=== PATIENT | male | born 1945 | race Caucasian/White ===

== ENCOUNTER 2016-03-19 09:24 | Outpatient (CLI) ==
[2016-03-19 09:41] LABS: BASOPHILS # (AUTO) 0.1 K/uL (0-0.2); BASOPHILS % (AUTO) 0.7 % (0.0-3.0); EOSINOPHILS # (AUTO) 0.3 K/ul (0.0-0.7); HEMATOCRIT 47.7 % (42.0-52.0); HEMOGLOBIN 16.4 g/dl (14.0-18.0); IMMATURE GRANULOCYTE % (AUTO) 0.9 % (0.0-5.0); LYMPHOCYTES # (AUTO) 3.4 K/uL (0.60-3.4); LYMPHOCYTES % (AUTO) 34.3 (10.0-50.0); MEAN CORPUSCULAR HGB CONC 34.4 (31.8-35.4); MEAN CORPUSCULAR VOLUME 84.3 fl (80.0-94.0); MONOCYTES # (AUTO) 0.8 K/uL (0.4-2.0); MONOCYTES % (AUTO) 8.4 (0-10); NEUTROPHILS # (AUTO) 5.2 K/ul (2.0-6.9); NEUTROPHILS % (AUTO) 52.7; PLATELET COUNT 335 10^3/uL (140-440); RED BLOOD COUNT 5.66 10^6/ul (4.70-6.10); WHITE BLOOD COUNT 9.78 K/ul (4.2-10.2)
[2016-03-19 10:26] LABS: ALBUMIN 3.1 g/dL (3.4-5.0); ALBUMIN/GLOBULIN RATIO 0.74; ANION GAP 16.3; BILIRUBIN,TOTAL 0.63 mg/dL (0.00-1.20); BUN/CREATININE RATIO 8.65; CALCIUM 9.5 mg/dL (8.2-10.2); CHOL/HDL RATIO 7.8 (4.5-6.4); CREATININE 1.04 mg/dL (0.60-1.10); POTASSIUM 4.3 mmol/L (3.5-5.1); TOTAL PROTEIN 7.3 g/dL (5.8-8.1)
== END 2016-03-19 09:25 | disposition home or self-care (01) ==
LOC: LAB 09:24
PROVIDERS: ATTEND Emergency Medicine
DX: E11.9 Type 2 diabetes mellitus without complications (principal); I10 Essential (primary) hypertension; E78.5 Hyperlipidemia, unspecified
CPT/HCPCS: 36415; 80053; 80061; 83036; 84443; 85025

== ENCOUNTER 2016-05-25 16:58 | Outpatient (CLI) | END 2016-05-25 16:59 | disposition home or self-care (01) | LOC: AMBL 16:58 | PROVIDERS: ATTEND Emergency Medicine | DX: R53.1 Weakness (principal); E11.9 Type 2 diabetes mellitus without complications; I10 Essential (primary) hypertension; Z91.14 Patient's other noncompliance with medication regimen ==

== ENCOUNTER 2016-07-17 08:15 | Outpatient (RCR) ==
--- NOTE | 2016-07-17 10:24 | RS.BEDDYS ---
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 Pt was independent with grooming, dressing, walking, eating, and swallowing.) Current Level of Function: This 71 year old male was referred for skilled speech therapy services due to chronic ischemic left ICA stroke and unspecified dysphagia. Symptoms began in the home environment and resulted in a two week hospital stay. Pt was discharged from the hospital and has reported choking and regurgitation episodes since return home. Pt's reports significant weight loss over eight months. Pt is at risk for aspiration and/or penetration. Current Diet: Regular diet texture with thin liquids. Current Subjective/complaints:: Pt reported no concerns with speech or cognitive -communication skills. Pt reported episodes of regurgitation, specifically with liquids. Concerns with certain food textures have also been reported and pt has stopped eating these textures. Pt stated medications are difficult to swallow and he has regurgitated medications in the past as well. He has verbalized a change with ability to taste flavors or enjoy taste of flavors, which has resulted in decreased appetite and decreased PO intake, as well as significant weight loss. is concerned with safe swallowing. Medical History Comments:: DM, CVA, Dyslipidemia, arthritis. Hx Home Medications: RESIDENTIAL PROGRAM WORKER reviewed current list of medications. Pt currently takes Protonix 1x in the a.m. for reflux. Patient's Goals: Pt wants to reduce regurgitation and increase PO intake. RESIDENTIAL PROGRAM WORKER to determine safest and least restrictive diet texture. General Information - General Patient Orientation: Person, Place, Time, Situation Ability to Follow Directions: Good Oral Expression Ability: No Impairment - Voice Voice Loudness: Mildly Soft/Quiet Oral-Facial Assessment - Face Facial Symmetry: Right Droop (Slight, but noticeable with oral mechanism examination.) Facial Movement: Controlled - Dental/Labial Teeth Characteristics: Missing Teeth Comment: Pt edentulous for seven years. Never wears dentures. Lip Protrusion: Weak Puff Cheeks: Reduced Strength - Lingual Protrusion: Weak (Deviation to left side) Tip Lateralization: Discoordination Repeated Tip Lateralization: Discoordination Tip Elevation: Normal Repeated Tip Elevation: Normal Food Presentation - Solids Food Presented: Mechanical Soft (Moderate lingual residue. Poor oral sensory awareness) - Liquids Liquid Presented: Thin (Via cup, no overt s/s of aspiration. Audible swallow, mild delay.) - Recommendations: Dysphagia Evaluation Dietary Recommendations: Dysphagia Mechanical Soft Comments:: RESIDENTIAL PROGRAM WORKER recommends mechanical-soft due to oral weakness and decreased lingual/oral sensation. Dysphagia Swallow Precautions/Strategies: Sitting Upright (90 deg), Alternate Liquids/Solids - Summary Dysphagia Evaluation Summary: Pt with oropharyngeal dysphagia, as characterized by lingual weakness, discoordination with lateral lingual movement, moderate lingual residue with limited sensory awareness, mild swallow delay, audible swallow, and decreased laryngeal elevation. RESIDENTIAL PROGRAM WORKER recommends soft diet and alternating liquids and solids to clear residue. Further evaluation with modified barium swallow study to be completed. No overt s/s of aspiration at the bedside, however pt reports mutliple occasions of choking and regurgitation with liquids and some food textures. Further Therapy Indicated?: Yes Comments: Determine frequency and duration and goals of therapy post modified bariums swallow study. Rehab Potential: Good Functional Reporting G Codes: Current CJ Goal CI Severity Impairment Rationale: Pt edentulous and RESIDENTIAL PROGRAM WORKER recommends mechanical soft diet texture with thin liquids. Short Term Goals Problem: Regurgitation with thin liquids Goal #1: Pt to utilize strategies without overt s/s of aspiraiton. Goal to be met by: 08/01/16 Problem: Lingual residue Goal #2: Pt to complete lingual exercises with 80% accuracy. Goal to be met by: 08/01/16 Wash Driller Helper Goals Problem: Swallowing Goal #1: Pt to consume PO intake without overt s/s of aspiration Goal to be met by: 08/01/16 Plan Duration of Treatment: 2 Weeks Frequency of Treatment: 1-2 X day, as tolerated Anticipated Discharge Destination: Home Comments: Pt to have modified barium swallow study at next visit.
== END 2016-07-23 ==
PROVIDERS: ATTEND Clinical Nurse Specialist Adult Health
DX: I69.30 Unspecified sequelae of cerebral infarction (principal); E13.9 Other specified diabetes mellitus without complications; E78.5 Hyperlipidemia, unspecified; R13.10 Dysphagia, unspecified

== ENCOUNTER 2016-07-31 14:14 | Outpatient (CLI) | payer OTHER ==
--- NOTE | 2016-07-31 15:05 | DI ---
EXAM: Right knee four views HISTORY: Pain COMPARISON: None FINDINGS: No fracture or dislocation. Mild narrowing medial compartment. Joint effusion. Quadric eps tendon enthesopathy. Atherosclerotic vascular calcification IMPERSSION: 1. No fracture or dislocation. 2. Mild osteoarthritis medial compartment
== END 2016-07-31 14:15 | disposition home or self-care (01) ==
LOC: RAD 14:14
PROVIDERS: ATTEND Internal Medicine
DX: M25.561 Pain in right knee (principal); M25.461 Effusion, right knee; I69.30 Unspecified sequelae of cerebral infarction; R13.10 Dysphagia, unspecified; E13.9 Other specified diabetes mellitus without complications; E78.5 Hyperlipidemia, unspecified; M25.551 Pain in right hip

== ENCOUNTER 2016-08-01 09:24 | Outpatient (CLI) | payer OTHER ==
--- NOTE | 2016-08-01 11:14 | DI ---
EXAM: Modified barium swallow HISTORY: Dysphagia. Technique: Lateral video fluoroscopy was performed in conjunction with speech therapy using multipl e consistencies to evaluate swallowing function. Findings / impression: No aspiration or penetration was observed. Patient had difficulty swallowin g a pill with thin liquids. Mild to moderate degenerative disc disease of the cervical spine. Plea se see dedicated speech pathology report for additional details.
--- NOTE | 2016-08-01 11:36 | RS.MODBRM ---
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 Pt was indepednet with grooming, dressing, walking, eating, and swallowing.) Current Level of Function: This 71 year old male was referred for a modified barium swallow study due to reports and cocerns noted at the outpatient bedside swallow evaluation. RESEARCH AND DEVELOPMENT SPECIALIST assessed pt with mechanical soft and thin liquids. Swallow function observed with left side weakness, lingual discoordination, and moderate oral residue, as well as delay in swallow initiation. No overt s/s of aspiration at the bedside. Pt reported concerns with weight loss, loss of appetite, reguritation with thin liquids and medications, and was concerned with safe swallowing. Current Diet: Mechanical soft diet texture with thin liquids. Current Subjective/complaints:: At time of evaluation, pt reported no changes with swallow function since BSE completed on 07/17/16 (review BSE for complete details). Pt stated he had maintained weight and had no episodes of choking or reguritation with medications or food texture. Appetite was unchanged as well, and he reported no change with interest to increase PO intake. reported no new concerns and had followed RESEARCH AND DEVELOPMENT SPECIALIST recommendations with mechanical soft diet texture. Pt continues to consume PO intake edentulous. Medical History Comments:: DM, CVA, Dyslipidemia, arthritis. Hx Home Medications: RESEARCH AND DEVELOPMENT SPECIALIST reviewed current list of medications. Patient's Goals: To maintain weight and consume safest and least restrictive diet texture without s/s of aspiration. Food Presented Thin Liquid: cup (open cup 3 trials) Vanilla Wafer: 1/4 cookie (1/2 hanh cracker cookie) Barium Tablet: Tablet (thin liquids and teaspoon of applesauce.) Other:: Regular sausage jamshid 1/2 teaspoon bite. Oral Phase - Oral Phase Labial Closure: WFL Bolus Formation: Mild Impairment (With regular texture and mechanical soft texture.) Mastication: Mild Impairment (decreased rotary chew.) Lingual Movement: Moderate Impairment (Lingual base retraction with regular texture and premature spillage. Piece meal deglution) A/P Propulsion: Mild Impairment Premature Vallecular Pooling: Coating (With thin liquids) Oral Residue: Coating (regular and mechanical soft diet textures.) Pharyngeal Phase Pharyngeal Response: Mild Impairment (Decreased swallow response) Base of Tongue: Moderate Impairment (Decreased strength and coordination; mild- moderate spillage) Epiglottic Movement: Mild Impairment (Inversion) Laryngeal Excursion: Mild Impairment Vallecular Residue: Scant Pyriform Residue: Coating (premature spillage to pyriform sinues prior to initiation of swallow response.) Summary and Recommendations - Recommendations PO Diet: Mechanical Soft, Chopped Meats, Moist, Thin Liquids Comments:: Pt characterized with mild orophayngeal dysphagia due to lingual weakness and swallow delay. Pt has mild risk for aspiraiton/penetration due to premature spillage to pyriform sinuses with thin liquids. No aspiration/ penetration observed on MBSS over 2 consecutive thin liquid drinks via open cup or thin liquids with pills and liquid wash. Decreased base of tongue strength and lingual coordination, however functional to consume mechanical soft diet texture, with mild risk for valleculae residue during full meal. RESEARCH AND DEVELOPMENT SPECIALIST recommends pt to follow safe swallow strategies and increase PO intake to 6-8 small meals to maintain weight. All medications to be administered whole in teaspoon of applesauce, pudding, or yogurt. Further Therapy Indicated?: No Functional Reporting G Codes: Current CJ , Goal CJ, Discharge CJ Severity Impairment Rationale: Pt consumes mechanical soft diet texture with thin liquids. Pt is at risk for aspriation/penetration due to decreased base of tongue strength and mild swallow delay. Short Term Goals Problem: Regurgitation with thin liquids Goal #1: Pt to utilize strategies without overt s/s of aspiraiton. Goal to be met by: 08/01/16 Problem: Lingual residue Goal #2: Pt to complete lingual exercises with 80% accuracy. Goal to be met by: 08/01/16 Brush Or Broom Cutter Goals Problem: Swallowing Goal #1: Pt to consume PO intake without overt s/s of aspiration Goal to be met by: 08/01/16 Plan Duration of Treatment: One Time Treatment Frequency of Treatment: One time treatment Anticipated Discharge Destination: Home Comments: Pt is observed with non-compliant behaviors as evidenced by impulsivity and refusal of tasks. RESEARCH AND DEVELOPMENT SPECIALIST provided verbal instructions to for program to be completed at home to decrease risk for aspiraiton/penetration. If pt was cooperative for skilled services, RESEARCH AND DEVELOPMENT SPECIALIST would complete base of tongue exercises and sensory awareness tasks with swallow response to decrease risk of aspriation/penetration and increase efficiency of swallow function. Pt swallow function at this time is functional to meet daily needs, however may need follow -up in 12 months is health status declines.
== END 2016-08-01 09:25 | disposition home or self-care (01) ==
LOC: RAD 09:24
PROVIDERS: ATTEND Clinical Nurse Specialist Adult Health
DX: R13.10 Dysphagia, unspecified (principal); I63.9 Cerebral infarction, unspecified

== ENCOUNTER 2016-08-21 08:00 | Outpatient (RCR) ==
--- NOTE | 2016-07-28 15:03 | RS.OPPTEV2 ---
Date of Note: 07/24/16 Visit #: 1 Date of Evaluation: 07/24/16 Payer Source: MEDICARE Date of Onset/Injury/Change in Status: 05/25/16 Treatment Diagnosis: Right LE weakness, right hip and knee pain, gait abnormality History of Condition/Mechanism of Injury:: Patient reports having a CVA on . His states he apparently had it while driving home from [place], [place]. When they arrived home, he could not get out of the car or walk. He was taken to the hospital and ended up being there two weeks. 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 Pt was independent with grooming, dressing, walking, eating.), Ambulation/Mobility, Community Integration/Access (Driving, would go to [employer] every morning per ) Functional Limitations: ADL's, Reaching, Pushing, Pulling, Lifting, Carrying, Standing, Bending, Squatting, Ambulation, Community Access/Integration Current Subjective/complaints:: Patient reports right hip and knee pain. Also reports weakness of the right LE. States he has fallen several times since being home from the hospital. He reports two falls in the last two days. States the right knee hurts with every step and will just buckle and cause him to fall. Both he and his report frustration that the right knee has not been addressed. Reports knee pain with all movement and weight bearing. States he is using a rolling walker. States "I can't hold my balance without it ". He denies dizziness. Stats he has constant tingling in the right LE. His reports he always looks down while walking. Treatment Side (optional): Right Medical History Medical History: CVA/TIA, Diabetes, Arthritis Medical History Comments:: Dyslipidemia , History of Polio as a child Surgical History: Cholecystectomy Surgical History Comments:: Appendectomy, hernia repair Hx Home Medications: Lipitor, invokana, gabapentin, Luther, tradjenta, metformin , protonix, spiriva Patient's Goals: His goal is to gain strength in the right knee. Pain Assessment - Pain Description Pain Location: right knee Pain Description: Sharp, Aching, Acute Current Pain Intensity: 5/10 Worst Pain Intensity: 10/10 Functional Outcome Measure LE Functional Scale: 20 (20/80=75% impairment) - G Codes & Severity Modifier G Codes & Modifier: Mob current CL. Mob goal CJ Source of G Code score: LE functional scale Observation - Observation Posture: Forward Head, Rounded Shoulders, Decreased Lumbar Lordosis Gait - Gait Pattern Gait Comments: Patient ambulates with a rolling walker independently. He demonstrates decreased right knee and hip flexion during swing phase and maintains slight knee bend at foot flat stance. Exhibits decreased heel strike on the right LE. Stance on the right LE is decreased compared to left stance phase. He does not demonstrate foot drop on the right LE, but active DF on the right is less than what he demonstrates on the left LE during ambulation. Patient keeps his head down, looking at the floor while ambulating. General Range of Motion: AROM is WFL's throughout bilateral LE's and UE's. He reports severe right knee pain with active and passive right knee ROM. Muscle Strength: Left LE strength is generally 4+/5 throughout. Right hip 4/5 throughout, knee 4-/5, ankle 4/5. Trunk strength is Good. Animal Sitter strength: right 49 lbs, left 58 lbs. Right UE strength generally 4 to 4+/5. Left UE 4+ to 5/5. Sensation - Sensation Comments: Reports constant tingling and numbness throughout the right LE. Balance - Sitting Balance Static Sitting Balance: Good Dynamic Sitting Balance: Good - Standing Balance Static Standing Balance: Fair (+) Dynamic Standing Balance: Fair - Comments Balance Assessment Comments: Static balance with eyes closed, patient demonstrates anterior/posterior sway. Coordination - Tests Bilateral Toe Tapping: Normal/Intact Interventions - Exercise/Activities/Manual Therapy Exercises/Activities: NA Manual Therapy: NA - Charges Total Direct Minutes: 50 mins Total Treatment Time: 50 mins Procedures billed for this date of service:: EVAL Medium Assessment Assessment: Patient presents to therapy with a diagnosis of ischemic left ICA stroke. He presents with weakness of the right LE throughout. He reports right hip and knee pain. Knee pain is reported with all movement of the right and during MMT. He and his reports two falls in the last two days. He demonstrates to be at a high risk for falls due to right LE weakness, knee pain , and impaired sensation in the right LE. He will benefit from strengthening and balance activities to improve right LE joint stability and decrease his risk for falls. Patient Education: Education of diagnosis, Body/Joint mechanics, Home Exercise Program, Home Safety, Activity Modification, Education of Plan of Care Rehab Potential: Good Short Term Goals Goal #1: Patient independent in basic HEP. Goal to be met by: 08/11/16 Goal #2: Right quad strength 4+/5. Goal to be met by: 08/11/16 Goal #3: Right ankle strength 4+/5. Goal to be met by: 08/11/16 Goal #4: Patient to report minimal right knee pain with activity/exercises. Goal to be met by: 08/11/16 Senior Care Goals Goal #1: Pt knows HEP and to continue ex's to maintain functional level at D/C. Goal to be met by: 09/06/16 Goal #2: Score on LE functional scale improved to 60/80. Goal to be met by: 09/06/16 Goal #3: Pt to amb. community distances with AAD, good safety, and min. gt deviation Goal to be met by: 09/06/16 Goal #4: Patient to reports no falls. Goal to be met by: 09/06/16 Plan - Treatment to be Provided Procedures: Therapeutic Exercises, Therapeutic Activity, Gait Training, Neuromuscular Rehab, Patient Education Modalities: Electrical Stimulation, Ultrasound/Phonophoresis, Cryotherapy, Hot Packs Other:: Modalities to right knee for pain control. - Treatment Plan Frequency: 2-3 X week Duration: 4 weeks ORDER # VISITS AND/OR THROUGH DATE: 09/06/16 - Treatment Code (1) Leg weakness Qualifiers: Laterality: right Qualified Description: Weakness of right lower extremity Qualifier Code(s): (R29.898) Other symptoms and signs involving the musculoskeletal system (2) Gait abnormality Comments: R26.9 (3) Chronic ischemic left ICA stroke Comments: I69.30
--- NOTE | 2016-07-29 09:20 | RS.OPPTDN ---
Subjective Date of Note: 07/29/16 Visit #: 2 Date of Evaluation: 07/24/16 Payer Source: MEDICARE Treatment Diagnosis: Right LE weakness, right hip and knee pain, gait abnormality Current Subjective/complaints:: Reports the R knee feels painful and numb. Pain Assessment - Pain Description Pain Location: right knee Pain Description: Sharp, Aching, Acute Current Pain Intensity: 8/10 Other Comments regarding Pain:: "feels numb" - Treatment Modality: Electrical Stim Unattended Parameters/Method Applied: 20 mins. high volt to R knee,channel 1 @ 190-205 pv, channel 2 @ 290 -300 pv. Patient Position: Supine - Heat/Cryotherapy Treatment: Cryotherapy (concurrent with e-stim) Interventions - Exercise/Activities/Manual Therapy Exercises/Activities: Attempted exercises ,but unable to tolerate passive or active motion due to pain and hypersensitive to touch. Total minutes of Exercise: 0 Manual Therapy: NA - Charges Total Direct Minutes: 0 Total Treatment Time: 20 Procedures billed for this date of service:: cp,e-stim Assessment: Patient reports no relief today,restless while in supine and during the modalities.He could not tolerate the passive or active motion on the R knee.He and his plan to follow-up with the regarding the continued knee pain. Patient Education: Education of diagnosis, Home Safety Short Term Goals Goal #1: Patient independent in basic HEP. Goal to be met by: 08/11/16 Goal #2: Right quad strength 4+/5. Goal to be met by: 08/11/16 Goal #3: Right ankle strength 4+/5. Goal to be met by: 08/11/16 Goal #4: Patient to report minimal right knee pain with activity/exercises. Goal to be met by: 08/11/16 Biology Specimen Technician Goals Goal #1: Pt knows HEP and to continue ex's to maintain functional level at D/C. Goal to be met by: 09/06/16 Goal #2: Score on LE functional scale improved to 60/80. Goal to be met by: 09/06/16 Goal #3: Pt to amb. community distances with AAD, good safety, and min. gt deviation Goal to be met by: 09/06/16 Goal #4: Patient to reports no falls. Goal to be met by: 09/06/16 Plan PLAN OF CARE EXPIRES ON:: 09/06/16 ORDER # VISITS AND/OR THROUGH DATE: 09/06/16 PLAN: Continue Plan of Care
--- NOTE | 2016-07-31 09:04 | RS.OPPTDN ---
Subjective Date of Note: 07/31/16 Visit #: 3 Date of Evaluation: 07/24/16 Payer Source: MEDICARE Treatment Diagnosis: Right LE weakness, right hip and knee pain, gait abnormality Current Subjective/complaints:: Reports no relief after last treatment,R leg is hurting more today.He has appt. today with Dr. Glenn Crain regarding his knee pain. Pain Assessment - Pain Description Pain Location: right knee Pain Description: Sharp, Aching, Acute Current Pain Intensity: 10/10 - Treatment Modality: Ultrasound Parameters/Method Applied: 20 mins. high volt to R knee,channel 1 @ 300 pv, channel 2 @ 475 pv. Patient Position: Supine - Heat/Cryotherapy Treatment: Cryotherapy (concurrent with e-stim) Interventions - Exercise/Activities/Manual Therapy Exercises/Activities: Attempted exercises ,but unable to tolerate passive or active motion due to pain and hypersensitive to touch. Total minutes of Exercise: 0 Manual Therapy: NA Total minutes of Manual Therapy: 0 - Charges Total Direct Minutes: 0 Total Treatment Time: 20 Procedures billed for this date of service:: cp,e-stim Assessment: Patient reports elevated pain again today ,unable to tolerate exercises.Dr.Bharet Crain's office contacted to give report of patient status as he has appt. this afternoon regarding the R knee pain. Patient Education: Education of Plan of Care Short Term Goals Goal #1: Patient independent in basic HEP. Goal to be met by: 08/11/16 Progress towards Goal:: No Change Goal #2: Right quad strength 4+/5. Goal to be met by: 08/11/16 Progress towards Goal:: No Change Goal #3: Right ankle strength 4+/5. Goal to be met by: 08/11/16 Progress towards Goal:: No Change Goal #4: Patient to report minimal right knee pain with activity/exercises. Goal to be met by: 08/11/16 Longterm Goals Goal #1: Pt knows HEP and to continue ex's to maintain functional level at D/C. Goal to be met by: 09/06/16 Goal #2: Score on LE functional scale improved to 60/80. Goal to be met by: 09/06/16 Goal #3: Pt to amb. community distances with AAD, good safety, and min. gt deviation Goal to be met by: 07/15/17 Goal #4: Patient to reports no falls. Goal to be met by: 09/06/16 Plan PLAN OF CARE EXPIRES ON:: 09/06/16 ORDER # VISITS AND/OR THROUGH DATE: 09/06/16 PLAN: Continue Plan of Care
--- NOTE | 2016-08-05 09:00 | RS.OPPTDN ---
Subjective Date of Note: 08/05/16 Visit #: 4 Date of Evaluation: 07/24/16 Payer Source: MEDICARE Treatment Diagnosis: Right LE weakness, right hip and knee pain, gait abnormality Current Subjective/complaints:: Patient reports the R knee pain is about the same,but he appears to be walking better as he enters the clinic.He had R knee X -ray last week,no indication of fracture or dislocation,has arthritis and joint effusion. Pain Assessment - Pain Description Pain Location: right knee Pain Description: Tightness, Aching, Acute Current Pain Intensity: 8/10 - Heat/Cryotherapy Treatment: Hot Pack (20 mins. prior to exercises) Interventions - Exercise/Activities/Manual Therapy Exercises/Activities: 20 mins.total, 3/15 reps. of heelslides with assist,hip abd/add,patient education for inhibition of muscle tone. Total minutes of Exercise: 20 Manual Therapy: NA Total minutes of Manual Therapy: 0 HOME EXERCISE PROGRAM: Gentle stretching as tolerated to R LE.(Dependent upon tone in the LE from recent CVA). - Charges Total Direct Minutes: 20 Total Treatment Time: 40 Procedures billed for this date of service:: hp,ex Assessment: Patient has difficulty understanding the difference between actual joint pain and the hypertonus pain in the R LE.He does actually have improved knee motion when at rest,but the tone increases as the active motion exercises progress. Patient Education: Education of diagnosis, Body/Joint mechanics, Home Exercise Program, Home Safety, Activity Modification, Education of Plan of Care Short Term Goals Goal #1: Patient independent in basic HEP. Goal to be met by: 08/11/16 Progress towards Goal:: Progressing Goal #2: Right quad strength 4+/5. Goal to be met by: 08/11/16 Goal #3: Right ankle strength 4+/5. Goal to be met by: 08/11/16 Goal #4: Patient to report minimal right knee pain with activity/exercises. Goal to be met by: 08/11/16 Halfway Goals Goal #1: Pt knows HEP and to continue ex's to maintain functional level at D/C. Goal to be met by: 09/06/16 Progress towards goal: Progressing Goal #2: Score on LE functional scale improved to 60/80. Goal to be met by: 09/06/16 Goal #3: Pt to amb. community distances with AAD, good safety, and min. gt deviation Goal to be met by: 09/06/16 Goal #4: Patient to reports no falls. Goal to be met by: 09/06/16 Plan PLAN OF CARE EXPIRES ON:: 09/06/16 ORDER # VISITS AND/OR THROUGH DATE: 09/06/16 PLAN: Continue Plan of Care
--- NOTE | 2016-08-07 09:52 | RS.OPPTDN ---
Subjective Date of Note: 08/07/16 Visit #: 5 Date of Evaluation: 07/24/16 Payer Source: MEDICARE Treatment Diagnosis: Right LE weakness, right hip and knee pain, gait abnormality Current Subjective/complaints:: Reports he is trying to do exercises at home holding to the kitchen sink area,as instructed by home health.He requests no ice or heat to the R LE today,but agrees to e-stim. Pain Assessment - Pain Description Pain Location: right knee Pain Description: Tightness, Aching, Acute Current Pain Intensity: not rated today - Treatment Modality: Electrical Stim Unattended Parameters/Method Applied: 20 mins. IFC to the R LE,@ 20 pv,4 large electrodes, 2 above ,2 below the knee. Patient Position: Supine Interventions - Exercise/Activities/Manual Therapy Exercises/Activities: 25 mins.total, 3/15 reps. AROM of heelslides,then LAQ's, 10 reps. gentle stretches to R hamstrings.Gait training in gym for ~ 50 with SC in L hand ,then R with min assist,then hand-hold assist with min/mod assist.Ended session with using R/w and sup/CGA of 1. Total minutes of Exercise: 25 Manual Therapy: NA HOME EXERCISE PROGRAM: Gentle stretching as tolerated to R LE.(Dependent upon tone in the LE from recent CVA). - Charges Total Direct Minutes: 25 Total Treatment Time: 45 Procedures billed for this date of service:: e-stim,gt.,NMR Assessment: Patienthas less tone in the R LE today with exercises,has steadier gait with R/W.He uses proper step sequence with cane ,but is sligtly unsteady and the R LE tone increase as the gait progresses.He agrees that the R/W is the appropriate device for walking at this time. Patient Education: Education of diagnosis, Body/Joint mechanics, Home Exercise Program, Home Safety, Activity Modification, Education of Plan of Care Patient demonstrates compliance with HEP?: Yes Short Term Goals Goal #1: Patient independent in basic HEP. Goal to be met by: 08/11/16 Progress towards Goal:: Progressing Goal #2: Right quad strength 4+/5. Goal to be met by: 08/11/16 Progress towards Goal:: Progressing Goal #3: Right ankle strength 4+/5. Goal to be met by: 08/11/16 Goal #4: Patient to report minimal right knee pain with activity/exercises. 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 Goal to be met by: 09/06/16 Progress towards goal: Progressing Goal #2: Score on LE functional scale improved to 60/80. Goal to be met by: 09/06/16 Goal #3: Pt to amb. community distances with AAD, good safety, and min. gt deviation Goal to be met by: 09/06/16 Goal #4: Patient to reports no falls. Goal to be met by: 09/06/16 Plan PLAN OF CARE EXPIRES ON:: 09/06/16 ORDER # VISITS AND/OR THROUGH DATE: 09/06/16 PLAN: Continue Plan of Care
--- NOTE | 2016-08-12 09:28 | RS.OPPTDN ---
Subjective Date of Note: 08/12/16 Visit #: 6 Date of Evaluation: 07/24/16 Payer Source: MEDICARE Treatment Diagnosis: Right LE weakness, right hip and knee pain, gait abnormality Current Subjective/complaints:: Patient reports yesterday the R leg felt better, but it is hurting more today.He does enter clinic wih antalgic gait today,delicia nues to use rolling walker for safety,does not feel safe with cane at this time. Pain Assessment - Pain Description Pain Location: right knee Pain Description: Tightness, Aching Current Pain Intensity: "02/01" - Heat/Cryotherapy Treatment: Hot Pack (20 mins.to R quads after balance training ) Interventions - Exercise/Activities/Manual Therapy Exercises/Activities: 30 mins.total, on BIODEX BALANCE SYSTEM for postural stability,limits of stability,weight shifting,percentage weight bearing with the base on static setting. Total minutes of Exercise: 30 Manual Therapy: NA Total minutes of Manual Therapy: 0 HOME EXERCISE PROGRAM: Gentle stretching as tolerated to R LE.(Dependent upon tone in the LE from recent CVA). - Charges Total Direct Minutes: 30 Total Treatment Time: 50 Procedures billed for this date of service:: NMR 2,hp Assessment: Patient tolerates BIODEX BALANCE SYSTEM fairly well today,with frequent rest periods due to increased tone the longer he stands.We discussed inhibition techniques for the R LE tone ,but he and his need further education in regards to this.They have difficulty differentiating between arthritic pain vs. neuralgia and hypertonus. Patient Education: Education of diagnosis, Body/Joint mechanics, Home Exercise Program, Home Safety, Activity Modification, Education of Plan of Care Short Term Goals Goal #1: Patient independent in basic HEP. Goal to be met by: 08/11/16 Progress towards Goal:: Progressing Goal #2: Right quad strength 4+/5. Goal to be met by: 08/11/16 Progress towards Goal:: Progressing Goal #3: Right ankle strength 4+/5. Goal to be met by: 08/11/16 Goal #4: Patient to report minimal right knee pain with activity/exercises. 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 Goal to be met by: 09/06/16 Progress towards goal: Progressing Goal #2: Score on LE functional scale improved to 60/80. Goal to be met by: 09/06/16 Goal #3: Pt to amb. community distances with AAD, good safety, and min. gt deviation Goal to be met by: 09/06/16 Progress towards goal: Progressing Goal #4: Patient to reports no falls. Goal to be met by: 09/06/16 Plan PLAN OF CARE EXPIRES ON:: 09/06/16 ORDER # VISITS AND/OR THROUGH DATE: 09/06/16 PLAN: Continue Plan of Care
--- NOTE | 2016-08-14 09:10 | RS.OPPTDN ---
Subjective Date of Note: 08/14/16 Visit #: 7 Date of Evaluation: 07/24/16 Payer Source: MEDICARE Treatment Diagnosis: Right LE weakness, right hip and knee pain, gait abnormality Current Subjective/complaints:: Patient reports the R leg hurts continuously, and yesterday was a terrible day. Pain Assessment - Pain Description Pain Location: right knee Pain Description: Tightness, Aching Current Pain Intensity: 10/10 Interventions - Exercise/Activities/Manual Therapy Exercises/Activities: 40 mins.total, begining on leg press.3/15 reps. @ 45,60, 75 # with both LE's,then 3/15 reps with R LE only @ 30#.15 # resistance for 20 reps. of knee flexion between 20 degrees flexed and terminal extension.Supine SLR's for 3/10 with 2#,SAQ's with 4#,also 3/10.Yellow theraband resistance for hamstring curls with leg on bolster. Total minutes of Exercise: 40 Manual Therapy: NA Total minutes of Manual Therapy: 0 HOME EXERCISE PROGRAM: Gentle stretching as tolerated to R LE.(Dependent upon tone in the LE from recent CVA). - Charges Total Direct Minutes: 40 Total Treatment Time: 40 Procedures billed for this date of service:: ex 3 Assessment: Patient tolerates resistive exercises fairly well,has difficulty with eccentric control due to muscle weakness.He reports the exercises on leg press do not elevate the residual pain from the recent CVA,but has fatigue present.He continues to be safer with rolling walker,due to the R knee occasionally "simon" ,but he is able to self-correct his balance.It is questionable regarding compliance to HEP when asked.He states he walks frequently,but his reports differently. Patient Education: Education of diagnosis, Body/Joint mechanics, Home Exercise Program, Home Safety, Activity Modification, Education of Plan of Care Short Term Goals Goal #1: Patient independent in basic HEP. Goal to be met by: 08/11/16 Progress towards Goal:: Progressing Goal #2: Right quad strength 4+/5. Goal to be met by: 08/11/16 Progress towards Goal:: Progressing Goal #3: Right ankle strength 4+/5. Goal to be met by: 08/11/16 Progress towards Goal:: Progressing Goal #4: Patient to report minimal right knee pain with activity/exercises. 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 Goal to be met by: 09/06/16 Progress towards goal: No Change Comments: Compliance is questionable. Goal #2: Score on LE functional scale improved to 60/80. Goal to be met by: 09/06/16 Goal #3: Pt to amb. community distances with AAD, good safety, and min. gt deviation Goal to be met by: 09/06/16 Progress towards goal: Progressing Goal #4: Patient to reports no falls. Goal to be met by: 09/06/16 Plan PLAN OF CARE EXPIRES ON:: 09/06/16 ORDER # VISITS AND/OR THROUGH DATE: 09/06/16 PLAN: Continue Plan of Care
--- NOTE | 2016-08-18 09:30 | RS.OPPTDN ---
Subjective Date of Note: 08/18/16 Visit #: 8 Date of Evaluation: 07/24/16 Payer Source: MEDICARE Treatment Diagnosis: Right LE weakness, right hip and knee pain, gait abnormality Current Subjective/complaints:: Reports increased soreness and increased swelling in the R knee yesterday.He ambulates with minimal trunk /pelvic rotation in the R. Pain Assessment - Pain Description Pain Location: right knee Pain Description: Tightness, Throbbing, Aching Current Pain Intensity: 8/10 - Heat/Cryotherapy Treatment: Hot Pack (20 mins. to R knee prior to exercises) Interventions - Exercise/Activities/Manual Therapy Exercises/Activities: 30 mins.total, for inhibition ,stretching to R LE in all directions,lower trunk rotation in hooklying,sitting and standing weight -shift. Total minutes of Exercise: 30 Manual Therapy: NA Total minutes of Manual Therapy: 0 HOME EXERCISE PROGRAM: Gentle stretching as tolerated to R LE.(Dependent upon tone in the LE from recent CVA). - Charges Total Direct Minutes: 30 Total Treatment Time: 50 Procedures billed for this date of service:: hp,ex 2 Assessment: Patient has increased hypertonus in the R LE today,very restless, and reports the " locking up" sensation frequently.The tone does not decrease with increased weight shift,and eventually decreases with deep pressure to the muscles or static prolonged stretching. Patient Education: Education of diagnosis, Body/Joint mechanics, Home Exercise Program, Home Safety, Activity Modification, Education of Plan of Care Patient demonstrates compliance with HEP?: Yes Short Term Goals Goal #1: Patient independent in basic HEP. Goal to be met by: 08/11/16 Progress towards Goal:: Progressing Goal #2: Right quad strength 4+/5. Goal to be met by: 08/11/16 Progress towards Goal:: No Change Goal #3: Right ankle strength 4+/5. Goal to be met by: 08/11/16 Progress towards Goal:: No Change Goal #4: Patient to report minimal right knee pain with activity/exercises. 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 Goal to be met by: 09/06/16 Progress towards goal: Progressing Goal #2: Score on LE functional scale improved to 60/80. Goal to be met by: 09/06/16 Goal #3: Pt to amb. community distances with AAD, good safety, and min. gt deviation Goal to be met by: 09/06/16 Progress towards goal: No Change Goal #4: Patient to reports no falls. Goal to be met by: 09/06/16 Progress towards goal: Progressing Plan PLAN OF CARE EXPIRES ON:: 09/06/16 ORDER # VISITS AND/OR THROUGH DATE: 09/06/16 PLAN: Continue Plan of Care
--- NOTE | 2016-08-21 09:30 | RS.OPPTDN ---
Subjective Date of Note: 08/21/16 Visit #: 9 Date of Evaluation: 07/24/16 Payer Source: MEDICARE Treatment Diagnosis: Right LE weakness, right hip and knee pain, gait abnormality Current Subjective/complaints:: Patient reports the R leg feels , "locked up " most of the time , referring to the tone.He feels the therapy is only minimal relief. Pain Assessment - Pain Description Pain Location: right knee Pain Description: Tightness, Throbbing, Aching Current Pain Intensity: 8/10 - Heat/Cryotherapy Treatment: Hot Pack (20 mins. prior to exercises) Interventions - Exercise/Activities/Manual Therapy Exercises/Activities: 30 mins.total, for inhibition ,stretching to R LE in all directions,lower trunk rotation in hooklying,sitting and standing weight - shift.HEP review with present ,education for inhibition techniques due to the frequent hypertonus in the R LE. Total minutes of Exercise: 30 Manual Therapy: NA Total minutes of Manual Therapy: 0 HOME EXERCISE PROGRAM: Gentle stretching as tolerated to R LE.(Dependent upon tone in the LE from recent CVA). - Charges Total Direct Minutes: 30 Total Treatment Time: 50 Procedures billed for this date of service:: hp,ex 2 Assessment: No significant change or progress toward rehab goals.He continues to have hypertonus in the R LE.He does appear to have increased awareness of how to inhbit the tone with weight-shift or aplication of pressure to the muscles.He is aware of D/C plan today. Patient Education: Education of diagnosis, Body/Joint mechanics, Home Exercise Program, Home Safety, Activity Modification, Education of Plan of Care Short Term Goals Goal #1: Patient independent in basic HEP. Goal to be met by: 08/11/16 Progress towards Goal:: Progressing Goal #2: Right quad strength 4+/5. Goal to be met by: 08/11/16 Progress towards Goal:: No Change Goal #3: Right ankle strength 4+/5. Goal to be met by: 08/11/16 Progress towards Goal:: No Change Goal #4: Patient to report minimal right knee pain with activity/exercises. Goal to be met by: 08/11/16 Progress towards Goal:: No Change [facility] Goals Goal #1: Pt knows HEP and to continue ex's to maintain functional level at D/C. Goal to be met by: 09/06/16 Progress towards goal: Progressing Goal #2: Score on LE functional scale improved to 60/80. Goal to be met by: 09/06/16 (3 point improvement) Progress towards goal: No Change Goal #3: Pt to amb. community distances with AAD, good safety, and min. gt deviation Goal to be met by: 09/06/16 Progress towards goal: No Change Goal #4: Patient to reports no falls. Goal to be met by: 09/06/16 Progress towards goal: Progressing Plan PLAN OF CARE EXPIRES ON:: 08/07/16 ORDER # VISITS AND/OR THROUGH DATE: 09/06/16 PLAN: Plan for Discharge Comments:: No significant progress at this time.
== END 2016-08-22 ==
PROVIDERS: ATTEND Clinical Nurse Specialist Adult Health
DX: I69.30 Unspecified sequelae of cerebral infarction (principal); R13.10 Dysphagia, unspecified; E13.9 Other specified diabetes mellitus without complications; E78.5 Hyperlipidemia, unspecified; M25.551 Pain in right hip

== ENCOUNTER 2017-09-07 10:43 | Outpatient (CLI) ==
--- NOTE | 2017-09-07 12:46 | CT ---
EXAM: CT abdomen pelvis without contrast HISTORY: Abdominal protrusion and abdominal pain COMPARISON: Abdominal ultrasound 06/12/[address] abdomen pelvis 05/18/2012 TECHNIQUE: Serial axial images of the abdomen pelvis were performed from the lung bases through the inferior pelvis without contrast. These were viewed in multiple planes. FINDINGS: There is a 0.2 cm ground-glass perifissural nodule right lower lobe on image 1. Lungs are otherwise clear. Evaluation is limited due to lack of contrast. The liver is unremarkable. The adrenal glands are un remarkable. The kidneys are normal. There is a nonobstructing 0.4 cm left renal stone. The spleen is normal. The pancreas is unremarkable. The stomach is distended. Small bowel in the abdomen pelvis is unremarkable. The colon is unremarkable. Urinary bladder is di stended. The prostate is prominent. There is no free air, free fluid or pathologically enlarged lym ph nodes. There is moderate atherosclerotic disease. There are surgical changes in the anterior abd ominal wall consistent with prior surgery. There are few scattered granulomas at the site of surgery in the subcutaneous fat with minimal ground-glass. The osseous structures demonstrate mild scattere d degenerative disease. IMPRESSION: 1. No acute intra-abdominal or inflammatory process. 2. Subcutaneous ground-glass and thickening with a calcified granulomas noted in the subcutaneous fa t adjacent to the surgical changes in the midline abdomen. This has been stable since 2038 considere d benign. 3. Ground-glass nodule in the right lower lobe is likely postinflammatory. 4. Nonobstructing left renal stone, stable since 2012.
== END 2017-09-07 10:44 | disposition home or self-care (01) ==
LOC: RAD 10:43
PROVIDERS: ATTEND Internal Medicine
DX: R10.9 Unspecified abdominal pain (principal); R19.00 Intra-abdominal and pelvic swelling, mass and lump, unspecified site

== ENCOUNTER 2017-11-20 12:04 | Emergency (ER) ==
[2017-11-20 12:15] VITALS: BP 146/85; TEMP 97.2; BMI 32.5
--- NOTE | 2017-11-20 14:04 | CT ---
EXAM: CT abdomen pelvis without contrast HISTORY: Abdominal pain with history of cholecystectomy and prior appendectomy COMPARISON: CT abdomen pelvis 09/07/2017 TECHNIQUE: Serial axial images of the abdomen pelvis were performed from the lung bases through the inferior pelvis without contrast. These were viewed in multiple planes. FINDINGS: There is mild dependent atelectasis. Evaluation is limited due to lack of contrast. The liver is unremarkable. There has been a prior ch olecystectomy. Adrenal glands are unremarkable. The kidneys demonstrate a nonobstructing 0.4 cm sto ne. The urinary bladder is mildly distended. Spleen is unremarkable. The pancreas is unremarkable. There is a mild hiatal hernia. The small bowel in the abdomen pelvis is unremarkable. The colon is unremarkable. There is no appen dectomy. Urinary bladder is distended. The prostate is unremarkable. There is no free air, free fl uid or lymphadenopathy. There is mild atherosclerotic disease. There is surgical change in the ante rior abdominal wall with mesh noted. The osseous structures demonstrate multilevel degenerative dise ase with new compression fracture at L2. There is stable compression fracture of the superior endpla te of L3. IMPRESSION: 1. No acute intra-abdominal abnormality or infection. 2. Interval development of compression fracture at L2 compared to 09/07/2017.
--- NOTE | 2017-11-20 15:18 | ED.PDOC ---
General ED Provider: Dr. CARIDAD LIANG Chief Complaint: Abdominal Pain Stated Complaint: ABDOMINAL PAIN / BACK PAIN LUMBAR Time Seen by Physician: 12:12 (SEEN WITH PT'S NURSE AT ALL TIMES NO N/V/D/) Mode of Arrival: Walk-In Information Source: Patient Exam Limitations: No limitations Primary Care Provider: JOVANNI LESTER Nursing and Triage Documentation Reviewed and Agree: Yes Does patient meet sepsis criteria?: Yes If yes, has appropriate treatment been initiated?: No System Inflammatory Response Syndrome: Not Applicable Sepsis Protocol: For patient's 13 years and over: Temp is 96.8 and below OR 101 and greater Pulse >90 BPM Resp >20/minute Acutely Altered Mental Status Are patient's symptoms suggestive of a new infection, such as: -Pneumonia -Skin, Soft Tissue -Endocarditis -UTI -Bone, Joint Infection -Implantable Device -Acute Abdominal Infection -Wound Infection -Meningitis -Blood Stream Catheter Infection -Unknown GI Complaint Exam - Abdominal Pain Complaint/Exam Onset: Gradual Duration: DAYS Symptoms Are: Still present Timing: Constant Initial Severity: Moderate Current Severity: Moderate Location of Pain: Diffuse Radiates To: Reports: Back, Flank Character: Reports: Aching Aggravating: Reports: None Alleviating: Reports: None Associated Signs and Symptoms: Denies: Diaphoresis, Fever, Cough, Chest pain, Dizziness, Back pain, Constipation, Blood in stool, Dysuria, Urinary frequency, Decreased urine output, Decreased appetite, Discharge, Nausea, Vomiting, Diarrhea, Decreased activity Related History: Reports: Similar episode AAA Risk Factors: Reports: None Review of Systems - Review Of Systems Constitutional: Reports: No symptoms Eyes: Reports: No symptoms Ears, Nose, Mouth, Throat: Reports: No symptoms Respiratory: Reports: No symptoms Cardiac: Reports: No symptoms GI: Reports: Abdominal pain : Reports: No symptoms Musculoskeletal: Reports: Back pain Skin: Reports: No symptoms Neurological: Reports: No symptoms Endocrine: Reports: No symptoms Hematologic/Lymphatic: Reports: No symptoms All Other Systems: Reviewed and Negative Past Medical History - Past Medical History Previously Healthy: Yes Endocrine: Reports: DM 2, Dyslipidemia Cardiovascular: Reports: None Respiratory: Reports: COPD Hematological: Reports: None Gastrointestinal: Reports: GERD Genitourinary: Reports: None Neuro/Psych: Reports: None Musculoskeletal: Reports: Back Pain (CHRONIC), Other (COMPRESSION FX AT L3 ) Cancer: Reports: None - Surgical History General Surgical History: Reports: Appendectomy, Cholecystectomy (HERNIA REPAIR ) - Family History Family History: Reports: None - Social History Smoking Status: Former smoker Hx Substance Use: No Alcohol Screening: None Physical Exam - Physical Exam Appearance: Well-appearing, No pain distress, Well-nourished Eyes: YUMIKO, EOMI, Conjunctiva clear ENT: Ears normal, Nose normal, Oropharynx normal Respiratory: Airway patent, Breath sounds clear, Breath sounds equal, Respirations nonlabored Cardiovascular: RRR, Pulses normal, No rub, No murmur GI/: Soft, Nontender, No masses, Bowel sounds normal, No Organomegaly Musculoskeletal: Normal strength, ROM intact, No edema, No calf tenderness Skin: Warm, Dry, Normal color Neurological: Sensation intact, Motor intact, Reflexes intact, Cranial nerves intact, Alert, Oriented Psychiatric: Affect appropriate, Mood appropriate Interpretation - Radiology Interpretation Radiology Interpretation By: Radiologist (NEW COMPRESSION FX AT L2) Radiology Results: Positive - Manager Massage Department Rate: Normal Rhythm: Sinus Ectopy: None - EKG Interpretation Time of EKG #1: 12:53 Rate: Normal Rhythm: Sinus Ectopy: None [place]: NL ST Segment: Normal Re-Evaluation - Re-Evaluation Time of Re-Evaluation: 15:30 Status: Unchanged, Improved Vital Signs Stable: Yes Pain Level: 3/10 Appearance: NAD Lungs: Clear Skin: Warm and Dry Neuro: Alert and Oriented X3 CV: RRR Additional Comments: DISCUSSED TRANSFER TO NEUROSURGERY (HOSPITAL OF HIS CHOICE ) PT DECLINED Critical Care Note - Critical Care Note Total Time (mins): 0 Course - Course Hematology/Chemistry: 11/20/17 13:00 11/20/17 13:00 Orders, Labs, Meds: Lab Review 11/20/17 11/20/17 13:00 13:00 WBC 16.90 H RBC 5.26 Hgb 15.6 Hct 45.4 MCV 86.3 MCH 29.7 MCHC 34.4 RDW Coeff of Leanna 12.9 Plt Count 311 Immature Gran % (Auto) 1.2 Neut % (Auto) 75.0 Lymph % (Auto) 14.0 [place] % (Auto) 9.0 Eos % (Auto) 0.4 Baso % (Auto) 0.4 Immature Gran # (Auto) 0.2 Neut # (Auto) 12.7 H Lymph # (Auto) 2.4 [place] # (Auto) 1.5 Eos # (Auto) 0.1 Baso # (Auto) 0.1 Sodium 134.3 L Potassium 4.11 Chloride 100.1 Carbon Dioxide 27.4 Anion Gap 10.91 BUN 9.3 Creatinine 0.92 Estimated GFR (MDRD) 80.00 BUN/Creatinine Ratio 10.10 Glucose 234.9 H Calcium 8.88 Total Bilirubin 0.52 AST 13.9 L ALT 14.6 Alkaline Phosphatase 135.7 H Total Creatine Kinase 67.6 Troponin I < 0.012 Total Protein 6.99 Albumin 3.81 Globulin 3.18 Albumin/Globulin Ratio 1.19 Amylase 43.9 Lipase 46.6 Orders Category Date Time Status EKG-(ED ONLY) Stat CARDIO 11/20/17 12:46 Completed AMYLASE Stat LAB 11/20/17 13:00 Completed CBC W/ AUTO DIFF Stat LAB 11/20/17 13:00 Completed COMPREHENSIVE METABOLIC PANEL Stat LAB 11/20/17 13:00 Completed CREATINE KINASE Stat LAB 11/20/17 13:00 Completed LIPASE Stat LAB 11/20/17 13:00 Completed TROPONIN I Stat LAB 11/20/17 13:00 Completed URINALYSIS C & S IF INDICATED Stat LAB 11/20/17 12:[address] ABDOMEN/PELVIS WO CONTRAST Stat RADS 11/20/17 12:46 Completed Vital Signs: Temp Pulse Resp BP Pulse Ox 11/20/17 12:05 97.2 F L 87 20 146/85 H 96 Departure - Departure Time of Disposition: 15:29 (RISKS OF LEAVING AMA DISCUSSED SAIMA IN THE ROOM ) Disposition: AMA Discharge Problem: Abdominal pain Compression fracture of L2 Qualifiers: Encounter type: initial encounter Fracture type: closed Qualified Code(s): S32.020A - Wedge compression fracture of second lumbar vertebra, initial encounter for closed fracture Instructions: Vertebral Compression Fracture (ED), Type 2 Diabetes Management for Adolescents (ED) Condition: Good Pt referred to PMD for follow-up: Yes IPMP verified?: No Additional Instructions: Please call your Family Physician as soon as possible to schedule a follow-up appointment. I DISCUSSED WITH YOU WITH SAIMA PRESENT YOU HAVE BREAK IN YOUR SPINE. BY LEAVING AGAINST MY ADVISE YOU RUN THE RISL OF PARALYSIS AND OTHER COMPLICATIONS. PLEASE SEE YOUR MD LOU Allergies/Adverse Reactions: Allergies No Known Allergies Allergy (Unverified 11/20/17 12:15) Transfer Form Completed: Yes Disposition Discussed With: Patient, Family
== END 2017-11-20 15:35 | disposition left against medical advice (07) ==
LOC: ED 12:04
DX: R10.9 Unspecified abdominal pain (principal); M54.5 Low back pain; S32.020A Wedge compression fracture of second lumbar vertebra, initial encounter for closed fracture
CPT/HCPCS: 36415; 80053; 82150; 82550; 83690; 84484; 85025; 93005; 93010; 99284

== ENCOUNTER 2017-11-23 10:50 | Outpatient (CLI) | END 2017-11-23 11:12 | disposition short-term general hospital (02) | LOC: AMBL 10:50 | PROVIDERS: ATTEND Internal Medicine | DX: R53.1 Weakness (principal); M54.5 Low back pain; W19.XXXA Unspecified fall, initial encounter ==

== ENCOUNTER 2017-11-30 07:34 | Emergency (ER) | payer OTHER ==
[2017-11-30 07:42] VITALS: BP 151/93; TEMP 97.8; BMI 32.1
--- NOTE | 2017-11-30 07:55 | ED.PDOC ---
General ED Provider: Dr. QUINN GIFFORD Chief Complaint: Urinary Problem Stated Complaint: Difficulty voiding; also bowel not moving well Time Seen by Physician: 07:48 Mode of Arrival: Wheelchair Information Source: Patient Exam Limitations: No limitations (Slight difficulty communicating with pt; explains for him or explains to him what I am asking.) Primary Care Provider: JOVANNI CRAIN Nursing and Triage Documentation Reviewed and Agree: Yes Does patient meet sepsis criteria?: No System Inflammatory Response Syndrome: Not Applicable Sepsis Protocol: For patient's 13 years and over: Temp is 96.8 and below OR 101 and greater Pulse >90 BPM Resp >20/minute Acutely Altered Mental Status Are patient's symptoms suggestive of a new infection, such as: -Pneumonia -Skin, Soft Tissue -Endocarditis -UTI -Bone, Joint Infection -Implantable Device -Acute Abdominal Infection -Wound Infection -Meningitis -Blood Stream Catheter Infection -Unknown Complaint Exam - Complaint/Exam Patient Complains of: Reports: Dysuria Onset/Duration: Over the weekend; had back surgery last week at [facility] Symptoms Are: Still present (Dribbling; feels cant void completely) Initial Severity: Moderate Current Severity: Moderate Location of Pain: Reports: Diffuse (Abdominal; also difficulty moving bowels) Aggravating: Reports: Straining Alleviating: Reports: None Associated Signs and Symptoms: Reports: Decreased urine output Related History: Reports: Similar episode ( says urinary difficulty - dribbling and frequency past 2 to 3 months.) Last Voided: This Testicular Torsion Risk Factors: Reports: None (and again in ED) Surgical Obstruction Risk Factors: Reports: None Related Surgical History: Reports: None (Lumbar back surgery last week; [facility]) Differential Diagnoses: Prostatitis, UTI, Other (Post anesthesia; pain medications ([place])) Review of Systems - Review Of Systems Constitutional: Reports: Malaise, Weakness, Loss of appetite Eyes: Reports: No symptoms Ears, Nose, Mouth, Throat: Reports: No symptoms Respiratory: Reports: No symptoms. Denies: Cough, Orthopnea, Short of air Cardiac: Reports: No symptoms. Denies: Chest pain, Edema GI: Reports: Abdomen distended, Abdominal pain (mild), Constipated, Poor appetite, Poor fluid intake. Denies: Nausea, Rectal bleeding, Vomiting Musculoskeletal: Reports: Back pain (Longstanding; also LB surgery last week) All Other Systems: Reviewed and Negative Past Medical History - Past Medical History Previously Healthy: Yes Endocrine: Reports: DM 2, Dyslipidemia Cardiovascular: Reports: None Respiratory: Reports: COPD Hematological: Reports: None Gastrointestinal: Reports: GERD Genitourinary: Reports: None Neuro/Psych: Reports: None Musculoskeletal: Reports: Back Pain (CHRONIC), Other (COMPRESSION FX AT L3 ) Cancer: Reports: None - Surgical History General Surgical History: Reports: Appendectomy, Cholecystectomy (HERNIA REPAIR ) - Family History Family History: Reports: None - Social History Smoking Status: Former smoker Hx Substance Use: No Alcohol Screening: None Physical Exam - Physical Exam Appearance: Well-appearing Pain Distress: Mild Eyes: YUMIKO, EOMI ENT: Nose normal, Oropharynx normal Neck: Supple (No bruits) Respiratory: Airway patent, Breath sounds clear, Breath sounds equal Cardiovascular: RRR, Pulses normal GI/: Bowel sounds hypoactive Musculoskeletal: Normal strength Skin: Warm, Dry, Pale Neurological: Sensation intact, Motor intact Interpretation - Radiology Interpretation Radiology Interpretation By: Radiologist Exam Interpreted: CT Scan (Abdomen/Pelvis) Xray Comments: Bladder distention, bilat hydronephrosis, L nephrolithiasis. No bowel obst Re-Evaluation - Re-Evaluation Time of Re-Evaluation: 09:35 Status: Improved (Has folley) Vital Signs Stable: Yes Pain Level: Resolved Appearance: NAD Physician Notification - Case Discussed Physician Notified: Dr. Crain; discussed clinical picture and plan for Urology F /Up Time of Notification: 09:45 Critical Care Note - Critical Care Note Total Time (mins): 20 Course - Course Hematology/Chemistry: 11/30/17 08:05 11/30/17 08:05 Orders, Labs, Meds: Lab Review 11/30/17 11/30/17 11/30/17 08:05 08:05 08:15 WBC 8.18 RBC 4.42 L Hgb 13.1 L Hct 38.1 L MCV 86.2 MCH 29.6 MCHC 34.4 RDW Coeff of Leanna 13.1 Plt Count 258 Immature Gran % (Auto) 0.6 Neut % (Auto) 62.3 Lymph % (Auto) 20.2 [place] % (Auto) 13.3 H Eos % (Auto) 3.1 Baso % (Auto) 0.5 Immature Gran # (Auto) 0.1 Neut # (Auto) 5.1 Lymph # (Auto) 1.7 [place] # (Auto) 1.1 Eos # (Auto) 0.3 Baso # (Auto) 0.0 Sodium 135.4 L Potassium 3.51 Chloride 99.7 Carbon Dioxide 29.9 Anion Gap 9.31 BUN 3.9 L Creatinine 0.79 Estimated GFR (MDRD) 96.00 BUN/Creatinine Ratio 4.93 Glucose 161.8 H Calcium 8.42 Total Bilirubin 0.83 AST 30.7 ALT 19.1 Alkaline Phosphatase 208.3 H Total Protein 6.57 Albumin 3.30 L Globulin 3.27 Albumin/Globulin Ratio 1.00 Urine Color Yellow Urine Clarity Clear Urine pH 6.0 Ur Specific [place] 1.010 Urine Protein Negative Urine Glucose (UA) Negative Urine Ketones Trace Urine Blood 2+ Urine Nitrite Negative Urine Bilirubin Negative Urine Urobilinogen 0.2 Ur Leukocyte Esterase Negative Urine Microscopic RBC 10-20 Urine Microscopic WBC 0-2 Ur Squamous Epith Cells Not present Orders Category Date Time Status Velazquez [ED CATHETER INSERTION AND CARE] .ONCE EMERGENCY 11/30/17 09:09 Active CBC W/ AUTO DIFF Stat LAB 11/30/17 08:05 Completed COMPREHENSIVE METABOLIC PANEL Stat LAB 11/30/17 08:05 Completed URINALYSIS C & S IF INDICATED Stat LAB 11/30/17 08:15 Completed Lidocaine HCl [Uro-Jet] MEDS 11/30/17 09:07 Discontinued 10 ml MUCOUSMEMB .STK-MED ONE Lidocaine HCl [Uro-Jet] MEDS 11/30/17 09:09 Discontinued 10 ml MUCOUSMEMB ONCE STA CT ABDOMEN/PELVIS WO CONTRAST Stat RADS 11/30/17 08:38 Completed Medications Discontinued Medications Generic Name Dose Route Start Last Admin Trade Name Kanchan PRN Reason Stop Dose Admin Lidocaine HCl 10 ml 11/30/17 09:09 11/30/17 09:27 Uro-Jet MUCOUSMEMB 11/30/17 09:10 10 ml ONCE STA Administration Vital Signs: Temp Pulse Resp BP Pulse Ox 11/30/17 07:34 97.8 F 80 16 151/93 H 97 Departure - Departure Time of Disposition: 10:13 Disposition: HOME SELF-CARE Discharge Problem: Urinary retention Instructions: Urinary Retention in Men (ED) Condition: Stable Pt referred to PMD for follow-up: Yes (Follow up; make appointment) IPMP verified?: No (No CS prescribed in ED) Additional Instructions: Keep urology appointment with Dr. Perales; expect urinary catheter removal by them. Allergies/Adverse Reactions: Allergies No Known Allergies Allergy (Verified 11/30/17 07:43) Home Medications: Ambulatory Orders Albuterol Sulfate [Proair Respiclick] 2 puff IH Q6HR PRN 11/30/17 Amitriptyline HCl 25 mg PO BEDTIME 11/30/17 Aspirin/Dipyridamole [Aggrenox Capsule SA] 1 each PO BID 11/30/17 Atorvastatin Calcium 80 mg PO BEDTIME 11/30/17 Canagliflozin [Invokana] 300 mg PO DAILY 11/30/17 Gabapentin [Neurontin] 100 mg PO TID 11/30/17 Hydrocodone/Acetaminophen [Hydrocodon-Acetaminoph 7.5-325] 1 each PO Q8HR Insulin Glargine,Hum.rec.anlog [Lantus] 10 unit SUBCUT BEDTIME 11/30/17 Linagliptin [Tradjenta] 5 mg PO DAILY 11/30/17 Metformin HCl 1,000 mg PO BID 11/30/17 Pantoprazole Sodium 40 mg PO DAILY 11/30/17 Tiotropium [place] [Spiriva] 1 cap IH DAILY 11/30/17 Disposition Discussed With: Patient (and spouse and daughter; educated that this was discussed with Dr. Crain)
[2017-11-30] MEDS: URO-JET MUCOUSMEMB STA (09:27)
[2017-11-30] MEDS: URO-JET MUCOUSMEMB ONE (09:27)
--- NOTE | 2017-11-30 09:28 | CT ---
EXAM: CT Abdomen without contrast. CT Pelvis without contrast. HISTORY: Abdominal pain. Urinary retention. Recent kyphoplasty. COMPARISON: 11/20/2017. TECHNIQUE: Multiple axial images of the abdomen and pelvis were obtained without intravenous contras t. Images were reformatted in the sagittal and coronal plane. FINDINGS: Please note that evaluation of the abdominal and pelvic structures is limited due to lack of intravenous contrast. No acute abnormalities seen in the lung bases. Left lower lobe micronodule on axial image 3 is stabl e. There is six non-rib bearing lumbar-type vertebral bodies noted. For the purposes of this examin ation, the last disc space will be considered L6-S1. Kyphoplasty changes seen at L2 for moderate com pression deformity. Mild superior endplate compression deformity of L3 noted. There is no evidence for acute spinal stenosis. There is mild spinal stenosis at the L2 level due to retropulsion of the posterior-superior endplate and at L3-4 through L5-6 due to disc osteophyte formation and facet arthr opathy. Gallbladder is absent. The liver, pancreas, spleen, and adrenal glands demonstrate normal contour. Left nephrolithiasis noted measuring up to 0.5 cm. There is mild bilateral hydronephrosis/hydrourete r. Urinary bladder is significantly distended but without localized abnormality. Prostate gland is normal in size. There is no evidence for bowel obstruction. Sutures present along the ventral abdominal wall with me sh present along the ventral abdominal wall. Atherosclerotic calcifications noted. Phleboliths pres ent in the pelvis. No free fluid or free air identified. Nonenlarged mesenteric and retroperitoneal lymph nodes present which are stable. IMPRESSION: 1. Findings suggest urinary retention with mild bilateral hydronephrosis. Velazquez catheter placement should be considered. 2. Left nephrolithiasis. 3. Interval L2 kyphoplasty. No acute severe spinal stenosis identified. Follow-up lumbar spine MRI as warranted.
== END 2017-11-30 10:20 | disposition home or self-care (01) ==
LOC: ED 07:34
DX: R39.11 Hesitancy of micturition (principal); R30.0 Dysuria; R35.0 Frequency of micturition; R53.1 Weakness; R63.0 Anorexia; R53.81 Other malaise; R33.9 Retention of urine, unspecified
CPT/HCPCS: 36415; 80053; 81001; 85025; 99283

== ENCOUNTER 2017-12-29 12:21 | Inpatient (IN) | payer OTHER ==
[2017-12-29 13:52] VITALS: BMI 28.8
[2017-12-29] MEDS ORDERED: NON-FORMULARY MEDICATION (Albuterol Sulfate [Proair Respiclick] 2 PUFF) IH PRN (15:15)
[2017-12-29] MEDS ORDERED: NORCO 7.5-325 PO PRN (15:15)
--- NOTE | 2017-12-29 15:36 | DI ---
EXAM: Two views of the chest. History: Short of breath Comparison: Chest radiograph 07/15/2013 Findings: Heart size is within normal limits. Coronary calcifications. No focal consolidation. No appreciable pleural fluid and no pneumothorax. Kyphoplasty and compression fracture at L1. Impression: No acute cardiopulmonary process. Coronary artery disease
[2017-12-29] MEDS ORDERED: PROAIR HFA IH PRN (15:41)
--- NOTE | 2017-12-29 15:56 | CT ---
EXAM: CT of the abdomen and pelvis with contrast History: Abdominal pain, decreased appetite Comparison: CT abdomen pelvis 11/30/2017 Technique: Multiplanar CT images through the abdomen pelvis were obtained following administration o f IV contrast Findings: Lung bases are clear. Osteopenia. L1 kyphoplasty with progressive compression deformity. Coronary calcifications. Gallbladder is not visualized and likely has been surgically removed. Atherosclerotic vascular calci fications. No focal liver or splenic lesions. Pancreas is unremarkable. Adrenal glands are within normal limits. No renal masses. 3 mm calculus within the left kidney. Bladder wall is diffusely th ickened and there is air seen within the bladder lumen. There probably is any recent prostate surger y. No perirectal inflammation. No bowel obstruction. No free air and no ascites. Impression: 1. Cystitis. 2. Recent prostate surgery. 3. L1 kyphoplasty with progressive compression deformity at L1. 4. Coronary artery disease. 5. Nonobstructive left nephrolithiasis
[2017-12-29] MEDS ORDERED: NEURONTIN ONE (19:50)
[2017-12-29] MEDS ORDERED: LIPITOR ONE (19:50)
[2017-12-29] MEDS ORDERED: LANTUS SUBCUT ONE (19:51)
[2017-12-29] MEDS: AGGRENOX CAPSULE PO SCH (20:48)
[2017-12-29] MEDS: LIPITOR PO SCH (20:49)
[2017-12-29] MEDS: LANTUS SUBCUT SCH (20:50)
[2017-12-29] MEDS: NEURONTIN PO SCH (20:50)
[2017-12-29] MEDS: HUMULIN R SUBCUT PRN (20:54)
[2017-12-29] MEDS ORDERED: NON-FORMULARY MEDICATION (Atorvastatin Calcium [Atorvastatin Calcium] 80 MG) PO SCH (21:00)
[2017-12-30] MEDS: PROTONIX PO SCH (05:40)
[2017-12-30] MEDS ORDERED: SODIUM CHLORIDE 1,000 ML IV SCH (08:30)
[2017-12-30] MEDS: SPIRIVA IH SCH (09:26)
[2017-12-30] MEDS: AGGRENOX CAPSULE PO SCH ×2 (09:38→22:58)
[2017-12-30] MEDS: TRADJENTA PO SCH (09:38)
[2017-12-30] MEDS: NORCO 7.5-325 PO SCH ×3 (09:39→20:39)
[2017-12-30] MEDS: NEURONTIN PO SCH ×3 (09:39→20:38)
[2017-12-30] MEDS: AZACTAM 1 GM in SODIUM CHLORIDE 50 ML IV SCH ×2 (09:40→20:38)
[2017-12-30] MEDS: ROCEPHIN 1 GM in SODIUM CHLORIDE 50 ML IV SCH (10:23)
--- NOTE | 2017-12-30 10:38 | PCM.PROG ---
Attending Provider: ATTENDING PROVIDER: Dr. JOVANNI LESTER This patient is seen with Ananya Santiago, Nurse Practitioner. DATE OF SERVICE: 12/30/17 SUBJECTIVE: This 72 year old WHITE/ M was hospitalized 12/29/17. The patient is lying in bed resting comfortably. He had a low fever this a.m. He is not as alert as usual. The patient does state that he would not like any resuscitative measures, no CPR/no intubation. He is eating a small amount. UA was abnormal. REVIEW OF SYSTEMS: CONSTITUTIONAL: Weakness. No night sweats. No malaise, lethargy. No fever or chills. HEENT: Eyes: No visual changes. No eye pain. No eye discharge. ENT: No runny nose. No epistaxis. No sinus pain. No odynophagia. No congestion. RESPIRATORY: No cough, no congestion. No hemoptysis. No shortness of breath. CARDIOVASCULAR: No angina symptoms. No CHF symptoms. No atypical chest pain for CAD. No palpitations. No orthopnea.. GASTROINTESTINAL: Decreased appetite. No abdominal pain. No nausea or vomiting. No diarrhea or constipation. No hematemesis. No hematochezia. GENITOURINARY: No urgency. No frequency. No dysuria. No hematuria. No obstructive symptoms. No discharge. No pain. No significant abnormal bleeding. MUSCULOSKELETAL: Back pain. NEUROLOGICAL: Awake, alert, oriented to person and place with bouts of confusion. No headache. No neck pain. No syncope. No seizures. No dizziness. PSYCHIATRIC: Not anxious. No depression. No suicidal thoughts. No homicidal thoughts. SKIN: No rash. No lesions. No wounds. ENDOCRINE: No unexplained weight loss. No weight gain. HEMATOLOGIC/LYMPHATIC: No anemia. No purpura. No petechiae. No prolonged or excessive bleeding. No palpable lymph nodes. PHYSICAL EXAMINATION: GENERAL: The patient is awake, alert and oriented, lying in bed in no distress. VITAL SIGNS: Temperature 99.3 F, Pulse 82, Respiratory Rate 18, BP 135/75, Pulse Ox 95% HEENT: Head normocephalic, atraumatic. Eyes: Extraocular muscles are intact. Pupils are equal, round and reactive to light and accommodation. Ears: No lesions. Nose appeared normal. Throat: No exudate or erythema. NECK: Supple. No JVD, no carotid bruit. No lymphadenopathy or thyromegaly. LUNGS: Diminished breath sounds bilaterally. Clear to auscultation. Percussion note normal. Chest symmetrical. HEART: S1, S2, no S3. No murmurs. No cyanosis or clubbing. No ascites. Pulses: Dorsalis pedis and posterior tibial pulses +1 to +2 both sides. ABDOMEN: Soft. Non-tender. Bowel sounds active. No CVA tenderness. No mass felt. EXTREMITIES: No edema. Full range of motion of all extremities, equal. NEUROLOGIC: No focal deficit. Cranial nerves II through XII are grossly intact. No headache, no double vision or headache. SKIN: Not dry. Intact. Turgor-normal. LYMPHATIC: No palpable lymph nodes/no lymphedema. MUSCULOSKELETAL: Normal joints with no swelling. Muscle tone is normal. LAB REVIEW: 12/30/17 04:30 12/30/17 04:30 12/30/17 04:30: Sodium 128.4 L, Potassium 4.32, Chloride 94.7 L, Carbon Dioxide 29.0, Anion Gap 9.02, BUN 10.8, Creatinine 1.30 H, Estimated GFR (MDRD) 54.00, BUN/Creatinine Ratio 8.30, Glucose 174.8 H, Calcium 8.44, Total Bilirubin 0.91, AST 14.7 L, ALT 9.1, Alkaline Phosphatase 150.9 H, Total Protein 7.40, Albumin 3.53, Globulin 3.87, Albumin/Globulin Ratio 0.91 12/30/17 04:30: WBC 15.00 H, RBC 4.57 L, Hgb 13.1 L, Hct 39.1 L, MCV 85.6, MCH 28.7, MCHC 33.5, RDW Coeff of Leanna 13.0, Plt Count 372, Immature Gran % (Auto) 1.5, Neut % (Auto) 76.3, Lymph % (Auto) 11.8, [place] % (Auto) 9.5, Eos % (Auto) 0.4, Baso % (Auto) 0.5, Immature Gran # (Auto) 0.2, Neut # (Auto) 11.4 H, Lymph # (Auto) 1.8, [place] # (Auto) 1.4, Eos # (Auto) 0.1, Baso # (Auto) 0.1 12/30/17 01:07: Urine Color Yellow, Urine Clarity Turbid, Urine pH 6.0, Ur Specific [place] 1.015, Urine Protein 2+, Urine Glucose (UA) Negative, Urine Ketones Negative, Urine Blood 3+, Urine Nitrite Negative, Urine Bilirubin Negative, Urine Urobilinogen 0.2, Ur Leukocyte Esterase 2+, Urine Microscopic RBC 5-10, Urine Microscopic WBC 30-50, Ur Squamous Epith Cells Not present, Urine Bacteria 1+ 12/29/17 13:45: WBC 15.64 H, RBC 4.58 L, Hgb 13.2 L, Hct 39.1 L, MCV 85.4, MCH 28.8, MCHC 33.8, RDW Coeff of Leanna 12.8, Plt Count 403, Immature Gran % (Auto) 1.5, Neut % (Auto) 73.9, Lymph % (Auto) 13.9, [place] % (Auto) 9.1, Eos % (Auto) 1.1, Baso % (Auto) 0.5, Immature Gran # (Auto) 0.2, Neut # (Auto) 11.6 H, Lymph # (Auto) 2.2, [place] # (Auto) 1.4, Eos # (Auto) 0.2, Baso # (Auto) 0.1 12/29/17 13:45: Sodium 130.5 L, Potassium 4.45, Chloride 96.3 L, Carbon Dioxide 28.8, Anion Gap 9.85, BUN 10.4, Creatinine 1.13 H, Estimated GFR (MDRD) 63.00, BUN/Creatinine Ratio 9.20, Glucose 200.6 H, Calcium 8.85, Total Bilirubin 0.72, AST 13.1 L, ALT 9.2, Alkaline Phosphatase 153.3 H, Total Creatine Kinase 43.1 L , Total Protein 7.61, Albumin 3.74, Globulin 3.87, Albumin/Globulin Ratio 0.96, TSH 0.865 12/29/17 13:45: Hemoglobin A1c 8.24 H D ASSESSMENT: 1. ACUTE UTI. 2. WEIGHT LOSS. 3. GENERALIZED WEAKNESS. 4. MULTIPLE COMPRESSION FRACTURES IN SPINE. PLAN: 1. Zofran 4 mg IV q.6hr 2. IV NS @ 83 mL/hr. 3. Toradol 30 mg IV q.8hr p.r.n. 4. [place] EUNICE. 5. Rocephin 1 gm daily. 6. Tomorrow will request PT evaluation. 7. CT scan of head with contrast. 8. Azactam 1 gm IV q.12hr Plan and coordination of the patient's care discussed in the presence of [employer] Coordinator and nurse. CONDITION: Stable SCRIBED BY: RAMIN HIDALGO Data Management Consultant scribed while in presence of service performed by Dr. Lester/Ananya Santiago APRN on 12/30/17 ([id number])
--- NOTE | 2017-12-30 15:46 | CT ---
EXAM: CT of the head with and without contrast History: Altered mental status. Technique: Multiplanar CT images through the head were obtained with and without the administration of IV contrast Findings: Mild mucosal thickening of the left sphenoid sinus. Mastoid air cells are clear in genera l. No acute calvarial abnormalities. Intracranially the ventricular and cisternal spaces are normal in size, shape and configuration for a patient of this age. No midline shift and no hydrocephalus. No acute intracranial hemorrhage or ab normal extraaxial fluid collections. Nonspecific periventricular and subcortical white matter hypode nsities. No contrast enhancing lesions. Small old lacunar infarct within the left periventricular batres bcortical white matter. Impression: 1. No acute intracranial hemorrhage. 2. No contrast enhancing lesions. 3. Nonspecific periventricular and subcortical white matter hypodensities probably related to chroni c small vessel ischemic disease. If symptoms persist, consider further evaluation with brain MRI. 4. Small old lacunar infarction within the left periventricular subcortical white matter.
[2017-12-30] MEDS: ZOFRAN 4 MG/2 ML IVP PRN (16:09)
[2017-12-30] MEDS: HUMULIN R SUBCUT PRN ×2 (17:34→20:39)
[2017-12-30] MEDS: LIPITOR PO SCH (20:39)
[2017-12-30] MEDS: LANTUS SUBCUT SCH (20:41)
[2017-12-30] MEDS: SODIUM CHLORIDE 1,000 ML IV SCH (22:01)
[2017-12-30] MEDS: TORADOL IVP PRN (22:58)
[2017-12-31] MEDS: NORCO 7.5-325 PO SCH ×3 (05:59→20:43)
[2017-12-31] MEDS: PROTONIX PO SCH (05:59)
[2017-12-31] MEDS: HUMULIN R SUBCUT PRN ×3 (06:03→17:37)
[2017-12-31] MEDS: SODIUM CHLORIDE 1,000 ML IV SCH ×3 (06:14→22:51)
--- NOTE | 2017-12-31 08:18 | ECHO2D ---
Date of Exam: 12/31/17 Ordering Physician: DR. JOVANNI LESTER Room #: 118 Reason for Echo: WEAKNESS, DIZZINESS, HYPOTENSION M-Mode Normal Adult Results LV Dimensions Normal Adult Results AoV Opening excursions >1.6 LVEDD-base- 3.5-5.8 Ao root dimensions 2.0-3.7 LVESD-base- 3.1-4.6 L. Atrium dimensions 1.9-3.8 Post. Wall thickness 0.8-1.1 IV septum (thickness) 0.7-1.2 Post. Wall excursion 0.72-1.3 Septal motion Systolic motion R. Ventricular cavity 1.5-2.0 LVEF 60% Paradoxical septal wall motion 2-D : M-MODE: MV: AV: TV: PV: CHAMBER SIZE: WALL MOTION: PERICARDIUM: INTERPRETATION: 1. DIFFICULT STUDY--UNABLE TO DO TEST DUE TO BODY HABITUS MTDD
[2017-12-31] MEDS: AZACTAM 1 GM in SODIUM CHLORIDE 50 ML IV SCH ×2 (09:45→20:43)
[2017-12-31] MEDS: ZOFRAN 4 MG/2 ML IVP PRN (09:45)
[2017-12-31] MEDS: AGGRENOX CAPSULE PO SCH ×2 (09:45→20:46)
[2017-12-31] MEDS: NEURONTIN PO SCH ×3 (09:46→20:43)
[2017-12-31] MEDS: LEXAPRO PO SCH (09:46)
[2017-12-31] MEDS: SPIRIVA IH SCH (09:46)
[2017-12-31] MEDS: TRADJENTA PO SCH (09:46)
--- NOTE | 2017-12-31 10:04 | RS.PTINEVL ---
Subjective - Patient information Date of Evaluation: 12/31/17 Admitted From:: Direct Admit Diagnosis: weight loss, weakness, UTI Usual Living Arrangement: With Spouse Home Environment: Apartment, Stairs (few) (to get to vehicle, no steps inside apartment) Medical History: CVA/TIA (2017), Diabetes, Arthritis (knees and back) Medical History Comments:: Peripheral neuropathy, metabolic syndrome, HTN, Dyslipidemia, COPD, IDDM, GERD, OA of knees and spine Surgical History Comments:: Prostate surgery 12/13/17, L1 Kypholplasty 12/23/17 with progressive compression deformity. Subjective Information/ Patient Comments:: Mr. Sandoval states he has a walker at home, but it is messed up. His daughters states they will buy him a new one. States he just received a wheelchair in the last few years. - Level of function Abilities prior to this admission: Prior to this admission, Mr. Sandoval required help with ADL's. Ambulated independently. Current Level of Function: Partially Dependent Current Equipment Used at Home: Glucometer; Walker, W/C, Shower Chair, BSC Interventions - Objective Patient Orientation: Person, Place, Time Range of Motion - ROM Right Upper Extremity AROM: WFL's Left Upper Extremity AROM: WFL's Comments:: Both knees slightly limited due to OA pain. Muscle Strength - Muscle Strength Comments:: Left LE strength is generally 4/5 throughout. Right hip 4-/5 throughout, knee 4-/5, ankle 4/5. Trunk strength is Fair. Sensation - Sensation Comments: Reports impaired sensation througout both feet and lower legs Balance - Sitting Balance and Reactions Static Sitting Balance: Good (-) Dynamic Sitting Balance: Good (-) Sitting Equilibrium Reactions: Within Normal Limits Left, Within Normal Limit Right - Standing Balance and Reactions Static Standing Balance: Good (-) Dynamic Standing Balance: Good (-) Standing Equilibrium Reactions: Within Normal Limits Left, Within Normal Limit Right Functional Mobility - Bed Mobility Scooting: Supervision Supine to Sit: Supervision Sit to Supine: Supervision Comments:: Verbal cues given. - Transfers Sit to Stand: Supervision, 1 person assist, Verbal Cues Stand to Sit: Supervision, CGA, 1 person assist, Verbal Cues Comments:: Verbal cues to push from bed when performing sit to stand transfer. - Safety Awareness Safety Awareness: Fair RICK INDEX SCORE: NA Ambulation - Ambulation Weight Bearing Status: FWB Assistive Device Used: Rolling Walker Distance: 250 feet. Assistance needed with Ambulation: CGA, Verbal Cues, Tactile Cues Quality of Ambulation: Patient looks down constantly while walking. Verbal cues given to look up. Gait Deviations: Narrow Based gait, Forward posture, Short stride, Deviates from path Factors Affecting Ambulation: Decreased Safety, Cognitive Status, Limited Sensation Treatment time - Time with patient Length of Evaluation: 21 mins Total treatment time: 25 Patient Education - Education Patient Education: Education of diagnosis, Home Safety, Education of Plan of Care Teaching Recipient: Patient, Family (spouse and two daughters) Teaching Methods: Discussion, Demonstration Assessment - Assessment Problem List:: Decreased level of function, Requires training/education, Decreased safety/Risk of falls Rehab Potential: Good Further Therapy Indicated?: Yes Candidate for Swing Bed for Therapy Services?: Not at this time. He is high functioning and should be able to go home with Home Health. We will see him during this acute stay short term for safety with transfers and mobility. Evaluation Complexity: HISTORY: Medium (HX CVA, falls, recent Kyphoplasty, UTI) , EXAM OF BODY SYSTEMS: Medium, CLINICAL PRESENTATION: Medium, CLINICAL DECISION MAKING: Medium Short Term Goals GOAL #1: Pt will use UE's to push from bed/chair for sit to stand transfer. Goal to be met by: 01/01/18 GOAL #2: Pt to amb. with RW with good base of support with CGA of one. Goal to be met by: 01/01/18 Domestic Helper Goals GOAL #1: Sit <> stand transfers w/ good safety, SBA. Goal to be met by: 01/03/18 GOAL #2: Amb. w/ RW with good safety and SBA. Goal to be met by: 01/03/18 Plan Plan of Care: Therapeutic Activity, Self-Care/Home Management Frequency of Treatment: 1-2 X day, as tolerated Duration of Treatment: 2-3 days Anticipated Discharge Destination: Home Treatment Diagnosis (ICD 10 Codes): Z91.81 AT risk for falls Has the Physician been added for Co-signature?: Yes
[2017-12-31] MEDS: ROCEPHIN 1 GM in SODIUM CHLORIDE 50 ML IV SCH (10:40)
--- NOTE | 2017-12-31 11:57 | HP ---
DATE OF SERVICE: 12/29/17 HISTORY OF PRESENT ILLNESS: This 72-year-old White male presented with weight loss of 24 lbs in 6 weeks and appetite not good. Whatever he eats comes quickly back up. No symptoms of CHF or CAD. PAST MEDICAL HISTORY: Chronic back pain CVA 06/09 (right) Dyslipidemia Hypertension DJD spine COPD Osteoarthritis knees History of LVH Neuropathy Metabolic syndrome Decreased B12 level PAST SURGICAL HISTORY: Prostate, November of 2017 Back surgery, November 25, 2017 Hernia Appendix, age 10 REVIEW OF SYSTEMS: CONSTITUTIONAL: Fatigue. No fever. HEENT: No sinus drainage, no sore throat. RESPIRATORY: No cough, no congestion. CARDIOVASCULAR: No atypical chest pain for coronary artery disease. No angina , CHF symptoms, palpitations or shortness of breath. GASTROINTESTINAL: No melena or abdominal pain. No GERD. GENITOURINARY: No hematuria, no polyuria. PARTS INSPECTOR: No blackout, no dizziness, no headache, no double vision. MUSCULOSKELETAL: Osteoarthritis pain. ENDOCRINE: Weight loss of 24 lbs in 6 weeks. SKIN: Not dry, no rash. PSYCHIATRIC: Not anxious, no depression, no suicidal thoughts, no homicidal thoughts. SOCIAL HISTORY: Marital Status: . Lives with . Three children. Retired. Alcohol Usage: Quit. Tobacco Usage: Yes times 30 years. Quit 20 years ago. No illicit drug use. FAMILY HISTORY: Father . Mother . Five brothers. Four sisters. MEDICATIONS: (HOME) Flomax 0.4 mg p.o. daily 1/2 hour following the same meal each day h.s. Aspirin one capsule p.o. two times per day in morning and evening Tradjenta 5 mg one p.o. q. a.m. Metformin 1,000 mg p.o. two times per day with morning and evening meals Pantoprazole 40 mg one tablet p.o. once daily Duoneb 0.5 mg - 3 mg INH 4 times per day up to 6 doses per day p.r.n. Hydrocodone-Acetaminophen 7.5-325 one tablet p.o. three times per day as needed for pain p.r.n. ProAir HFA two puffs every 6 hours p.r.n. Spiriva INH once daily Atorvastatin one p.o. once daily h.s. Insulin Lantus 10 units SubQ one time per day at h.s. Gabapentin 100 mg p.o. three times per day this a.m. ALLERGIES: FISH OIL PHYSICAL EXAMINATION: V/S: Pulse 88, BP 120/60, 02 sat 96%, Weight 198.6 lbs. Height 5'9", BMI 29.3. GENERAL APPEARANCE: Oriented times three. HEENT: Normal. NECK: No JVP, no bruits. RESPIRATORY: Lungs are clear. CARDIOVASCULAR: S1, S2, no S3, no murmurs. No cyanosis, clubbing. No ascites. GI/ABDOMEN: No tenderness. Bowel sounds are active. EXTREMITIES: No edema, pulses +1, equal. PARTS INSPECTOR: Deep tendon reflexes, sensory, motor and gait all normal. RECTAL/PROSTATE: Prostate 03/12 (1.1). Colonoscopy - refused. ASSESSMENT: 1. WEIGHT LOSS/LOSS OF APPETITE/WEAKNESS 2. COMPRESSION FRACTURE L1, S/P KYPHOPLASTY 11/25/17, DR. DOUGLASS 3. URINARY RETENTION 4. CHRONIC LOW BACK PAIN 5. CVA 06/09 (RT) 6. DYSLIPIDEMIA 7. HYPERTENSION 8. OBESITY 9. DJD SPINE 10. NON-COMPLIANT 11. COPD 12. OSTEOARTHRITIS KNEES 13. HISTORY OF LVH 14. NEUROPATHY 15. METABOLIC SYNDROME 16. DECREASED B12 LEVEL 17. STATUS POST PROSTATE SURGERY 12/13/17, DR. EDWARDS PLAN: 1. Admit 2. Diet - as tolerated 3. CBC, CMP, A1C, TSH today 4. Daily CBC, CMP 5. UGI with Barium followthrough 6. CT scan of abdomen/pelvis with contrast today 7. Chest x-ray today 8. EKG today 9. Stool for occult blood times three 10. Sliding scale with coverage 11. Continue all home medications 12. CK and LDH 13. UA TIME SPENT: More than 70 minutes. MTDD
[2017-12-31] MEDS: TORADOL IVP PRN (14:53)
--- NOTE | 2017-12-31 16:05 | US ---
EXAM: Bilateral carotid artery Doppler History: Weakness and dizziness, hypotension Technique: Multiple sonographic images through the bilateral internal carotid arteries were obtained. Color duplex Doppler was used to interrogate vascular flow. Findings: The right ICA peak systolic velocity is within normal limits measuring 70 cm/sec. The right ICA/cca PSV ratio is normal at 1.3. The right vertebral artery is patent and demonstrates antegrade flow. G ray scale images demonstrate mild to moderate plaque buildup within the right carotid bulb and proxim al right internal carotid artery. The left ICA peak systolic velocity is within normal limits measuring 110 cm/sec. The left ICA/cca PS V ratio is normal at 1.4. The left vertebral artery is patent and demonstrates antegrade flow. Harper scale images demonstrate mild to moderate plaque buildup within the left carotid bulb and proximal l eft internal carotid artery Impression: No significant hemodynamic stenosis of the bilateral internal carotid arteries
[2017-12-31] MEDS: LIPITOR PO SCH (20:43)
[2017-12-31] MEDS: LANTUS SUBCUT SCH (20:59)
[2018-01-01] MEDS: NORCO 7.5-325 PO SCH ×3 (05:38→20:17)
[2018-01-01] MEDS ORDERED: CITRATE OF MAGNESIA PO STA (08:04)
--- NOTE | 2018-01-01 09:35 | PCM.PROG ---
Attending Provider: ATTENDING PROVIDER: Dr. JOVANNI LESTER DATE OF SERVICE: 12/31/17 SUBJECTIVE: This 72 year old WHITE/ M was hospitalized 12/29/17 with weight loss, loss of appetite and weakness. The patient has cystitis, possibility of UTI treated with Rocephin and Azactam. Condition has improved remarkably. Hydration status improved. The is happy with progress. The problem is we want to do an upper GI with barium follow-through for GI problems; however, the patient is unable to stand up. We will talk with Radiology if it is possible to do. REVIEW OF SYSTEMS: CONSTITUTIONAL: No night sweats. No fatigue, malaise, lethargy. No fever or chills. HEENT: Eyes: No visual changes. No eye pain. No eye discharge. ENT: No runny nose. No epistaxis. No sinus pain. No odynophagia. No congestion. RESPIRATORY: No cough, no congestion. No hemoptysis. No shortness of breath. CARDIOVASCULAR: No angina symptoms. No CHF symptoms. No atypical chest pain for CAD. No palpitations. No orthopnea.. GASTROINTESTINAL: Loss of appetite persists. The patient has a problem eating. No abdominal pain. No nausea or vomiting. No diarrhea or constipation. No hematemesis. No hematochezia. GENITOURINARY: No urgency. No frequency. No dysuria. No hematuria. No obstructive symptoms. No discharge. No pain. No significant abnormal bleeding. MUSCULOSKELETAL: No musculoskeletal pain; no joint swelling. NEUROLOGICAL: Awake, alert, oriented to time, place and person. No headache. No neck pain. No syncope. No seizures. No dizziness. PSYCHIATRIC: Not anxious. No depression. No suicidal thoughts. No homicidal thoughts. SKIN: No rash. No lesions. No wounds. ENDOCRINE: No unexplained weight loss. No weight gain. HEMATOLOGIC/LYMPHATIC: No anemia. No purpura. No petechiae. No prolonged or excessive bleeding. No palpable lymph nodes. PHYSICAL EXAMINATION: GENERAL: The patient is awake, alert and oriented, lying in bed in no distress. VITAL SIGNS: Temperature 97.6 F, Pulse 70, Respiratory Rate 16, BP 90/66, Pulse Ox 97% HEENT: Head normocephalic, atraumatic. Eyes: Extraocular muscles are intact. Pupils are equal, round and reactive to light and accommodation. Ears: No lesions. Nose appeared normal. Throat: No exudate or erythema. NECK: Supple. No JVD, no carotid bruit. No lymphadenopathy or thyromegaly. LUNGS: Clear to auscultation. Percussion note normal. Chest symmetrical. HEART: S1, S2, no S3. No murmurs. No cyanosis or clubbing. No ascites. Pulses: Dorsalis pedis and posterior tibial pulses +1 to +2 both sides. ABDOMEN: Soft. Non-tender. Bowel sounds active. No CVA tenderness. No mass felt. EXTREMITIES: No edema. Full range of motion of all extremities, equal. NEUROLOGIC: No focal deficit. Cranial nerves II through XII are grossly intact. No headache, no double vision or headache. SKIN: Warm and dry. Intact. Turgor-normal. LYMPHATIC: No palpable lymph nodes/no lymphedema. MUSCULOSKELETAL: Normal joints with no swelling. Muscle tone is normal. LAB REVIEW: 12/31/17 04:50 12/31/17 04:50 12/31/17 04:50: Sodium 127.5 L, Potassium 4.06, Chloride 95.6 L, Carbon Dioxide 26.1, Anion Gap 9.86, BUN 19.7, Creatinine 1.78 H, Estimated GFR (MDRD) 38.00, BUN/Creatinine Ratio 11.06, Glucose 167.4 H, Calcium 8.04 L, Total Bilirubin 0.77, AST 29.6, ALT 12.4, Alkaline Phosphatase 150.6 H, Total Protein 6.43, Albumin 2.99 L, Globulin 3.44, Albumin/Globulin Ratio 0.86 12/31/17 04:50: WBC 23.82 H D, RBC 3.87 L, Hgb 11.1 L, Hct 32.9 L D, MCV 85.0, MCH 28.7, MCHC 33.7, RDW Coeff of Leanna 13.2, Plt Count 314, Immature Gran % (Auto ) 1.3, Neut % (Auto) 78.3, Lymph % (Auto) 10.1, [place] % (Auto) 9.4, Eos % (Auto) 0.6, Baso % (Auto) 0.3, Immature Gran # (Auto) 0.3, Neut # (Auto) 18.7 H, Lymph # (Auto) 2.4, [place] # (Auto) 2.2 H, Eos # (Auto) 0.2, Baso # (Auto) 0.1 12/29/17 13:45: Lactate Dehydrogenase 163 ASSESSMENT: 1. UTI could be combination of cystitis with pyelonephritis being treated with Rocephin and Azactam. 2. Hydration status improved. 3. The patient has leukocytosis persisting but clinically, the patient is a lot better. 4. The patient has multiple medical problems. 5. The other issue is CVA with right hemiparesis which happened one year ago and has been unable to walk since then. 6. The patient also seems to have depression. PLAN: 1. Will start the patient on Lexapro 10 mg p.o. daily. 2. Will do an echocardiogram. 3. CT scan of the abdomen was practicaly unremarkable except for cystitis type problem. 4. CT scan of the brain was negative for any acute findings, will do carotid scan. 5. Carotid scan. 6. Upper GI/Barium Swallow if able. Plan and coordination of the patient's care discussed in the presence of Professional Nursing Tutor and nurse. CONDITION: Stable SCRIBED BY: RAMIN HIDALGO Security Guard Dispatcher scribed while in presence of service performed by Dr. JOVANNI LESTER on 12/31/17 ([id number])
[2018-01-01] MEDS: PROTONIX PO SCH ×3 (09:36→16:53)
[2018-01-01] MEDS: SODIUM CHLORIDE 1,000 ML IV SCH ×2 (09:37→12:02)
--- NOTE | 2018-01-01 09:40 | PCM.PROG ---
Attending Provider: ATTENDING PROVIDER: Dr. JOVANNI LESTER This patient is seen with Ananya Santiago, Nurse Practitioner. DATE OF SERVICE: 01/01/18 SUBJECTIVE: This 72 year old WHITE/ M was hospitalized 12/29/17. The patient is resting comfortably. He is nauseated and vomited times one. He is scheduled for an upper GI today. He has no fever. Poor appetite. REVIEW OF SYSTEMS: CONSTITUTIONAL: Weakness. No night sweats. No malaise, lethargy. No fever or chills. HEENT: Eyes: No visual changes. No eye pain. No eye discharge. ENT: No runny nose. No epistaxis. No sinus pain. No odynophagia. No congestion. RESPIRATORY: No cough, no congestion. No hemoptysis. No shortness of breath. CARDIOVASCULAR: No angina symptoms. No CHF symptoms. No atypical chest pain for CAD. No palpitations. No orthopnea.. GASTROINTESTINAL: Nausea, vomited once. Decreased appetite. No abdominal pain. No diarrhea or constipation. No hematemesis. No hematochezia. GENITOURINARY: No urgency. No frequency. No dysuria. No hematuria. No obstructive symptoms. No discharge. No pain. No significant abnormal bleeding. MUSCULOSKELETAL: No musculoskeletal pain; no joint swelling. NEUROLOGICAL: Awake, alert, oriented to time, place and person. No headache. No neck pain. No syncope. No seizures. No dizziness. PSYCHIATRIC: Not anxious. No depression. No suicidal thoughts. No homicidal thoughts. SKIN: No rash. No lesions. No wounds. ENDOCRINE: No unexplained weight loss. No weight gain. HEMATOLOGIC/LYMPHATIC: No anemia. No purpura. No petechiae. No prolonged or excessive bleeding. No palpable lymph nodes. PHYSICAL EXAMINATION: GENERAL: The patient is awake, alert and oriented, lying in bed in no distress. VITAL SIGNS: Temperature 98.6 F, Pulse 78, Respiratory Rate 16, BP 94/55, Pulse Ox 96% HEENT: Head normocephalic, atraumatic. Eyes: Extraocular muscles are intact. Pupils are equal, round and reactive to light and accommodation. Ears: No lesions. Nose appeared normal. Throat: No exudate or erythema. NECK: Supple. No JVD, no carotid bruit. No lymphadenopathy or thyromegaly. LUNGS: Diminished breath sounds. Clear to auscultation. Percussion note normal. Chest symmetrical. HEART: S1, S2, no S3. No murmurs. No cyanosis or clubbing. No ascites. Pulses: Dorsalis pedis and posterior tibial pulses +1 to +2 both sides. ABDOMEN: Soft. Diffuse abdominal tenderness worse in the epigastric region. Bowel sounds active. No CVA tenderness. No mass felt. EXTREMITIES: No edema. Full range of motion of all extremities, equal. NEUROLOGIC: No focal deficit. Cranial nerves II through XII are grossly intact. No headache, no double vision or headache. SKIN: Not dry. Intact. Turgor-normal. LYMPHATIC: No palpable lymph nodes/no lymphedema. MUSCULOSKELETAL: Normal joints with no swelling. Muscle tone is normal. LAB REVIEW: 01/01/18 04:30 01/01/18 04:30 01/01/18 04:30: Sodium 131.8 L, Potassium 4.33, Chloride 101.1, Carbon Dioxide 28.8, Anion Gap 6.23, BUN 13.2, Creatinine 1.08 D, Estimated GFR (MDRD) 67.00, BUN/Creatinine Ratio 12.22, Glucose 139.3 H, Calcium 8.20 L, Total Bilirubin 0.41, AST 19.1, ALT 12.2, Alkaline Phosphatase 161.8 H, Total Protein 6.52, Albumin 2.98 L, Globulin 3.54, Albumin/Globulin Ratio 0.84 01/01/18 04:30: WBC 17.80 H D, RBC 4.03 L, Hgb 11.5 L, Hct 34.3 L, MCV 85.1, MCH 28.5, MCHC 33.5, RDW Coeff of Leanna 12.9, Plt Count 362, Immature Gran % (Auto ) 1.3, Neut % (Auto) 79.9, Lymph % (Auto) 10.5, Vill[place]ba % (Auto) 6.9, Eos % (Auto) 1.1, Baso % (Auto) 0.3, Immature Gran # (Auto) 0.2, Neut # (Auto) 14.2 H, Lymph # (Auto) 1.9, [place]ba # (Auto) 1.2, Eos # (Auto) 0.2, Baso # (Auto) 0.1 12/31/17 13:15: Stl Occult Blood (IFOB) Positive, Stool Occult Blood #2 No specimen received, Stool Occult Blood #3 No specimen received ASSESSMENT: 1. DIMINISHED APPETITE. 2. NAUSEA. 3. ACUTE UTI. 4. WEIGHT LOSS. 5. GENERALIZED WEAKNESS. 6. MULTIPLE COMPRESSION FRACTURES IN SPINE. PLAN: 1. Upper GI today. 2. 1/2 bottle Mag Citrate. 3. Colace twice a day 4. Make Protonix twice a day. 5. Decrease IV fluids to 75 ml/hr. Plan and coordination of the patient's care discussed in the presence of Home Worker and nurse. CONDITION: Stable SCRIBED BY: RAMIN HIDALGO Rivet Sorter scribed while in presence of service performed by Dr. Lester/Ananya Santiago APRN on 01/01/18 ([id number])
[2018-01-01] MEDS: ROCEPHIN 1 GM in SODIUM CHLORIDE 50 ML IV SCH (10:24)
[2018-01-01] MEDS ORDERED: CITRATE OF MAGNESIA ONE (11:58)
[2018-01-01] MEDS: SPIRIVA IH SCH (12:02)
[2018-01-01] MEDS: AGGRENOX CAPSULE PO SCH ×2 (12:03→20:19)
[2018-01-01] MEDS: TRADJENTA PO SCH (12:03)
[2018-01-01] MEDS: AZACTAM 1 GM in SODIUM CHLORIDE 50 ML IV SCH ×2 (12:03→20:16)
[2018-01-01] MEDS: LEXAPRO PO SCH (12:04)
[2018-01-01] MEDS: COLACE PO SCH ×2 (12:04→20:17)
[2018-01-01] MEDS: NEURONTIN PO SCH ×3 (12:04→20:17)
--- NOTE | 2018-01-01 13:47 | DI ---
EXAM: Single contrast upper GI and small bowel follow-through. History: Weight loss, decreased appetite Comparison: CT abdomen pelvis 12/29/2017 Technique: Manager Spanish film was obtained. Patient was then given oral barium and multiple spot films of th e esophagus, stomach and duodenum were obtained in various projections. Small bowel follow-through wa s then performed and a contrast reached the colon at about an hour and a half. Findings: Normal course of the esophagus. Mucosal lesions or filling defects identified. Gastroeso phageal junction is patent. No hiatal hernia identified. The stomach demonstrates normal caliber wi th no obvious ulceration or polyp. The duodenum is normal in appearance without ulceration. No defin ite gastroesophageal reflux was observed. The course and caliber of the small bowel is within normal limits without mucosal lesion. No filling defect. No small bowel obstruction. No extravasation of the contrast material. Kyphoplasty within the lumbar spine at L2. Impression: No acute or significant findings.
[2018-01-01] MEDS: ZOFRAN 4 MG/2 ML IVP PRN (14:48)
--- NOTE | 2018-01-01 14:49 | RS.OTINEVL ---
Subjective - Patient information Date of Evaluation: 01/01/18 Date of Arrival on Unit: 12/31/17 Admitted From:: Direct Admit Usual Living Arrangement: With Spouse Living Arrangement Comments: [facility] Pt lives with his and uses a RW. Home Environment: Apartment, Stairs (few) (to get to vehicle, no steps inside apartment) Medical History: CVA/TIA (2017), Diabetes, Arthritis (knees and back) Medical History Comments:: Peripheral neuropathy, metabolic syndrome, HTN, Dyslipidemia, COPD, IDDM, GERD, OA of knees and spine Surgical History Comments:: Prostate surgery 12/13/17, L1 Kypholplasty 12/23/17 with progressive compression deformity. Subjective Information/ Patient Comments:: "I really don't want to." "You are a pain in my butt!" "You just wanted me to get out of my covers." - Level of function Prior to this admission, the patient could do the following:: Independent Selfcare Abilities prior to this admission: Pt walked with a RW prior to this illness. Current Level of Function: Partially Dependent Current Equipment Used at Home: Glucometer; Walker, W/C, Shower Chair, BSC Pain Assessment - Pain Pain Score: 9 Side: bilateral Pain Location Body Site: Back Pain Alleviating Factors: Medication Interventions - Objective Patient Orientation: Person, Place, Situation Current Interventions: IV's Observation: Pt is very weak and falls backwards. Interventions - ROM Right Upper Extremity AROM: WFL's Left Upper Extremity AROM: WFL's - Strength Right Upper Extremity Strength: Normal Left Upper Extremity Strength: Normal - Sensation Right Upper Extremity Sensation: Intact/Normal Left Upper Extremity Sensation: Intact/Normal Balance - Sitting Balance Static Sitting Balance: Good Dynamic Sitting Balance: Good - Standing Balance Static Standing Balance: Poor Dynamic Standing Balance: Poor ADL Skills - Grooming Grooming: CGA - Bathing Bathing UE: Min Assist Bathing LE: Min Assist - Dressing Dressing UE: CGA Dressing LE: CGA - Toilet Management Toileting Management: CGA Functional Mobility - Bed Mobility Rolling R/L: Independent Scooting: Independent Supine to Sit: CGA Sit to Supine: CGA - Transfers Sit to Stand: Min Assist Stand to Sit: CGA Stand Pivot Transfers: Min Assist RICK INDEX SCORE: . Additional Treatment Performed - Additional units charged ADL: 15 - Time with patient Length of Evaluation: 23 Total treatment time: 38 Activities Do you enjoy playing games?: No Would you be interested in leaving your room for activities?: No Would you enjoy group activities?: No Do you have difficulty with your vision?: No Patient Interests:: Watching Television Patient Education Patient Education: Education of diagnosis, Home Exercise Program, Home Safety, Education of Plan of Care Teaching Recipient: Patient, Family Teaching Methods: Teach Back Method Used, Discussion Assessment Problem List:: Decreased level of function, Requires training/education, Decreased safety/Risk of falls, Weakness Rehab Potential: Good Further Therapy Indicated?: Yes Evaluation Complexity: HISTORY: Medium, EXAM OF BODY SYSTEMS: Medium, CLINICAL DECISION MAKING: Medium Short Term Goals - Goals GOAL 1: Pt to complete toilet training CGA without LOB with RW. Goal to be met by: 01/05/18 GOAL 2: Pt to complete sink level ADLS MOD-I without LOB with RW. Goal to be met by: 01/05/18 GOAL 3: Pt to increase standing activity tolerance to 10 minutes. Goal to be met by: 01/05/18 GOAL 4: Pt to increase strength of BUE to 4+/5. Goal to be met by: 01/06/18 Telegraphic Typewriter Mechanic Goals GOAL 1: Pt to complete toilet training Mod-I without LOB with RW. Goal to be met by: 01/08/18 GOAL 2: Pt to increase (I) of ADLS with RW to Mod-I. Goal to be met by: 01/08/18 GOAL 3: Pt to increase act. citlaly. to 15 minutes in std. and BUE strength to 5/5. Goal to be met by: 01/08/18 Plan Treatment Diagnosis (ICD 10 Codes): M62.81 Muscle weakness, R 27.8 Lack of coordination. Has the Physician been added for Co-signature?: Yes
[2018-01-01] MEDS: CARAFATE PO SCH ×2 (16:53→20:17)
[2018-01-01] MEDS: LIPITOR PO SCH (20:17)
[2018-01-01] MEDS: LANTUS SUBCUT SCH (20:18)
[2018-01-02] MEDS: SODIUM CHLORIDE 1,000 ML IV SCH (03:35)
[2018-01-02] MEDS: PROTONIX PO SCH ×2 (05:43→16:42)
[2018-01-02] MEDS: CARAFATE PO SCH ×4 (05:44→20:54)
[2018-01-02] MEDS: NORCO 7.5-325 PO SCH ×3 (05:44→20:54)
[2018-01-02] MEDS: SPIRIVA IH SCH (08:51)
[2018-01-02] MEDS: TRADJENTA PO SCH (08:52)
[2018-01-02] MEDS: NEURONTIN PO SCH ×3 (08:52→20:53)
[2018-01-02] MEDS: LEXAPRO PO SCH (08:52)
[2018-01-02] MEDS: COLACE PO SCH (08:52)
[2018-01-02] MEDS: ROCEPHIN 1 GM in SODIUM CHLORIDE 50 ML IV SCH (08:53)
[2018-01-02] MEDS: AGGRENOX CAPSULE PO SCH ×2 (09:00→20:54)
[2018-01-02] MEDS: AZACTAM 1 GM in SODIUM CHLORIDE 50 ML IV SCH (10:03)
[2018-01-02] MEDS: HUMULIN R SUBCUT PRN (11:10)
[2018-01-02] MEDS: LIPITOR PO SCH (20:53)
[2018-01-02] MEDS: ZOFRAN 4 MG/2 ML IVP PRN (21:07)
[2018-01-02] MEDS: LANTUS SUBCUT SCH (21:09)
[2018-01-03] MEDS: PROTONIX PO SCH ×2 (05:42→16:08)
[2018-01-03] MEDS: NORCO 7.5-325 PO SCH ×3 (05:43→20:38)
[2018-01-03] MEDS: CARAFATE PO SCH ×4 (05:43→20:39)
[2018-01-03] MEDS: ROCEPHIN 1 GM in SODIUM CHLORIDE 50 ML IV SCH (09:14)
[2018-01-03] MEDS: SPIRIVA IH SCH (09:15)
[2018-01-03] MEDS: AGGRENOX CAPSULE PO SCH ×2 (09:15→20:36)
[2018-01-03] MEDS: LEXAPRO PO SCH (09:15)
[2018-01-03] MEDS: TRADJENTA PO SCH (09:15)
[2018-01-03] MEDS: NEURONTIN PO SCH ×3 (09:15→20:39)
[2018-01-03] MEDS: HUMULIN R SUBCUT PRN ×2 (11:30→20:39)
[2018-01-03] MEDS: LIPITOR PO SCH (20:36)
[2018-01-03] MEDS: LANTUS SUBCUT SCH (20:39)
[2018-01-04] MEDS: PROTONIX PO SCH (05:34)
[2018-01-04] MEDS: NORCO 7.5-325 PO SCH ×2 (05:34→12:30)
[2018-01-04] MEDS: CARAFATE PO SCH ×2 (05:34→11:41)
[2018-01-04 05:48] VITALS: TEMP 97.5
[2018-01-04 09:52] VITALS: BP 101/66
--- NOTE | 2018-01-04 10:01 | PCM.PROG ---
Attending Provider: ATTENDING PROVIDER: Dr. JOVANNI CRAIN This patient is seen with Ananya Santiago, Nurse Practitioner. DATE OF SERVICE: 01/04/18 SUBJECTIVE: This 72 year old WHITE/ M was hospitalized 12/29/17. The patient is lying in bed. He has been up walking over the weekend, eating 50% of his meals. He is more alert and seems to be more upbeat. Upper GI and CT of the abdomen both normal. The still thinks he is having difficulty eating. REVIEW OF SYSTEMS: CONSTITUTIONAL: Weakness. No night sweats. No malaise, lethargy. No fever or chills. HEENT: Eyes: No visual changes. No eye pain. No eye discharge. ENT: No runny nose. No epistaxis. No sinus pain. No odynophagia. No congestion. RESPIRATORY: No cough, no congestion. No hemoptysis. No shortness of breath. CARDIOVASCULAR: No angina symptoms. No CHF symptoms. No atypical chest pain for CAD. No palpitations. No orthopnea.. GASTROINTESTINAL: Diminished appetite improving. No abdominal pain. No nausea or vomiting. No diarrhea or constipation. No hematemesis. No hematochezia. GENITOURINARY: No urgency. No frequency. No dysuria. No hematuria. No obstructive symptoms. No discharge. No pain. No significant abnormal bleeding. MUSCULOSKELETAL: No musculoskeletal pain; no joint swelling. NEUROLOGICAL: Awake, alert, oriented to time, place and person. No headache. No neck pain. No syncope. No seizures. No dizziness. PSYCHIATRIC: Not anxious. No depression. No suicidal thoughts. No homicidal thoughts. SKIN: No rash. No lesions. No wounds. ENDOCRINE: No unexplained weight loss. No weight gain. HEMATOLOGIC/LYMPHATIC: No anemia. No purpura. No petechiae. No prolonged or excessive bleeding. No palpable lymph nodes. PHYSICAL EXAMINATION: GENERAL: The patient is awake, alert and oriented, lying in bed in no distress. VITAL SIGNS: Temperature 97.5 F, Pulse 74, Respiratory Rate 18, BP 115/68, Pulse Ox 96% HEENT: Head normocephalic, atraumatic. Eyes: Extraocular muscles are intact. Pupils are equal, round and reactive to light and accommodation. Ears: No lesions. Nose appeared normal. Throat: No exudate or erythema. NECK: Supple. No JVD, no carotid bruit. No lymphadenopathy or thyromegaly. LUNGS: Diminished breath sounds. Clear to auscultation. Percussion note normal. Chest symmetrical. HEART: S1, S2, no S3. No murmurs. No cyanosis or clubbing. No ascites. Pulses: Dorsalis pedis and posterior tibial pulses +1 to +2 both sides. ABDOMEN: Soft. Non-tender. Bowel sounds active. No CVA tenderness. No mass felt. EXTREMITIES: No edema. Full range of motion of all extremities, equal. NEUROLOGIC: No focal deficit. Cranial nerves II through XII are grossly intact. No headache, no double vision or headache. SKIN: Not dry. Intact. Turgor-normal. LYMPHATIC: No palpable lymph nodes/no lymphedema. MUSCULOSKELETAL: Normal joints with no swelling. Muscle tone is normal. LAB REVIEW: 01/04/18 04:22 01/04/18 04:22 01/04/18 04:22: Sodium 134.3 L, Potassium 3.67, Chloride 102.7, Carbon Dioxide 29.0, Anion Gap 6.27, BUN 3.6 L, Creatinine 0.83, Estimated GFR (MDRD) 91.00, BUN/Creatinine Ratio 4.33, Glucose 119.1 H, Calcium 8.01 L, Total Bilirubin 0.32 , AST 37.0, ALT 17.6, Alkaline Phosphatase 138.4 H, Total Protein 6.55, Albumin 2.95 L, Globulin 3.60, Albumin/Globulin Ratio 0.81 01/04/18 04:22: WBC 10.02, RBC 4.18 L, Hgb 11.7 L, Hct 35.2 L, MCV 84.2, MCH 28.0, MCHC 33.2, RDW Coeff of Leanna 13.0, Plt Count 415, Immature Gran % (Auto) 4.3, Neut % (Auto) 57.5, Lymph % (Auto) 24.7, Clay % (Auto) 9.9, Eos % (Auto) 2.6, Baso % (Auto) 1.0, Immature Gran # (Auto) 0.4, Neut # (Auto) 5.8, Lymph # ( Auto) 2.5, Clay # (Auto) 1.0, Eos # (Auto) 0.3, Baso # (Auto) 0.1 ASSESSMENT: 1. DIMINISHED APPETITE. 2. NAUSEA. 3. ACUTE UTI. 4. WEIGHT LOSS. 5. GENERALIZED WEAKNESS. 6. MULTIPLE COMPRESSION FRACTURES IN SPINE. PLAN: 1. Referral to Dr. Roberts [facility], for possible need for EGD. 2. Referral to [facility]. 3. Possible D/C today. Plan and coordination of the patient's care discussed in the presence of Materials Scheduler and nurse. CONDITION: Stable SCRIBED BY: RAMIN HIDALGO Manager Administrative scribed while in presence of service performed by Dr. Crain/Ananya Santiago APRN on 01/04/18 ([id number])
[2018-01-04] MEDS: ROCEPHIN 1 GM in SODIUM CHLORIDE 50 ML IV SCH (10:05)
[2018-01-04] MEDS: SPIRIVA IH SCH (10:05)
[2018-01-04] MEDS: NEURONTIN PO SCH (10:06)
[2018-01-04] MEDS: LEXAPRO PO SCH (10:06)
[2018-01-04] MEDS: TRADJENTA PO SCH (10:07)
[2018-01-04] MEDS: AGGRENOX CAPSULE PO SCH (10:10)
--- NOTE | 2018-01-04 10:36 | PN ---
DATE OF SERVICE: 12/30/17 SUBJECTIVE: The patient was seen and examined today with the nurse practitioner. The patient was hospitalized with weight loss, weakness and shortness of breath. The patient has evidence of UTI likely cystitis. Will start him on Rocephin, Azactam. The blood pressure is on the lower side likely from dehydration, weight loss and sedentary life with inability to move. The patient will be started on IV fluids. Legs will be elevated. There is no evidence of septicemia. He is afebrile. He is alert, oriented to time, place and person. PHYSICAL EXAMINATION: GENERAL: The patient awake, alert and oriented in no distress. HEENT: Head normocephalic, atraumatic. Eyes: Extraocular muscles are intact. Pupils are equal, round and reactive to light and accommodation. Ears: No lesions. Nose appeared normal. Throat: No exudate or erythema. NECK: Supple. No JVD, no carotid bruit. No lymphadenopathy or thyromegaly. LUNGS: Decreased breath sounds but clear to auscultation. Percussion note normal. Chest symmetrical. HEART: S1, S2, no S3. No murmurs. No cyanosis or clubbing. No ascites. Pulses: Dorsalis pedis and posterior tibial pulses +1 to +2 both sides. ABDOMEN: Soft. Nontender. Bowel sounds active. No CVA tenderness. No mass felt. EXTREMITIES: No edema. Full range of motion of all extremities, equal. NEUROLOGIC: No focal deficit. Cranial nerves II through XII are grossly intact. No headache, no double vision or headache. SKIN: Not dry. Intact. Turgor - normal. LYMPHATIC: No palpable lymph nodes/no lymphedema. MUSCULOSKELETAL: Normal joints with no swelling. Muscle tone is normal. Condition is stable. TIME SPENT: More than 30 minutes. Plan and coordination of the patient's care discussed in the presence of nurse. SAHIL
--- NOTE | 2018-01-04 12:08 | CM.DICTOOL ---
ADMISSION: 12/29/17 12:21 DISCHARGE: JANUARY 04, 2018 DATE OF SERVICE: 01/04/18 FINAL DIAGNOSIS UTI, E-COLI AND SERRATIA ODORIFERA ORGANISM WEIGHT LOSS POOR APPETITE WEAKNESS CVA, 06/09 PERIPHERAL NEUROPATHY METABOLIC SYNDROME LVH HYPERTENSION DYSLIPIDEMIA COPD IDDM GERD OA, KNEES, SPINE PROSTATE SURGERY, DR. EDWARDS, 12/13/17 L1 KYPHOPLASTY, DR. DOUGLASS, 12/23/17 FORMER SMOKER NONE FOR 25 YEARS FORMER ALCOHOL NONE FOR 25 YEARS LAST VITALS Temp Pulse Resp BP Pulse Ox 97.5 F L 84 16 101/66 95 01/04/18 09:51 01/04/18 09:51 01/04/18 09:51 01/04/18 09:51 01/04/18 09:51 TAKE THESE MEDICATIONS AT HOME Hydrocodone Bitart/Acetaminophen ([place] 7.5-325) 1 tab PO Q8HR [facility] Last Admin: 01/04/18 05:34 Dose: 1 tab Albuterol Sulfate (Proair Hfa) 2 puff IH Q6H PRN PRN Reason: Wheezing Atorvastatin Calcium (Lipitor) 80 mg PO BEDTIME [facility] Last Admin: 01/03/18 20:36 Dose: 80 mg Dipyridamole/Aspirin (Aggrenox Capsule) 1 cap PO BID [facility] Last Admin: 01/04/18 10:10 Dose: 1 cap Escitalopram Oxalate (Lexapro) 10 mg PO DAILY [facility] Last Admin: 01/04/18 10:06 Dose: 10 mg Gabapentin (Neurontin) 100 mg PO TID [facility] Last Admin: 01/04/18 10:06 Dose: 100 mg Insulin Glargine (Lantus) 10 unit SUBCUT BEDTIME [facility] Last Admin: 01/03/18 20:39 Dose: 10 unit Linagliptin (Tradjenta) 5 mg PO DAILY [facility] Last Admin: 01/04/18 10:07 Dose: 5 mg Pantoprazole Sodium (Protonix) 40 mg PO BIDAC [facility] Last Admin: 01/04/18 05:34 Dose: 40 mg Sucralfate (Carafate) 1 gm PO ACHS [facility] Last Admin: 01/04/18 05:34 Dose: 1 gm Tiotropium Walker (Spiriva) 1 cap IH DAILY [facility] Last Admin: 01/04/18 10:05 Dose: 1 cap Levaquin 500 mg PO DAILY [facility] for 5 days Last Admin: Metformin 1000 mg PO BID [facility] Last Admin: ALLERGIES No Known Allergies Allergy (Verified 11/30/17 07:43) DISCONTINUED MEDICATIONS Metformin 1000 mg BID NEW PRESCRIPTIONS: Carafate 1 Gram AC and HS Protonix 40 mg BID before meals Lexapro 10 mg daily Levaquin 500 mg daily for 5 days SMOKING: Not Applicable DISEASE SPECIFIC EDUCATION: Nutrition Activity Appointments LAB REVIEW: 01/04/18 04:22 01/04/18 04:22 01/04/18 04:22: Sodium 134.3 L, Potassium 3.67, Chloride 102.7, Carbon Dioxide 29.0, Anion Gap 6.27, BUN 3.6 L, Creatinine 0.83, Estimated GFR (MDRD) 91.00, BUN/Creatinine Ratio 4.33, Glucose 119.1 H, Calcium 8.01 L, Total Bilirubin 0.32 , AST 37.0, ALT 17.6, Alkaline Phosphatase 138.4 H, Total Protein 6.55, Albumin 2.95 L, Globulin 3.60, Albumin/Globulin Ratio 0.81 01/04/18 04:22: WBC 10.02, RBC 4.18 L, Hgb 11.7 L, Hct 35.2 L, MCV 84.2, MCH 28.0, MCHC 33.2, RDW Coeff of Leanna 13.0, Plt Count 415, Immature Gran % (Auto) 4.3, Neut % (Auto) 57.5, Lymph % (Auto) 24.7, Dickinson % (Auto) 9.9, Eos % (Auto) 2.6, Baso % (Auto) 1.0, Immature Gran # (Auto) 0.4, Neut # (Auto) 5.8, Lymph # ( Auto) 2.5, Dickinson # (Auto) 1.0, Eos # (Auto) 0.3, Baso # (Auto) 0.1 PLAN: Discharge home Diet: as tolerated; soft and easy to chew foods. Consistent Carbohydrates Liquids as tolerated Activity: Gradually resume as tolerated. Use walker for added stability (has) Continue medications as listed on nursing discharge information sheet Appointments: January 11 at 8:15 am with Ananya Santiago APRN/Dr. Crain January 28 at 1:30 pm with Armida Truong APRN for Dr. Roberts Code Status: DNR per patient request Mr. Sandoval is alert and oriented x 3. He is independent with Activities of Daily Living. He is feeding self at meal time with intakes of 15-50%. Liquid intake is good. He reports he ate without difficulty this morning. He is independent with bed mobility and transfers from the bed to the chair or standing position. He is ambulatory with use of the rolling walker and stand by assistance in the hallway. He reports he has a walker, wheelchair, bedside commode and shower chair at home. He is continent of bladder and bowel. No pain or burning with urination, but dribbling is reported at times. Skin is intact and free of decubitus ulcers. He has 2 healing scabbed incisions to the back from lumbar surgery. Cecilio Crain MD Ananya Santiago APRN
--- NOTE | 2018-01-06 10:15 | DS ---
DATE OF SERVICE: 01/04/18 FINAL DIAGNOSIS: 1. UTI, E-COLI AND SERRATIA ODORIFERAE ORGANISM 2. WEIGHT LOSS 3. POOR APPETITE 4. WEAKNESS 5. CVA, 06/09 6. PERIPHERAL NEUROPATHY 7. METABOLIC SYNDROME 8. LVH 9. HYPERTENSION 10. DYSLIPIDEMIA 11. COPD 12. IDDM 13. GERD 14. OSTEOARTHRITIS, KNEES, SPINE 15. PROSTATE SURGERY, DR. EDWARDS, 12/13/17 16. L1 KYPHOPLASTY, DR. DOUGLASS, 12/23/17 17. FORMER SMOKER - NONE FOR 25 YEARS 18. FORMER ALCOHOL - NONE FOR 25 YEARS LAST V/S Temperature 97.5, pulse 84, Respiratory rate 16, BP 101/66, Pulse ox 95. DISCHARGE INSTRUCTIONS: 1. Followup appointment 01/11/18 at 8:15 a.m. with Ananya Santiago APRN/Dr. Crain 2. Appointment 01/28/18 at 1:30 p.m. with Armida Truong APRN for Dr. Roberts MEDICATIONS AT DISCHARGE: Hydrocodone bitart/acetaminophen ([place] 7.5-325) one tab p.o. q.8hr [facility] Albuterol two puff IH q.6h p.r.n. Atorvastatin Calcium (Lipitor) 80 mg p.o. bedtime [facility] Dipyridamole/Aspirin one cap p.o. b.i.d. [facility] Escitalopram Oxalate (Lexapro) 10 mg p.o. daily [facility] Gabapentin 100 mg p.o. t.i.d. [facility] Insulin (Lantus) 10 unit subcut bedtime [facility] Linagliptin (Tradjenta) 5 mg p.o. daily [facility] Pantoprazole 40 mg p.o. b.i.d. a.c. [facility] Sucralfate 1 gm p.o. a.c. h.s. [facility] Tiotropium [place] (Spiriva) one cap IH daily [facility] Levaquin 500 mg p.o. daily [facility] for 5 days Metformin 1000 mg p.o. b.i.d. [facility] DISCONTINUED MEDICATIONS: Metformin 1000 mg b.i.d. NEW PRESCRIPTIONS: Carafate 1 gm a.c. and h.s. Protonix 40 mg b.i.d. before meals Lexapro 10 mg daily Levaquin 500 mg daily for 5 days DIET INSTRUCTIONS: As tolerated; soft and easy to chew foods. Consistent Carbohydrates. Liquids as tolerated. ACTIVITY: Gradually resume as tolerated. Use walker for added stability (has) SMOKING: N/A DISEASE SPECIFIC EDUCATION: Nutrition Activity Appointments HOSPITAL COURSE: This is a 72-year-old white male who was a direct admit from our office. He presented to the office showing weight loss, loss of appetite, chronic nausea. He has had multiple surgeries within the past month and one-half including back surgery for compression fracture as well as prostate surgery by Dr. Edwards within about 10 days of each other. Prostate surgery 12/13, kyphoplasty on 12/23. Since then he has steadily declined. The stated he had not been eating at home. He was having trouble getting up by himself. He was admitted and initially we started a workup for dysphagia and ordered an upper GI; however, he started running a temperature within 24 hours of being admitted up to 99.5. UA was significantly abnormal so I went ahead and started him on Rocephin and Azactam. Cultures soon showed that it was positive for E. coli and Serratia. Within 24 hours of being on antibiotics, he significantly improved as far as mental status. He was more alert, not as lethargic. His fever resolved. We did a PT/OT consultation. At first he did show some deficits however within about two days he has been up and about walking on his own. He states he is feeling much stronger. He has been able to eat. Yesterday and today he has been eating 50 to 75% of each meal. We did do an upper GI last week with small bowel followthrough which was completely normal. He had seen a speech therapist last year and everything was normal. He has not had an EGD so we have set him up with an appointment for Dr. Roberts for further evaluation there but he showed no signs of dysphagia here in the hospital. Again, likely his signs and symptoms were result of several weeks of urinary tract infection following his prostate surgery. Initially when he was first admitted, CT of the abdomen was done due to his weight loss, trouble eating, nausea and it showed significant cystitis which led us to do a UA which was then significantly abnormal. There were no other abnormalities. He has been doing remarkably well. Today is day 6 of antibiotics. I will send him home with Levaquin 500 mg p.o. daily for the next five days to complete a 10 day course. We did hold his Metformin while he was in the hospital due to IV contrast. Will continue to hold as his blood sugar has been controlled and this may also contribute to some stomach upset. We also started him on Protonix 40 mg b.i.d. He had been on Protonix 40 once a day. We increased this to twice a day and added Carafate twice a day as well. I do believe that there has been some component of depression as he has had these two surgeries back to back. Due to his age, he has not recovered as quickly as he would like. He has been sitting around at home. He was started on Lexapro over the weekend and again seems to show some improvement. We did make a referral for [facility]. He spoke with Ani Russell today and he stated that he was not depressed as well as his stated she did not think he was depressed but she will followup with him next week and we are going to continue him on the Lexapro as he does seem to be tolerating it well. We will send him home in stable condition today and we will followup with him next week in the office. TIME SPENT: More than 60 minutes. SAHIL
--- NOTE | 2018-01-06 14:00 | PN ---
DATE OF SERVICE: 01/03/18 SUBJECTIVE: 72-year-old white male hospitalized with multiple problems like weight loss, loss of appetite, weakness, inability to walk. Now the patient is able to walk with the walker on his own more than 100 feet. The is very happy. His appetite seems to be improved. REVIEW OF SYSTEMS: CONSTITUTIONAL: No night sweats. No fatigue, malaise, lethargy. No fever or chills. HEENT: Eyes: No visual changes. No eye pain. No eye discharge. ENT: No runny nose. No epistaxis. No sinus pain. No sore throat. No odynophagia. No congestion. RESPIRATORY: No cough, no congestion. No hemoptysis. No shortness of breath. CARDIOVASCULAR: No angina symptoms. No CHF symptoms. No atypical chest pain for CAD. No palpitations. No orthopnea. GASTROINTESTINAL: No abdominal pain. No nausea or vomiting. No diarrhea or constipation. No hematemesis. No hematochezia. GENITOURINARY: No urgency. No frequency. No dysuria. No hematuria. No obstructive symptoms. No discharge. No pain. No significant abnormal bleeding. MUSCULOSKELETAL: No musculoskeletal pain; no joint swelling. NEUROLOGICAL: No headache. No neck pain. No syncope. No seizures. No dizziness. PSYCHIATRIC: Not anxious. No depression. No suicidal thoughts. No homicidal thoughts. SKIN: No rash. No lesions. No wounds. ENDOCRINE: No unexplained weight loss. No weight gain. HEMATOLOGIC/LYMPHATIC: No anemia. No purpura. No petechiae. No prolonged or excessive bleeding. No palpable lymph nodes. PHYSICAL EXAMINATION: VITAL SIGNS: Temperature 96.3, pulse 83, respiratory rate 18, BP 150/84, pulse ox 95%. HEENT: Head normocephalic, atraumatic. Eyes: Extraocular muscles are intact. Pupils are equal, round and reactive to light and accommodation. Ears: No lesions. Nose appeared normal. Throat: No exudate or erythema. NECK: Supple. No JVD, no carotid bruit. No lymphadenopathy or thyromegaly. LUNGS: Clear to auscultation. Percussion note normal. Chest symmetrical. HEART: S1, S2, no S3. No murmurs. No cyanosis or clubbing. No ascites. Pulses: Dorsalis pedis and posterior tibial pulses +1 to +2 both sides. ABDOMEN: Soft. Nontender. Bowel sounds active. No CVA tenderness. No mass felt. EXTREMITIES: No edema. Full range of motion of all extremities, equal. NEUROLOGIC: No focal deficit. Cranial nerves II through XII are grossly intact. No headache, no double vision or headache. SKIN: Not dry. Intact. Turgor - normal. LYMPHATIC: No palpable lymph nodes/no lymphedema. MUSCULOSKELETAL: Normal joints with no swelling. Muscle tone is normal. ASSESSMENT: The patient's depression seems to have improved with Lexapro. Hydration status has improved. Appetite has improved. Workup so far negative. PLAN: 1. The patient will be seen by [facility] on Thursday, that is tomorrow. TIME SPENT: More than 30 minutes. Plan and coordination of the patient's care discussed in the presence of nurse. SAHIL
--- NOTE | 2018-01-06 14:04 | PN ---
DATE OF SERVICE: 01/02/18 SUBJECTIVE: According to the , he is a lot better. He is feeling better. He is acting better. In fact, he ate some this morning, according to the as far as breakfast is concerned. REVIEW OF SYSTEMS: CONSTITUTIONAL: No night sweats. No fatigue, malaise, lethargy. No fever or chills. HEENT: Eyes: No visual changes. No eye pain. No eye discharge. ENT: No runny nose. No epistaxis. No sinus pain. No sore throat. No odynophagia. No congestion. RESPIRATORY: No cough, no congestion. No hemoptysis. No shortness of breath. CARDIOVASCULAR: No angina symptoms. No CHF symptoms. No atypical chest pain for CAD. No palpitations. No orthopnea. GASTROINTESTINAL: No abdominal pain. No nausea or vomiting. No diarrhea or constipation. No hematemesis. No hematochezia. GENITOURINARY: No urgency. No frequency. No dysuria. No hematuria. No obstructive symptoms. No discharge. No pain. No significant abnormal bleeding. MUSCULOSKELETAL: No musculoskeletal pain; no joint swelling. NEUROLOGICAL: No headache. No neck pain. No syncope. No seizures. No dizziness. PSYCHIATRIC: Not anxious. No depression. No suicidal thoughts. No homicidal thoughts. SKIN: No rash. No lesions. No wounds. ENDOCRINE: No unexplained weight loss. No weight gain. HEMATOLOGIC/LYMPHATIC: No anemia. No purpura. No petechiae. No prolonged or excessive bleeding. No palpable lymph nodes. PHYSICAL EXAMINATION: GENERAL: The patient is oriented to time, place and person. VITAL SIGNS: Temperature 97.2, pulse 74, respiratory rate 18, BP 115/63, pulse ox 95%. HEENT: Head normocephalic, atraumatic. Eyes: Extraocular muscles are intact. Pupils are equal, round and reactive to light and accommodation. Ears: No lesions. Nose appeared normal. Throat: No exudate or erythema. NECK: Supple. No JVD, no carotid bruit. No lymphadenopathy or thyromegaly. LUNGS: Clear to auscultation. Percussion note normal. Chest symmetrical. HEART: S1, S2, no S3. No murmurs. No cyanosis or clubbing. No ascites. Pulses: Dorsalis pedis and posterior tibial pulses +1 to +2 both sides. ABDOMEN: Soft. Nontender. Bowel sounds active. No CVA tenderness. No mass felt. EXTREMITIES: No edema. Full range of motion of all extremities, equal. NEUROLOGIC: No focal deficit. Cranial nerves II through XII are grossly intact. No headache, no double vision or headache. SKIN: Not dry. Intact. Turgor - normal. LYMPHATIC: No palpable lymph nodes/no lymphedema. MUSCULOSKELETAL: Normal joints with no swelling. Muscle tone is normal. LABS: Hemoglobin 11.4, hematocrit 33, WBC 10,000, normal differential. PLAN: 1. The patient had Serratia in the urine so the patient will be on Rocephin. 2. Continue Azactam. 3. Continue Carafate. 4. Continue to encourage the patient's oral intake. 5. Also, on antidepressant and seems to be working well. 6. Will be referred to [facility] on Thursday, that is day after tomorrow. CONDITION: Stable, improving. TIME SPENT: More than 30 minutes. Plan and coordination of the patient's care discussed in the presence of nurse. SAHIL
--- NOTE | 2018-01-06 14:06 | PN ---
DATE OF SERVICE: 01/01/18 SUBJECTIVE: The patient was seen and examined on 01/01/18 with nurse practitioner. The patient's condition is stable. He will be referred to [facility]. TIME SPENT: More than 30 minutes. Plan and coordination of the patient's care discussed in the presence of nurse. SAHIL
== END 2018-01-04 13:00 | disposition home or self-care (01) | DRG 641 ==
LOC: MEDSURG B 12:21
PROVIDERS: ADMIT Internal Medicine; ATTEND Internal Medicine
DX: R63.4 Abnormal weight loss (principal); I50.1 Left ventricular failure, unspecified; I10 Essential (primary) hypertension; G62.9 Polyneuropathy, unspecified; J44.9 Chronic obstructive pulmonary disease, unspecified; K21.9 Gastro-esophageal reflux disease without esophagitis; M47.9 Spondylosis, unspecified; M17.0 Bilateral primary osteoarthritis of knee; E66.9 Obesity, unspecified; E88.81 Metabolic syndrome and other insulin resistance; E78.5 Hyperlipidemia, unspecified; E11.9 Type 2 diabetes mellitus without complications; R11.0 Nausea; R53.1 Weakness; Z79.4 Long term (current) use of insulin
CPT/HCPCS: 36415; 80053; 81001; 82272; 82550; 82962; 83036; 83615; 84443; 85025; 87086; 87186; 93005; 93010; 97802

== ENCOUNTER 2019-07-14 09:29 | Inpatient (IN) ==
[2019-07-14 10:08] VITALS: BMI 38.3
[2019-07-14] MEDS ORDERED: VISTARIL INJ IM PRN (10:23)
[2019-07-14] MEDS ORDERED: NITROSTAT SL PRN (10:23)
[2019-07-14] MEDS ORDERED: ATROPINE SULFATE PFS IVP PRN (10:23)
[2019-07-14] MEDS ORDERED: TYLENOL PO PRN (10:23)
[2019-07-14] MEDS ORDERED: LEVAQUIN 500 MG/100 ML D5W 500 MG/100 ML BAG IV SCH (10:30)
--- NOTE | 2019-07-14 10:34 | HP ---
DATE OF SERVICE: 07/14/2019 REASON FOR HOSPITALIZATION/HISTORY OF PRESENT ILLNESS: 86 year old white male walked into the office with having ulcer no the left heel. It did not say anything about it but the mentioned it. The patient has left heel ulcer for more than 6-7 weeks but 4 weeks ago he went to Dr. Jackson who is a Document Analyst and he is taking care of the ulcer. The patient has been on Keflex initially after the culture reports came back Dr. Jackson switched him to Levaquin. The patient has been on Levaquin for a while. The patient already had vascular study done at [facility]. The report is pending. Dr. Jackson didn't have the report either. Nurse had talked to Manuel and got off these details. The patient practically has no complaints. 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 Gar follows cataract right eye. Chronic bronchitis Dyslipidemia Obesity Osteoarthritis knee History of LVH Status post Prostate surgery 12/10, Dr. Perales Carotid scan less 50% 11/11 REVIEW OF SYSTEMS: CONSTITUTIONAL: No night sweats. Fatigue. No fever or chills. HEENT: Eyes: No visual changes. No eye pain. No eye discharge. ENT: No runny nose. No epistaxis. No sinus pain. No sore throat. No odynophagia. No ear pain. No congestion. RESPIRATORY: No cough, no congestion. No hemoptysis. No shortness of breath. CARDIOVASCULAR: No angina symptoms. No CHF symptoms. No atypical chest pain for CAD. No palpitations. No PND. No orthopnea. GASTROINTESTINAL: No abdominal pain. No nausea or vomiting. No diarrhea or constipation. No hematemesis. No hematochezia. GENITOURINARY: No urgency. No frequency. No dysuria. No hematuria. No obstructive symptoms. No discharge. No pain. No significant abnormal bleeding. MUSCULOSKELETAL: No musculoskeletal pain. No joint swelling. No arthritis. Osteoarthritis. NEUROLOGICAL: No headache. No neck pain. No syncope. No seizures. No dizziness. PSYCHIATRIC: Anxious. No depression. No suicidal thoughts. No homicidal thoughts. SKIN: No rash. No lesions. No wounds. ENDOCRINE: No unexplained weight loss. No weight gain. HEMATOLOGIC/LYMPHATIC: No anemia. No purpura. No petechiae. No prolonged or excessive bleeding. No palpable lymph nodes. PERSONAL/FAMILY/SOCIAL HISTORY: The patient is . Nonsmoker and no alcohol use. MEDICATIONS: Spiriva 18mcg one inhalation daily Lantus 30 units SUBCUT Bedtime Hydrocodone-Acetaminophen 7.5-325mg PO TID PRN Aggrenox 25-200mg PO BID Tradjenta 5mg PO daily Proair Respiclick 2 puff inhalation Q 6 hours PRN Escitalopram 10mg PO daily Carafate 1 gram PO ACHS Ipratropium 3ml inhalation QID PRN Flomax 0.4mg PO daily Promethazine 12.5mg PO Q 6 hours PRN Gabapentin 100g PO TID Atorvastatin 80mg PO daily Pantoprazole 40mg PO daily ALLERGIES: No known allergies PHYSICAL EXAMINATION: VITAL SIGNS: Pulse 88, blood pressure 118/68, Temperature 98.2, Oxygen saturation 95%. HEENT: Head normocephalic, atraumatic. Eyes: Extraocular muscles are intact. Pupils are equal, round and reactive to light and accommodation. Ears: No lesions. Nose appeared normal. Throat: No exudate or erythema. NECK: Supple. No JVD, no carotid bruit. No lymphadenopathy or thyromegaly. LUNGS: Clear to auscultation. Percussion note normal. Chest symmetrical. HEART: S1, S2, no S3. No murmur. No cyanosis or clubbing. No ascites. Pulses: Dorsalis pedis and posterior tibial pulses +1 to +2 bilaterally. ABDOMEN: Soft. Nontender. Bowel sounds active. No CVA tenderness. No mass felt. EXTREMITIES: No edema. Full range of motion of all extremities, equal. Left heel has necrotic base with approximately 3in diameter ulcer with some redness surrounding part. The has known case of diabetes mellitus with average A1c more than 10. Last A1c 10.9 on 01/14/19. The patient is on Lantus insulin, He is noncompliant of lifestyle and medications and recommendations. He is morbidly with BMI of 40. Doesn't follow the diet. According to the he is a very difficult person. NEUROLOGIC: No focal deficit. Cranial nerves II through XII are grossly intact. No headache, no double vision or headache. SKIN: Not dry. Intact. Turgor - normal. LYMPHATIC: No palpable lymph nodes/no lymphedema. MUSCULOSKELETAL: Normal joints with no swelling. Muscle tone is normal. RECTAL/PROSTATE: (0.3) 03/17/2019 Dr. Perales follows. Colonoscopy: Patient refused. The patient reluctantly agree to be hospitalized because of COVID the is not supposed to be with the patient but the exception was made. The patient is going to be hospitalized, Vannesa the daughter came over and I discussed with Vannesa in the presence of both patient and his about the plan that we have. She was very thankful about it. and the patient don't mind me to discuss with Vannesa about the patient's condition and further plan. ASSESSMENT: 1. Left heel necrotic ulcer with cellulitis 2. COPD 3. Chronic bronchitis 4. Noncompliance of diet and medication 5. Diabetes Mellitus Type II, A1c (10.9) 01/14/19 6. Depression, Lexapro helps 7. Compression fracture L1 status post Kyphoplasty 12/10 8. History of urinary retention 9. 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 Gar follows cataract right eye. 15.Chronic bronchitis 16.Dyslipidemia 17.Obesity 18.Osteoarthritis knee 19.History of LVH 20.Status post Prostate surgery 12/10, Dr. Perales 21.Carotid scan less 50% 11/11 PLAN: 1. Hospitalized the patient 2. IV Levaquin 500mg IV 24 hours 3. X-ray the left heel to rule out osteomyelitis 4. Get the vascular studies 5. Refer the patient to Wound Care, [facility]. 6. May need Home Health Care to take care of the patient's ulcer. 7. Needs to have blood sugar controlled better. 8. Routine Telemetry orders 9. Culture and sensitivity with wound. 10. Get records from [facility], Vascular studies 11. Culture and sensitivity from Dr. aJckson office 12. Continue all medications. PROGNOSIS: Guarded TIME SPENT: More than 70 minutes. MTDD
[2019-07-14] MEDS ORDERED: PHENERGAN TAB PO PRN (10:51)
[2019-07-14] MEDS ORDERED: NON-FORMULARY MEDICATION (Albuterol Sulfate [Proair Respiclick] 2 PUFF) IH PRN (10:51)
[2019-07-14] MEDS: CARAFATE PO SCH ×3 (11:20→20:48)
[2019-07-14] MEDS: NORCO 7.5-325 PO PRN ×2 (11:21→16:04)
[2019-07-14] MEDS ORDERED: VENTOLIN HFA (PER PUFF-WITH SPACER) IH PRN (11:23)
[2019-07-14] MEDS: LEVAQUIN 750 MG/150 ML D5W 750 MG/150 ML BAG IV SCH (12:25)
--- NOTE | 2019-07-14 13:22 | DI ---
EXAM: Chest one view, frontal view only. HISTORY: Chronic obstructive pulmonary disease. COMPARISON: 12/29/2017. FINDINGS: The heart size is normal. There is no pulmonary vascular congestion. The lungs are clear save for calcified granulomatous changes. No pleural effusion or pneumothorax is seen. No acute os seous abnormality is identified. Since the prior study, there has been no significant interval aragon e. IMPRESSION: No acute cardiopulmonary process.
--- NOTE | 2019-07-14 14:05 | DI ---
EXAM: Three views of the right foot HISTORY: Left heel sore. COMPARISON: None FINDINGS: There is no cortical irregularity or displaced fracture of the left foot. There is bone de mineralization. There is scattered degenerative disease throughout the left foot. The arch is maint ained. Soft tissues are unremarkable with a so or seen over the calcaneus with no underlying osteoly tic changes. IMPRESSION: 1. Sore overlying the calcaneus with no underlying evidence of osteomyelitis. 2. Scattered degenerative disease and osteopenia.
[2019-07-14] MEDS: NEURONTIN PO SCH ×2 (16:04→20:48)
[2019-07-14] MEDS: AGGRENOX CAPSULE PO SCH (20:48)
[2019-07-14] MEDS: LANTUS SUBCUT SCH (20:48)
[2019-07-15] MEDS: NORCO 7.5-325 PO PRN ×2 (04:32→20:35)
[2019-07-15 05:25] LABS: HEMATOCRIT 39.8 % (42.0-52.0)
[2019-07-15] MEDS: PROTONIX PO SCH (05:40)
[2019-07-15] MEDS: CARAFATE PO SCH ×4 (05:40→20:35)
--- NOTE | 2019-07-15 09:21 | PCM.PROG ---
Attending Provider: ATTENDING PROVIDER: Dr. JOVANNI CRAIN This patient is seen with Jeanine Wheatley, Nurse Practitioner. DATE OF SERVICE: 07/15/19 SUBJECTIVE: This 74 year old /WHITE M was hospitalized 07/14/19. Resting comfortably in bed. He is eating and drinking is poor to fair. He is getting up in the room with a walker. Has been disgruntled and is hesitant of most recommendations. Dr. Rodriguez was consulted and is planning to work on his left heel ulcer today. We will continue IV Levaquin as it is susceptible to wound culture sensitivity. We will continue to follow closely. REVIEW OF SYSTEMS: CONSTITUTIONAL: No night sweats. No fatigue, malaise, lethargy. No fever or chills. HEENT: Eyes: No visual changes. No eye pain. No eye discharge. ENT: No runny nose. No epistaxis. No sinus pain. No odynophagia. No congestion. RESPIRATORY: No cough, no congestion. No hemoptysis. No shortness of breath. CARDIOVASCULAR: No angina symptoms. No CHF symptoms. No atypical chest pain for CAD. No palpitations. No orthopnea.. GASTROINTESTINAL: No abdominal pain. No nausea or vomiting. No diarrhea or constipation. No hematemesis. No hematochezia. GENITOURINARY: No urgency. No frequency. No dysuria. No hematuria. No obstructive symptoms. No discharge. No pain. No significant abnormal bleeding. MUSCULOSKELETAL: No musculoskeletal pain; no joint swelling. Left heel pain. NEUROLOGICAL: Awake, alert, oriented to time, place and person. No headache. No neck pain. No syncope. No seizures. No dizziness. PSYCHIATRIC: Not anxious. No depression. No suicidal thoughts. No homicidal thoughts. SKIN: No rash. No lesions. No wounds. ENDOCRINE: No unexplained weight loss. No weight gain. HEMATOLOGIC/LYMPHATIC: No anemia. No purpura. No petechiae. No prolonged or excessive bleeding. No palpable lymph nodes. PHYSICAL EXAMINATION: GENERAL: The patient is awake, alert and oriented, lying in bed in no distress. VITAL SIGNS: Temperature 97.6 F, Pulse 86, Respiratory Rate 20, BP 128/75, Pulse Ox 92% HEENT: Head normocephalic, atraumatic. Eyes: Extraocular muscles are intact. Pupils are equal, round and reactive to light and accommodation. Ears: No lesions. Nose appeared normal. Throat: No exudate or erythema. NECK: Supple. No JVD, no carotid bruit. No lymphadenopathy or thyromegaly. LUNGS: Diminished breath sounds. Clear to auscultation. Percussion note normal. Chest symmetrical. HEART: S1, S2, no S3. No murmurs. No cyanosis or clubbing. No ascites. Pulses: Dorsalis pedis and posterior tibial pulses +1 to +2 both sides. ABDOMEN: Soft. Non-tender. Bowel sounds active. No CVA tenderness. No mass felt. EXTREMITIES: Trace bilateral lower extremity edema. Full range of motion of all extremities, equal. Left heel ulcer. NEUROLOGIC: No focal deficit. Cranial nerves II through XII are grossly intact. No headache, no double vision or headache. SKIN: Not dry. Intact. Turgor-normal. LYMPHATIC: No palpable lymph nodes/no lymphedema. MUSCULOSKELETAL: Normal joints with no swelling. Muscle tone is normal. LAB REVIEW: 07/15/19 05:05 07/15/19 05:05 07/15/19 05:05: Sodium 132.3 L, Potassium 4.35, Chloride 96.8 L, Carbon Dioxide 30.9 H, Anion Gap 8.95, BUN 7.9 L, Creatinine 0.79, Estimated GFR (MDRD) 95.00, BUN/Creatinine Ratio 10.00, Glucose 217.6 H D, Calcium 8.70, Total Bilirubin 0.68, AST 20.6, ALT 11.4, Alkaline Phosphatase 155.3 H, Total Protein 6.85, Albumin 3.26 L, Globulin 3.59, Albumin/Globulin Ratio 0.90 07/15/19 05:05: WBC 11.91 H, RBC 4.60 L, Hgb 13.3 L, Hct 39.8 L, MCV 86.5, MCH 28.9, MCHC 33.4, RDW Coeff of Leanna 13.2, Plt Count 290, Immature Gran % (Auto) 0.7, Neut % (Auto) 63.3, Lymph % (Auto) 21.4, [place] % (Auto) 10.8 H, Eos % (Auto) 3.4, Baso % (Auto) 0.4, Neut # (Auto) 7.5 H, Lymph # (Auto) 2.6, [place] # (Auto) 1.3, Eos # (Auto) 0.4, Baso # (Auto) 0.1, Immature Gran # (Auto) 0.1 07/14/19 20:30: Total Creatine Kinase 144.1, CK-MB (CK-2) 2.270, CK-MB (CK-2) % 1.5700, Troponin I < 0.012 07/14/19 16:48: Procalcitonin < 0.05 07/14/19 16:48: TSH 2.630 07/14/19 16:48: Hemoglobin A1c 10.26 H D 07/14/19 11:51: Urine Color Yellow, Urine Clarity Clear, Urine pH 7.0, Ur Specific [place] 1.015, Urine Protein Negative, Urine Glucose (UA) Trace H, Urine Ketones Negative, Urine Blood Negative, Urine Nitrite Negative, Urine Bilirubin Negative, Urine Urobilinogen 0.2, Ur Leukocyte Esterase Negative, Ur Squamous Epith Cells Not present 07/14/19 10:40: Sodium 133.3 L, Potassium 4.64, Chloride 94.4 L, Carbon Dioxide 32.2 H, Anion Gap 11.34, BUN 9.7, Creatinine 0.87, Estimated GFR (MDRD) 85.00, BUN/Creatinine Ratio 11.14, Glucose 281.3 H, Calcium 8.83, Total Bilirubin 0.69, AST 21.6, ALT 12.0, Alkaline Phosphatase 170.6 H, Total Creatine Kinase 107.6, Troponin I < 0.012, Total Protein 7.42, Albumin 3.65, Globulin 3.77, Albumin/Globulin Ratio 0.96 07/14/19 10:40: WBC 12.78 H, RBC 4.93, Hgb 14.3, Hct 43.0, MCV 87.2, MCH 29.0, MCHC 33.3, RDW Coeff of Leanna 13.2, Plt Count 293, Immature Gran % (Auto) 0.8, Neut % (Auto) 69.0, Lymph % (Auto) 17.6, [place] % (Auto) 9.3, Eos % (Auto) 3.0, Baso % (Auto) 0.3, Neut # (Auto) 8.8 H, Lymph # (Auto) 2.3, [place] # (Auto) 1.2, Eos # (Auto) 0.4, Baso # (Auto) 0.0, Immature Gran # (Auto) 0.1 ASSESSMENT: Please see below. 1. Left heel necrotic ulcer with cellulites 2. COPD 3. Chronic bronchitis 4. Noncompliance of Diet and medications 5. Diabetes mellitus type 2 6. Depression 7. History of urinary retention 8. 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 Hypertension 10. Chronic lung disease 11. Diabetic retinopathy 12. Chronic bronchitis 13. Dyslipidemia 14. Metabolic syndrome 15. Osteoarthritis knee 16. History LVH PLAN: 1. Continue IV Levaquin 2. Encourage oral fluid intake 3. Dr. Rodriguez on consult 4. CBC and CMP in the morning We will follow closely. Plan and coordination of the patient's care discussed in the presence of [employer] and nurse. SCRIBED BY: Lore BULLARD scribed while in presence of service performed by Dr. Crain/Jeanine Wheatley APRN on 07/15/19 ([id number])
[2019-07-15] MEDS: ASPIRIN EC PO SCH (09:42)
[2019-07-15] MEDS: AGGRENOX CAPSULE PO SCH ×2 (09:42→20:35)
[2019-07-15] MEDS: TRADJENTA PO SCH (09:42)
[2019-07-15] MEDS: LIPITOR PO SCH (09:42)
[2019-07-15] MEDS: LEXAPRO PO SCH (09:42)
[2019-07-15] MEDS: LEVAQUIN 750 MG/150 ML D5W 750 MG/150 ML BAG IV SCH (09:43)
[2019-07-15] MEDS: NEURONTIN PO SCH ×3 (09:43→20:35)
[2019-07-15] MEDS: SPIRIVA IH SCH (09:43)
[2019-07-15] MEDS: FLOMAX PO SCH (09:43)
[2019-07-15] MEDS: HUMALOG SUBCUT PRN ×3 (11:48→20:36)
[2019-07-15] MEDS: LANTUS SUBCUT SCH (20:38)
[2019-07-16 04:44] LABS: HEMATOCRIT 38.3 % (42.0-52.0)
[2019-07-16] MEDS: CARAFATE PO SCH ×4 (05:37→20:42)
[2019-07-16] MEDS: PROTONIX PO SCH (05:38)
[2019-07-16] MEDS: HUMALOG SUBCUT PRN ×3 (05:38→20:43)
[2019-07-16] MEDS: AGGRENOX CAPSULE PO SCH ×2 (09:54→20:41)
[2019-07-16] MEDS: FLOMAX PO SCH (09:54)
[2019-07-16] MEDS: TRADJENTA PO SCH (09:54)
[2019-07-16] MEDS: ASPIRIN EC PO SCH (09:54)
[2019-07-16] MEDS: NEURONTIN PO SCH ×3 (09:54→20:42)
[2019-07-16] MEDS: LIPITOR PO SCH (09:54)
[2019-07-16] MEDS: LEXAPRO PO SCH (09:55)
[2019-07-16] MEDS: BACTRIM DS 800/160 MG PO SCH ×2 (09:55→20:42)
[2019-07-16] MEDS: SPIRIVA IH SCH (09:57)
--- NOTE | 2019-07-16 12:21 | CT ---
EXAM: CT left foot without contrast. HISTORY: Diabetic ulcer. Inpatient.. TECHNIQUE: Transaxial CT with respect to the distal left tibia/fibula performed through the level of the left foot 2 mm slice thickness without contrast. Orthogonal coronal and sagittal reformatted im aging.. COMPARISON: Three-view left foot 07/14/2019. FINDINGS: The alignment of the left foot shows no dislocation or joint subluxations. Ankle mortise intact. Overall the bones are osteopenic. This may be from disuse. Talar dome of normal morphology . Changes of mild osteoarthrosis. No acute fracture. There is an approximate 44 mm wide by 34 mm in length area of soft tissue ulceration/wound with disse cting gas over the posterior medial heel pad. Inflammatory stranding with reticulation throughout th e fat as well as induration. Question cellulitis/phlegmon. No discrete drainable soft tissue absces s. No definitive cortical bone destruction. Proximal plantar fascia and distal insertional Achilles tendon intact. There is circumferential soft tissue edema/swelling about the hind foot. This extends over the dorsu m of the midfoot.. Calcified atherosclerotic vascular disease.. IMPRESSION: Large area of soft tissue ulceration/wound with dissecting gas over the posterior medial heel pad. Question cellulitis/phlegmon. No discrete drainable soft tissue abscess. No definitive underlying cortical bone destruction to suggest acute osteomyelitis at this time. Circumferential soft tissue edema/swelling about the hind foot which extends over the dorsum of the m idfoot. Calcified atherosclerotic vascular disease. Osteopenia. Osteoarthrosis.
[2019-07-16] MEDS: SILVADENE CREAM TP SCH (20:41)
[2019-07-16] MEDS: LANTUS SUBCUT SCH (20:42)
[2019-07-17 04:57] LABS: HEMATOCRIT 39.1 % (42.0-52.0)
[2019-07-17] MEDS: PROTONIX PO SCH (05:38)
[2019-07-17] MEDS: CARAFATE PO SCH ×4 (05:39→20:11)
[2019-07-17] MEDS: HUMALOG SUBCUT PRN ×4 (05:39→22:01)
[2019-07-17] MEDS ORDERED: LEVAQUIN 750 MG/150 ML D5W 750 MG/150 ML BAG IV SCH (09:00)
[2019-07-17] MEDS: NEURONTIN PO SCH ×3 (09:06→20:11)
[2019-07-17] MEDS: LEXAPRO PO SCH (09:06)
[2019-07-17] MEDS: AGGRENOX CAPSULE PO SCH ×2 (09:06→20:11)
[2019-07-17] MEDS: FLOMAX PO SCH (09:06)
[2019-07-17] MEDS: TRADJENTA PO SCH (09:06)
[2019-07-17] MEDS: LIPITOR PO SCH (09:06)
[2019-07-17] MEDS: ASPIRIN EC PO SCH (09:07)
[2019-07-17] MEDS: BACTRIM DS 800/160 MG PO SCH ×2 (09:07→20:12)
[2019-07-17] MEDS: SPIRIVA IH SCH (09:08)
[2019-07-17] MEDS: SILVADENE CREAM TP SCH ×2 (09:09→20:12)
[2019-07-17] MEDS: NORCO 7.5-325 PO PRN (20:12)
[2019-07-17] MEDS: LANTUS SUBCUT SCH (20:13)
[2019-07-18] MEDS: CARAFATE PO SCH ×4 (06:21→20:41)
[2019-07-18] MEDS: PROTONIX PO SCH (06:21)
[2019-07-18] MEDS: HUMALOG SUBCUT PRN ×4 (06:21→20:41)
[2019-07-18] MEDS: LIPITOR PO SCH (08:50)
[2019-07-18] MEDS: AGGRENOX CAPSULE PO SCH ×2 (08:50→20:40)
[2019-07-18] MEDS: TRADJENTA PO SCH (08:50)
[2019-07-18] MEDS: ASPIRIN EC PO SCH (08:50)
[2019-07-18] MEDS: FLOMAX PO SCH (08:50)
[2019-07-18] MEDS: LEXAPRO PO SCH (08:51)
[2019-07-18] MEDS: BACTRIM DS 800/160 MG PO SCH ×2 (08:51→20:40)
[2019-07-18] MEDS: NEURONTIN PO SCH ×3 (08:51→20:41)
[2019-07-18] MEDS: SILVADENE CREAM TP SCH ×2 (11:27→20:42)
[2019-07-18] MEDS: SPIRIVA IH SCH (11:28)
[2019-07-18] MEDS: NORCO 7.5-325 PO PRN ×2 (15:54→20:40)
[2019-07-18] MEDS: LANTUS SUBCUT SCH (20:41)
[2019-07-19] MEDS: PROTONIX PO SCH (05:47)
[2019-07-19] MEDS: CARAFATE PO SCH ×4 (05:47→21:24)
[2019-07-19 06:01] LABS: HEMATOCRIT 40.7 % (42.0-52.0)
[2019-07-19] MEDS: HUMALOG SUBCUT PRN ×4 (06:20→21:25)
--- NOTE | 2019-07-19 07:46 | PCM.PROG ---
Attending Provider: ATTENDING PROVIDER: Dr. JOVANNI LESTER This patient is seen with Jeanine Wheatley, Nurse Practitioner. DATE OF SERVICE: 07/19/19 SUBJECTIVE: This 74 year old /WHITE M was hospitalized 07/14/19. The patient is resting comfortably in bed. The patient has been up to the bathroom, has been up to chair. He has fair appetite. He complains of intermittent pain but has not required pain medication. Left heel ulcer is still draining purulent drainage with foul smell. We are working on options for wound care. REVIEW OF SYSTEMS: CONSTITUTIONAL: No night sweats. No fatigue, malaise, lethargy. No fever or chills. HEENT: Eyes: No visual changes. No eye pain. No eye discharge. ENT: No runny nose. No epistaxis. No sinus pain. No odynophagia. No congestion. RESPIRATORY: No cough, no congestion. No hemoptysis. No shortness of breath. CARDIOVASCULAR: No angina symptoms. No CHF symptoms. No atypical chest pain for CAD. No palpitations. No orthopnea.. GASTROINTESTINAL: No abdominal pain. No nausea or vomiting. No diarrhea or constipation. No hematemesis. No hematochezia. GENITOURINARY: No urgency. No frequency. No dysuria. No hematuria. No obstructive symptoms. No discharge. No pain. No significant abnormal bleeding. MUSCULOSKELETAL: Left heel pain. NEUROLOGICAL: Awake, alert, oriented to time, place and person. No headache. No neck pain. No syncope. No seizures. No dizziness. PSYCHIATRIC: Not anxious. No depression. No suicidal thoughts. No homicidal thoughts. SKIN: Left heel ulcer draining. ENDOCRINE: No unexplained weight loss. No weight gain. HEMATOLOGIC/LYMPHATIC: No anemia. No purpura. No petechiae. No prolonged or excessive bleeding. No palpable lymph nodes. PHYSICAL EXAMINATION: GENERAL: The patient is awake, alert and oriented, lying/sitting in bed in no distress. VITAL SIGNS: Temperature 97.6 F, Pulse 88, Respiratory Rate 18, BP 126/70, Pulse Ox 94% HEENT: Head normocephalic, atraumatic. Eyes: Extraocular muscles are intact. Pupils are equal, round and reactive to light and accommodation. Ears: No lesions. Nose appeared normal. Throat: No exudate or erythema. NECK: Supple. No JVD, no carotid bruit. No lymphadenopathy or thyromegaly. LUNGS: Diminished breath sounds. Clear to auscultation. Percussion note normal. Chest symmetrical. HEART: S1, S2, no S3. No murmurs. No cyanosis or clubbing. No ascites. Pulses: Dorsalis pedis and posterior tibial pulses +1 both sides. ABDOMEN: Soft. Non-tender. Bowel sounds active. No CVA tenderness. No mass felt. EXTREMITIES: No edema. Full range of motion of all extremities, equal. NEUROLOGIC: No focal deficit. Cranial nerves II through XII are grossly intact. No headache, no double vision or headache. SKIN: Not dry. Intact. Turgor-normal. LYMPHATIC: No palpable lymph nodes/no lymphedema. MUSCULOSKELETAL: Normal joints with no swelling. Muscle tone is normal. LAB REVIEW: 07/19/19 05:56 07/19/19 05:56 07/19/19 05:56: Sodium 133.7 L, Potassium 4.45, Chloride 98.5, Carbon Dioxide 29.7, Anion Gap 9.95, BUN 9.9, Creatinine 1.03, Estimated GFR (MDRD) 70.00, BUN/Creatinine Ratio 9.61, Glucose 179.1 H, Calcium 8.83, Total Bilirubin 0.42, AST 21.3, ALT 12.8, Alkaline Phosphatase 148.7 H, Total Protein 7.36, Albumin 3.53, Globulin 3.83, Albumin/Globulin Ratio 0.92 07/19/19 05:56: WBC 12.35 H, RBC 4.65 L, Hgb 13.5 L, Hct 40.7 L, MCV 87.5, MCH 29.0, MCHC 33.2, RDW Coeff of Leanna 13.2, Plt Count 352, Immature Gran % (Auto) 1.0, Neut % (Auto) 59.3, Lymph % (Auto) 26.3, [place] % (Auto) 9.6, Eos % (Auto) 3.2, Baso % (Auto) 0.6, Neut # (Auto) 7.3 H, Lymph # (Auto) 3.3, [place] # (Auto) 1.2, Eos # (Auto) 0.4, Baso # (Auto) 0.1, Immature Gran # (Auto) 0.1 ASSESSMENT: Please see below. 1. Right heel necrotic ulcer with cellulitus 2. COPD 3. Chronic bronchitis 4. Noncompliance of Diet and medications 5. Diabetes mellitus type 2 6. Depression 7. History of urinary retention 8. 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 Hypertension 10. Chronic lung disease 11. Diabetic retinopathy 12. Chronic bronchitis 13. Dyslipidemia 14. Metabolic syndrome 15. Osteoarthritis knee 16. History LVH PLAN: 1. Continue oral Bactrim. 2. Work on wound care consultation. 3. Encourage good oral fluid and nutrition. 4. Encourage the patient to be up and about. Plan and coordination of the patient's care discussed in the presence of [employer] Customer Service Representative and nurse. CONDITION: Stable SCRIBED BY: RAMIN HIDALGO Medical Lab Scientist scribed while in presence of service performed by Dr. Lester/Jeanine Wheatley APRN on 07/19/19 ([id number])
[2019-07-19] MEDS: SPIRIVA IH SCH (08:12)
[2019-07-19] MEDS: LIPITOR PO SCH (08:13)
[2019-07-19] MEDS: SILVADENE CREAM TP SCH ×2 (08:13→21:27)
[2019-07-19] MEDS: ASPIRIN EC PO SCH (08:14)
[2019-07-19] MEDS: AGGRENOX CAPSULE PO SCH ×2 (08:14→21:24)
[2019-07-19] MEDS: NEURONTIN PO SCH ×3 (08:14→21:24)
[2019-07-19] MEDS: TRADJENTA PO SCH (08:14)
[2019-07-19] MEDS: NORCO 7.5-325 PO PRN ×2 (08:14→21:40)
[2019-07-19] MEDS: LEXAPRO PO SCH (08:14)
[2019-07-19] MEDS: FLOMAX PO SCH (08:14)
--- NOTE | 2019-07-19 10:02 | PN ---
DATE OF SERVICE: 07/15/19 SUBJECTIVE: The patient was seen and examined with the nurse practitioner. The patient's condition is stable. The patient is being seen by Dr. Rodriguez and he is going to do debridement of the left heel ulcer which has eschar. The patient is going to be sent to [facility] under Dr. Arita. She is a vascular surgeon in place of Dr. Meneses. Also, Catherine Almanza, who is a nurse practitioner and [facility] is going to take care of Wound Care and will be referred for that. The family has agreed. The patient's vascular test done at [facility] showed moderately compromised arterial blood supply. The patient is noncompliant. He is very stubborn. A1C has always run more than 10. TIME SPENT: More than 40 minutes. The patient's prognosis for healing is poor considering the extent of the patient's ulcer. Plan and coordination of the patient's care discussed in the presence of nurse. SAHIL
--- NOTE | 2019-07-19 10:41 | PN ---
DATE OF SERVICE: 07/16/19 SUBJECTIVE: 74-year-old white male hospitalized with left heel necrotic ulcer, cellulitis. The patient's cellulitis seems to have resolved. The patient is feeling better. His appetite has improved. The is in the room. She is happy with the patient's progress. The patient had CT scan of the left heel done this morning which was ordered by Dr. Rodriguez to make sure that the patient doesn't have any osteomyelitis. He is supposed to do debridement. REVIEW OF SYSTEMS: CONSTITUTIONAL: No night sweats. No fatigue, malaise, lethargy. No fever or chills. HEENT: Eyes: No visual changes. No eye pain. No eye discharge. ENT: No runny nose. No epistaxis. No sinus pain. No sore throat. No odynophagia. No congestion. RESPIRATORY: No cough, no congestion. No hemoptysis. CARDIOVASCULAR: No angina symptoms. No CHF symptoms. No atypical chest pain for CAD. No palpitations. No PND, no orthopnea but is short of breath on exertion as usual. GASTROINTESTINAL: No abdominal pain. No nausea or vomiting. No diarrhea or constipation. No hematemesis. No hematochezia. GENITOURINARY: No urgency. No frequency. No dysuria. No hematuria. No obstructive symptoms. No discharge. No pain. No significant abnormal bleeding. MUSCULOSKELETAL: Practically denies any obvious pain in the left heel probably from neuropathy. The patient does not have any pain. NEUROLOGICAL: No headache. No neck pain. No syncope. No seizures. No dizziness. PSYCHIATRIC: Not anxious. No depression. No suicidal thoughts. No homicidal thoughts. SKIN: No rash. No lesions. No wounds. ENDOCRINE: No unexplained weight loss. No weight gain. HEMATOLOGIC/LYMPHATIC: No anemia. No purpura. No petechiae. No prolonged or excessive bleeding. No palpable lymph nodes. PHYSICAL EXAMINATION: GENERAL: The patient is oriented to time, place and person. VITAL SIGNS: Temperature 97.5, pulse 80, respiratory rate 20, blood pressure 112/63, pulse ox 94%. HEENT: Head normocephalic, atraumatic. Eyes: Extraocular muscles are intact. Pupils are equal, round and reactive to light and accommodation. Ears: No lesions. Nose appeared normal. Throat: No exudate or erythema. NECK: Supple. No JVD, no carotid bruit. No lymphadenopathy or thyromegaly. LUNGS: Decreased breath sounds but clear to auscultation. Percussion note normal. Chest symmetrical. HEART: S1, S2, no S3. No murmurs. No cyanosis or clubbing. No ascites. Pulses: Dorsalis pedis and posterior tibial pulses +1 to +2 bilaterally. ABDOMEN: Soft. Nontender. Bowel sounds active. No CVA tenderness. No mass felt. EXTREMITIES: Left heel has necrotic diabetic pressure ulcer with sharply demarcated edges approximately 2.5" in diameter. No drainage. Full range of motion of all extremities, equal. NEUROLOGIC: No focal deficit. Cranial nerves II through XII are grossly intact. No headache, no double vision or headache. SKIN: Not dry. Intact. Turgor - normal. LYMPHATIC: No palpable lymph nodes/no lymphedema. MUSCULOSKELETAL: Normal joints with no swelling. Muscle tone is normal. LABS: Hemoglobin 12.9, hematocrit 38, WBC 11,000, normal differential. Creatinine 0.8, BUN 9, potassium 4.3. PLAN: 1. The patient's culture grew gram positive cocci which was resistant to Levaquin. The patient is going to be started on Sulfa which he is sensitive to Septra DS b.i.d. 2. The patient's cardiovascular status is stable. 3. The patient is already referred to vascular surgeon and wound care at [facility]. 4. I discussed the reports with in detail. Education carried out about diabetes mellitus, foot care and eye care. Also, strongly advised diet and to lose weight. The patient's BMI is 38 which has stayed up and is gaining weight. Weight reducing diet discussed with the patient. The patient is non compliant of lifestyle, medications. The patient is on Accu-Check with coverage. Considering the patient's age, peripheral arterial disease, diabetes which is more or less not well controlled from the patient's choices. The place the ulcer is, the patient's prognosis is poor for healing ulcer. The patient's shortness of breath on exertion seems to be from sedentary lifestyle but will do an echocardiogram to evaluate LV function as the patient has a lot of risk factors for heart disease like obesity, diabetes mellitus, hypertension, dyslipidemia, hypertension. TIME SPENT: 60 minutes. Plan and coordination of the patient's care discussed in the presence of nurse. SAHIL
--- NOTE | 2019-07-19 11:02 | PN ---
DATE OF SERVICE: 07/17/19 SUBJECTIVE: 74-year-old white male was seen today. The patient has left heel necrotic ulcer with cellulitis. REVIEW OF SYSTEMS: CONSTITUTIONAL: No night sweats. No fatigue, malaise, lethargy. No fever or chills. HEENT: Eyes: No visual changes. No eye pain. No eye discharge. ENT: No runny nose. No epistaxis. No sinus pain. No sore throat. No odynophagia. No congestion. RESPIRATORY: No cough, no congestion. No hemoptysis. No shortness of breath. CARDIOVASCULAR: No angina symptoms. No CHF symptoms. No atypical chest pain for CAD. No palpitations. No PND. No orthopnea. GASTROINTESTINAL: No abdominal pain. No nausea or vomiting. No diarrhea or constipation. No hematemesis. No hematochezia. GENITOURINARY: No urgency. No frequency. No dysuria. No hematuria. No obstructive symptoms. No discharge. No pain. No significant abnormal bleeding. MUSCULOSKELETAL: Mild soreness left heel. NEUROLOGICAL: No headache. No neck pain. No syncope. No seizures. No dizziness. PSYCHIATRIC: Not anxious. No depression. No suicidal thoughts. No homicidal thoughts. SKIN: No rash. No lesions. No wounds. ENDOCRINE: No unexplained weight loss. No weight gain. HEMATOLOGIC/LYMPHATIC: No anemia. No purpura. No petechiae. No prolonged or excessive bleeding. No palpable lymph nodes. PHYSICAL EXAMINATION: VITAL SIGNS: Temperature 98, pulse 80, respiratory rate 18, BP 120/70, pulse ox 93% on room air. HEENT: Head normocephalic, atraumatic. Eyes: Extraocular muscles are intact. Pupils are equal, round and reactive to light and accommodation. Ears: No lesions. Nose appeared normal. Throat: No exudate or erythema. NECK: Supple. No JVD, no carotid bruit. No lymphadenopathy or thyromegaly. LUNGS: Decreased breath sounds but clear to auscultation. Percussion note normal. Chest symmetrical. HEART: S1, S2, no S3. No murmurs. No cyanosis or clubbing. No ascites. Pulses: Dorsalis pedis and posterior tibial pulses +1 to +2 bilaterally. ABDOMEN: Soft. Nontender. Bowel sounds active. No CVA tenderness. No mass felt. EXTREMITIES: Left heel has necrotic base ulcer with mild surrounding redness which has decreased with no red streaks noted or crepitus noted. Full range of motion of all extremities, equal. NEUROLOGIC: No focal deficit. Cranial nerves II through XII are grossly intact. No headache, no double vision or headache. SKIN: Not dry. Intact. Turgor - normal. LYMPHATIC: No palpable lymph nodes/no lymphedema. MUSCULOSKELETAL: Normal joints with no swelling. Muscle tone is normal. LABS: Hemoglobin 12.9, hematocrit 39, WBC 12,000, normal differential. Creatinine 0.9, BUN 10, potassium 4. TSH normal. Estimated GFR 80 cc/min. ASSESSMENT: 1. Left heel necrotic base ulcer with surrounding cellulitis resolving. Organism grew Staph Aureus. 2. Diabetes mellitus with A1C more than 9 for the past several years. 3. Hypertension. 4. Dyslipidemia. 5. Morbid obesity. 6. Noncompliance of medications, lifestyle recommendations. As usual, the is in the room. The patient's case discussed with the and explained that he may need a vascular surgeon with wound care. They are all agreeable. The patient's consult done with Dr. Rodriguez, who discussed the case with me, that the patient may need general anesthesia for the debriedment. He may have to be transferred as we do not have operation theatre open at the present time because of Covid-19. There is no emergency at the present time. The patient's cellulitis needs to be a little bit better controlled. The patient will be continued on Sulfa. Will continue to assume care for ulcer. CONDITION: Stable TIME SPENT: More than 60 minutes. Plan and coordination of the patient's care discussed in the presence of nurse. SAHIL
--- NOTE | 2019-07-19 11:47 | PN ---
DATE OF SERVICE: 07/18/2019 SUBJECTIVE: 74 year old white male has left heel necrotic ulcer. The patient was seen and examined today. The patient's condition is stable. He is not listening to the nursing staff instruction and walking on the left heel. REVIEW OF SYSTEMS: CONSTITUTIONAL: No night sweats. No fatigue, malaise, lethargy. No fever or chills. HEENT: Eyes: No visual changes. No eye pain. No eye discharge. ENT: No runny nose. No epistaxis. No sinus pain. No sore throat. No odynophagia. No congestion. RESPIRATORY: No cough, no congestion. No hemoptysis. Shortness of breath with exertion which likely from sedentary lifestyle and may have coronary disease asymptomatic. Hyperinflated lungs with increase AP diameter of the chest. CARDIOVASCULAR: No angina symptoms. No CHF symptoms. No atypical chest pain for CAD. No palpitations. No PND. No orthopnea. GASTROINTESTINAL: No abdominal pain. No nausea or vomiting. No diarrhea or constipation. No hematemesis. No hematochezia. GENITOURINARY: No urgency. No frequency. No dysuria. No hematuria. No obstructive symptoms. No discharge. No pain. No significant abnormal bleeding. MUSCULOSKELETAL: No musculoskeletal pain; no joint swelling. NEUROLOGICAL: No headache. No neck pain. No syncope. No seizures. No dizziness. PSYCHIATRIC: Not anxious. No depression. No suicidal thoughts. No homicidal thoughts. SKIN: No rash. No lesions. No wounds. ENDOCRINE: No unexplained weight loss. No weight gain. HEMATOLOGIC/LYMPHATIC: No anemia. No purpura. No petechiae. No prolonged or excessive bleeding. No palpable lymph nodes. PHYSICAL EXAMINATION: VITAL SIGNS: Temperature 97.6, pulse 80, respiratory rate 18, blood pressure 150/60 and pulse ox 96%. HEENT: Head normocephalic, atraumatic. Eyes: Extraocular muscles are intact. Pupils are equal, round and reactive to light and accommodation. Ears: No lesions. Nose appeared normal. Throat: No exudate or erythema. NECK: Supple. No JVD, no carotid bruit. No lymphadenopathy or thyromegaly. LUNGS: Clear to auscultation. Percussion note normal. Chest symmetrical. HEART: S1, S2, no S3. No murmurs. No cyanosis or clubbing. No ascites. Pulses: Dorsalis pedis and posterior tibial pulses +1 to +2 bilaterally. ABDOMEN: Soft. Nontender. Bowel sounds active. No CVA tenderness. No mass felt. EXTREMITIES: No edema. Full range of motion of all extremities, equal. Left heel has necrotic base. No drainage of any kind noted. Mild redness. NEUROLOGIC: No focal deficit. Cranial nerves II through XII are grossly intact. No headache, no double vision or headache. SKIN: Not dry. Intact. Turgor - normal. LYMPHATIC: No palpable lymph nodes/no lymphedema. MUSCULOSKELETAL: Normal joints with no swelling. Muscle tone is normal. LABS: The patient had CT scan of the left heel done which showed large area of soft tissue ulceration and wound with questionable cellulitis but there was no drainage or abscess formation. Noted also there was no underlying cortical bone involvement indicating osteomyelitis noted. The patient has circumferential soft tissue edema. Has decreased. Calcific atherosclerotic vascular disease. The patient has moderate vascular occlusive disease. PLAN: 1. The patient will be continued on Antibiotics 2. Daily dressing will be done 3. Application of Silvadene cream will be continued 4. The patient will be referred to Wound Care vascular surgeon CONDITION: Stable. TIME SPENT: More than 30 minutes. Plan and coordination of the patient's care discussed in the presence of nurse. SAHIL
[2019-07-19] MEDS: BACTRIM DS 800/160 MG PO SCH (21:24)
[2019-07-19] MEDS: LANTUS SUBCUT SCH (21:24)
[2019-07-20 05:40] VITALS: BP 116/67; TEMP 97.4
[2019-07-20] MEDS: CARAFATE PO SCH (05:40)
[2019-07-20] MEDS: PROTONIX PO SCH (05:40)
[2019-07-20 05:44] LABS: HEMATOCRIT 39.9 % (42.0-52.0)
--- NOTE | 2019-07-20 07:53 | PCM.PROG ---
Attending Provider: ATTENDING PROVIDER: Dr. JOVANNI LESTER This patient is seen with Jeanine Wheatley, Nurse Practitioner. DATE OF SERVICE: 07/20/19 SUBJECTIVE: This 74 year old /WHITE M was hospitalized 07/14/19. The patient is resting comfortably in the chair. He is up and about in the room. His appetite has improved. Left pressure ulcer continues to have purulent foul smelling drainage. We have set him up with [facility] for an appointment tomorrow at 8am. We will work on discharge and continue PO Bactrim. We are going to set him up with [facility]. REVIEW OF SYSTEMS: CONSTITUTIONAL: No night sweats. No fatigue, malaise, lethargy. No fever or chills. HEENT: Eyes: No visual changes. No eye pain. No eye discharge. ENT: No runny nose. No epistaxis. No sinus pain. No odynophagia. No congestion. RESPIRATORY: No cough, no congestion. No hemoptysis. No shortness of breath. CARDIOVASCULAR: No angina symptoms. No CHF symptoms. No atypical chest pain for CAD. No palpitations. No orthopnea.. GASTROINTESTINAL: No abdominal pain. No nausea or vomiting. No diarrhea or constipation. No hematemesis. No hematochezia. GENITOURINARY: No urgency. No frequency. No dysuria. No hematuria. No obstructive symptoms. No discharge. No pain. No significant abnormal bleeding. MUSCULOSKELETAL: No musculoskeletal pain; no joint swelling. NEUROLOGICAL: Awake, alert, oriented to time, place and person. No headache. No neck pain. No syncope. No seizures. No dizziness. PSYCHIATRIC: Not anxious. No depression. No suicidal thoughts. No homicidal thoughts. SKIN: No rash. No lesions. No wounds. Left heel pain. ENDOCRINE: No unexplained weight loss. No weight gain. HEMATOLOGIC/LYMPHATIC: No anemia. No purpura. No petechiae. No prolonged or excessive bleeding. No palpable lymph nodes. PHYSICAL EXAMINATION: GENERAL: The patient is awake, alert and oriented, sitting in chair in no distress. VITAL SIGNS: Temperature 97.4 F, Pulse 74, Respiratory Rate 16, BP 116/67, Pulse Ox 93% HEENT: Head normocephalic, atraumatic. Eyes: Extraocular muscles are intact. Pupils are equal, round and reactive to light and accommodation. Ears: No lesions. Nose appeared normal. Throat: No exudate or erythema. NECK: Supple. No JVD, no carotid bruit. No lymphadenopathy or thyromegaly. LUNGS: Diminished clear breath sounds. Percussion note normal. Chest symmetrical. HEART: S1, S2, no S3. No murmurs. No cyanosis or clubbing. No ascites. Pulses: Dorsalis pedis and posterior tibial pulses +1. ABDOMEN: Soft. Non-tender. Bowel sounds active. No CVA tenderness. No mass felt. EXTREMITIES: No edema. Full range of motion of all extremities, equal. Left heel ulcer. NEUROLOGIC: No focal deficit. Cranial nerves II through XII are grossly intact. No headache, no double vision or headache. SKIN: Not dry. Intact. Turgor-normal. LYMPHATIC: No palpable lymph nodes/no lymphedema. MUSCULOSKELETAL: Normal joints with no swelling. Muscle tone is normal. LAB REVIEW: 07/20/19 05:22 07/20/19 05:22 07/20/19 05:22: Sodium 134.0 L, Potassium 4.57, Chloride 99.2, Carbon Dioxide 31.7 H, Anion Gap 7.67, BUN 8.4 L, Creatinine 1.02, Estimated GFR (MDRD) 71.00, BUN/Creatinine Ratio 8.23, Glucose 161.5 H, Calcium 8.68, Total Bilirubin 0.35, AST 20.4, ALT 10.9, Alkaline Phosphatase 143.1 H, Total Protein 6.95, Albumin 3.28 L, Globulin 3.67, Albumin/Globulin Ratio 0.89 07/20/19 05:22: WBC 10.57 H, RBC 4.56 L, Hgb 13.2 L, Hct 39.9 L, MCV 87.5, MCH 28.9, MCHC 33.1, RDW Coeff of Leanna 13.1, Plt Count 343, Immature Gran % (Auto) 1.0, Neut % (Auto) 63.0, Lymph % (Auto) 21.8, Clinton % (Auto) 9.9, Eos % (Auto) 3.8, Baso % (Auto) 0.5, Neut # (Auto) 6.7, Lymph # (Auto) 2.3, Clinton # (Auto) 1.1, Eos # (Auto) 0.4, Baso # (Auto) 0.1, Immature Gran # (Auto) 0.1 ASSESSMENT: Please see below. 1. Left heel necrotic ulcer with cellulitus 2. COPD 3. Chronic bronchitis 4. Noncompliance of Diet and medications 5. Diabetes mellitus type 2 6. Depression 7. History of urinary retention 8. 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 Hypertension 10. Chronic lung disease 11. Diabetic retinopathy 12. Chronic bronchitis 13. Dyslipidemia 14. Metabolic syndrome 15. Osteoarthritis knee 16. History LVH PLAN: 1. Discharge pending 2. Appoint at [facility] tomorrow at 8am 3. Home health for wound care 4. Continue oral Bactrim 5. Encourage the patient to be up and about 6. Encourage good oral and nutritional intake Plan and coordination of the patient's care discussed in the presence of Memory Care Director and nurse. SCRIBED BY: Juan BULLARDist scribed while in presence of service performed by Dr. Lester/Jeanine Wheatley APRN on 07/20/19 ([id number])
[2019-07-20] MEDS: FLOMAX PO SCH (08:21)
[2019-07-20] MEDS: NORCO 7.5-325 PO PRN (08:21)
[2019-07-20] MEDS: TRADJENTA PO SCH (08:21)
[2019-07-20] MEDS: LEXAPRO PO SCH (08:21)
[2019-07-20] MEDS: LIPITOR PO SCH (08:22)
[2019-07-20] MEDS: BACTRIM DS 800/160 MG PO SCH (08:22)
[2019-07-20] MEDS: ASPIRIN EC PO SCH (08:22)
[2019-07-20] MEDS: AGGRENOX CAPSULE PO SCH (08:23)
[2019-07-20] MEDS: HUMALOG SUBCUT PRN (08:23)
[2019-07-20] MEDS: NEURONTIN PO SCH (08:23)
[2019-07-20] MEDS: SILVADENE CREAM TP SCH (08:41)
[2019-07-20] MEDS: SPIRIVA IH SCH (08:41)
[2019-07-20] MEDS ORDERED: VENTOLIN HFA (PER PUFF-WITH SPACER) IH PRN (09:00)
--- NOTE | 2019-07-20 11:08 | CONS ---
DATE OF CONSULTATION: 07/14/2019 REASON FOR CONSULTATION/HISTORY OF PRESENT ILLNESS: 74 year old male , patient of Dr. Crain is seen today by me at his request to be consulted for eschar and maybe with abscess underneath on the left foot, calcaneus area from the midline towards the medial side. He claimed that he pulled his sock off about a month ago and the skin did come with the sock. He did go to Dr. Jackson [facility] [employer] in town for a new diabetic shoes. Dr. Jackson did tell him that he could not have the shoes as long as he has the problem in the foot. He has been treating the problem in the foot but it had not been healing well and saw Dr. Crain today and was subsequently admitted because of the problem. He had been diabetic and taking oral medication plus insulin. The patient does complain of pain in the area of the left foot. The patient's examination he is alert and oriented times four, not dyspneic or tachypneic and obese. He is able to move at home but not quite as well. Both feet are swollen slightly more on the left side. The anterior posterior tibial pulses are absent. Dark area on the calcaneus side medial as well as the plantar surface is fluctuant. There is no obvious drainage externally. The culture was done at Dr. Jackson office and the bacteria was sensitive to Levaquin and so the patient was placed on Levaquin today. Another specimen for culture was done today. We will probably aspirate the area tomorrow and if there is any fluid obtained that will send it for culture. The eschar probably needs to be removed to evaluate the extent of the tissue. The x-ray does not indicate any significant kwadwo problem at this time. An ultrasound is ordered to see if there is a significant amount of fluid underneath the skin. ASSESSMENT: 1. Abscess calcaneus area left foot more so medial than the whole calcaneus area. 2. Eschar etiology undetermined 3. Peripheral arterial disease, absent tibial pulses 4. 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 Elevate the foot more 2. Ultrasound to the area in question 3. Possible removal of the tissue but this would be explained to the patient after having a good idea of what bones are being effected. May need a CT scan of the foot tomorrow after the ultrasound. Any question to any bone involvement that this patient should probably have a three phase bone scan or an MRI. Thank you for allowing me to participate in the care with this patient. Respectively Dr. Eugene Sheppard. SAHIL
--- NOTE | 2019-07-20 11:19 | CM.DICTOOL ---
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 DOUGLASS) PROSTATE SURGERY, 12/10 (DR. EDWARDS) CATARACT EXTRACTION, LEFT 11/2018 (DR. BAKER) CHOLECYSTECTOMY LAST VITALS Temp Pulse Resp BP Pulse Ox 97.4 F L 74 16 116/67 93 L 07/20/19 05:39 07/20/19 05:39 07/20/19 05:39 07/20/19 05:39 07/20/19 05:39 TAKE THESE MEDICATIONS AT HOME Hydrocodone Bitart/Acetaminophen ([place] 7.5-325) 1 tab PO TID PRN PRN Reason: Pain Last Admin: 07/20/19 08:21 Dose: 1 tab Documented by: Albuterol Sulfate (Ventolin Hfa (Per Puff-With Spacer)) 2 puff IH Q6HR PRN PRN Reason: SOA Atorvastatin Calcium (Lipitor) 80 mg PO DAILY [facility] Last Admin: 07/20/19 08:22 Dose: 80 mg Documented by: Dipyridamole/Aspirin (Aggrenox Capsule) 1 cap PO BID [facility] Last Admin: 07/20/19 08:23 Dose: 1 cap Documented by: Escitalopram Oxalate (Lexapro) 10 mg PO DAILY [facility] Last Admin: 07/20/19 08:21 Dose: 10 mg Documented by: Gabapentin (Neurontin) 100 mg PO TID [facility] Last Admin: 07/20/19 08:23 Dose: 100 mg Documented by: Insulin Glargine (Lantus) 30 unit SUBCUT BEDTIME [facility] Last Admin: 07/19/19 21:24 Dose: 30 unit Documented by: Linagliptin (Tradjenta) 5 mg PO DAILY [facility] Last Admin: 07/20/19 08:21 Dose: 5 mg Documented by: Pantoprazole Sodium (Protonix) 40 mg PO QDAC [facility] Last Admin: 07/20/19 05:40 Dose: 40 mg Documented by: Promethazine HCl (Phenergan Tab) 12.5 mg PO Q6H PRN PRN Reason: Nausea / Vomiting Silver Sulfadiazine (Silvadene Cream) 1 apply TP TO LT HEEL WOUND BID [facility] -- ( NEW) Last Admin: 07/20/19 08:41 Dose: 1 applic Documented by: Sucralfate (Carafate) 1 gm PO ACHS [facility] Last Admin: 07/20/19 05:40 Dose: 1 gm Documented by: Tamsulosin HCl (Flomax) 0.4 mg PO DAILY [facility] Last Admin: 07/20/19 08:21 Dose: 0.4 mg Documented by: Tiotropium [place] (Spiriva) 1 cap IH DAILY [facility] Last Admin: 07/20/19 08:41 Dose: 1 cap Documented by: Trimethoprim/Sulfamethoxazole (Bactrim Ds 800/160 Mg) 1 tab PO Q12HR [place] X 10 MORE DAYS -- (NEW) Stop: 07/22/19 20:59 Last Admin: 07/20/19 08:22 Dose: 1 tab Documented by: IPRATROPIUM- ALBUTEROL 3 MLINH QID PRN -- (HOME MED) ALLERGIES No Known Allergies Allergy (Verified 12/06/18 08:03) DISCONTINUED MEDICATIONS NONE NEW PRESCRIPTIONS: BACTRIM DS 800/160 MG PO EVERY 12 HOURS X 10 DAYS SMOKING: NON-APPLICABLE DISEASE SPECIFIC EDUCATION: WOUND CARE PAIN CONTROL BLOOD SUGAR MANAGEMENT CELLULITIS WASHING HANDS COVID 19 LAB REVIEW: 07/20/19 05:22 07/20/19 05:22 07/20/19 05:22: Sodium 134.0 L, Potassium 4.57, Chloride 99.2, Carbon Dioxide 31.7 H, Anion Gap 7.67, BUN 8.4 L, Creatinine 1.02, Estimated GFR (MDRD) 71.00, BUN/Creatinine Ratio 8.23, Glucose 161.5 H, Calcium 8.68, Total Bilirubin 0.35, AST 20.4, ALT 10.9, Alkaline Phosphatase 143.1 H, Total Protein 6.95, Albumin 3.28 L, Globulin 3.67, Albumin/Globulin Ratio 0.89 07/20/19 05:22: WBC 10.57 H, RBC 4.56 L, Hgb 13.2 L, Hct 39.9 L, MCV 87.5, MCH 28.9, MCHC 33.1, RDW Coeff of Leanna 13.1, Plt Count 343, Immature Gran % (Auto) 1.0, Neut % (Auto) 63.0, Lymph % (Auto) 21.8, [place] % (Auto) 9.9, Eos % (Auto) 3.8, Baso % (Auto) 0.5, Neut # (Auto) 6.7, Lymph # (Auto) 2.3, [place] # (Auto) 1.1, Eos # (Auto) 0.4, Baso # (Auto) 0.1, Immature Gran # (Auto) 0.1 PLAN: DISCHARGE HOME TODAY , JULY 20, 2019 WITH SPOUSE, [facility] AND [facility] FOLLOW UP. ACTIVITY: UP WITH WALKER, NO WEIGHT TO PART OF LT HEEL WHERE WOUND IS ELEVATE LOWER EXTREMITIES IN THE BED AND OFF LOAD HEELS DIET: 1999 AD DIET FOLLOW UP WITH MD: SEE DR. LESTER/ELIUD PRITCHARD APRN IN THE OFFICE FRIDAY, JULY 28 @ 800 AM [facility]) WOUND CENTER SUNDAY, JULY 21, 2019 @ 0800 ( [phone] ) [facility] FOR A [facility]URSE ( THEY WILL CALL ) ( [phone] ) [facility] U/S SCHEDULED FOR MONDAY JULY 22, 2019 @ [address] LESTER'S ORDERS FOR DIZZINESS WOUND CARE TO LT HEEL: CLEANSE WITH SOAP AND WATER, PAT PERIMETER DRY, APPLY S ILVADENE CREAM TO WOUND, COVER WITH DRY GAUZE , WRAP LIGHTLY WITH GAUZE WRAP, SECURE LIGHTLY WITH TAPE. DO THIS UNTIL OR WOUND CARE CENTER TELLS YOU TO CHANGE. CODE STATUS: DO NOT RESUSCITATE MR ASCENCIO IS ALERT AND ORIENTED X 4. CONTINUES TO GET UP AND WALK ON LT HEEL ALTHOUGH HAVE INSTRUCTED TO AVOID PUTTING WEIGHT DIRECTLY ON LT HEEL WOUND AREA. IS BLUNT WITH VERBALIZATIONS AT TIMES BUT DOES NOT VOICE ANY ACUTE HOPLESSNESS OR WORSENING DEPRESSION. NUTRITIONAL INTAKE FAIR TO GOOD WITH THE 2000 ADA DIET. HAS STATED HE DOES NOT EAT BIG MEALS AT HOME, BUT DOES SNACK ALOT. INSTRUCTED ON DM DIET. HAS TAKEN IN SUFFICIENT ORAL FLUIDS. CONTINENT OF BOWEL AND BLADDER. LAST BM 07/19/2019. USES A WALKER WITH WHEELS AND HAS ONE AT HOME. DOES HAVE AN APPOINTMENT WITH [facility] [place] 07/21/2019 @ 0800 AND DAUGHTER IS TO ASSIST. [facility] TO FOLLOW UP AT HOME WITH WOUND CARE, DISEASE PROCESSES AND MEDS. LIVES WITH SPOUSE THAT IS ABLE TO ASSIST WITH ADLS AND IADLS. DR. GILELTTE REFERRAL AND TO SEE MR. ASCENCIO AT THE WOUND CENTER APPOINTMENT. MD ELIUD MATA, FAIRING MAN
--- NOTE | 2019-07-20 11:58 | CONS ---
DATE OF CONSULTATION: 07/16/2019 HISTORY OF PRESENT ILLNESS: The patient was alert and oriented. CAT scan of the foot was done since the ultrasound was not performed. There is no localized abscess that is drainable. The tissue however is massive based upon the results of the CAT scan. The area is tender to touch. The patient is diabetic. VITALS: Temperature 98.1, pulse 78, blood pressure 116/68 and respiratory rate 20 with oxygen saturation 94% at room air. His plasma C-peptid is 4.1, A1c 10.26. The area is tender to palpation and because of the large area on the medial side of plantar surface of calcaneus that doing a debridement and a local probably would not be adequate. I do think that this patient probably needs sedation to get a good debridement. Since there is no drainable abscess I did talk to Dr. Crain the patient's physician with regards to the need for the debridement and the sedation or general anesthetic. [place] that this patient probably should be referred to another facility for that procedure. The foot condition had been since more than a month ago. The generalized appearance of the foot is the same as the day I saw on 07/14/2019. ASSESSMENT: 1. Necrotic tissue left heal area mostly medial. 2. Diabetes Mellitus, uncontrolled 3. Peripheral arterial disease MTDD
--- NOTE | 2019-07-20 12:59 | PN ---
DATE OF SERVICE: 07/19/2019 SUBJECTIVE: The patient was seen and examined with the Nurse Practitioner. The patient's condition is progressing well. The cellulitis part surrounding the left heel ulcer is practically resolved. The patient has an appointment with Wound Care the day after tomorrow to see Dr. Arita. The patient is also going to have home health care. Cardiovascular status is stable. 2D echo was difficult to do because of the patient's body habitus. We will do carotid scan before discharge. CONDITION: Stable. TIME SPENT: More than 30 minutes. Plan and coordination of the patient's care discussed in the presence of nurse. SAHIL
--- NOTE | 2019-07-20 14:31 | PN ---
DATE OF SERVICE: 07/20/2019 SUBJECTIVE: The patient was seen and examined with the Nurse Practitioner. The patient's cardiovascular status is stable. We will do Carotid scan before discharge. The patient is already going to be discharged on Bactrim for 10 days. The patient is going to be seen by Dr. Samano vascular surgeon at [facility]. The patient is going to be referred vascular surgeon for peripheral arterial disease. REVIEW OF SYSTEMS: CONSTITUTIONAL: No night sweats. No fatigue, malaise, lethargy. No fever or chills. HEENT: Eyes: No visual changes. No eye pain. No eye discharge. ENT: No runny nose. No epistaxis. No sinus pain. No sore throat. No odynophagia. No congestion. RESPIRATORY: No cough, no congestion. No hemoptysis. No shortness of breath. CARDIOVASCULAR: No angina symptoms. No CHF symptoms. No atypical chest pain for CAD. No palpitations. No PND. No orthopnea. GASTROINTESTINAL: No abdominal pain. No nausea or vomiting. No diarrhea or constipation. No hematemesis. No hematochezia. GENITOURINARY: No urgency. No frequency. No dysuria. No hematuria. No obstructive symptoms. No discharge. No pain. No significant abnormal bleeding. MUSCULOSKELETAL: No musculoskeletal pain; no joint swelling. NEUROLOGICAL: No headache. No neck pain. No syncope. No seizures. No dizziness. PSYCHIATRIC: Not anxious. No depression. No suicidal thoughts. No homicidal thoughts. SKIN: No rash. No lesions. No wounds. ENDOCRINE: No unexplained weight loss. No weight gain. HEMATOLOGIC/LYMPHATIC: No anemia. No purpura. No petechiae. No prolonged or excessive bleeding. No palpable lymph nodes. PHYSICAL EXAMINATION: HEENT: Head normocephalic, atraumatic. Eyes: Extraocular muscles are intact. Pupils are equal, round and reactive to light and accommodation. Ears: No lesions. Nose appeared normal. Throat: No exudate or erythema. NECK: Supple. No JVD, no carotid bruit. No lymphadenopathy or thyromegaly. LUNGS: Clear to auscultation. Percussion note normal. Chest symmetrical. HEART: S1, S2, no S3. No murmurs. No cyanosis or clubbing. No ascites. Pulses: Dorsalis pedis and posterior tibial pulses +1 to +2 bilaterally. ABDOMEN: Soft. Nontender. Bowel sounds active. No CVA tenderness. No mass felt. EXTREMITIES: No edema. Full range of motion of all extremities, equal. ulcer has been more localized with scab eschar formation. NEUROLOGIC: No focal deficit. Cranial nerves II through XII are grossly intact. No headache, no double vision or headache. SKIN: Not dry. Intact. Turgor - normal. LYMPHATIC: No palpable lymph nodes/no lymphedema. MUSCULOSKELETAL: Normal joints with no swelling. Muscle tone is normal. Diabetes Discussed with the family especially the and the patient. The patient is noncompliant almost morbidly obese. He noncompliant for medications. His prognosis for healing this ulcer is poor considering patient's multiple comorbidities and his noncompliance. He is going to be very difficult to deal with. He may have to go back and forth to the Wound Care. We are going to have Home Health Care. CONDITION: Stable. TIME SPENT: More than 30 minutes. Plan and coordination of the patient's care discussed in the presence of nurse. SAHIL
--- NOTE | 2019-07-21 13:59 | DS ---
DATE OF SERVICE: 07/20/19 FINAL DIAGNOSIS: 1. NECROTIC ULCER, LEFT HEEL 2. CELLULITIS LEFT HEEL 3. DIABETES, TYPE 2 (A1C 10.26 ON 07/14/2019) 4. DIABETIC RETINOPATHY 5. NON-COMPLIANCE OF DIET AND MEDICATIONS 6. COPD 7. CHRONIC BRONCHITIS 8. 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 HYPERTENSION 10. DYSLIPIDEMIA 11. HISTORY OF LVH 12. DEPRESSION (LEXAPRO HELPS) 13. NEUROPATHY 14. OBESITY 15. METABOLIC SYNDROME 16. B12 DEFICIENCY 17. OSTEOARTHRITIS, KNEES 18. URINARY RETENTION 19. PROCEDURES: KYPHOPLASTY L1, 12/10 (DR. DOUGLASS) 20. PROSTATE SURGERY, 12/10 (DR. EDWARDS) 21. CATARACT EXTRACTION, LEFT 11/2018 (DR. BAKER) 22. CHOLECYSTECTOMY LAST VITALS Temp Pulse Resp BP Pulse Ox 97.4 F L 74 16 116/67 93 L 07/20/19 05:39 07/20/19 05:39 07/20/19 05:39 07/20/19 05:39 07/20/19 05:39 DISCHARGE INSTRUCTIONS: 1. DISCHARGE HOME TODAY, JULY 20, 2019 WITH SPOUSE, [facility] AND [facility] FOLLOW UP. 2. FOLLOW UP WITH MD: SEE DR. LESTER/ELIUD PRITCHARD APRN IN THE OFFICE FRIDAY, JULY 28 @ 800 AM; [facility]) WOUND CENTER SUNDAY, JULY 21, 2019 @ 0800 ([phone]); [facility] [place] [facility] [place] [facility] (THEY WILL CALL) ([phone]). 3. CAROTID U/S SCHEDULED FOR MONDAY JULY 22, 2019 @ [address] LESTER'S ORDERS FOR DIZZINESS. 4. WOUND CARE TO LT HEEL: CLEANSE WITH SOAP AND WATER, PAT PERIMETER DRY, APPLY SILVADENE CREAM TO WOUND, COVER WITH DRY GAUZE , WRAP LIGHTLY WITH GAUZE WRAP, SECURE LIGHTLY WITH TAPE. DO THIS UNTIL OR WOUND CARE CENTER TELLS YOU TO CHANGE. 5. CODE STATUS: DO NOT RESUSCITATE MEDICATIONS AT DISCHARGE: Hydrocodone Bitart/Acetaminophen ([place] 7.5-325) 1 tab PO TID PRN PRN Reason: Pain Last Admin: 07/20/19 08:21 Dose: 1 tab Documented by: Albuterol Sulfate (Ventolin Hfa (Per Puff-With Spacer)) 2 puff IH Q6HR PRN PRN Reason: SOA Atorvastatin Calcium (Lipitor) 80 mg PO DAILY [facility] Last Admin: 07/20/19 08:22 Dose: 80 mg Documented by: Dipyridamole/Aspirin (Aggrenox Capsule) 1 cap PO BID [facility] Last Admin: 07/20/19 08:23 Dose: 1 cap Documented by: Escitalopram Oxalate (Lexapro) 10 mg PO DAILY [facility] Last Admin: 07/20/19 08:21 Dose: 10 mg Documented by: Gabapentin (Neurontin) 100 mg PO TID [facility] Last Admin: 07/20/19 08:23 Dose: 100 mg Documented by: Insulin Glargine (Lantus) 30 unit SUBCUT BEDTIME [facility] Last Admin: 07/19/19 21:24 Dose: 30 unit Documented by: Linagliptin (Tradjenta) 5 mg PO DAILY [facility] Last Admin: 07/20/19 08:21 Dose: 5 mg Documented by: Pantoprazole Sodium (Protonix) 40 mg PO QDAC [facility] Last Admin: 07/20/19 05:40 Dose: 40 mg Documented by: Promethazine HCl (Phenergan Tab) 12.5 mg PO Q6H PRN PRN Reason: Nausea / Vomiting Silver Sulfadiazine (Silvadene Cream) 1 apply TP TO LT HEEL WOUND BID [facility] -- ( NEW) Last Admin: 07/20/19 08:41 Dose: 1 applic Documented by: Sucralfate (Carafate) 1 gm PO ACHS [facility] Last Admin: 07/20/19 05:40 Dose: 1 gm Documented by: Tamsulosin HCl (Flomax) 0.4 mg PO DAILY [facility] Last Admin: 07/20/19 08:21 Dose: 0.4 mg Documented by: Tiotropium [place] (Spiriva) 1 cap IH DAILY [facility] Last Admin: 07/20/19 08:41 Dose: 1 cap Documented by: Trimethoprim/Sulfamethoxazole (Bactrim Ds 800/160 Mg) 1 tab PO Q12HR [facility] X 10 MORE DAYS -- (NEW) Stop: 07/22/19 20:59 Last Admin: 07/20/19 08:22 Dose: 1 tab Documented by: IPRATROPIUM- ALBUTEROL 3 MLINH QID PRN -- (HOME MED) NEW PRESCRIPTIONS: BACTRIM DS 800/160 MG PO EVERY 12 HOURS X 10 DAYS DISCONTINUED MEDICATIONS: NONE DIET INSTRUCTIONS: 1999 DIET ACTIVITY: UP WITH WALKER, NO WEIGHT TO PART OF LT HEEL WHERE WOUND IS. ELEVATE LOWER EXTREMITIES IN THE BED AND OFF LOAD HEELS SMOKING: NON APPLICABLE DISEASE SPECIFIC EDUCATION: WOUND CARE PAIN CONTROL BLOOD SUGAR MANAGEMENT CELLULITIS WASHING HANDS COVID 19 HOSPITAL COURSE: The patient was hospitalized with necrotic ulcer involving left heel with cellulitis. the patient was treated in the hospital with IV Levaquin. Later on, the staph was found to be sensitive to Bactrim so he was switched to Bactrim. Cultures done by Dr. Jackson showed the bacteria was sensitive to Levaquin. In any case the patient has been on Bactrim. The cellulitis part has resolved. The CT scan of the left heel showed no osteomyelitis. Dr. Rodriguez thought the ulcer should be debrided under general anesthesia. In any case, the patient has been referred to Wound Care and is to be seen by Dr. Samano, who happens to be a vascular surgeon. Also will be referred to vascular clinic along with wound care clinic. The patient is going to have Home Health Care to take care of ulcer under the care of wound care clinic. The patient is noncompliant. The chances of left heel ulcer healing is poor because of his multiple comorbid conditions with poor compliance. His A1C has been more than 10 the past several years because of his own choices. LAB: 07/20/19 05:22: Sodium 134.0 L, Potassium 4.57, Chloride 99.2, Carbon Dioxide 31.7 H, Anion Gap 7.67, BUN 8.4 L, Creatinine 1.02, Estimated GFR (MDRD) 71.00, BUN/Creatinine Ratio 8.23, Glucose 161.5 H, Calcium 8.68, Total Bilirubin 0.35, AST 20.4, ALT 10.9, Alkaline Phosphatase 143.1 H, Total Protein 6.95, Albumin 3.28 L, Globulin 3.67, Albumin/Globulin Ratio 0.89 07/20/19 05:22: WBC 10.57 H, RBC 4.56 L, Hgb 13.2 L, Hct 39.9 L, MCV 87.5, MCH 28.9, MCHC 33.1, RDW Coeff of Leanna 13.1, Plt Count 343, Immature Gran % (Auto) 1.0, Neut % (Auto) 63.0, Lymph % (Auto) 21.8, [place] % (Auto) 9.9, Eos % (Auto) 3.8, Baso % (Auto) 0.5, Neut # (Auto) 6.7, Lymph # (Auto) 2.3, [place] # (Auto) 1.1, Eos # (Auto) 0.4, Baso # (Auto) 0.1, Immature Gran # (Auto) 0.1 TIME SPENT: More than 60 minutes. MTDD
--- NOTE | 2019-07-21 14:17 | PN ---
BILLING 07/14/19 ADMISSION DAY LEVEL 5 07/15/19 INTERMEDIATE 07/16/19 EXTENSIVE 07/17/19 EXTENSIVE 07/18/19 INTERMEDIATE 07/19/19 INTERMEDIATE 07/20/19 DISCHARGE MTDD
== END 2019-07-20 11:50 | disposition home or self-care (01) | DRG 603 ==
LOC: MEDSURG B 09:29
PROVIDERS: ADMIT Internal Medicine; ATTEND Internal Medicine

== ENCOUNTER 2019-09-18 08:57 | Inpatient (IN) ==
[2019-09-18] MEDS ORDERED: ZOFRAN 4 MG/2 ML IVP STA (09:00)
[2019-09-18] MEDS ORDERED: TESSALON PERLES PO STA (09:00)
[2019-09-18 09:20] LABS: HEMATOCRIT 37.2 % (42.0-52.0)
--- NOTE | 2019-09-18 09:30 | DI ---
EXAM: Chest one view, frontal view only. HISTORY: Cough. COMPARISON: 07/14/2019. FINDINGS: The heart size is normal. There is no pulmonary vascular congestion. The lungs are clear save for calcified granulomatous changes. No pleural effusion or pneumothorax is seen. No acute os seous abnormality is identified. Cement from lumbar kyphoplasty noted. Since the prior study, there has been no significant interval change. IMPRESSION: No acute cardiopulmonary process.
--- NOTE | 2019-09-18 10:36 | ED.PDOC ---
General ED Provider: Dr. NICK NOLAN MD Chief Complaint: Respiratory Complaint Stated Complaint: cough, vomiting and not feeling well Time Seen by Physician: 09:00 Mode of Arrival: Ambulance Information Source: Patient and Family Primary Care Provider: JOVANNI LESTER Nursing and Triage Documentation Reviewed and Agree: Yes Does patient meet sepsis criteria?: No System Inflammatory Response Syndrome: Not Applicable Sepsis Protocol: For patient's 13 years and over: Temp is 96.8 and below OR 101 and greater Pulse >90 BPM Resp >20/minute Acutely Altered Mental Status Are patient's symptoms suggestive of a new infection, such as: -Pneumonia -Skin, Soft Tissue -Endocarditis -UTI -Bone, Joint Infection -Implantable Device -Acute Abdominal Infection -Wound Infection -Meningitis -Blood Stream Catheter Infection -Unknown Respiratory Complaint Exam Respiratory Complaint/Exam Onset/Duration: several days Symptoms Are: Still present Timing: Constant Initial Severity: Moderate Current Severity: Moderate Character: Reports Productive cough Associated Signs and Symptoms: Reports Wheezing and Vomiting Home Oxygen Use: No Respiratory Distress: None Inadequate Respiratory Effort: No Dysphagia Present: No Stridor Present: No JVD Present: No Accessory Muscle Use: No Retractions: Not Present Diminished Breath Sounds: No Review of Systems Review Of Systems Constitutional: Reports No symptoms All Other Systems: Reviewed and Negative [facility] Medical History COPD (chronic obstructive pulmonary disease) CVA (cerebral vascular accident) Diabetes History of appendectomy History of cholecystectomy Family History FATHER Myocardial infarct Mother Myocardial infarct FATHER Diabetes Mother Diabetes Social History History of recent travel: No Physical Exam Physical Exam Appearance: Reports Ill-appearing Ill-appearing: Mild Pain Distress: None Eyes: Reports YUMIKO and EOMI ENT: Reports Ears normal, Nose normal and Oropharynx normal Neck: Supple Respiratory: Reports Airway patent and Breath sounds equal Cardiovascular: Reports RRR and Pulses normal GI/: Reports Soft and Tender (diffuse) Musculoskeletal: Reports Normal strength and ROM intact Skin: Reports Warm, Dry and Other (left heal large wound surrounding erythema) Neurological: Reports Sensation intact, Motor intact, Alert and Oriented Psychiatric: Reports Affect appropriate and Mood appropriate Interpretation Radiology Interpretation Radiology Interpretation By: Radiologist Radiology Results: Negative Exam Interpreted: CXR and CT Scan EKG Interpretation Time of EKG #1: 09:23 Rate: Normal Rhythm: Other (a-fib) Ectopy: None Banner: NL ST Segment: Normal Critical Care Note Critical Care Note Total Time (mins): 0 Course Course Hematology/Chemistry: 09/18/19 09:16 09/18/19 09:16 Orders, Labs, Meds: Lab Review 09/18/19 09/18/19 09/18/19 09:16 09:16 09:25 WBC 23.26 H RBC 4.45 L Hgb 12.5 L Hct 37.2 L MCV 83.6 MCH 28.1 MCHC 33.6 RDW Coeff of Leanna 13.3 Plt Count 369 Immature Gran % (Auto) 1.1 Neut % (Auto) 85.5 H Lymph % (Auto) 5.6 L [place] % (Auto) 7.4 Eos % (Auto) 0.1 Baso % (Auto) 0.3 Neut # (Auto) 19.9 H Lymph # (Auto) 1.3 [place] # (Auto) 1.7 Eos # (Auto) 0.0 Baso # (Auto) 0.1 Immature Gran # (Auto) 0.3 Sodium 126.5 L Potassium 4.64 Chloride 91.2 L Carbon Dioxide 25.7 Anion Gap 14.24 BUN 13.1 Creatinine 1.08 Estimated GFR (MDRD) 66.00 BUN/Creatinine Ratio 12.12 Glucose 226.3 H Lactic Acid Calcium 8.52 Total Bilirubin 0.63 AST 38.4 ALT 21.9 Alkaline Phosphatase 211.7 H Troponin I < 0.012 NT-Pro-B Natriuret Pep 3520.000 H Total Protein 7.25 Albumin 3.27 L Globulin 3.98 Albumin/Globulin Ratio 0.82 SARS-CoV-2 RNA (RT-PCR) 09/18/19 10:13 WBC RBC Hgb Hct MCV MCH MCHC RDW Coeff of Leanna Plt Count Immature Gran % (Auto) Neut % (Auto) Lymph % (Auto) [place] % (Auto) Eos % (Auto) Baso % (Auto) Neut # (Auto) Lymph # (Auto) [place] # (Auto) Eos # (Auto) Baso # (Auto) Immature Gran # (Auto) Sodium Potassium Chloride Carbon Dioxide Anion Gap BUN Creatinine Estimated GFR (MDRD) BUN/Creatinine Ratio Glucose Lactic Acid 1.07 Calcium Total Bilirubin AST ALT Alkaline Phosphatase Troponin I NT-Pro-B Natriuret Pep Total Protein Albumin Globulin Albumin/Globulin Ratio SARS-CoV-2 RNA (RT-PCR) Orders Category Date Time Status ADMIT PATIENT INPATIENT .TO [facility] (MONITORED BED) ADMISSION 09/18/19 11:15 Active EKG-(ED ONLY) Stat CARDIO 09/18/19 09:00 Completed BLOOD GLUCOSE MONITORING 0630,1100,1700,2100 CARE 09/18/19 11:18 Active GIVE HS SNACK 2100 CARE 09/18/19 11:17 Active INTAKE & OUTPUT Q8HR CARE 09/18/19 11:17 Active NPO REMINDER: IMAGING ONCE CARE 09/18/19 10:04 Completed TELEMETRY MONITORING TELE CARE 09/18/19 11:15 Active VITAL SIGNS Q8HR CARE 09/18/19 11:17 Active ADA 1800 ANGELA. DIET DIETARY 09/18/19 Lunch Ordered HS SNACK DIETARY 09/18/19 Dinner Ordered BLOOD CULTURE (ED ONLY) Stat LAB 09/18/19 10:13 Received CBC W/ AUTO DIFF DAILY@0600 LAB 09/19/19 06:00 Ordered CBC W/ AUTO DIFF DAILY@0600 LAB 09/20/19 06:00 Ordered CBC W/ AUTO DIFF Stat LAB 09/18/19 09:16 Completed COMPREHENSIVE METABOLIC PANEL DAILY@0600 LAB 09/19/19 06:00 Ordered COMPREHENSIVE METABOLIC PANEL DAILY@0600 LAB 09/20/19 06:00 Ordered COMPREHENSIVE METABOLIC PANEL Stat LAB 09/18/19 09:16 Completed COVID19, PCR IDPH Stat LAB 09/18/19 09:25 Completed LACTIC ACID Stat LAB 09/18/19 10:13 Completed NT-PROBNP Stat LAB 09/18/19 09:16 Completed TROPONIN I Stat LAB 09/18/19 09:16 Completed Benzonatate [Tessalon Perles] MEDS 09/18/19 09:00 Discontinued 200 mg PO ONCE STA Ondansetron HCl/Pf [Zofran 4 mg/2 ml] MEDS 09/18/19 09:00 Discontinued 4 mg IVP ONCE STA Piperacillin Sodium/Tazobactam [Zosyn 3.375 gm] 3.375 MEDS 09/18/19 11:14 Active gm 0.9 % Sodium Chloride [Sodium Chloride] 50 ml IV ONCE Sodium Chloride 0.9% [Sodium Chloride] 1,000 ml MEDS 09/18/19 11:30 Ordered IV 75 mls/hr Vancomycin 1 gm MEDS 09/18/19 11:14 Active 0.9 % Sodium Chloride [Sodium Chloride] 250 ml IV ONCE RESUSCITATION STATUS Routine OTHERS 09/18/19 11:16 Ordered CHEST, 1V AP ONLY Stat RADS 09/18/19 09:[address] ABDOMEN/PELVIS W CONTRAST Stat RADS 09/18/19 10:04 Completed Medications Generic Name Dose Route Start Last Admin Trade Name Freq PRN Reason Stop Dose Admin Piperacillin Sod/Tazobactam 50 mls @ 50 mls/hr 09/18/19 11:14 Sod 3.375 gm/ Sodium Chloride IV 09/18/19 12:13 ONCE STA Vancomycin HCl 1 gm/ Sodium 250 mls @ 250 mls/hr 09/18/19 11:14 Chloride IV 09/18/19 12:13 ONCE STA Sodium Chloride 1,000 mls @ 75 mls/hr 09/18/19 11:30 Sodium Chloride IV .[id number] EUNICE Discontinued Medications Generic Name Dose Route Start Last Admin Trade Name Freq PRN Reason Stop Dose Admin Benzonatate 200 mg 09/18/19 09:00 09/18/19 09:26 Tessalon Perles PO 09/18/19 09:01 200 mg ONCE STA Administration Ondansetron HCl 4 mg 09/18/19 09:00 09/18/19 09:26 Zofran 4 Mg/2 Ml IVP 09/18/19 09:01 4 mg ONCE STA Administration Vital Signs: Temp Pulse Resp BP Pulse Ox 09/18/19 08:58 97.9 F 88 20 106/60 97 Discharge Plan Discharge Patient Disposition: ADMITTED INPATIENT Discharge Problem: Bronchitis, Leukocytosis, Foot ulcer ED Provider: NICK NOLAN Condition: Stable
--- NOTE | 2019-09-18 11:00 | CT ---
EXAM: CT Abdomen with contrast. CT Pelvis with contrast. HISTORY: Abdominal pain. COMPARISON: 12/29/2017. TECHNIQUE: Multiple axial images of the abdomen and pelvis were obtained following intravenous admin istration of 75 mL of Omnipaque 350, low osmolar. Images were reformatted in the sagittal and carter l plane. FINDINGS: No acute abnormality identified in the lung bases. Degenerative changes present in the spine. Severe compression fracture of L1 has undergone kyphoplas ty. Mild superior endplate compression fracture of L2 noted. Degenerative changes seen throughout t he spine. The liver, pancreas, spleen, adrenal glands, and kidneys demonstrate no acute abnormality. There is a nonobstructing left renal calculus. Gallbladder is absent. Small hiatal hernia noted. There is no evidence for bowel obstruction or acute inflammation. The ap pendix is not seen. There is mesh present along the ventral abdominal wall. There is no free fluid or free air identifie d. Atherosclerotic calcifications are present. The bladder is normal. Probable previous transureth ral resection of the prostate. Phleboliths noted in the pelvis. IMPRESSION: No acute abnormality within the abdomen or pelvis
[2019-09-18] MEDS ORDERED: ZOSYN 3.375 GM 3.375 GM in SODIUM CHLORIDE 50 ML IV STA (11:14)
[2019-09-18] MEDS ORDERED: VANCOMYCIN 1 GM in SODIUM CHLORIDE 250 ML IV STA ×2 (11:14→14:28)
[2019-09-18] MEDS: SODIUM CHLORIDE 1,000 ML IV SCH (11:39)
[2019-09-18 13:16] VITALS: BMI 35.4
[2019-09-18] MEDS: NORCO 7.5-325 PO PRN (14:58)
[2019-09-18] MEDS: CARAFATE PO SCH ×2 (17:20→20:37)
[2019-09-18] MEDS: AGGRENOX CAPSULE PO SCH (20:38)
[2019-09-18] MEDS ORDERED: LANTUS SUBCUT SCH (21:00)
[2019-09-19] MEDS: SODIUM CHLORIDE 1,000 ML IV SCH ×2 (02:53→22:57)
[2019-09-19 04:53] LABS: HEMATOCRIT 33.9 % (42.0-52.0)
[2019-09-19] MEDS: CARAFATE PO SCH ×4 (05:53→20:40)
[2019-09-19] MEDS ORDERED: PROTONIX PO SCH (06:30)
[2019-09-19] MEDS ORDERED: DECADRON 4 MG/ML SDV IM ONE (08:54)
[2019-09-19] MEDS: AGGRENOX CAPSULE PO SCH ×2 (09:28→20:39)
[2019-09-19] MEDS: LIPITOR PO SCH (09:28)
[2019-09-19] MEDS: TRADJENTA PO SCH (09:29)
[2019-09-19] MEDS: PLAVIX PO SCH (09:29)
[2019-09-19] MEDS: SPIRIVA IH SCH (09:30)
[2019-09-19] MEDS: ROCEPHIN 1 GM/50 ML D5W 1 GM/50 ML BAG IV SCH (10:16)
[2019-09-19] MEDS: DOXY-100 100 MG in SODIUM CHLORIDE 100 ML IV SCH ×2 (11:27→20:41)
[2019-09-19] MEDS: NORCO 7.5-325 PO PRN ×2 (11:32→18:47)
--- NOTE | 2019-09-19 14:00 | PN ---
DATE OF SERVICE: 09/18/2019 SUBJECTIVE: The patient was seen and examined in [facility] bed #3. The patient was hospitalized through emergency room with having complaints of cough, congestion and worsening of his left heel with some redness and drainage. He is being followed by Wound Care. He is supposed to be seen tomorrow but the patient is going to need IV antibiotics for the cellulitis surrounding the tissue. He is going to be treated for acute bronchitis. The patient is in poor health, a lot of comorbidities. The patient is going to be checked for COVID 19. REVIEW OF SYSTEMS: CONSTITUTIONAL: No night sweats. No fatigue, malaise, lethargy. No fever or chills. HEENT: Eyes: No visual changes. No eye pain. No eye discharge. ENT: No runny nose. No epistaxis. No sinus pain. No sore throat. No odynophagia. No congestion. RESPIRATORY: No cough, no congestion. No hemoptysis. No shortness of breath. CARDIOVASCULAR: No angina symptoms. No CHF symptoms. No atypical chest pain for CAD. No palpitations. No PND. No orthopnea. GASTROINTESTINAL: No abdominal pain. No nausea or vomiting. No diarrhea or constipation. No hematemesis. No hematochezia. GENITOURINARY: No urgency. No frequency. No dysuria. No hematuria. No obstructive symptoms. No discharge. No pain. No significant abnormal bleeding. MUSCULOSKELETAL: No musculoskeletal pain; no joint swelling. NEUROLOGICAL: No headache. No neck pain. No syncope. No seizures. No dizziness. PSYCHIATRIC: Not anxious. No depression. No suicidal thoughts. No homicidal thoughts. SKIN: No rash. No lesions. No wounds. ENDOCRINE: No unexplained weight loss. No weight gain. HEMATOLOGIC/LYMPHATIC: No anemia. No purpura. No petechiae. No prolonged or excessive bleeding. No palpable lymph nodes. PHYSICAL EXAMINATION: GENERAL: The patient is oriented to time, place and person. HEENT: Head normocephalic, atraumatic. Eyes: Extraocular muscles are intact. Pupils are equal, round and reactive to light and accommodation. Ears: No lesions. Nose appeared normal. Throat: No exudate or erythema. NECK: Supple. No JVD, no carotid bruit. No lymphadenopathy or thyromegaly. LUNGS: Decreased breath sounds with mild wheeze. Clear to auscultation. Percussion note normal. Chest symmetrical. HEART: S1, S2, no S3. No murmurs. No cyanosis or clubbing. No ascites. Pulses: Dorsalis pedis and posterior tibial pulses +1 to +2 bilaterally. ABDOMEN: Soft. Nontender. Bowel sounds active. No CVA tenderness. No mass felt. EXTREMITIES: No edema. Full range of motion of all extremities, equal. Foot ulcer is covered at present time. The patient has been taken treatment for this left foot ulcer for past several months. Originally vascular surgeon wanted to have above knee amputation. This patient also has severe peripheral arterial disease but the family wants the patient to be given chance with medical management. He doesn't seem to be progressing well. NEUROLOGIC: No focal deficit. Cranial nerves II through XII are grossly intact. No headache, no double vision or headache. SKIN: Not dry. Intact. Turgor - normal. LYMPHATIC: No palpable lymph nodes/no lymphedema. MUSCULOSKELETAL: Normal joints with no swelling. Muscle tone is normal. PLAN: 1. The patient is going to be hospitalized and given IV Vancomycin and Zosyn. CONDITION: Stable. PROGNOSIS: Poor overall and poor for healing the ulcer as the patient has diabetic the patient's ulcer is very likely diabetic neuropathy ulcer. TIME SPENT: More than 30 minutes. Plan and coordination of the patient's care discussed in the presence of nurse. SAHIL
[2019-09-19] MEDS: VENTOLIN HFA (PER PUFF-WITH SPACER) IH SCH ×2 (14:10→19:54)
[2019-09-19] MEDS: PROTONIX PO SCH (16:50)
[2019-09-19] MEDS: [UNRECOGNIZED DRUG - OTHER] TP SCH (20:40)
[2019-09-19] MEDS: SANTYL TP SCH (20:40)
[2019-09-19] MEDS: LANTUS SUBCUT SCH (20:41)
[2019-09-20] MEDS: VENTOLIN HFA (PER PUFF-WITH SPACER) IH SCH ×3 (04:55→20:18)
[2019-09-20 05:33] LABS: HEMATOCRIT 34.2 % (42.0-52.0)
[2019-09-20] MEDS: PROTONIX PO SCH ×2 (05:36→16:48)
[2019-09-20] MEDS: CARAFATE PO SCH ×4 (05:36→20:15)
--- NOTE | 2019-09-20 08:03 | HP ---
DATE OF SERVICE: 09/19/19 HISTORY OF PRESENT ILLNESS: 74-year-old white male who presents to the emergency room with cough for several days not feeling well, feels that he has been getting strangled on his sputum. He has a history of COPD. He has also been seeing Wound Care at [facility], for an ulceration on his left heel. PAST MEDICAL HISTORY: Peripheral arterial disease, moderate to severe Left heel necrotic ulcer with cellulitis, this has been off and on. He is again seeing [facility] along with Dr. Arita, Vascular Surgeon. COPD Chronic bronchitis Diabetic retinopathy Diabetes mellitus Type 2 (last A1C was 10.9 on 07/12) Depression History of compression fractures L1 LVH Polyarthritis Obesity Dyslipidemia Hypertension Metabolic syndrome B12 deficiency Diabetic neuropathy History of CVA with right-sided weakness History of urinary retention History of noncompliance with diet, medications, lifestyle and followup PAST SURGICAL HISTORY: Prostate surgery 12/[address] Perales Kyphoplasty in 12/10 REVIEW OF SYSTEMS: CONSTITUTIONAL: No night sweats. No fatigue, malaise, lethargy. No fever or chills. HEENT: Eyes: No visual changes. No eye pain. No eye discharge. ENT: No runny nose. No epistaxis. No sinus pain. No sore throat. No odynophagia. No ear pain. No congestion. RESPIRATORY: Positive for cough. No congestion. No hemoptysis. No shortness of breath. CARDIOVASCULAR: No angina symptoms. No CHF symptoms. No atypical chest pain for CAD. No palpitations. No PND. No orthopnea. GASTROINTESTINAL: Left lower quadrant pain. No nausea or vomiting. No diarrhea or constipation. No hematemesis. No hematochezia. GENITOURINARY: No urgency. No frequency. No dysuria. No hematuria. No obstructive symptoms. No discharge. No pain. No significant abnormal bleeding. MUSCULOSKELETAL: Left heel pain. NEUROLOGICAL: No headache. No neck pain. No syncope. No seizures. No dizziness. PSYCHIATRIC: Not anxious. No depression. No suicidal thoughts. No homicidal thoughts. SKIN: No rash. No lesions. No wounds. ENDOCRINE: No unexplained weight loss. No weight gain. HEMATOLOGIC/LYMPHATIC: No anemia. No purpura. No petechiae. No prolonged or excessive bleeding. No palpable lymph nodes. PERSONAL/FAMILY/SOCIAL HISTORY: He lives at home with his . No longer smokes. No alcohol or ilicit drug use. MEDICATIONS: Tiotropium [place] (Spiriva) 18 mcg capsule, one cap inhalation daily Insulin Glargine (Lantus) 40 unit subcut bedtime Hydrocodone-Acetaminophen 7.5-325 mg tablet one each p.o. t.i.d. p.r.n. Aspirin-Dipyridamole one each p.o. b.i.d. Linagliptin 5 mg p.o. daily Albuterol two puff INH q.6h p.r.n. Sucralfate 1 gm p.o. a.c. h.s. Ipratropium-Albuterol 0.5 mg-3 mg 3 mL INH q.i.d p.r.n. Atorvastatin 80 mg p.o. daily Pantoprazole 40 mg p.o. daily Clopidogrel 75 mg p.o. daily ALLERGIES: NKDA PHYSICAL EXAMINATION: HEENT: Head normocephalic, atraumatic. Eyes: Extraocular muscles are intact. Pupils are equal, round and reactive to light and accommodation. Ears: No lesions. Nose appeared normal. Throat: No exudate or erythema. NECK: Supple. No JVD, no carotid bruit. No lymphadenopathy or thyromegaly. LUNGS: Diminished breath sounds bilaterally. Clear to auscultation. Percussion note normal. Chest symmetrical. HEART: S1, S2, no S3. No murmur. No cyanosis or clubbing. No ascites. Pulses: Dorsalis pedis and posterior tibial pulses +1 to +2 bilaterally. ABDOMEN: Soft. No abdominal tenderness. Bowel sounds active. No CVA tenderness. No mass felt. EXTREMITIES: He has approximately 1.5 inch ulceration to the left heel with purulent drainage with erythema from the heel to the dorsal aspect of the left foot with mild edema of the left foot. Full range of motion of all extremities, equal. NEUROLOGIC: No focal deficit. Cranial nerves II through XII are grossly intact. No headache, no double vision or headache. SKIN: Not dry. Intact. Turgor - normal. LYMPHATIC: No palpable lymph nodes/no lymphedema. MUSCULOSKELETAL: Normal joints with no swelling. Muscle tone is normal. LABS AND IMAGING: CT of the abdomen with contrast showed no acute abnormality within the abdomen or pelvis. Chest x-ray shows no acute cardiopulmonary process. Sodium 126, BUN 13, creatinine 1.08, potassium 4.6, glucose 226, AST 38, ALT 21. Pro-BNP 3,520. Total protein 7.25, albumin 3.27. White count 23.26, hemoglobin 12.5, hematocrit 37.2. Covid test sent. ASSESSMENT: 1. CELLULITIS OF THE LEFT LOWER EXTREMITY WITH NECROTIC ULCERATION OF THE LEFT HEEL. 2. ACUTE BRONCHITIS. 3. COPD. 4. HYPONATREMIA. 5. DIABETES MELLITUS TYPE 2, UNCONTROLLED. PLAN: 1. Admit. 2. He is to be in isolation, Covid test pending. 3. CBC, CMP daily. 4. Normal Saline IV at 75 cc/hr. 5. Continue home medications. 6. Wound culture. 7. Start Rocephin 1 gm IV daily along with Doxycycline 100 mg IV q.12hr. 8. Oxygen 1 to 2L as needed. 9. 1 cc Decadron IM today. 10. Regular diet. 11. Sliding scale for insulin. 12. Increase Lantus to 45 units. 13. Will call [facility] and find out Wound Care instructions. I believe he is supposed to have Santyl ointment along with a Dakin solution wrapped in gauze. 14. Keep left leg elevated. 15. Amylase and lipase. 16. Follow closely. TIME SPENT: More than 70 minutes. SAHIL
[2019-09-20] MEDS: LIPITOR PO SCH (08:29)
[2019-09-20] MEDS: AGGRENOX CAPSULE PO SCH ×2 (08:29→20:15)
[2019-09-20] MEDS: TRADJENTA PO SCH (08:29)
[2019-09-20] MEDS: ROCEPHIN 1 GM/50 ML D5W 1 GM/50 ML BAG IV SCH (08:30)
[2019-09-20] MEDS: NORCO 7.5-325 PO PRN (08:30)
[2019-09-20] MEDS: PLAVIX PO SCH (08:30)
[2019-09-20] MEDS: SANTYL TP SCH ×2 (08:31→20:58)
[2019-09-20] MEDS: SPIRIVA IH SCH (08:31)
[2019-09-20] MEDS: [UNRECOGNIZED DRUG - OTHER] TP SCH ×2 (08:32→20:58)
--- NOTE | 2019-09-20 08:52 | PN ---
DATE OF SERVICE: 09/19/19 SUBJECTIVE: The patient was examined. He reports he is still having intermittent abdominal pain. This has been going on for years. CT of the abdomen and pelvis was normal. He is coughing. He states that he had been getting strangled on his sputum when coughing. He does have some pain with his heel. REVIEW OF SYSTEMS: CONSTITUTIONAL: No night sweats. No fatigue, malaise, lethargy. No fever or chills. HEENT: Eyes: No visual changes. No eye pain. No eye discharge. ENT: No runny nose. No epistaxis. No sinus pain. No sore throat. No odynophagia. No congestion. RESPIRATORY: Cough, no congestion. No hemoptysis. No shortness of breath. CARDIOVASCULAR: No angina symptoms. No CHF symptoms. No atypical chest pain for CAD. No palpitations. No PND. No orthopnea. GASTROINTESTINAL: Generalized abdominal pain. No nausea or vomiting. No diarrhea or constipation. No hematemesis. No hematochezia. GENITOURINARY: No urgency. No frequency. No dysuria. No hematuria. No obstructive symptoms. No discharge. No pain. No significant abnormal bleeding. MUSCULOSKELETAL: Left heel pain, swelling. NEUROLOGICAL: No headache. No neck pain. No syncope. No seizures. No dizziness. PSYCHIATRIC: Not anxious. No depression. No suicidal thoughts. No homicidal thoughts. SKIN: No rash. No lesions. No wounds. ENDOCRINE: No unexplained weight loss. No weight gain. HEMATOLOGIC/LYMPHATIC: No anemia. No purpura. No petechiae. No prolonged or excessive bleeding. No palpable lymph nodes. PHYSICAL EXAMINATION: HEENT: Head normocephalic, atraumatic. Eyes: Extraocular muscles are intact. Pupils are equal, round and reactive to light and accommodation. Ears: No lesions. Nose appeared normal. Throat: No exudate or erythema. NECK: Supple. No JVD, no carotid bruit. No lymphadenopathy or thyromegaly. LUNGS: Diminished breath sounds. Clear to auscultation. Percussion note normal. Chest symmetrical. HEART: S1, S2, no S3. No murmurs. No cyanosis or clubbing. No ascites. Pulses: Dorsalis pedis and posterior tibial pulses +1 to +2 bilaterally. ABDOMEN: Soft. Nontender. Bowel sounds active. No CVA tenderness. No mass felt. EXTREMITIES: Ulceration on left heel with purulent drainage. Redness to the dorsal aspect of the left foot. Mild edema. Full range of motion of all extremities, equal. NEUROLOGIC: No focal deficit. Cranial nerves II through XII are grossly intact. No headache, no double vision or headache. SKIN: Not dry. Intact. Turgor - normal. LYMPHATIC: No palpable lymph nodes/no lymphedema. MUSCULOSKELETAL: Normal joints with no swelling. Muscle tone is normal. ASSESSMENT: 1. CELLULITIS OF LEFT LOWER EXTREMITY WITH ULCERATION OF THE HEEL. 2. ACUTE BRONCHITIS. 3. COPD. 4. DIABETES MELLITUS TYPE 2, UNCONTROLLED. 5. LOSS OF APPETITE. PLAN: 1. Start Doxycycline 100 mg IV q.12hr along with Rocephin 1 gm IV q.12hr. 2. We will obtain Wound Care instructions from [facility] on appropriate dressing changes and medication. He also had a wound culture done I believe on 09/15 at Wound Care and we will obtain that culture and sensitivity as ours is still pending. TIME SPENT: More than 30 minutes. Plan and coordination of the patient's care discussed in the presence of nurse. SAHIL
[2019-09-20] MEDS: SODIUM CHLORIDE 1,000 ML IV SCH (09:00)
--- NOTE | 2019-09-20 09:25 | PCM.PROG ---
Attending Provider: ATTENDING PROVIDER: Dr. JOVANNI LESTER This patient is seen with Ananya Santiago, Nurse Practitioner. DATE OF SERVICE: 09/20/19 SUBJECTIVE: This 74 year old /WHITE M was hospitalized 09/18/19. The patient is complain of left heel pain. Redness and swelling has improved. Cough has improved. Still complaining of abdominal pain. CT of abdomen and pelvis was normal. COVID negative. REVIEW OF SYSTEMS: CONSTITUTIONAL: No night sweats. No fatigue, malaise, lethargy. No fever or chills. HEENT: Eyes: No visual changes. No eye pain. No eye discharge. ENT: No runny nose. No epistaxis. No sinus pain. No odynophagia. No congestion. RESPIRATORY: No cough, no congestion. No hemoptysis. No shortness of breath. CARDIOVASCULAR: No angina symptoms. No CHF symptoms. No atypical chest pain for CAD. No palpitations. No orthopnea.. GASTROINTESTINAL: No abdominal pain. No nausea or vomiting. No diarrhea or constipation. No hematemesis. No hematochezia. GENITOURINARY: No urgency. No frequency. No dysuria. No hematuria. No obstructive symptoms. No discharge. No pain. No significant abnormal bleeding. MUSCULOSKELETAL: No musculoskeletal pain; no joint swelling. Left heel pain, swelling and ulcer. NEUROLOGICAL: Awake, alert, oriented to time, place and person. No headache. No neck pain. No syncope. No seizures. No dizziness. PSYCHIATRIC: Not anxious. No depression. No suicidal thoughts. No homicidal thoughts. SKIN: No rash. No lesions. No wounds. ENDOCRINE: No unexplained weight loss. No weight gain. HEMATOLOGIC/LYMPHATIC: No anemia. No purpura. No petechiae. No prolonged or excessive bleeding. No palpable lymph nodes. PHYSICAL EXAMINATION: GENERAL: The patient is awake, alert and oriented, lying in bed in no distress. VITAL SIGNS: Temperature 97.4 F, Pulse 75, Respiratory Rate 16, BP 116/66, Pulse Ox 95% HEENT: Head normocephalic, atraumatic. Eyes: Extraocular muscles are intact. Pupils are equal, round and reactive to light and accommodation. Ears: No lesions. Nose appeared normal. Throat: No exudate or erythema. NECK: Supple. No JVD, no carotid bruit. No lymphadenopathy or thyromegaly. LUNGS: Diminished breath sounds. 2in palpable nodule to the right of umbilicus. Clear to auscultation. Percussion note normal. Chest symmetrical. HEART: S1, S2, no S3. No murmurs. No cyanosis or clubbing. No ascites. Pulses: Dorsalis pedis and posterior tibial pulses +1 to +2 both sides. ABDOMEN: Soft. Non-tender. Bowel sounds active. No CVA tenderness. No mass felt. EXTREMITIES: No edema. Full range of motion of all extremities, equal. NEUROLOGIC: No focal deficit. Cranial nerves II through XII are grossly intact. No headache, no double vision or headache. SKIN: Not dry. Intact. Turgor-normal. LYMPHATIC: No palpable lymph nodes/no lymphedema. MUSCULOSKELETAL: Normal joints with no swelling. Muscle tone is normal. LAB REVIEW: 09/20/19 04:58 09/20/19 04:58 09/20/19 04:58: Sodium 128.9 L, Potassium 4.29, Chloride 95.6 L, Carbon Dioxide 25.6, Anion Gap 11.99, BUN 17.5, Creatinine 0.84, Estimated GFR (MDRD) 89.00, BUN/Creatinine Ratio 20.83, Glucose 256.3 H, Calcium 8.30 L, Total Bilirubin 0.43, AST 34.0, ALT 28.3, Alkaline Phosphatase 229.6 H D, Total Protein 6.63, Albumin 2.91 L, Globulin 3.72, Albumin/Globulin Ratio 0.78, Amylase < 30.0 L, Lipase 10.4 L 09/20/19 04:58: WBC 30.62 H D, RBC 4.08 L, Hgb 11.4 L, Hct 34.2 L, MCV 83.8, MCH 27.9, MCHC 33.3, RDW Coeff of Leanna 13.6, Plt Count 448 H, Neutrophils % (Manual) 89.0 H, Lymphocytes % (Manual) 4.0 L, Monocytes % (Manual) 7.0, Anisocytosis Not present 09/19/19 16:50: Urine Color Yellow, Urine Clarity Clear, Urine pH 6.0, Ur Specific [place] 1.015, Urine Protein 1+ H, Urine Glucose (UA) Negative, Urine Ketones Negative, Urine Blood Negative, Urine Nitrite Negative, Urine Bilirubin Negative, Urine Urobilinogen 2.0 H, Ur Leukocyte Esterase Negative, Ur Squamous Epith Cells Not present 09/18/19 09:16: Thyroxine (T4) 8.0 ASSESSMENT: Please see below. 1. Cellulitis 3. Ulcer of left lower extremity 3. Acute bronchitis 4. COPD 5. Uncontrolled diabetes mellitus 6. Nonspecific abdominal pain. PLAN: 1. Discontinue IV fluids 2. Ultrasound of palpable lesion on abdomen 3. Continue IV antibiotics. Plan and coordination of the patient's care discussed in the presence of Boilermaker Welder and nurse. SCRIBED BY: Lore BULLARD scribed while in presence of service performed by Dr. Lester/Ananya Santiago APRN on 09/20/19 ([id number])
[2019-09-20] MEDS: DOXY-100 100 MG in SODIUM CHLORIDE 100 ML IV SCH ×2 (09:34→20:15)
--- NOTE | 2019-09-20 12:49 | PN ---
DATE OF SERVICE: 09/20/2019 SUBJECTIVE: The patient was seen and examined with the Nurse Practitioner. His COVID is negative. The patient's ulcer and surrounding tissue seems to be a lot better with less redness and drainage. the patient will be likely discharged TIME SPENT: More than 30 minutes. Plan and coordination of the patient's care discussed in the presence of nurse. SAHIL
--- NOTE | 2019-09-20 13:37 | PN ---
DATE OF SERVICE: 09/19/2019 SUBJECTIVE: The patient was seen and examined with the Nurse Practitioner. The patient has inflamed in the area of the left heel treated with Doxycycline and Rocephin. Once the patient's COVID test comes back and once he gets enough of IV antibiotics with controlling the tissue surrounding the ulcer he going to be referred back to Wound Care. The patient cough and congestion is a lot better. Mr. Sandoval was swabbed for COVID 19 as the patient has cough with chest congestion. Report pending. TIME SPENT: More than 30 minutes. Plan and coordination of the patient's care discussed in the presence of nurse. SAHIL
--- NOTE | 2019-09-20 14:36 | US ---
EXAM: Ultrasound abdomen wall/lower back HISTORY: Abdominal pain COMPARISON: None FINDINGS: Ultrasound abdominal wall/lower back was performed. There is a rounded peripherally calci fied nodular region in the subcutaneous tissues measuring 0.6 x 1.3 x 1.7 cm IMPRESSION: 1.7 cm rounded peripherally calcified nodular density in the subcutaneous tissues, likely relates to changes from prior surgery.
[2019-09-20] MEDS ORDERED: ZOFRAN 4 MG/2 ML IVP PRN (16:22)
[2019-09-20] MEDS: LANTUS SUBCUT SCH (20:15)
[2019-09-21] MEDS: VENTOLIN HFA (PER PUFF-WITH SPACER) IH SCH ×3 (05:00→20:08)
[2019-09-21 05:46] LABS: HEMATOCRIT 35.1 % (42.0-52.0)
[2019-09-21] MEDS: PROTONIX PO SCH ×2 (05:53→16:45)
[2019-09-21] MEDS: CARAFATE PO SCH ×4 (05:53→20:32)
[2019-09-21] MEDS: TRADJENTA PO SCH (08:39)
[2019-09-21] MEDS: AGGRENOX CAPSULE PO SCH ×2 (08:39→20:32)
[2019-09-21] MEDS: PLAVIX PO SCH (08:39)
[2019-09-21] MEDS: LIPITOR PO SCH (08:40)
[2019-09-21] MEDS: ROCEPHIN 1 GM/50 ML D5W 1 GM/50 ML BAG IV SCH (08:41)
[2019-09-21] MEDS: SPIRIVA IH SCH (08:42)
[2019-09-21] MEDS: NORCO 7.5-325 PO PRN (09:00)
[2019-09-21] MEDS: DOXY-100 100 MG in SODIUM CHLORIDE 100 ML IV SCH ×2 (09:50→20:32)
[2019-09-21] MEDS: [UNRECOGNIZED DRUG - OTHER] TP SCH ×2 (09:53→20:00)
[2019-09-21] MEDS: SANTYL TP SCH ×2 (09:53→20:00)
[2019-09-21] MEDS: LEXAPRO PO SCH (15:06)
[2019-09-21] MEDS: MULTIVITAMIN TABLET PO SCH (15:07)
[2019-09-21] MEDS: LANTUS SUBCUT SCH (20:33)
[2019-09-22] MEDS: VENTOLIN HFA (PER PUFF-WITH SPACER) IH SCH ×3 (04:48→19:39)
[2019-09-22 05:28] LABS: HEMATOCRIT 34.4 % (42.0-52.0)
[2019-09-22] MEDS: CARAFATE PO SCH ×4 (05:30→20:50)
[2019-09-22] MEDS: PROTONIX PO SCH ×2 (05:30→18:15)
[2019-09-22] MEDS ORDERED: VANCOMYCIN 1.5 GM in SODIUM CHLORIDE 250 ML IV SCH (09:00)
[2019-09-22] MEDS ORDERED: ROCEPHIN 1 GM/50 ML D5W 1 GM/50 ML BAG IV SCH (09:00)
--- NOTE | 2019-09-22 09:12 | PCM.PROG ---
Attending Provider: ATTENDING PROVIDER: Dr. JOVANNI LESTER This patient is seen with Ananya Santiago, Nurse Practitioner. DATE OF SERVICE: 09/22/19 SUBJECTIVE: This 74 year old /WHITE M was hospitalized 09/18/19. The patient is resting comfortably. Still not eating. Foot with purulent drainage. REVIEW OF SYSTEMS: CONSTITUTIONAL: No night sweats. No fatigue, malaise, lethargy. No fever or chills. HEENT: Eyes: No visual changes. No eye pain. No eye discharge. ENT: No runny nose. No epistaxis. No sinus pain. No odynophagia. No congestion. RESPIRATORY: No cough, no congestion. No hemoptysis. No shortness of breath. CARDIOVASCULAR: No angina symptoms. No CHF symptoms. No atypical chest pain for CAD. No palpitations. No orthopnea.. GASTROINTESTINAL: Intermittent abdominal pain. No nausea or vomiting. No diarrhea or constipation. No hematemesis. No hematochezia. Loss of appetite. GENITOURINARY: No urgency. No frequency. No dysuria. No hematuria. No obstructive symptoms. No discharge. No pain. No significant abnormal bleeding. MUSCULOSKELETAL: No musculoskeletal pain; no joint swelling. Left foot cellulitis. NEUROLOGICAL: Awake, alert, oriented to time, place and person. No headache. No neck pain. No syncope. No seizures. No dizziness. PSYCHIATRIC: Not anxious. No depression. No suicidal thoughts. No homicidal thoughts. SKIN: No rash. No lesions. No wounds. ENDOCRINE: No unexplained weight loss. No weight gain. HEMATOLOGIC/LYMPHATIC: No anemia. No purpura. No petechiae. No prolonged or excessive bleeding. No palpable lymph nodes. PHYSICAL EXAMINATION: GENERAL: The patient is awake, alert and oriented, lying in bed in no distress. VITAL SIGNS: Temperature 97.8 F, Pulse 96, Respiratory Rate 20, BP 140/70, Pulse Ox 93% HEENT: Head normocephalic, atraumatic. Eyes: Extraocular muscles are intact. Pupils are equal, round and reactive to light and accommodation. Ears: No lesions. Nose appeared normal. Throat: No exudate or erythema. NECK: Supple. No JVD, no carotid bruit. No lymphadenopathy or thyromegaly. LUNGS: Diminished breath sounds. Clear to auscultation. Percussion note normal. Chest symmetrical. HEART: S1, S2, no S3. No murmurs. No cyanosis or clubbing. No ascites. Pulses: Dorsalis pedis and posterior tibial pulses +1 to +2 both sides. ABDOMEN: Soft. Non-tender. Non-distended. Bowel sounds active. No CVA tenderness. No mass felt. EXTREMITIES: Erythema around left heel. Purulent drainage from ulcer. No edema. Full range of motion of all extremities, equal. NEUROLOGIC: No focal deficit. Cranial nerves II through XII are grossly intact. No headache, no double vision or headache. SKIN: Not dry. Intact. Turgor-normal. LYMPHATIC: No palpable lymph nodes/no lymphedema. MUSCULOSKELETAL: Normal joints with no swelling. Muscle tone is normal. LAB REVIEW: 09/22/19 05:07 09/22/19 05:07 09/22/19 05:07: Sodium 126.1 L, Potassium 3.79, Chloride 91.4 L, Carbon Dioxide 27.1, Anion Gap 11.39, BUN 10.0, Creatinine 0.85, Estimated GFR (MDRD) 88.00, BUN/Creatinine Ratio 11.76, Glucose 179.2 H, Calcium 8.43, Total Bilirubin 0.68, AST 44.0, ALT 28.6, Alkaline Phosphatase 267.2 H, Total Protein 6.61, Albumin 2.87 L, Globulin 3.74, Albumin/Globulin Ratio 0.76 09/22/19 05:07: WBC 37.04 H D, RBC 4.15 L, Hgb 11.6 L, Hct 34.4 L, MCV 82.9, MCH 28.0, MCHC 33.7, RDW Coeff of Leanna 13.9, Plt Count 494 H, Neutrophils % (Manual) 64.0, Band Neutrophils % 16.0 H, Lymphocytes % (Manual) 7.0 L, Monocytes % (Man ual) 8.0, Eosinophils % (Manual) 0.0, Basophils % (Manual) 0.0, Metamyelocytes % 3.0 H, Myelocytes % 2.0 H, Toxic Granulation 2+, Polychromasia 1+, Po ikilocytosis 2+, Anisocytosis Not present, Microcytosis 1+, Tear Drop Cells 1+, Ovalocytes 1+, Acanthocytes (Spur) 1+ 09/21/19 05:00: Miscellaneous Test Sent to path ASSESSMENT: Please see below. 1. Cellulitis 3. Ulcer of left lower extremity 3. Acute bronchitis 4. COPD 5. Uncontrolled diabetes mellitus 6. Nonspecific abdominal pain PLAN: 1. Abdominal circumference Q [address] abdomen and pelvis with contrast 4. Discontinue Doxycycline 5. Aldactone 25mg PO daily 6. Weights 7. Hold Lipitor 8. Start Vancomycin IV Plan and coordination of the patient's care discussed in the presence of Property And Equipment Clerk and nurse. SCRIBED BY: Lore BULLARD scribed while in presence of service performed by Dr. Lester/Ananya Santiago APRN on 09/22/19 ([id number])
[2019-09-22] MEDS ORDERED: MAXIPIME 2 GM/50 ML D5W 2 GM/50 ML BAG IV SCH (10:30)
[2019-09-22] MEDS: SANTYL TP SCH ×2 (11:00→21:05)
[2019-09-22] MEDS: [UNRECOGNIZED DRUG - OTHER] TP SCH ×2 (11:00→21:06)
[2019-09-22] MEDS: AGGRENOX CAPSULE PO SCH ×2 (12:30→20:50)
[2019-09-22] MEDS: LEXAPRO PO SCH (12:31)
[2019-09-22] MEDS: MULTIVITAMIN TABLET PO SCH (12:31)
[2019-09-22] MEDS: ALDACTONE PO SCH (12:31)
[2019-09-22] MEDS: PLAVIX PO SCH (12:31)
[2019-09-22] MEDS: TRADJENTA PO SCH (12:31)
[2019-09-22] MEDS: LIPITOR PO SCH (12:31)
[2019-09-22] MEDS: SPIRIVA IH SCH (12:32)
--- NOTE | 2019-09-22 12:55 | CT ---
EXAM: CT abdomen pelvis with and without contrast HISTORY: Abdominal distension, no appetite, pain COMPARISON: 09/18/2019 TECHNIQUE: CT abdomen pelvis performed with and without intravenous contrast. Coronal and sagittal reformatted images obtained. FINDINGS: Mild bibasilar atelectasis. No free air. No acute abnormalities of the bones. Degenerat fernanda change in the spine. Severe compression deformity L2 with kyphoplasty. Coronary calcifications. Heart normal in size. Liver appears normal. Patient status post cholecystectomy. Pancreas unrema rkable. Spleen unremarkable. Adrenals unremarkable. 4 mm nonobstructing left renal calculus. Nons pecific bilateral perinephric stranding. No hydronephrosis. No calculi visualized in the normal cou rse of the ureters. Bladder unremarkable. Small bilateral fat containing inguinal hernias. Prostat e normal in size. Postsurgical changes anterior abdominal wall with mesh and associated calcificatio n, likely relates to postsurgical change. Small hiatal hernia. No dilated loops small bowel. Appen héctor not visualized. Mild gaseous distension in the small and large bowel may relate to a mild ileus. Common iliac lymph node measures 1.2 cm Left pelvic sidewall lymph node measures up to 1.1 cm. Mult iple left inguinal lymph nodes measure up to 1.6 cm IMPRESSION: 1. Unexpected finding: Left iliac, pelvic, and inguinal lymphadenopathy, indeterminate though may b e malignant or metastatic. Further evaluation recommended. 2. Mild gaseous distension of the bowel may relate to a mild ileus. 3. Left nephrolithiasis. No hydronephrosis. 4. Nonspecific bilateral perinephric stranding. 5. Atherosclerosis. 6. Small hiatal hernia
[2019-09-22] MEDS: VANCOMYCIN 1.5 GRAM/300 ML PREMIX 1.5 GM/300 ML BAG IV SCH ×2 (13:54→20:56)
[2019-09-22] MEDS: LANTUS SUBCUT SCH (20:54)
[2019-09-22] MEDS: MAXIPIME 2 GM/50 ML D5W 2 GM/50 ML BAG IV SCH (20:55)
[2019-09-23] MEDS: VENTOLIN HFA (PER PUFF-WITH SPACER) IH SCH ×3 (04:40→20:04)
[2019-09-23] MEDS: MAXIPIME 2 GM/50 ML D5W 2 GM/50 ML BAG IV SCH ×3 (05:18→20:39)
[2019-09-23 05:21] LABS: HEMATOCRIT 33.5 % (42.0-52.0)
[2019-09-23] MEDS: CARAFATE PO SCH ×4 (05:33→20:39)
[2019-09-23] MEDS: PROTONIX PO SCH ×2 (05:33→17:31)
[2019-09-23] MEDS: SANTYL TP SCH ×2 (10:04→20:40)
[2019-09-23] MEDS: [UNRECOGNIZED DRUG - OTHER] TP SCH ×2 (10:04→20:40)
--- NOTE | 2019-09-23 10:05 | PCM.PROG ---
Attending Provider: ATTENDING PROVIDER: Dr. JOVANNI LESTER DATE OF SERVICE: 09/23/19 SUBJECTIVE: This 74 year old /WHITE M was hospitalized 09/18/19 with acute bronchitis and diabetic foot ulcer which was infected. The patient's diabetic foot ulcer infection on left heel seems better. New findings on CT indicating generalized lymphadenopathy which seems to fit the picture with leukocytosis which is explainable with the foot ulcer with septicemia but the redness of the foot ulcer is a lot better. Appetite is poor. At times he has generalized abdominal discomfort but the family and explained about findings. Yesterday I had a meeting with daughters, Vannesa and Larissa and explained about findings and plan to which they have agreed. The patient's condition is stable at present time. Hyponatremia and Hypokalemia which will be corrected with IV normal saline with Potassium supplements. REVIEW OF SYSTEMS: CONSTITUTIONAL: No night sweats. No fatigue, malaise, lethargy. No fever or chills. HEENT: Eyes: No visual changes. No eye pain. No eye discharge. ENT: No runny nose. No epistaxis. No sinus pain. No odynophagia. No congestion. RESPIRATORY: No cough, no congestion. No hemoptysis. No shortness of breath. CARDIOVASCULAR: No angina symptoms. No CHF symptoms. No atypical chest pain for CAD. No palpitations. No orthopnea.. GASTROINTESTINAL: No abdominal pain. No nausea or vomiting. No diarrhea or constipation. No hematemesis. No hematochezia. Poor appetite. GENITOURINARY: No urgency. No frequency. No dysuria. No hematuria. No obstructive symptoms. No discharge. No pain. No significant abnormal bleeding. MUSCULOSKELETAL: No musculoskeletal pain; no joint swelling. NEUROLOGICAL: Awake, alert, oriented to time, place and person. No headache. No neck pain. No syncope. No seizures. No dizziness. PSYCHIATRIC: Not anxious. No depression. No suicidal thoughts. No homicidal thoughts. SKIN: No rash. No lesions. No wounds. ENDOCRINE: No unexplained weight loss. No weight gain. HEMATOLOGIC/LYMPHATIC: No anemia. No purpura. No petechiae. No prolonged or excessive bleeding. No palpable lymph nodes. PHYSICAL EXAMINATION: GENERAL: The patient is awake, alert and oriented, lying in bed in no distress. VITAL SIGNS: Temperature 97.5 F, Pulse 95, Respiratory Rate 18, BP 120/64, Pulse Ox 95% HEENT: Head normocephalic, atraumatic. Eyes: Extraocular muscles are intact. Pupils are equal, round and reactive to light and accommodation. Ears: No lesions. Nose appeared normal. Throat: No exudate or erythema. NECK: Supple. No JVD, no carotid bruit. No lymphadenopathy or thyromegaly. LUNGS: Clear to auscultation. Percussion note normal. Chest symmetrical. HEART: S1, S2, no S3. No murmurs. No cyanosis or clubbing. No ascites. Pulses: Dorsalis pedis and posterior tibial pulses +1 to +2 both sides. ABDOMEN: Soft. Non-tender. Bowel sounds active. No CVA tenderness. No mass felt. EXTREMITIES: No edema. Full range of motion of all extremities, equal. Left foot ulcer less inflamed surrounding tissue of ulcer. NEUROLOGIC: No focal deficit. Cranial nerves II through XII are grossly intact. No headache, no double vision or headache. SKIN: Warm and dry. Intact. Turgor-normal. LYMPHATIC: No palpable lymph nodes/no lymphedema. MUSCULOSKELETAL: Normal joints with no swelling. Muscle tone is normal. LAB REVIEW: 09/23/19 04:36 09/23/19 04:36 09/23/19 04:36: Sodium 124.2 L, Potassium 3.32 L, Chloride 92.2 L, Carbon Dioxide 24.3, Anion Gap 11.02, BUN 15.1, Creatinine 0.83, Estimated GFR (MDRD) 90.00, BUN/Creatinine Ratio 18.19, Glucose 215.4 H, Calcium 7.95 L, Total Bilirubin 0.60, AST 37.6, ALT 25.8, Alkaline Phosphatase 260.6 H, Total Protein 6.14 L, Albumin 2.60 L, Globulin 3.54, Albumin/Globulin Ratio 0.73 09/23/19 04:36: WBC 40.18 H, RBC 4.07 L, Hgb 11.4 L, Hct 33.5 L, MCV 82.3, MCH 28.0, MCHC 34.0, RDW Coeff of Leanna 14.1, Plt Count 456 H, Neutrophils % (Manual) 64.0, Band Neutrophils % 18.0 H, Lymphocytes % (Manual) 5.0 L, Monocytes % (Manual) 7.0, Eosinophils % (Manual) 0.0, Basophils % (Manual) 0.0, Metamyelocy kenny % 4.0 H, Myelocytes % 2.0 H, Toxic Granulation 1+, Poikilocytosis 1+, Anisocytosis Not present, Tear Drop Cells 1+, Ovalocytes 1+, Schistocytes Occasional ASSESSMENT: Please see below. 1. Left foot ulcer seems to be resolving with antibiotics, less cellulitis surrounding tissue. 2. Bronchitis, resolved 3. Possible Lymphadenopathy with increased leukocytes and generalized lymphedema that showed up on CT scan yesterday. PLAN: 1. Refer the patient to Hematology/Oncologist. 3. Continue IV antibiotics 3. Normal saline with Potassium supplements. 4. The patient is being scheduled for upper GI with barium followup through. Plan and coordination of the patient's care discussed in the presence of Telehealth Case Manager and nurse. made aware of malignancy. The daughters states that the patient is not getting medications at home on regular basis for long time because mother has very poor understanding of medications the patient has. As far the patient is concerned he has no understanding of medications problems and no desire to take medications. The diabetic part of food intake is completely off according to the daughters. CONDITION: Stable PROGNOSIS: Poor SCRIBED BY: KYLE EMERSON Scientific Glass Blower scribed while in presence of service performed by Dr. JOVANNI LESTER on 09/23/19 ([id number])
--- NOTE | 2019-09-23 10:13 | PN ---
DATE OF SERVICE: 09/21/19 SUBJECTIVE: 74-year-old white male hospitalized with acute bronchitis and also inflammation of the diabetic ulcer on the left foot. The patient is being treated with IV antibiotics, Doxycycline and Rocephin. The patient's affected left foot ulcer is a lot better with no redness. The swelling seems to have practically gone away. No drainage. The patient's bronchitis has resolved. There is no cough practically. Lungs have decreased breath sounds. PHYSICAL EXAMINATION: GENERAL: The patient is oriented to time, place and person. VITAL SIGNS: Temperature 97.3, pulse 95, respiratory rate 18, BP 130/70, pulse ox 95%. HEENT: Head normocephalic, atraumatic. Eyes: Extraocular muscles are intact. Pupils are equal, round and reactive to light and accommodation. Ears: No lesions. Nose appeared normal. Throat: No exudate or erythema. NECK: Supple. No JVD, no carotid bruit. No lymphadenopathy or thyromegaly. LUNGS: Decreased breath sounds but clear to auscultation. Percussion note normal. Chest symmetrical. HEART: S1, S2, no S3. No murmurs. No cyanosis or clubbing. No ascites. Pulses: Dorsalis pedis and posterior tibial pulses +1 to +2 bilaterally. ABDOMEN: Soft. Nontender. Bowel sounds active. No CVA tenderness. No mass felt. EXTREMITIES: No edema. Full range of motion of all extremities, equal. NEUROLOGIC: No focal deficit. Cranial nerves II through XII are grossly intact. No headache, no double vision or headache. SKIN: Not dry. Intact. Turgor - normal. LYMPHATIC: No palpable lymph nodes/no lymphedema. MUSCULOSKELETAL: Normal joints with no swelling. Muscle tone is normal. LABS: Hemoglobin 11.7, hematocrit 35, WBC 30,000 with normal differential. Creatinine 0.9, BUN 12, potassium 3.9, glucose 168. TSH normal. Pro-BNP 3,520. ASSESSMENT: 1. Infected left foot ulcer seems to be doing well. 2. Acute bronchitis has resolved. 3. Severe chronic lung disease with history of smoking. 4. Leukocytosis is likely a combination of infection plus steroids. PLAN: Discharge the patient Thursday for the patient to be at Wound Care but Wound Care called that they would not be able to accomodate him so they will be seeing him on Wednesday. I talked to the , explained all the diagnoses and explained to her that the patient has multiple medical problems like generalized atherosclerosis, severe diabetes mellitus which has been poorly controlled because of the patient's noncompliance on lifestyle, medications. I explained to the daughters that the patient's is unable to give the medication on a regular basis and that is one of the reasons why diabetes is not controlled properly. Besides that she also feeds him things that she shouldn't. In any case, the patient has severe peripheral arterial disease, very likely coronary artery disease, severe chronic lung disease, history of CVA. In fact, the surgeon wanted to amputate, above- knee amputation but the family wanted trial of medications. The patient's prognosis is poor. BMI is 35. They are understanding of all his medical conditions, very poor prognosis. TOTAL TIME SPENT: 60 minutes. Plan and coordination of the patient's care discussed in the presence of nurse. SAHIL
--- NOTE | 2019-09-23 10:47 | PN ---
DATE OF SERVICE: 09/22/19 SUBJECTIVE: The patient was seen and examined with the nurse practitioner. The patient's condition seems to have improved. His color looks better. The patient had a couple of bowel movements. He is feeling better, the appetite seems to have improved. He doesn't have any fever or chills. No abdominal pain today. PHYSICAL EXAMINATION: HEENT: Head normocephalic, atraumatic. Eyes: Extraocular muscles are intact. Pupils are equal, round and reactive to light and accommodation. Ears: No lesions. Nose appeared normal. Throat: No exudate or erythema. NECK: Supple. No JVD, no carotid bruit. No lymphadenopathy or thyromegaly. LUNGS: Decreased breath sounds but clear to auscultation. Percussion note normal. Chest symmetrical. HEART: S1, S2, no S3. No murmurs. No cyanosis or clubbing. No ascites. Pulses: Dorsalis pedis and posterior tibial pulses +1 to +2 bilaterally. ABDOMEN: Soft. Nontender. Bowel sounds active. No CVA tenderness. No mass felt. EXTREMITIES: No edema. Full range of motion of all extremities, equal. NEUROLOGIC: No focal deficit. Cranial nerves II through XII are grossly intact. No headache, no double vision or headache. SKIN: Not dry. Intact. Turgor - normal. LYMPHATIC: No palpable lymph nodes/no lymphedema. MUSCULOSKELETAL: Normal joints with no swelling. Muscle tone is normal. DISCUSSION: The is present in the room, discussed all the diagnoses. The patient had CT scan of the abdomen done which showed generalized lymphadenopathy, possibility of lymphoma vs metastatic lymphadenopathy. Another reason could be the infection in the left heel with lymphadenopathy. Discussed the findings with two daughters, whom I called in the office and talked to them for nearly 20 to 25 minutes. Discussed all the diagnosis, discussed the CT scan of the abdomen which was done today, generalized lymphadenopathy. The first CT scan of the abdomen did not report anything about lymph nodes in case lymphoma is the possibility with increased WBC count, WBC count is up, could be because of infected left diabetic ulcer on the foot involving the heel area. I explained to them that some of his findings with some weight loss and occasional abdominal pain with fever could be on the basis of lymphoma. The patient is going to be referred to mold cooler/oncologist. The patient's family, Radha and Vannesa, both agree. The patient is going to be transferred to [facility] tomorrow for further antibiotic treatment. The family would like to keep the patient in the hospital until the day prior to his visit with Wound Care. The patient's condition is stable but prognosis is poor. TIME SPENT: More than 30 minutes. Plan and coordination of the patient's care discussed in the presence of nurse. SAHIL
[2019-09-23] MEDS: ALDACTONE PO SCH (12:23)
[2019-09-23] MEDS: TRADJENTA PO SCH (12:23)
[2019-09-23] MEDS: LEXAPRO PO SCH (12:23)
[2019-09-23] MEDS: VANCOMYCIN 1.5 GRAM/300 ML PREMIX 1.5 GM/300 ML BAG IV SCH ×2 (12:23→21:31)
[2019-09-23] MEDS: AGGRENOX CAPSULE PO SCH ×2 (12:24→20:39)
[2019-09-23] MEDS: PLAVIX PO SCH (12:24)
[2019-09-23] MEDS: MULTIVITAMIN TABLET PO SCH (12:24)
[2019-09-23] MEDS: SPIRIVA IH SCH (12:29)
[2019-09-23] MEDS: SODIUM CHLORIDE 0.9%-KCL 40MEQ 1,000 ML IV SCH (12:29)
[2019-09-23] MEDS: LANTUS SUBCUT SCH (20:41)
[2019-09-24 04:53] LABS: HEMATOCRIT 31.2 % (42.0-52.0)
[2019-09-24] MEDS: VENTOLIN HFA (PER PUFF-WITH SPACER) IH SCH ×3 (05:13→19:41)
[2019-09-24] MEDS: PROTONIX PO SCH ×2 (05:38→16:33)
[2019-09-24] MEDS: CARAFATE PO SCH ×4 (05:38→20:39)
[2019-09-24] MEDS: MAXIPIME 2 GM/50 ML D5W 2 GM/50 ML BAG IV SCH ×3 (05:38→20:39)
[2019-09-24] MEDS: SODIUM CHLORIDE 0.9%-KCL 40MEQ 1,000 ML IV SCH ×3 (06:31→16:47)
[2019-09-24] MEDS: VANCOMYCIN 1.5 GRAM/300 ML PREMIX 1.5 GM/300 ML BAG IV SCH ×2 (08:39→21:52)
[2019-09-24] MEDS: SPIRIVA IH SCH (08:43)
[2019-09-24] MEDS: TRADJENTA PO SCH (08:44)
[2019-09-24] MEDS: AGGRENOX CAPSULE PO SCH ×2 (08:44→20:39)
[2019-09-24] MEDS: LEXAPRO PO SCH (08:45)
[2019-09-24] MEDS: PLAVIX PO SCH (08:45)
[2019-09-24] MEDS: MULTIVITAMIN TABLET PO SCH (08:45)
[2019-09-24] MEDS: ALDACTONE PO SCH (08:46)
[2019-09-24] MEDS: NORCO 7.5-325 PO PRN (09:21)
[2019-09-24] MEDS: SANTYL TP SCH ×2 (10:28→21:52)
[2019-09-24] MEDS: [UNRECOGNIZED DRUG - OTHER] TP SCH ×2 (10:28→21:52)
[2019-09-24] MEDS ORDERED: LASIX IVP STA (12:17)
[2019-09-24] MEDS: SODIUM CHLORIDE 1,000 ML IV SCH (13:15)
[2019-09-24] MEDS: K-DUR PO SCH (16:33)
[2019-09-24] MEDS ORDERED: LASIX ONE (16:41)
[2019-09-24] MEDS: LANTUS SUBCUT SCH (20:06)
[2019-09-25] MEDS: VENTOLIN HFA (PER PUFF-WITH SPACER) IH SCH ×3 (04:54→19:57)
[2019-09-25 05:35] LABS: HEMATOCRIT 32.5 % (42.0-52.0)
[2019-09-25] MEDS: MAXIPIME 2 GM/50 ML D5W 2 GM/50 ML BAG IV SCH ×3 (05:56→20:24)
[2019-09-25] MEDS: CARAFATE PO SCH ×4 (05:57→20:24)
[2019-09-25] MEDS: PROTONIX PO SCH ×2 (05:57→16:45)
[2019-09-25] MEDS: AGGRENOX CAPSULE PO SCH ×2 (08:16→20:24)
[2019-09-25] MEDS: LEXAPRO PO SCH (08:17)
[2019-09-25] MEDS: ALDACTONE PO SCH (08:17)
[2019-09-25] MEDS: K-DUR PO SCH ×3 (08:17→16:45)
[2019-09-25] MEDS: TRADJENTA PO SCH (08:18)
[2019-09-25] MEDS: PLAVIX PO SCH (08:18)
[2019-09-25] MEDS: MULTIVITAMIN TABLET PO SCH (08:18)
[2019-09-25] MEDS: SPIRIVA IH SCH (08:21)
[2019-09-25] MEDS: NORCO 7.5-325 PO PRN (09:48)
[2019-09-25] MEDS: VANCOMYCIN 1.5 GRAM/300 ML PREMIX 1.5 GM/300 ML BAG IV SCH ×2 (09:50→21:16)
[2019-09-25] MEDS: [UNRECOGNIZED DRUG - OTHER] TP SCH ×2 (13:36→20:25)
[2019-09-25] MEDS: SANTYL TP SCH ×2 (13:37→20:25)
[2019-09-25] MEDS: LANTUS SUBCUT SCH (20:25)
[2019-09-26] MEDS: SODIUM CHLORIDE 1,000 ML IV SCH (01:45)
[2019-09-26 04:49] LABS: HEMATOCRIT 31.9 % (42.0-52.0)
[2019-09-26] MEDS: VENTOLIN HFA (PER PUFF-WITH SPACER) IH SCH (04:55)
[2019-09-26 05:25] VITALS: BP 132/68; TEMP 98.3
[2019-09-26] MEDS: CARAFATE PO SCH ×2 (05:55→12:41)
[2019-09-26] MEDS: PROTONIX PO SCH (05:55)
[2019-09-26] MEDS: MAXIPIME 2 GM/50 ML D5W 2 GM/50 ML BAG IV SCH (05:55)
--- NOTE | 2019-09-26 09:08 | ECHO2D ---
Date of Exam: 09/22/2019 Ordering Physician: DR. LESTER Room #: 114 Reason for Echo: RULE OUT ENDOCARDITIS, LEUKOCYTOSIS, DIABETES MELLITUS TYPE 2, HYPERTENSION, COPD M-Mode Normal Adult Results LV Dimensions Normal Adult Results AoV Opening excursions >1.6 >1.6 LVEDD-base- 3.5-5.8 4.2 Ao root dimensions 2.0-3.7 3.7 LVESD-base- 3.1-4.6 L. Atrium dimensions 1.9-3.8 5.1 Post. Wall thickness 0.8-1.1 1.4 IV septum (thickness) 0.7-1.2 1.3 Post. Wall excursion 0.72-1.3 NORMAL Septal motion NORMAL Systolic motion R. Ventricular cavity 1.5-2.0 3.0 LVEF 60% 69% Paradoxical septal wall motion NORMAL 2-D : ENLARGED LEFT ATRIAL AND RIGHT VENTRICULAR CAVITIES, NORMAL LEFT VENTRICULAR CONTRACTILITY, NORMAL MITRAL AND AORTIC VALVES, NO EFFUSION, NO THROMBUS M-MODE: MV: NORMAL AV: NORMAL TV: NORMAL PV: CHAMBER SIZE: ENLARGED RIGHT VENTRICULAR AND LEFT ATRIAL CAVITIES WALL MOTION: NORMAL PERICARDIUM: NORMAL INTERPRETATION: 1. LEFT VENTRICULAR HYPERTROPHY WITH ENLARGED LEFT ATRIAL CAVITY 2. ENLARGED RIGHT VENTRICULAR CAVITY 3. NORMAL LEFT VENTRICULAR CONTRACTILITY 4. NORMAL MITRAL AND AORTIC VALVES 5. DIFFICULT STUDY - BODY HABITUS MTDD
--- NOTE | 2019-09-26 09:14 | PCM.PROG ---
Attending Provider: ATTENDING PROVIDER: Dr. JOVANNI LESTER This patient is seen with Ananya Santiago, Nurse Practitioner. DATE OF SERVICE: 09/26/19 SUBJECTIVE: This 74 year old /WHITE M was hospitalized 09/18/19. The patient has worsening swelling and drainage left lower extremity. WBC continued to elevate. The patient is still not eating. We believe that it would be in his best interest to be transfer him so we could have a vascular consult as well as surgical consult along with hematology. REVIEW OF SYSTEMS: CONSTITUTIONAL: No night sweats. No fatigue, malaise, lethargy. No fever or chills. Generalized weakness. HEENT: Eyes: No visual changes. No eye pain. No eye discharge. ENT: No runny nose. No epistaxis. No sinus pain. No odynophagia. No congestion. RESPIRATORY: No cough, no congestion. No hemoptysis. No shortness of breath. CARDIOVASCULAR: No angina symptoms. No CHF symptoms. No atypical chest pain for CAD. No palpitations. No orthopnea.. GASTROINTESTINAL: No abdominal pain. No nausea or vomiting. No diarrhea or constipation. No hematemesis. No hematochezia. Loss of appetite. GENITOURINARY: No urgency. No frequency. No dysuria. No hematuria. No o bstructive symptoms. No discharge. No pain. No significant abnormal bleeding. MUSCULOSKELETAL: No musculoskeletal pain; no joint swelling. Left leg pain and swelling. NEUROLOGICAL: Awake, alert, oriented to time, place and person. No headache. No neck pain. No syncope. No seizures. No dizziness. PSYCHIATRIC: Not anxious. No depression. No suicidal thoughts. No homicidal thoughts. SKIN: No rash. No lesions. No wounds. ENDOCRINE: No unexplained weight loss. Weight gain. HEMATOLOGIC/LYMPHATIC: No anemia. No purpura. No petechiae. No prolonged or excessive bleeding. No palpable lymph nodes. PHYSICAL EXAMINATION: GENERAL: The patient is awake, alert and oriented, lying in bed in no distress. VITAL SIGNS: Temperature 98.3 F, Pulse 90, Respiratory Rate 18, BP 132/68, Pulse Ox 94% HEENT: Head normocephalic, atraumatic. Eyes: Extraocular muscles are intact. Pupils are equal, round and reactive to light and accommodation. Ears: No lesions. Nose appeared normal. Throat: No exudate or erythema. NECK: Supple. No JVD, no carotid bruit. No lymphadenopathy or thyromegaly. LUNGS: Diminished breath sounds. Clear to auscultation. Percussion note normal. Chest symmetrical. HEART: S1, S2, no S3. No murmurs. No cyanosis or clubbing. No ascites. Pulses: Dorsalis pedis and posterior tibial pulses +1 to +2 both sides. ABDOMEN: Soft. Slight abdominal distention. Non-tender. Bowel sounds active. No CVA tenderness. No mass felt. EXTREMITIES: +2 left lower extremity edema with serous sanguineous drainage. Wound left heel. Blister inner aspect foot open with necrotic tissue showing. Full range of motion of all extremities, equal. NEUROLOGIC: No focal deficit. Cranial nerves II through XII are grossly intact. No headache, no double vision or headache. SKIN: Not dry. Intact. Turgor-normal. LYMPHATIC: No palpable lymph nodes/no lymphedema. MUSCULOSKELETAL: Normal joints with no swelling. Muscle tone is normal. LAB REVIEW: 09/26/19 04:43 09/26/19 04:43 09/26/19 04:43: Sodium 125.4 L, Potassium 3.75, Chloride 97.8 L, Carbon Dioxide 19.6 L, Anion Gap 11.75, BUN 17.7, Creatinine 0.96, Estimated GFR (MDRD) 76.00, BUN/Creatinine Ratio 18.43, Glucose 267.0 H D, Calcium 7.93 L, Total Bilirubin 0.63, AST 65.1 H, ALT 41.1, Alkaline Phosphatase 313.0 H, Total Protein 6.07 L, Albumin 2.40 L, Globulin 3.67, Albumin/Globulin Ratio 0.65 09/26/19 04:43: WBC 45.91 H, RBC 3.93 L, Hgb 11.0 L, Hct 31.9 L, MCV 81.2, MCH 28.0, MCHC 34.5, RDW Coeff of Leanna 14.6, Plt Count 472 H, Neutrophils % (Manual) 89.0 H, Lymphocytes % (Manual) 6.0 L, Monocytes % (Manual) 4.0, Anisocytosis Not present 09/25/19 08:43: Vancomycin Trough 18.480 ASSESSMENT: Please see below. 1. Necrotic ulcer left lower extremity with surrounding cellulitis 2. Leg edema 3. Abdominal lymphadenopathy 4. Loss of appetite 5. Leukocytosis 6. Diabetes Mellitus type 2, uncontrolled. PLAN: 1. Will call [facility] for possible transfer 3. IV antibiotics. Plan and coordination of the patient's care discussed in the presence of Furniture Inspector and nurse. SCRIBED BY: Juan BULLARDist scribed while in presence of service performed by Dr. Lester/Ananya Santiago APRN on 09/26/19 ([id number])
[2019-09-26] MEDS: TRADJENTA PO SCH (09:44)
[2019-09-26] MEDS: K-DUR PO SCH (09:44)
[2019-09-26] MEDS: PLAVIX PO SCH (09:44)
[2019-09-26] MEDS: LEXAPRO PO SCH (09:44)
[2019-09-26] MEDS: VANCOMYCIN 1.5 GRAM/300 ML PREMIX 1.5 GM/300 ML BAG IV SCH (09:44)
[2019-09-26] MEDS: AGGRENOX CAPSULE PO SCH (09:44)
[2019-09-26] MEDS: ALDACTONE PO SCH (09:45)
[2019-09-26] MEDS: MULTIVITAMIN TABLET PO SCH (09:45)
[2019-09-26] MEDS: [UNRECOGNIZED DRUG - OTHER] TP SCH (09:45)
[2019-09-26] MEDS: SANTYL TP SCH (09:45)
[2019-09-26] MEDS: SPIRIVA IH SCH (09:46)
--- NOTE | 2019-09-26 12:26 | DS ---
DATE OF SERVICE: 09/26/2019 FINAL DIAGNOSIS: 1. Diabetic left heel/foot ulcer possibility of gangrenous changes to foot with blistering of the skin 2. Leukocytosis with abdominal lymphadenopathy likely lymphoma 3. Hyponatremia 4. Diabetes Mellitus type 2 A1c 10.2 on 07/14/2019. Poor control because of patient's noncompliance 5. Diabetic nephropathy and retinopathy 6. Arterial disease 7. CVA with right sided weakness, 05/2016 8. COPD moderate to severe with smoking 9. History of hypertension 10.Dyslipidemia 11.Depression 12.Obesity with BMI 35 13.Status post kyphoplasty L1 by Dr. Pineda 14.Generalized osteoarthritis involving mainly knees and hips 15. Status post cholecystectomy 16. Status post cataract extraction 17. Status post prostate surgery 18. Noncompliance of diet, medications and recommendations. MEDICATIONS AT DISCHARGE: ProAir HFA two puffs four times a day Aggrenox one tablets twice a day Warwick 7.5-325mg TID PRN Lantus 4 units SUBCUT at bedtime Tradjenta 5mg PO daily Spiriva one inhalation daily Carafate 1 gram at HS Pravastatin 80mg PO daily Pantoprazole 40mg QAM Plavix 75mg PO daily Cefepime 2 grams Q 8 hours Vancomycin 0.5 grams Q 12 Lexapro 10mg PO daily Zofran 4mg IV every 6 hourly PRN The patient was on sliding scale Aldactone 25mg PO daily K-Dur 20 MEQ PO BID The patient has been followed by Dr. Arita. Initial recommendation when the patient was seen for the left heel ulcer was above knee amputation which the family were very reluctant with trial of medical management. Next appointment with Dr. Arita was supposed to be 09/28/2019. LABS: Hgb 11, hct 31, WBC 45,000 normal differential, creatinine 0.9, BUN 17, potassium 3.7, glucose 267, Pro BNP 09/18/2019 was 3,520, TSH 1.6 per 76 cc per minute. Echocardiogram done on 09/25/2019 showed LVH with enlarged LA cavity with normal LA contractility. It was a difficult echo because of body habitus. Telemetry is sinus rhythm. No arrhythmias. CT scan of the abdomen is done on admission was reported as no acute findings. No lymphadenopathy. The CT scan of the abdomen done on 09/22/2019 showed Left iliac pelvic and inguinal lymphadenopathy raising the possibility of malignancy or metastatic lesions both CT scans were done with contrast. HOSPITAL COURSE: 74 year old white male was hospitalized on 09/18/2019 with infected left heel ulcer with some redness and swelling. It was treated with IV antibiotics. The culture showed staph which was sensitive to most of the antibiotics. He was put on Vancomycin and Cefepime. The patient's left heel ulcer showed remarkable improvement past 48-72 hours and started having blistering of the skin on the left foot with more swelling. Also the patient started becoming hyponatremic. The patient's WBC count on admission was 27,000 which has gone up to 45,000. CT scan of the abdomen showed generalized lymphadenopathy. Overall the patient's cardiovascular and respiratory status is stable. His appetite has been below normal. Considering the patient's deterioration of left heel ulcer along with blistering of the left foot, skin and leukocytosis with intraabdominal lymphadenopathy it was decided to transfer the patient so that he could be taken care of by vascular surgeon and hematology/oncology. The is agreeable and the daughters were called and the case was discussed. It was made quite clear that the patient is very poor candidate for surgery but may not have any choice. Transfer service at [facility] was called and the case was discussed with a Bebeto and the patient was accepted. The patient's prognosis is poor considering the patient's medical problems with multiple comorbidities. ADDENDUM: The patient though out his care under me in spite of repeated explanations about his medical problems he has poor understanding plus it was same with his . I had discussion with all three daughters about the patient's medical conditions and his transfer to [facility] for further evaluation and treatment. I indicated to them that the patient's prognosis is poor. He is high risk surgical candidate for anything that could be done about his left heel ulcer surgically. Besides having multiple medical problems involving his cardiorespiratory status the patient now has lymphedenopathy with leukocytosis raising the possibility of lymphoma and or metastatic disease. The patient has sedentary lifestyle with BMI of 35 with controlled diabetes with history of CVA. The patient's overall prognosis is poor. The patient is DNR. The patient's code status is DNR. The patient had GI with barium follow through scheduled and tried last Thursday but unable to do it because the patient was unable to stand up or cooperate. He difficulty swallowing. He has been on Protonix. Was notified that Dr. Prater is going to be the Welcome Wagon Hostess when he is transferred. TIME SPENT: More than 60 minutes. SAHIL
--- NOTE | 2019-09-26 12:27 | PN ---
09/18/2019: Level 5 09/19/2019: Intermediate 09/20/2019: Intermediate 09/21/2019: Intermediate 09/22/2019: Intermediate 09/23/2019: Extensive 09/24/2019: Extensive 09/25/2019: Extensive 09/26/2019: D as in discharge MTDD
--- NOTE | 2019-09-26 14:58 | PN ---
DATE OF SERVICE: 09/25/2019 SUBJECTIVE: 74 year old white male hospitalized with bronchitis, chronic lung disease and diabetic foot ulcer which was infected. The patient on IV antibiotics has done well. He had done well for initial hospitalization with less swelling of infected left foot ulcer but last 36 hours the patient has developed blistering of the medial aspect and on the dorsal aspect of the foot. Seems to be drying up with less edema today. The patient has foul smelling odor. The patient is developing a gangrene with history of peripheral arterial disease. In any case the patient feels fine and he doesn't have any pain. REVIEW OF SYSTEMS: CONSTITUTIONAL: No night sweats. No fatigue, malaise, lethargy. No fever or chills. HEENT: Eyes: No visual changes. No eye pain. No eye discharge. ENT: No runny nose. No epistaxis. No sinus pain. No sore throat. No odynophagia. No congestion. RESPIRATORY: No cough, no congestion. No hemoptysis. No shortness of breath. CARDIOVASCULAR: No angina symptoms. No CHF symptoms. No atypical chest pain for CAD. No palpitations. No PND. No orthopnea. GASTROINTESTINAL: No abdominal pain. No nausea or vomiting. No diarrhea or constipation. No hematemesis. No hematochezia. Appetite is improving to some extent. GENITOURINARY: No urgency. No frequency. No dysuria. No hematuria. No obstructive symptoms. No discharge. No pain. No significant abnormal bleeding. MUSCULOSKELETAL: No musculoskeletal pain; no joint swelling. NEUROLOGICAL: No headache. No neck pain. No syncope. No seizures. No dizziness. PSYCHIATRIC: Not anxious. No depression. No suicidal thoughts. No homicidal thoughts. SKIN: No rash. No lesions. No wounds. ENDOCRINE: No unexplained weight loss. No weight gain. HEMATOLOGIC/LYMPHATIC: No anemia. No purpura. No petechiae. No prolonged or excessive bleeding. No palpable lymph nodes. PHYSICAL EXAMINATION: ITAL SIGNS: Temperature 97.7, pulse 80, respiratory rate 20, blood pressure 130/60 and pulse ox 95%. HEENT: Head normocephalic, atraumatic. Eyes: Extraocular muscles are intact. Pupils are equal, round and reactive to light and accommodation. Ears: No lesions. Nose appeared normal. Throat: No exudate or erythema. NECK: Supple. No JVD, no carotid bruit. No lymphadenopathy or thyromegaly. LUNGS: Decreased breath sounds but clear to auscultation. Percussion note normal. Chest symmetrical. HEART: S1, S2, no S3. No murmurs. No cyanosis or clubbing. No ascites. Pulses: Dorsalis pedis and posterior tibial pulses +1 to +2 bilaterally. ABDOMEN: Soft. Nontender. Bowel sounds active. No CVA tenderness. No mass felt. EXTREMITIES: No edema. Full range of motion of all extremities, equal. NEUROLOGIC: No focal deficit. Cranial nerves II through XII are grossly intact. No headache, no double vision or headache. SKIN: Not dry. Intact. Turgor - normal. LYMPHATIC: No palpable lymph nodes/no lymphedema. MUSCULOSKELETAL: Normal joints with no swelling. Muscle tone is normal. LABS: Hgb 11.1, hct 32, WBC 46,000 normal differential, creatinine 0.8, BUN 15, potassium 3.3. ASSESSMENT: 1. Left foot ulcer with edema seems to be resolving but the patient blistering of the left indicating of early gangrene. 2. Bronchitis seems to have resolved 3. Severe chronic lung disease 4. Diabetes Mellitus, poorly controlled for many years 5. Dyslipidemia 6. Hypertension 7. History of smoking with severe chronic lung disease 8. Leukocytosis with lymphadenopathy in abdominal area indicating lymphoma. PLAN: 1. Continue IV antibiotics 2. Continue monitor left heel ulcer 3. Continue elevation of the leg off and on 4. Continue IV normal saline with oral Potassium supplements 5. Fluid restriction PROGNOSIS: Poor considering a lot of comorbidities and multiple ongoing problems. Very likely tomorrow we will try to call the Hospitalist services at [facility] for the patient to transferred. The family; the and the daughters have been periodically informed about the patient's progress. TIME SPENT: More than 30 minutes. Plan and coordination of the patient's care discussed in the presence of nurse. SAHIL
--- NOTE | 2019-09-27 14:52 | PN ---
DATE OF SERVICE: 09/24/2019 SUBJECTIVE: 74 year old white male hospitalized with infection of the left diabetic ulcer on the left heel. Also the patient had bronchitis. The patient has been treated with IV antibiotics Cefepime and Vancomycin. The patient's condition has improved. Bronchitis has resolved. Infection in the heel seems to be under control for a while but now it seems to have deteriorated in past 24 hours to 36 hours. The patient has friction blister on the medial aspect of the left foot, the top has blood blisters the same because of friction. He has very poor circulation with a severe peripheral arterial disease. In fact originally the recommendation was to do above the knee amputation on the left side but because of the family request medication management has been tried. The patient has severe diabetes mellitus which has been very poorly controlled. Severe dyslipidemia, obese with BMI of 35. He has generalized atherosclerotic vascular disease. The patient has chronic anemia with malnutrition in a way of hypoproteinemia. The patient's oral condition is deteriorating because of possibility of lymphoma with high WBC count. REVIEW OF SYSTEMS: CONSTITUTIONAL: No night sweats. Fatigue and tired. No fever or chills. HEENT: Eyes: No visual changes. No eye pain. No eye discharge. ENT: No runny nose. No epistaxis. No sinus pain. No sore throat. No odynophagia. No congestion. RESPIRATORY: Mild cough but much better, no congestion. No hemoptysis. Shortness of breath on exertion but he doesn't do much in the way of moving around because he had a ulcer on his heel. CARDIOVASCULAR: No angina symptoms. No CHF symptoms. No atypical chest pain for CAD. No palpitations. No PND. No orthopnea. GASTROINTESTINAL: Mild abdominal discomfort. No nausea or vomiting. No diarrhea or constipation. No hematemesis. No hematochezia. Appetite is still not up to par. Bowel movements are practically everyday. GENITOURINARY: No urgency. No frequency. No dysuria. No hematuria. No obstructive symptoms. No discharge. No pain. No significant abnormal bleeding. MUSCULOSKELETAL: No musculoskeletal pain; no joint swelling. There is no pain on the ulcer area because of neuropathy. NEUROLOGICAL: No headache. No neck pain. No syncope. No seizures. No dizziness. PSYCHIATRIC: Not anxious. No depression. No suicidal thoughts. No homicidal thoughts. SKIN: No rash. No lesions. No wounds. ENDOCRINE: No unexplained weight loss. No weight gain. HEMATOLOGIC/LYMPHATIC: No anemia. No purpura. No petechiae. No prolonged or excessive bleeding. No palpable lymph nodes. PHYSICAL EXAMINATION: GENERAL: The patient is oriented to time, place and person. VITAL SIGNS: Temperature 97.6, pulse 80, respiratory rate 18, blood pressure 117/60 and pulse ox 94% on room air. HEENT: Head normocephalic, atraumatic. Eyes: Extraocular muscles are intact. Pupils are equal, round and reactive to light and accommodation. Ears: No lesions. Nose appeared normal. Throat: No exudate or erythema. NECK: Supple. No JVD, no carotid bruit. No lymphadenopathy or thyromegaly. LUNGS: Decreased breath sounds but clear. Percussion note normal. Chest symmetrical. HEART: S1, S2, no S3. No murmurs. No cyanosis or clubbing. No ascites. Pulses: Dorsalis pedis and posterior tibial pulses +1 to +2 bilaterally. ABDOMEN: Soft. Nontender. Bowel sounds active. No CVA tenderness. No mass felt. EXTREMITIES: No edema. Full range of motion of all extremities, equal. Left heel ulcer with edematous margins now has blisters on the medal aspect and on the dorsum aspect of the left foot. NEUROLOGIC: No focal deficit. Cranial nerves II through XII are grossly intact. No headache, no double vision or headache. SKIN: Not dry. Intact. Turgor - normal. LYMPHATIC: No palpable lymph nodes/no lymphedema. MUSCULOSKELETAL: Normal joints with no swelling. Muscle tone is normal. LABS: Hgb 10.6, hct 31, WBC 42,000 normal differential, creatinine 0.8, BUN 14, potassium 3.2. Sodium 125. ASSESSMENT: 1. Acute bronchitis with chronic lung disease seems to have been under control 2. Diabetic foot ulcer, neuropathic on the left heel along with blistering of the skin of the left foot. Places on the medial aspect and on the dorsum 3. Lymphadenopathy, abdominal with leukocytosis likely lymphoma 4. Diabetes Mellitus with multiple complications.Poorly controlled because of patient's noncompliance 5. Hypertension 6. Dyslipidemia 7. Obesity with BMI of 35 8. Sedentary lifestyle 9. Hypokalemia 10.Hyponatremia PLAN: 1. Fluid restriction 1500cc 2. 20mg IV Lasix because of fluid retention on the left lower extremity 3. K-Tab 20meq TID along with Potassium supplements through the IV 4. 1000cc normal saline over 24 hour 5. Continue Cefepime and Vancomycin ADDENDUM: The patient's deterioration of the foot ulcer is because during the stay in the hospital he has been keeping his legs hanging even during the day time. He keeps lower extremities hanging for a couple of hours at a time in spite of repeated explanation to both and the patient and they don't seem to understand. As mention earlier his prognosis for healing ulcer is extreme poor from multiple medical problems like peripheral arterial disease, diabetes mellitus, severe neuropathy likely lymphoma with poor nutritional status from him being over weight with BMI of 35. Sedentary lifestyle and aging processes. The patient is already being referred to hematology/oncologist. The patient already has an appointment to see benefits specialist recruiter 2-3 days from now. CONDITION: Stable for now PROGNOSIS: Poor CODING: Extensive. TIME SPENT: More than 30 minutes. Plan and coordination of the patient's care discussed in the presence of nurse. SAHIL
== END 2019-09-26 13:16 | disposition short-term general hospital (02) | DRG 191 ==
LOC: ED 08:57 → SCU 11:28 → MEDSURG B 09-19 16:13
PROVIDERS: ADMIT Internal Medicine; ATTEND Internal Medicine
DX: Z03.818 Encounter for observation for suspected exposure to other biological agents ruled out; I10 Essential (primary) hypertension; E11.65 Type 2 diabetes mellitus with hyperglycemia; J44.0 Chronic obstructive pulmonary disease with (acute) lower respiratory infection; E78.5 Hyperlipidemia, unspecified; E53.8 Deficiency of other specified B group vitamins; Z87.81 Personal history of (healed) traumatic fracture; D72.829 Elevated white blood cell count, unspecified; E11.319 Type 2 diabetes mellitus with unspecified diabetic retinopathy without macular edema; R60.0 Localized edema; Z72.3 Lack of physical exercise; E11.621 Type 2 diabetes mellitus with foot ulcer; E11.628 Type 2 diabetes mellitus with other skin complications; R06.2 Wheezing; R63.0 Anorexia; J44.1 Chronic obstructive pulmonary disease with (acute) exacerbation; I70.91 Generalized atherosclerosis; E87.1 Hypo-osmolality and hyponatremia; Z86.73 Personal history of transient ischemic attack (TIA), and cerebral infarction without residual deficits; R59.0 Localized enlarged lymph nodes; J20.9 Acute bronchitis, unspecified; C85.90 Non-Hodgkin lymphoma, unspecified, unspecified site; E87.6 Hypokalemia; F32.9 Major depressive disorder, single episode, unspecified; R11.10 Vomiting, unspecified; Z91.19 Patient's noncompliance with other medical treatment and regimen; L03.116 Cellulitis of left lower limb; L89.629 Pressure ulcer of left heel, unspecified stage; M15.0 Primary generalized (osteo)arthritis; E66.9 Obesity, unspecified; E88.81 Metabolic syndrome and other insulin resistance; E11.40 Type 2 diabetes mellitus with diabetic neuropathy, unspecified; Z68.35 Body mass index [BMI] 35.0-35.9, adult; R10.9 Unspecified abdominal pain; I96 Gangrene, not elsewhere classified

== ENCOUNTER 2020-05-31 09:21 | Inpatient (IN) ==
--- NOTE | 2020-05-31 09:39 | ED.PDOC ---
General ED Provider: Dr. DELILAH WOO Chief Complaint: Cough Stated Complaint: Initially complained of Coughing> When his and caregiver arrived she indicated he was having pain and swelling of his lt scrotum and testicle/past hx prostate problems Time Seen by Provider: 05/31/20 09:26 Mode of Arrival: Ambulance Information Source: Patient Exam Limitations: Physical impairment (Hard of hearing) Primary Care Provider: JOVANNI LESTER Nursing and Triage Documentation Reviewed and Agree: Yes Does patient meet sepsis criteria?: No System Inflammatory Response Syndrome: Not Applicable Sepsis Protocol: For patient's 13 years and over: Temp is 96.8 and below OR 101 and greater Pulse >90 BPM Resp >20/minute Acutely Altered Mental Status Are patient's symptoms suggestive of a new infection, such as: -Pneumonia -Skin, Soft Tissue -Endocarditis -UTI -Bone, Joint Infection -Implantable Device -Acute Abdominal Infection -Wound Infection -Meningitis -Blood Stream Catheter Infection -Unknown Respiratory Complaint Exam Respiratory Complaint/Exam Onset/Duration: 3 d Symptoms Are: Still present Timing: Intermittent Initial Severity: Moderate Current Severity: Mild Location: Throat and Chest Character: Reports Non-productive cough Aggravating: Reports Weather, Deep breaths and Recumbent position Alleviating: Reports None Associated Signs and Symptoms: Reports Dyspnea Related History: Reports Similar episode History of Healthcare-Acquired Pneumonia: No Related Surgical History: Reports None Pulmonary Embolism Risk Factors: None Cardiac Risk Factors: Reports None Pseudomonas Risk Factors: Reports None Status Asthmaticus Risk Factors: Reports None Home Oxygen Use: No Recent Stress Test: No Recent Echo/LV Function: No Current Antibiotic Use: No Current Asthma Medication Use: No Respiratory Distress: None Inadequate Respiratory Effort: No Dysphagia Present: No Stridor Present: No JVD Present: No Accessory Muscle Use: No Retractions: Not Present Diminished Breath Sounds: No Prolonged Respiration: Expiratory phase Sinus Tenderness: None Grunting Respirations: No Kussmaul Respirations: No Differential Diagnoses: COPD Exacerbation, Pneumonia, Bronchospasm and GERD Review of Systems Review Of Systems Constitutional: Reports No symptoms Eyes: Reports No symptoms Ears, Nose, Mouth, Throat: Reports No symptoms Respiratory: Reports Cough Cardiac: Reports No symptoms GI: Reports No symptoms : Reports Dysuria, Frequency, Pain (lt scrotums) and Urgency Musculoskeletal: Reports No symptoms Skin: Reports No symptoms Neurological: Reports No symptoms Endocrine: Reports No symptoms Hematologic/Lymphatic: Reports No symptoms All Other Systems: Reviewed and Negative [facility] Medical History COPD (chronic obstructive pulmonary disease) CVA (cerebral vascular accident) Diabetes GERD (gastroesophageal reflux disease) Family History FATHER Myocardial infarct Mother Myocardial infarct FATHER Diabetes Mother Diabetes Social History History of recent travel: No Surgical History History of appendectomy History of cholecystectomy Physical Exam Physical Exam Appearance: Reports Ill-appearing and Obese Ill-appearing: Mild Pain Distress: Mild Eyes: Reports YUMIKO, EOMI and Conjunctiva clear ENT: Reports Ears normal, Nose normal and Oropharynx normal Neck: Supple Respiratory: Reports Airway patent, Breath sounds clear, Breath sounds equal, Breath sounds diminished and Respirations nonlabored Cardiovascular: Reports RRR, Pulses normal, No rub and No murmur GI/: Reports Soft, Nontender, No masses, Bowel sounds normal, No Organomegaly and Tender (Lt Scrotum and Testicular enlargement-pain ful to palpation) Musculoskeletal: Reports Normal strength, ROM intact, No edema, No calf tenderness and Other (Prev Lt AKA) Skin: Reports Warm, Dry and Normal color Neurological: Reports Sensation intact, Motor intact, Reflexes intact, Cranial nerves intact, Alert and Oriented Psychiatric: Reports Affect appropriate and Mood appropriate Interpretation EKG Interpretation Time of EKG #1: 10:08 Rate: Tachy Rhythm: Sinus Ectopy: None [place]: NL ST Segment: Normal Interpretation: first degree AV Block Critical Care Note Critical Care Note Total Critical Care Time (mins): 60 Course Course Hematology/Chemistry: 05/31/20 09:50 05/31/20 09:50 Orders, Labs, Meds: Lab Review 05/31/20 05/31/20 05/31/20 09:50 09:50 09:53 WBC 12.78 H RBC 4.87 Hgb 14.1 Hct 40.7 L MCV 83.6 MCH 29.0 MCHC 34.6 RDW Coeff of Leanna 13.2 Plt Count 217 Immature Gran % (Auto) 0.8 Neut % (Auto) 71.9 Lymph % (Auto) 18.0 [place] % (Auto) 8.6 Eos % (Auto) 0.2 Baso % (Auto) 0.5 Neut # (Auto) 9.2 H Lymph # (Auto) 2.3 [place] # (Auto) 1.1 Eos # (Auto) 0.0 Baso # (Auto) 0.1 Immature Gran # (Auto) 0.1 Puncture Site Rb Base Excess 2.5 O2 Saturation 98.8 H ABG pH 7.51 H* ABG pCO2 32.0 L ABG pO2 111.0 H ABG HCO3 25.5 ABG Total CO2 26.5 H Britton Test Y Hemoglobin 1.6 H Oxyhemoglobin 93.9 L Carboxyhemoglobin 3.5 H Total Hemoglobin 14.8 FiO2 % 21.0 Sodium 128.6 L Potassium 3.95 Chloride 94.5 L Carbon Dioxide 24.5 Anion Gap 13.55 BUN 12.7 Creatinine 1.15 H Estimated GFR (MDRD) 62.00 BUN/Creatinine Ratio 11.04 Glucose 210.7 H Calcium 8.43 Total Bilirubin 1.18 AST 22.6 ALT 14.7 Alkaline Phosphatase 128.8 H Total Protein 7.28 Albumin 3.64 Globulin 3.64 Albumin/Globulin Ratio 1.00 Urine Color Urine Clarity Urine pH Ur Specific [place] Urine Protein Urine Glucose (UA) Urine Ketones Urine Blood Urine Nitrite Urine Bilirubin Urine Urobilinogen Ur Leukocyte Esterase Urine Microscopic RBC Urine Microscopic WBC Ur Squamous Epith Cells Urine Bacteria Adenovirus (PCR) B. pertussis DNA (PCR) B.parapertussis DNA PCR C. pneumoniae DNA (PCR) Coronavirus OC43 (PCR) Coronavirus HKU1 (PCR) Coronavirus 229E (PCR) Coronavirus NL63 (PCR) Human Metapneumovir PCR Influenza Type A (PCR) Influenza B (RT-PCR) M. pneumoniae (PCR) Parainfluenza 1 (PCR) Parainfluenza 2 (PCR) Parainfluenza 3 (PCR) Parainfluenza 4 (PCR) RSV (PCR) Entero/Rhino (PCR) SARS-CoV-2 (PCR) 05/31/20 05/31/20 13:05 14:53 WBC RBC Hgb Hct MCV MCH MCHC RDW Coeff of Leanna Plt Count Immature Gran % (Auto) Neut % (Auto) Lymph % (Auto) [place] % (Auto) Eos % (Auto) Baso % (Auto) Neut # (Auto) Lymph # (Auto) [place] # (Auto) Eos # (Auto) Baso # (Auto) Immature Gran # (Auto) Puncture Site Base Excess O2 Saturation ABG pH ABG pCO2 ABG pO2 ABG HCO3 ABG Total CO2 Britton Test Hemoglobin Oxyhemoglobin Carboxyhemoglobin Total Hemoglobin FiO2 % Sodium Potassium Chloride Carbon Dioxide Anion Gap BUN Creatinine Estimated GFR (MDRD) BUN/Creatinine Ratio Glucose Calcium Total Bilirubin AST ALT Alkaline Phosphatase Total Protein Albumin Globulin Albumin/Globulin Ratio Urine Color Dark Urine Clarity Turbid Urine pH 5.5 Ur Specific [place] 1.020 Urine Protein 2+ H Urine Glucose (UA) Negative Urine Ketones 1+ H Urine Blood 2+ H Urine Nitrite Positive H Urine Bilirubin 1+ H Urine Urobilinogen 1.0 H Ur Leukocyte Esterase 2+ H Urine Microscopic RBC 0-2 Urine Microscopic WBC 50-100 Ur Squamous Epith Cells Not present Urine Bacteria 2+ Adenovirus (PCR) Not detected B. pertussis DNA (PCR) Not detected B.parapertussis DNA PCR Not detected C. pneumoniae DNA (PCR) Not detected Coronavirus OC43 (PCR) Not detected Coronavirus HKU1 (PCR) Not detected Coronavirus 229E (PCR) Not detected Coronavirus NL63 (PCR) Not detected Human Metapneumovir PCR Not detected Influenza Type A (PCR) Not detected Influenza B (RT-PCR) Not detected M. pneumoniae (PCR) Not detected Parainfluenza 1 (PCR) Not detected Parainfluenza 2 (PCR) Not detected Parainfluenza 3 (PCR) Not detected Parainfluenza 4 (PCR) Not detected RSV (PCR) Not detected Entero/Rhino (PCR) Not detected SARS-CoV-2 (PCR) Not detected Orders Category Date Time Status ADMIT PATIENT INPATIENT .TO [facility] (MONITORED BED) ADMISSION 05/31/20 16:16 Active ABG DRAW REQUEST Stat CARDIO 05/31/20 09:39 Completed EKG-(ED ONLY) Stat CARDIO 05/31/20 09:39 Completed OXYGEN Routine CARDIO 05/31/20 09:39 Completed OXYGEN Routine CARDIO 05/31/20 16:01 Active ACTIVITY .Complete BR CARE 05/31/20 16:01 Active INTAKE & OUTPUT Q8HR CARE 05/31/20 16:01 Active TELEMETRY MONITORING TELE CARE 05/31/20 16:16 Active VITAL SIGNS Q8HR CARE 05/31/20 16:01 Active ABG COOX Stat LAB 05/31/20 09:53 Completed CBC W/ AUTO DIFF DAILY@0600 LAB 06/01/20 06:00 Ordered CBC W/ AUTO DIFF DAILY@0600 LAB 06/02/20 06:00 Ordered CBC W/ AUTO DIFF Stat LAB 05/31/20 09:50 Completed CMP [COMPREHENSIVE METABOLIC PANEL] Stat LAB 05/31/20 09:50 Completed COMPREHENSIVE METABOLIC PANEL DAILY@0600 LAB 06/01/20 06:00 Ordered COMPREHENSIVE METABOLIC PANEL DAILY@0600 LAB 06/02/20 06:00 Ordered RESPIRATORY PANEL 2.1 (PCR) Stat LAB 05/31/20 14:53 Completed SPUTUM CULTURE Stat LAB 05/31/20 09:40 Uncollected UA [URINALYSIS C & S IF INDICATED] Stat LAB 05/31/20 13:05 Completed URINE CULTURE Stat LAB 05/31/20 13:05 Received Doxycycline Hyclate Inj [Doxy-100] 100 mg MEDS 05/31/20 21:00 Active 0.9 % Sodium Chloride [Sodium Chloride] 100 ml IV Q12HR Enoxaparin Sodium [Lovenox] MEDS 06/01/20 09:00 Active 40 mg SUBCUT DAILY Hydrocodone Bit/Acetaminophen [Todd 5-325] MEDS 05/31/20 16:01 Active 1 tab PO Q6H PRN Levofloxacin/D5w [Levaquin 500 mg/100 ml D5w] MEDS 06/01/20 09:00 Active 500 mg in 100 ml IV DAILY Levofloxacin/D5w [Levaquin 500 mg/100 ml D5w] MEDS 05/31/20 12:34 Discontinued 500 mg in 100 ml IV ONCE Methylprednisolone Sod Succ/Pf [Solu-Medrol 125 mg] MEDS 05/31/20 16:30 Active 125 mg IVP Q8HR Ondansetron HCl/Pf [Zofran 4 mg/2 ml] MEDS 05/31/20 13:16 Discontinued 4 mg IVP ONCE STA Ondansetron HCl/Pf [Zofran 4 mg/2 ml] MEDS 05/31/20 16:01 Active 4 mg IVP Q6H PRN Sodium Chloride 0.9% [Sodium Chloride] 1,000 ml MEDS 05/31/20 13:14 Discontinued IV BOLUS RESUSCITATION STATUS Routine OTHERS 05/31/20 16:01 Completed CHEST, 1V AP ONLY Stat RADS 05/31/20 09:39 Completed U/S SCROTUM Stat RADS 05/31/20 11:10 Completed OT CONSULTATION Routine THERAPIES 05/31/20 Ordered PT CONSULT Routine THERAPIES 05/31/20 Ordered Medications Generic Name Dose Route Start Last Admin Trade Name Freq PRN Reason Stop Dose Admin Hydrocodone Bitart/Acetaminophen 1 tab 05/31/20 16:01 05/31/20 17:13 Hydrocodone Bit/Acetaminophen 5/325 Mg Tablet PO 1 tab Q6H PRN Administration scrotal pain Albuterol Sulfate 2 puff 05/31/20 18:00 05/31/20 17:50 Albuterol Sulfate (Ventolin Hfa) 18 Gm 1 Puff With Spacer IH 2 puff Q6HR EUNICE Administration Atorvastatin Calcium 80 mg 06/01/20 09:00 Atorvastatin Calcium 20 Mg Tablet PO DAILY EUNICE Clopidogrel Bisulfate 75 mg 06/01/20 09:00 Clopidogrel Bisulfate 75 Mg Tablet PO DAILY EUNICE Dipyridamole/Aspirin 1 cap 05/31/20 21:00 Aspirin/Dipyridamole 25/200 Mg Cpmp.12hr PO BID [facility] Enoxaparin Sodium 40 mg 06/01/20 09:00 Enoxaparin Sodium 40 Mg/0.4 Ml Syr SUBCUT DAILY [facility] Levofloxacin/Dextrose 500 mg in 100 mls @ 100 mls/hr 06/01/20 09:00 Levaquin 500 Mg/100 Ml D5w IV 06/04/20 08:59 DAILY [facility] Doxycycline Hyclate 100 mg/ 100 mls @ 50 mls/hr 05/31/20 21:00 Sodium Chloride IV 06/04/20 20:59 Q12HR [facility] Insulin Glargine 40 unit 05/31/20 21:00 Insulin Glargine,Hum.Rec.Anlog 100 Units/Ml SUBCUT BEDTIME [facility] Linagliptin 5 mg 06/01/20 09:00 Linagliptin 5 Mg Tablet PO DAILY [facility] Methylprednisolone Sodium Succinate 125 mg 05/31/20 16:30 Methylprednisolone Sod Succ/Pf 125 Mg/2 Ml Vial IVP Q8HR EUNICE Ondansetron HCl 4 mg 05/31/20 16:01 Ondansetron Hcl/Pf 4 Mg/2 Ml Sdv IVP Q6H PRN Nausea / Vomiting Pantoprazole Sodium 40 mg 06/01/20 09:00 Pantoprazole Sodium 40 Mg Tablet. PO DAILY EUNICE Sucralfate 1 gm 05/31/20 21:00 Sucralfate 1 Gm Tablet PO ACHS EUNICE Tiotropium [place] 1 cap 06/01/20 09:00 Tiotropium [place] 18 Mcg Cap.W.Dev IH DAILY EUNICE Discontinued Medications Generic Name Dose Route Start Last Admin Trade Name Freq PRN Reason Stop Dose Admin Levofloxacin/Dextrose 500 mg in 100 mls @ 100 mls/hr 05/31/20 12:34 05/31/20 13:08 Levaquin 500 Mg/100 Ml D5w IV 05/31/20 13:33 100 mls/hr ONCE STA Administration Sodium Chloride 1,000 mls @ 500 mls/hr 05/31/20 13:14 05/31/20 13:21 Sodium Chloride IV 05/31/20 15:13 500 mls/hr BOLUS STA Administration Ondansetron HCl 4 mg 05/31/20 13:16 05/31/20 13:22 Ondansetron Hcl/Pf 4 Mg/2 Ml Sdv IVP 05/31/20 13:17 4 mg ONCE STA Administration Vital Signs: Temp Pulse Resp BP Pulse Ox 05/31/20 09:24 97.9 F 104 H 26 H 135/69 94 L Discharge Plan Discharge Patient Disposition: ADMITTED INPATIENT Discharge Problem: Acute epididymo-orchitis, COPD (chronic obstructive pulmonary disease) ED Provider: DELILAH WOO Condition: Fair Physician Progress Note: []
[2020-05-31 09:57] LABS: BASOPHILS # (AUTO) 0.1 K/uL (0-0.2); BASOPHILS % (AUTO) 0.5 % (0.0-3.0); EOSINOPHILS % (AUTO) 0.2 % (0.0-7.0); HEMATOCRIT 40.7 % (42.0-52.0); HEMOGLOBIN 14.1 g/dl (14.0-18.0); IMMATURE GRANULOCYTE # (AUTO) 0.1 (0.0-1.0); IMMATURE GRANULOCYTE % (AUTO) 0.8 % (0.0-5.0); LYMPHOCYTES # (AUTO) 2.3 K/uL (0.60-3.4); MEAN CORPUSCULAR HGB CONC 34.6 (31.8-35.4); MEAN CORPUSCULAR VOLUME 83.6 fl (80.0-94.0); MONOCYTES # (AUTO) 1.1 K/uL (0.4-2.0); MONOCYTES % (AUTO) 8.6 (0-10); NEUTROPHILS # (AUTO) 9.2 K/ul (2.0-6.9); NEUTROPHILS % (AUTO) 71.9 % (42.2-75.2); PLATELET COUNT 217 10^3/uL (140-440); RDW COEFFICIENT OF VARIATION 13.2 % (11.6-14.8); RED BLOOD COUNT 4.87 10^6/ul (4.70-6.10); WHITE BLOOD COUNT 12.78 K/ul (4.2-10.2)
[2020-05-31 10:05] LABS: ABG PH 7.51 (7.35-7.45)
[2020-05-31 10:10] LABS: ALANINE AMINOTRANSFERASE 14.7 U/L (0-50); ALBUMIN 3.64 g/dL (3.5-5.0); ALKALINE PHOSPHATASE 128.8 U/L (56-119); ASPARTATE AMINO TRANSFERASE 22.6 U/L (17-59); BILIRUBIN,TOTAL 1.18 mg/dL (0.2-1.3); BLOOD UREA NITROGEN 12.7 mg/dL (9-20); CALCIUM 8.43 mg/dL (8.4-10.2); CARBON DIOXIDE 24.5 mmol/L (22-30.0); CHLORIDE 94.5 mmol/L (98-107); CREATININE 1.15 mg/dL (0.60-1.10); GLUCOSE 210.7 mg/dL (74-106); POTASSIUM 3.95 mmol/L (3.5-5.1); SODIUM 128.6 mmol/L (134.5-145); TOTAL PROTEIN 7.28 g/dL (6.3-8.2)
--- NOTE | 2020-05-31 10:44 | DI ---
EXAM: CHEST FRONTAL VIEW HISTORY: Cough COMPARISON: 09/18/2019 FINDINGS: Heart size is approaching upper limit normal, stable. There is at least mild atherosclero tic disease. No acute infiltrates are seen. No vascular congestion. There is no consolidation, vis ible pleural fluid or pneumothorax. Bones reveal no acute fracture. IMPRESSION: No acute process identified. If symptoms persist, consider follow up with full inspira tion, standing two-view chest radiography using PA and lateral technique.
--- NOTE | 2020-05-31 12:03 | US ---
EXAM: Scrotal ultrasound HISTORY: : Left testicle COMPARISON: None TECHNIQUE: Scrotal ultrasound was performed. Color, duplex, quintero-scale imaging performed. FINDINGS: Right: Right testicle measures 2.6 x 2.3 x 2.4 cm. Right testicle mildly heterogeneous in echogenic ity. Normal Doppler flow in the right testicle. Right epididymis not visualized. Small right hydro olamide. No definitive right varicocele. Question a fat-containing inguinal hernia. Left: Left testicle measures 3.0 x 2.4 x 3.7 cm. Left testicle mildly heterogeneous in echogenicity . Left testicle normal in vascularity. Left epididymis is enlarged and hypervascular. Ill-defined echogenic soft tissue adjacent to the epididymis may reflect focal phlegmonous change, without draina ble abscess identified. Moderate left hydrocele with debris and possible septations. No definitive left varicocele. Left scrotal skin thickening. IMPRESSION: 1. Findings compatible with left epididymitis. Ill-defined echogenic soft tissue adjacent to the ep ididymis may reflect focal phlegmonous change, without drainable abscess identified. Recommend sonog raphic follow-up. 2. Moderate complex left hydrocele with debris and possible septations. 3. No evidence for testicular torsion. 4. Nonspecific heterogeneity of the testicles that is more prominent on the right. Recommend follow -up 4 weeks to exclude underlying lesion. 5. Possible fat-containing right inguinal hernia. 6. Small right hydrocele.
[2020-05-31] MEDS ORDERED: LEVAQUIN 500 MG/100 ML D5W 500 MG/100 ML BAG IV STA (12:34)
[2020-05-31 13:11] LABS: BILIRUBIN,URINE 1+ (NEGATIVE); CLARITY,URINE Turbid (CLEAR); COLOR,URINE Dark (YELLOW); GLUCOSE, URINE (UA) Negative (NEGATIVE); KETONES,URINE 1+ (NEGATIVE); LEUKOCYTE ESTERASE ,URINE 2+ (NEGATIVE); NITRITE,URINE Positive (NEGATIVE); PH,URINE 5.5 (5-9); PROTEIN,URINE 2+ (NEGATIVE); URINE, BLOOD 2+ (NEGATIVE)
[2020-05-31] MEDS ORDERED: SODIUM CHLORIDE 1,000 ML IV STA (13:14)
[2020-05-31] MEDS ORDERED: ZOFRAN 4 MG/2 ML IVP STA (13:16)
[2020-05-31 13:18] LABS: SQUAMOUS EPITHELIAL CELL,UR NOT PRESENT (0-5); URINE RBC, MICROSCOPIC 0-2 (0-2); URINE WBC, MICROSCOPIC 50-100 (0-2)
[2020-05-31 13:19] LABS: BACTERIA,URINE 2+ (NOT PRESENT)
[2020-05-31] MEDS ORDERED: ZOFRAN 4 MG/2 ML IVP PRN (16:01)
[2020-05-31 17:12] VITALS: BMI 29.7
[2020-05-31] MEDS: NORCO 5-325 PO PRN (17:13)
[2020-05-31] MEDS: VENTOLIN HFA (PER PUFF-WITH SPACER) IH SCH ×2 (17:50→23:09)
[2020-05-31] MEDS ORDERED: PROAIR HFA (SINGLE PATIENT USE) IH SCH (18:00)
[2020-05-31] MEDS ORDERED: TYLENOL PO PRN (18:20)
[2020-05-31] MEDS ORDERED: ATROPINE SULFATE PFS IVP PRN (18:20)
[2020-05-31] MEDS ORDERED: NITROSTAT SL PRN (18:20)
[2020-05-31] MEDS: SOLU-MEDROL 125 MG IVP SCH ×2 (18:38→21:24)
[2020-05-31] MEDS: AGGRENOX CAPSULE PO SCH (20:38)
[2020-05-31] MEDS: CARAFATE PO SCH (20:38)
[2020-05-31] MEDS: DOXY-100 100 MG in SODIUM CHLORIDE 100 ML IV SCH (20:40)
[2020-05-31] MEDS: LANTUS SUBCUT SCH (20:41)
[2020-06-01] MEDS: VENTOLIN HFA (PER PUFF-WITH SPACER) IH SCH ×4 (04:45→23:00)
[2020-06-01 05:25] LABS: BASOPHILS % (AUTO) 0.2 % (0.0-3.0); HEMATOCRIT 40.7 % (42.0-52.0); HEMOGLOBIN 13.9 g/dl (14.0-18.0); IMMATURE GRANULOCYTE # (AUTO) 0.1 (0.0-1.0); IMMATURE GRANULOCYTE % (AUTO) 0.9 % (0.0-5.0); LYMPHOCYTES # (AUTO) 1.5 K/uL (0.60-3.4); LYMPHOCYTES % (AUTO) 14.6 (10.0-50.0); MEAN CORPUSCULAR HEMOGLOBIN 28.9 pg (27.0-31.0); MEAN CORPUSCULAR HGB CONC 34.2 (31.8-35.4); MEAN CORPUSCULAR VOLUME 84.6 fl (80.0-94.0); MONOCYTES # (AUTO) 0.2 K/uL (0.4-2.0); MONOCYTES % (AUTO) 1.9 (0-10); NEUTROPHILS # (AUTO) 8.5 K/ul (2.0-6.9); NEUTROPHILS % (AUTO) 82.4 % (42.2-75.2); PLATELET COUNT 245 10^3/uL (140-440); RDW COEFFICIENT OF VARIATION 13.2 % (11.6-14.8); RED BLOOD COUNT 4.81 10^6/ul (4.70-6.10); WHITE BLOOD COUNT 10.24 K/ul (4.2-10.2)
[2020-06-01 05:34] LABS: ALANINE AMINOTRANSFERASE 19.3 U/L (0-50); ALBUMIN 3.6 g/dL (3.5-5.0); ALKALINE PHOSPHATASE 112.1 U/L (56-119); ASPARTATE AMINO TRANSFERASE 31.9 U/L (17-59); BILIRUBIN,TOTAL 0.68 mg/dL (0.2-1.3); BLOOD UREA NITROGEN 20.1 mg/dL (9-20); CALCIUM 8.77 mg/dL (8.4-10.2); CARBON DIOXIDE 26.3 mmol/L (22-30.0); CHLORIDE 95.7 mmol/L (98-107); CREATININE 1.02 mg/dL (0.60-1.10); GLUCOSE 328.2 mg/dL (74-106); POTASSIUM 4.34 mmol/L (3.5-5.1); SODIUM 132.1 mmol/L (134.5-145); TOTAL PROTEIN 7.34 g/dL (6.3-8.2)
[2020-06-01] MEDS: SOLU-MEDROL 125 MG IVP SCH ×3 (05:51→21:45)
[2020-06-01] MEDS: CARAFATE PO SCH ×4 (05:51→21:10)
[2020-06-01] MEDS: HUMULIN R SUBCUT PRN ×4 (07:22→21:11)
[2020-06-01] MEDS: LEVAQUIN 500 MG/100 ML D5W 500 MG/100 ML BAG IV SCH (09:18)
[2020-06-01] MEDS: SPIRIVA IH SCH (09:19)
[2020-06-01] MEDS: AGGRENOX CAPSULE PO SCH ×2 (09:21→21:10)
[2020-06-01] MEDS: LIPITOR PO SCH (09:22)
[2020-06-01] MEDS: PLAVIX PO SCH (09:22)
[2020-06-01] MEDS: PROTONIX PO SCH (09:23)
[2020-06-01] MEDS: TRADJENTA PO SCH (09:23)
[2020-06-01 09:26] LABS: CREATINE KINASE 78.7 U/L (55-170)
[2020-06-01] MEDS: LOVENOX SUBCUT SCH (09:27)
[2020-06-01 09:29] LABS: CREATINE KINASE 174.8 U/L (55-170)
[2020-06-01] MEDS: NORCO 5-325 PO PRN ×2 (09:36→21:23)
[2020-06-01 09:40] LABS: TROPONIN I < 0.012 ng/ml (0.0000-0.120)
[2020-06-01 09:42] LABS: TROPONIN I < 0.012 ng/ml (0.0000-0.120)
[2020-06-01] MEDS: DOXY-100 100 MG in SODIUM CHLORIDE 100 ML IV SCH ×2 (10:25→21:10)
--- NOTE | 2020-06-01 11:17 | PCM.PROG ---
Attending Provider: ATTENDING PROVIDER: Dr. JOVANNI LESTER DATE OF SERVICE: 06/01/20 SUBJECTIVE: This 75 year old /WHITE M was hospitalized 05/31/20 with left epididymal orchitis of four days duration. The patient is feeling better. No pain. REVIEW OF SYSTEMS: CONSTITUTIONAL: No night sweats. No fatigue, malaise, lethargy. No fever or chills. HEENT: Eyes: No visual changes. No eye pain. No eye discharge. ENT: No runny nose. No epistaxis. No sinus pain. No odynophagia. No congestion. RESPIRATORY: No cough, no congestion. No hemoptysis. No shortness of breath. CARDIOVASCULAR: No angina symptoms. No CHF symptoms. No atypical chest pain for CAD. No palpitations. No orthopnea.. GASTROINTESTINAL: No abdominal pain. No nausea or vomiting. No diarrhea or constipation. No hematemesis. No hematochezia. GENITOURINARY: Puckering of skin on scrotum with slight redness still present. No urgency. No frequency. No dysuria. No hematuria. No obstructive symptoms. No discharge. No pain. No significant abnormal bleeding. MUSCULOSKELETAL: No musculoskeletal pain; no joint swelling. NEUROLOGICAL: Awake, alert, oriented to time, place and person. No headache. No neck pain. No syncope. No seizures. No dizziness. PSYCHIATRIC: Not anxious. No depression. No suicidal thoughts. No homicidal thoughts. SKIN: No rash. No lesions. Wound right foot. ENDOCRINE: No unexplained weight loss. No weight gain. HEMATOLOGIC/LYMPHATIC: No anemia. No purpura. No petechiae. No prolonged or excessive bleeding. No palpable lymph nodes. PHYSICAL EXAMINATION: GENERAL: The patient is awake, alert and oriented, lying/sitting in bed in no distress. VITAL SIGNS: Temperature 96.5 F, Pulse 84, Respiratory Rate 18, BP 111/65, Pulse Ox 93% HEENT: Head normocephalic, atraumatic. Eyes: Extraocular muscles are intact. Pupils are equal, round and reactive to light and accommodation. Ears: No lesions. Nose appeared normal. Throat: No exudate or erythema. NECK: Supple. No JVD, no carotid bruit. No lymphadenopathy or thyromegaly. LUNGS: Clear to auscultation. Percussion note normal. Chest symmetrical. HEART: S1, S2, no S3. No murmurs. No cyanosis or clubbing. No ascites. Pulses: Dorsalis pedis and posterior tibial pulses +1 to +2 both sides. ABDOMEN: Soft. Non-tender. Bowel sounds active. No CVA tenderness. No mass felt. EXTREMITIES: No edema. Full range of motion of all extremities, equal. NEUROLOGIC: No focal deficit. Cranial nerves II through XII are grossly intact. No headache, no double vision or headache. SKIN: Warm and dry. Intact. Turgor-normal. LYMPHATIC: No palpable lymph nodes/no lymphedema. MUSCULOSKELETAL: Normal joints with no swelling. Muscle tone is normal. LAB REVIEW: 06/01/20 05:10 06/01/20 05:10 06/01/20 05:10: Sodium 132.1 L, Potassium 4.34, Chloride 95.7 L, Carbon Dioxide 26.3, Anion Gap 14.44, BUN 20.1 H, Creatinine 1.02, Estimated GFR (MDRD) 71.00, BUN/Creatinine Ratio 19.70, Glucose 328.2 H D, Calcium 8.77, Total Bilirubin 0.68, AST 31.9, ALT 19.3, Alkaline Phosphatase 112.1, Total Protein 7.34, Albumin 3.60, Globulin 3.74, Albumin/Globulin Ratio 0.96 06/01/20 05:10: WBC 10.24 H, RBC 4.81, Hgb 13.9 L, Hct 40.7 L, MCV 84.6, MCH 28.9, MCHC 34.2, RDW Coeff of Leanna 13.2, Plt Count 245, Immature Gran % (Auto) 0.9, Neut % (Auto) 82.4 H, Lymph % (Auto) 14.6, [place] % (Auto) 1.9, Eos % (Auto) 0.0, Baso % (Auto) 0.2, Neut # (Auto) 8.5 H, Lymph # (Auto) 1.5, [place] # (Auto) 0.2 L, Eos # (Auto) 0.0, Baso # (Auto) 0.0, Immature Gran # (Auto) 0.1 05/31/20 14:53: Adenovirus (PCR) Not detected, B. pertussis DNA (PCR) Not detected, B.parapertussis DNA PCR Not detected, C. pneumoniae DNA (PCR) Not detected, Coronavirus OC43 (PCR) Not detected, Coronavirus HKU1 (PCR) Not detected, Coronavirus 229E (PCR) Not detected, Coronavirus NL63 (PCR) Not detected, Human Metapneumovir PCR Not detected, Influenza Type A (PCR) Not detected, Influenza B (RT-PCR) Not detected, M. pneumoniae (PCR) Not detected, Parainfluenza 1 (PCR) Not detected, Parainfluenza 2 (PCR) Not detected, Parainfluenza 3 (PCR) Not detected, Parainfluenza 4 (PCR) Not detected, RSV (PCR) Not detected, Entero/Rhino (PCR) Not detected, SARS-CoV-2 (PCR) Not detected 05/31/20 13:05: Urine Color Dark, Urine Clarity Turbid, Urine pH 5.5, Ur Specific [place] 1.020, Urine Protein 2+ H, Urine Glucose (UA) Negative, Urine Ketones 1+ H, Urine Blood 2+ H, Urine Nitrite Positive H, Urine Bilirubin 1+ H, Urine Urobilinogen 1.0 H, Ur Leukocyte Esterase 2+ H, Urine Microscopic RBC 0-2, Urine Microscopic WBC 50-100, Ur Squamous Epith Cells Not present, Urine Bacteria 2+ 05/31/20 09:53: Puncture Site Rb, Base Excess 2.5, O2 Saturation 98.8 H, ABG pH 7.51 H*, ABG pCO2 32.0 L, ABG pO2 111.0 H, ABG HCO3 25.5, ABG Total CO2 26.5 H, Britton Test Y, Hemoglobin 1.6 H, Oxyhemoglobin 93.9 L, Carboxyhemoglobin 3.5 H, Total Hemoglobin 14.8, FiO2 % 21.0 05/31/20 09:50: Sodium 128.6 L, Potassium 3.95, Chloride 94.5 L, Carbon Dioxide 24.5, Anion Gap 13.55, BUN 12.7, Creatinine 1.15 H, Estimated GFR (MDRD) 62.00, BUN/Creatinine Ratio 11.04, Glucose 210.7 H, Calcium 8.43, Total Bilirubin 1.18, AST 22.6, ALT 14.7, Alkaline Phosphatase 128.8 H, Total Protein 7.28, Albumin 3.64, Globulin 3.64, Albumin/Globulin Ratio 1.00 05/31/20 09:50: WBC 12.78 H, RBC 4.87, Hgb 14.1, Hct 40.7 L, MCV 83.6, MCH 29.0, MCHC 34.6, RDW Coeff of Leanna 13.2, Plt Count 217, Immature Gran % (Auto) 0.8, Neut % (Auto) 71.9, Lymph % (Auto) 18.0, [place] % (Auto) 8.6, Eos % (Auto) 0.2, Baso % (Auto) 0.5, Neut # (Auto) 9.2 H, Lymph # (Auto) 2.3, [place] # (Auto) 1.1, Eos # (Auto) 0.0, Baso # (Auto) 0.1, Immature Gran # (Auto) 0.1 ASSESSMENT: Please see below. 1. Acute epididymal orchitis, left side seems to be resolving with puckering of skin on scrotum with slight redness still present. 2. Cardiovascular and respiratory status stable. 3. Wound on right foot which is taken care of by Wound [facility] at [facility]. Will continue to follow their instructions. PLAN: 1. Continue wound care per [facility]. 2. Solumedrol 125 IV q.8hr. 3. Continue Lovenox with Aggrenox and Plavix. 4. Continue Levaquin and Doxycycline. Plan and coordination of the patient's care discussed in the presence of Clinical Reviewer and nurse. CONDITION: Stable SCRIBED BY: RAMIN HIDALGO Mushroom Picker scribed while in presence of service performed by Dr. JOVANNI LESTER on 06/01/20 ([id number])
--- NOTE | 2020-06-01 13:49 | PN ---
DATE OF SERVICE: 05/31/20 SUBJECTIVE: The patient was seen and examined in the emergency room by attending. The patient was brought to the emergency room with complaint of cough, congestion and also swelling of the left testicle. PHYSICAL EXAMINATION: GENERAL: Oriented to time, place and person. HEENT: Head normocephalic, atraumatic. Eyes: Extraocular muscles are intact. Pupils are equal, round and reactive to light and accommodation. Ears: No lesions. Nose appeared normal. Throat: No exudate or erythema. NECK: Supple. No JVD, no carotid bruit. No lymphadenopathy or thyromegaly. LUNGS: Decreased breath sounds bilaterally. Clear to auscultation. Percussion note normal. Chest symmetrical. HEART: No evidence of CHF clinically. S1, S2, no S3. No murmurs. No cyanosis or clubbing. No ascites. Pulses: Dorsalis pedis and posterior tibial pulses +1 to +2 bilaterally. ABDOMEN: Soft. Nontender. Bowel sounds active. No CVA tenderness. No mass felt. GENITOURINARY: Left testicle was swollen. EXTREMITIES: No edema. Full range of motion of all extremities, equal. NEUROLOGIC: No focal deficit. Cranial nerves II through XII are grossly intact. No headache. No double vision. SKIN: Not dry. Intact. Turgor - normal. LYMPHATIC: No palpable lymph nodes/no lymphedema. MUSCULOSKELETAL: Normal joints with no swelling. Muscle tone is normal. ASSESSMENT: 1. Left testicle was swollen. Ultrasound revealed acute epididymitis, no torsion. 2. Admit the patient with IV antibiotics, Levaquin, steroids, both should help bronchitis and also with epididymitis. 3. 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 4. History of diabetes. 5. Chronic lung disease with chronic bronchitis. 6. Diabetic retinopathy. 7. Compression fractures. 8. CVA with right hemiparesis. 9. B12 deficiency. 10. Hypertension. 11. Dyslipidemia. The patient's was present in the room at that time. CONDITION: Stable. TIME SPENT: More than 30 minutes. Plan and coordination of the patient's care discussed in the presence of nurse. SAHIL
[2020-06-01] MEDS: LANTUS SUBCUT SCH (21:16)
[2020-06-02] MEDS: VENTOLIN HFA (PER PUFF-WITH SPACER) IH SCH ×3 (04:50→20:25)
[2020-06-02] MEDS: SOLU-MEDROL 125 MG IVP SCH (05:16)
[2020-06-02] MEDS: NORCO 5-325 PO PRN ×2 (05:16→20:12)
[2020-06-02 05:28] LABS: BASOPHILS % (AUTO) 0.2 % (0.0-3.0); HEMATOCRIT 35.7 % (42.0-52.0); HEMOGLOBIN 12.7 g/dl (14.0-18.0); IMMATURE GRANULOCYTE # (AUTO) 0.1 (0.0-1.0); IMMATURE GRANULOCYTE % (AUTO) 0.6 % (0.0-5.0); LYMPHOCYTES # (AUTO) 1.8 K/uL (0.60-3.4); LYMPHOCYTES % (AUTO) 9.5 (10.0-50.0); MEAN CORPUSCULAR HEMOGLOBIN 29.3 pg (27.0-31.0); MEAN CORPUSCULAR HGB CONC 35.6 (31.8-35.4); MEAN CORPUSCULAR VOLUME 82.3 fl (80.0-94.0); MONOCYTES # (AUTO) 0.8 K/uL (0.4-2.0); NEUTROPHILS # (AUTO) 16.6 K/ul (2.0-6.9); NEUTROPHILS % (AUTO) 85.7 % (42.2-75.2); PLATELET COUNT 294 10^3/uL (140-440); RED BLOOD COUNT 4.34 10^6/ul (4.70-6.10); WHITE BLOOD COUNT 19.39 K/ul (4.2-10.2)
[2020-06-02 05:41] LABS: ALANINE AMINOTRANSFERASE 12.9 U/L (0-50); ALBUMIN 3.23 g/dL (3.5-5.0); ALKALINE PHOSPHATASE 92.6 U/L (56-119); ASPARTATE AMINO TRANSFERASE 24.6 U/L (17-59); BILIRUBIN,TOTAL 0.44 mg/dL (0.2-1.3); BLOOD UREA NITROGEN 24.3 mg/dL (9-20); CALCIUM 8.62 mg/dL (8.4-10.2); CARBON DIOXIDE 26.2 mmol/L (22-30.0); CHLORIDE 95.8 mmol/L (98-107); CREATININE 0.93 mg/dL (0.60-1.10); GLUCOSE 312.1 mg/dL (74-106); POTASSIUM 4.48 mmol/L (3.5-5.1); SODIUM 128.3 mmol/L (134.5-145); TOTAL PROTEIN 6.55 g/dL (6.3-8.2)
[2020-06-02] MEDS: HUMULIN R SUBCUT PRN ×4 (06:14→20:13)
[2020-06-02] MEDS: CARAFATE PO SCH ×4 (06:15→20:11)
[2020-06-02] MEDS: PROTONIX PO SCH (06:15)
[2020-06-02] MEDS: LIPITOR PO SCH (08:18)
[2020-06-02] MEDS: TRADJENTA PO SCH (08:18)
[2020-06-02] MEDS: AGGRENOX CAPSULE PO SCH ×2 (08:18→20:11)
[2020-06-02] MEDS: DOXY-100 100 MG in SODIUM CHLORIDE 100 ML IV SCH ×2 (08:19→20:18)
[2020-06-02] MEDS: SPIRIVA IH SCH (08:19)
[2020-06-02] MEDS: PLAVIX PO SCH (08:19)
[2020-06-02] MEDS: LOVENOX SUBCUT SCH (08:21)
[2020-06-02] MEDS: LEVAQUIN 500 MG/100 ML D5W 500 MG/100 ML BAG IV SCH (10:50)
[2020-06-02] MEDS: LOTRISONE 45 GM TP SCH ×2 (15:23→20:12)
[2020-06-02] MEDS: LANTUS SUBCUT SCH (20:17)
[2020-06-03] MEDS: VENTOLIN HFA (PER PUFF-WITH SPACER) IH SCH ×4 (04:45→19:25)
[2020-06-03 05:36] LABS: BASOPHILS % (AUTO) 0.1 % (0.0-3.0); HEMATOCRIT 38.1 % (42.0-52.0); HEMOGLOBIN 13.2 g/dl (14.0-18.0); IMMATURE GRANULOCYTE # (AUTO) 0.1 (0.0-1.0); IMMATURE GRANULOCYTE % (AUTO) 0.8 % (0.0-5.0); LYMPHOCYTES # (AUTO) 2.4 K/uL (0.60-3.4); LYMPHOCYTES % (AUTO) 15.3 (10.0-50.0); MEAN CORPUSCULAR HEMOGLOBIN 28.8 pg (27.0-31.0); MEAN CORPUSCULAR HGB CONC 34.6 (31.8-35.4); MEAN CORPUSCULAR VOLUME 83.2 fl (80.0-94.0); MONOCYTES # (AUTO) 1.1 K/uL (0.4-2.0); MONOCYTES % (AUTO) 7.2 (0-10); NEUTROPHILS # (AUTO) 11.7 K/ul (2.0-6.9); NEUTROPHILS % (AUTO) 76.6 % (42.2-75.2); PLATELET COUNT 314 10^3/uL (140-440); RED BLOOD COUNT 4.58 10^6/ul (4.70-6.10); WHITE BLOOD COUNT 15.32 K/ul (4.2-10.2)
[2020-06-03 05:47] LABS: ALANINE AMINOTRANSFERASE 11.7 U/L (0-50); ALBUMIN 3.19 g/dL (3.5-5.0); ALKALINE PHOSPHATASE 79.3 U/L (56-119); ASPARTATE AMINO TRANSFERASE 24.5 U/L (17-59); BILIRUBIN,TOTAL 0.45 mg/dL (0.2-1.3); BLOOD UREA NITROGEN 25.5 mg/dL (9-20); CALCIUM 8.69 mg/dL (8.4-10.2); CHLORIDE 100.1 mmol/L (98-107); CREATININE 0.84 mg/dL (0.60-1.10); GLUCOSE 195.6 mg/dL (74-106); POTASSIUM 4.11 mmol/L (3.5-5.1); SODIUM 131.7 mmol/L (134.5-145); TOTAL PROTEIN 6.56 g/dL (6.3-8.2)
[2020-06-03] MEDS: PROTONIX PO SCH (06:05)
[2020-06-03] MEDS: CARAFATE PO SCH ×4 (06:05→20:44)
[2020-06-03] MEDS: HUMULIN R SUBCUT PRN ×3 (06:06→20:47)
[2020-06-03] MEDS: LOTRISONE 45 GM TP SCH ×3 (09:39→20:44)
[2020-06-03] MEDS: SPIRIVA IH SCH (09:39)
[2020-06-03] MEDS: LIPITOR PO SCH (09:40)
[2020-06-03] MEDS: PLAVIX PO SCH (09:40)
[2020-06-03] MEDS: DOXY-100 100 MG in SODIUM CHLORIDE 100 ML IV SCH ×2 (09:40→20:44)
[2020-06-03] MEDS: TRADJENTA PO SCH (09:40)
[2020-06-03] MEDS: AGGRENOX CAPSULE PO SCH ×2 (09:41→20:44)
[2020-06-03] MEDS: LOVENOX SUBCUT SCH (09:41)
[2020-06-03] MEDS: NORCO 5-325 PO PRN ×2 (09:41→17:26)
[2020-06-03] MEDS: LEVAQUIN 500 MG/100 ML D5W 500 MG/100 ML BAG IV SCH (11:41)
[2020-06-03] MEDS: LANTUS SUBCUT SCH (20:49)
[2020-06-04] MEDS: VENTOLIN HFA (PER PUFF-WITH SPACER) IH SCH ×4 (04:45→19:45)
[2020-06-04 05:48] LABS: BASOPHILS % (AUTO) 0.1 % (0.0-3.0); EOSINOPHILS % (AUTO) 0.4 % (0.0-7.0); HEMATOCRIT 39.3 % (42.0-52.0); HEMOGLOBIN 13.6 g/dl (14.0-18.0); IMMATURE GRANULOCYTE # (AUTO) 0.1 (0.0-1.0); IMMATURE GRANULOCYTE % (AUTO) 1.3 % (0.0-5.0); LYMPHOCYTES # (AUTO) 2.4 K/uL (0.60-3.4); LYMPHOCYTES % (AUTO) 23.9 (10.0-50.0); MEAN CORPUSCULAR HEMOGLOBIN 29.3 pg (27.0-31.0); MEAN CORPUSCULAR HGB CONC 34.6 (31.8-35.4); MEAN CORPUSCULAR VOLUME 84.7 fl (80.0-94.0); MONOCYTES # (AUTO) 1.1 K/uL (0.4-2.0); MONOCYTES % (AUTO) 10.8 (0-10); NEUTROPHILS # (AUTO) 6.3 K/ul (2.0-6.9); NEUTROPHILS % (AUTO) 63.5 % (42.2-75.2); PLATELET COUNT 302 10^3/uL (140-440); RDW COEFFICIENT OF VARIATION 13.6 % (11.6-14.8); RED BLOOD COUNT 4.64 10^6/ul (4.70-6.10); WHITE BLOOD COUNT 9.96 K/ul (4.2-10.2)
[2020-06-04] MEDS: PROTONIX PO SCH (05:59)
[2020-06-04] MEDS: CARAFATE PO SCH ×4 (05:59→21:28)
[2020-06-04 06:03] LABS: ALANINE AMINOTRANSFERASE 11.1 U/L (0-50); ALBUMIN 3.01 g/dL (3.5-5.0); ALKALINE PHOSPHATASE 74.5 U/L (56-119); ASPARTATE AMINO TRANSFERASE 28.2 U/L (17-59); BILIRUBIN,TOTAL 0.32 mg/dL (0.2-1.3); CALCIUM 7.99 mg/dL (8.4-10.2); CHLORIDE 100.9 mmol/L (98-107); CREATININE 0.94 mg/dL (0.60-1.10); GLUCOSE 113.5 mg/dL (74-106); POTASSIUM 4.02 mmol/L (3.5-5.1); SODIUM 134.6 mmol/L (134.5-145); TOTAL PROTEIN 6.29 g/dL (6.3-8.2)
--- NOTE | 2020-06-04 09:09 | HP ---
DATE OF SERVICE: 05/31/20 REASON FOR HOSPITALIZATION: Cough, congestion, swelling and pain, duration of symptoms 4 to 5 days. HISTORY OF PRESENT ILLNESS: 75-year-old white male was brought to the emergency room with the above complaints. I saw the patient in the emergency room where his left testicle was swollen and red. Mild cough with congestion. 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 Gar) Depression (Lexapro helps) Compression fracture S/P KYPHOPLASTY, 12/12 S/P PROSTATE SURGERY BY DR. 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 No night sweats. No malaise, lethargy. No fever or chills. HEENT: Eyes: No visual changes. No eye pain. No eye discharge. ENT: No runny nose. No epistaxis. No sinus pain. No sore throat. No odynophagia. No ear pain. No congestion. RESPIRATORY: Mild cough with congestion. No hemoptysis. No shortness of breath. CARDIOVASCULAR: No angina symptoms. No CHF symptoms. No atypical chest pain for CAD. No palpitations. No PND. No orthopnea. GASTROINTESTINAL: Appetite practically normal. No abdominal pain. No nausea or vomiting. No diarrhea or constipation. No hematemesis. No hematochezia. GENITOURINARY: Left testicle is swollen, tender. Redness of the scrotum noted. No urgency. No frequency. No dysuria. No hematuria. No obstructive symptoms. No discharge. No pain. No significant abnormal bleeding. MUSCULOSKELETAL: No musculoskeletal pain. No joint swelling. No arthritis. NEUROLOGICAL: No headache. No neck pain. No syncope. No seizures. No dizziness. PSYCHIATRIC: Not anxious. No depression. No suicidal thoughts. No homicidal thoughts. SKIN: No rash. No lesions. Wound right foot. ENDOCRINE: No unexplained weight loss. No weight gain. HEMATOLOGIC/LYMPHATIC: No anemia. No purpura. No petechiae. No prolonged or excessive bleeding. No palpable lymph nodes. PERSONAL/FAMILY/SOCIAL HISTORY: The patient is , lives with . Nonsmoker. No alcohol abuse. Tries to do all activities of daily living but the patient has above-knee amputation on the left side, requires help with a lot of intermediate activity of daily living and activity of daily. MEDICATIONS: Pro-Air HFA Aspirin Hydrocodone Lantus Insulin Tradjenta Carafate Atorvastatin Pantoprazole Clopidigrel ALLERGIES: NKDA PHYSICAL EXAMINATION: GENERAL: The patient is oriented to time, place and person, not in distress. VITAL SIGNS: Temperature 97.9, pulse 100/min, respiratory rate 26, BP 135/70, pulse ox 94% on room air. HEENT: Head normocephalic, atraumatic. Eyes: Extraocular muscles are intact. Pupils are equal, round and reactive to light and accommodation. Ears: No lesions. Nose appeared normal. Throat: No exudate or erythema. NECK: Supple. No JVD, no carotid bruit. No lymphadenopathy or thyromegaly. LUNGS: Decreased breath sounds. Clear to auscultation. Percussion note normal. Chest symmetrical. HEART: S1, S2, no S3. No murmur. No cyanosis or clubbing. No ascites. Pulses: Dorsalis pedis and posterior tibial pulses +1 to +2 bilaterally. ABDOMEN: Soft. Nontender. Bowel sounds active. No CVA tenderness. No mass felt. EXTREMITIES: Left above knee amputation. Right heel is covered with a special shoe. Left testicle is swollen, tender. Redness of the scrotum noted. No edema. Full range of motion of all extremities, equal. NEUROLOGIC: No focal deficit. Cranial nerves II through XII are grossly intact. No headache, no double vision or headache. SKIN: Not dry. Intact. Turgor - normal. LYMPHATIC: No palpable lymph nodes/no lymphedema. MUSCULOSKELETAL: Normal joints with no swelling. Muscle tone is normal. ABG showed p02 of 111 with pc02 of 32, pH 7.5 on room air. The patient's potassium 3.9, sodium 128, creatinine 1.1, BUN 12, blood sugar 210. UA showed 2+ protein, 1+ ketone, 2+ blood, 1+ bilirubin, 2+ leukocyte esterase. Chest x-ray heart size upper limit of normal, borderline cardiomegaly, mild atherosclerotic heart disease noted. No infiltrate. Hemoglobin 14, hematocrit 40, WBC 12,000 with mild shift to the left. Testicle ultrasound showed findings compatible with left epididymitis. No evidence of testicular torsion. Of note: The patient's UA has been abnormal. Culture and sensitivity pending. ASSESSMENT: 1. ACUTE BRONCHITIS WITH CHRONIC LUNG DISEASE 2. LEFT EPIDIDYMITIS WITH ORCHITIS 3. DIABETES MELLITUS TYPE 2 WITH MULTIPLE COMPLICATIONS FOLLOWS: RETINOPATHY NEUROPATHY, DIABETIC FOOT ULCER ON RIGHT HEEL AND ABOVE-KNEE AMPUTATION 4. SEVERE PERIPHERAL ARTERIAL DISEASE 5. CHRONIC LUNG DISEASE 6. HYPERTENSION 7. DYSLIPIDEMIA 8. METABOLIC SYNDROME 9. STATUS POST CVA WITH RIGHT-SIDED WEAKNESS, 2016 10. STATUS POST PROSTATE SURGERY 12/[address] EDWARDS 11. COMPRESSION FRACTURE, L1 12. STATUS POST KYPHOPLASTY, 2017 13. DEPRESSION (LEXAPRO HELPS) 14. B12 DEFICIENCY 15. OBESITY 16. CHRONIC LUNG DISEASE PLAN: 1. Admit the patient. 2. Treat the patient with Doxycycline and Levaquin. 3. Continue all the home medications including Atorvastatin and Clopidrel. 4. Routine telemetry orders with EKGs, cardiac markers. 5. IV steroids which should help the epididymitis/orchitis along with chronic lung disease. 6. Sliding scale with coverage which could happen from steroid therapy along with diabetes. His is present in the room and was explained about all the findings. The patient is Covid negative. TIME SPENT: More than 70 minutes. [facility]
[2020-06-04] MEDS: LEVAQUIN 500 MG/100 ML D5W 500 MG/100 ML BAG IV SCH (09:18)
[2020-06-04] MEDS: LIPITOR PO SCH (09:18)
[2020-06-04] MEDS: PLAVIX PO SCH (09:18)
[2020-06-04] MEDS: TRADJENTA PO SCH (09:18)
[2020-06-04] MEDS: AGGRENOX CAPSULE PO SCH ×2 (09:18→21:27)
[2020-06-04] MEDS: SPIRIVA IH SCH (09:19)
[2020-06-04] MEDS: LOVENOX SUBCUT SCH (09:20)
--- NOTE | 2020-06-04 09:22 | PCM.PROG ---
Attending Provider: ATTENDING PROVIDER: Dr. JOVANNI LESTER This patient is seen with Ananya Santiago, Nurse Practitioner. DATE OF SERVICE: 06/04/20 SUBJECTIVE: This 75 year old /WHITE M was hospitalized 05/31/20. The patient is resting comfortably. Still complaining of fatigue. No fever or dysuria REVIEW OF SYSTEMS: CONSTITUTIONAL: No night sweats. No fatigue, malaise, lethargy. No fever or chills. Weakness. HEENT: Eyes: No visual changes. No eye pain. No eye discharge. ENT: No runny nose. No epistaxis. No sinus pain. No odynophagia. No congestion. RESPIRATORY: No cough, no congestion. No hemoptysis. No shortness of breath. CARDIOVASCULAR: No angina symptoms. No CHF symptoms. No atypical chest pain for CAD. No palpitations. No orthopnea.. GASTROINTESTINAL: No abdominal pain. No nausea or vomiting. No diarrhea or constipation. No hematemesis. No hematochezia. GENITOURINARY: No urgency. No frequency. No dysuria. No hematuria. No obstructive symptoms. No discharge. No pain. No significant abnormal bleeding. MUSCULOSKELETAL: No musculoskeletal pain; no joint swelling. NEUROLOGICAL: Awake, alert, oriented to time, place and person. No headache. No neck pain. No syncope. No seizures. No dizziness. PSYCHIATRIC: Not anxious. No depression. No suicidal thoughts. No homicidal thoughts. SKIN: No rash. No lesions. No wounds. ENDOCRINE: No unexplained weight loss. No weight gain. HEMATOLOGIC/LYMPHATIC: No anemia. No purpura. No petechiae. No prolonged or ex cessive bleeding. No palpable lymph nodes. PHYSICAL EXAMINATION: GENERAL: The patient is awake, alert and oriented, lying in bed in no distress. VITAL SIGNS: Temperature 97.5 F, Pulse 71, Respiratory Rate 16, BP 108/60, Pulse Ox 95% HEENT: Head normocephalic, atraumatic. Eyes: Extraocular muscles are intact. Pupils are equal, round and reactive to light and accommodation. Ears: No lesions. Nose appeared normal. Throat: No exudate or erythema. NECK: Supple. No JVD, no carotid bruit. No lymphadenopathy or thyromegaly. LUNGS: Diminished breath sounds. Clear to auscultation. Percussion note normal. Chest symmetrical. HEART: S1, S2, no S3. No murmurs. No cyanosis or clubbing. No ascites. Pulses: Dorsalis pedis and posterior tibial pulses +1 to +2 both sides. ABDOMEN: Soft. Non-tender. Bowel sounds active. No CVA tenderness. No mass felt. EXTREMITIES: No edema. Full range of motion of all extremities, equal. NEUROLOGIC: No focal deficit. Cranial nerves II through XII are grossly intact. No headache. No double vision. SKIN: Not dry. Intact. Turgor-normal. LYMPHATIC: No palpable lymph nodes/no lymphedema. MUSCULOSKELETAL: Normal joints with no swelling. Muscle tone is normal. LAB REVIEW: 06/04/20 05:35 06/04/20 05:35 06/04/20 05:35: Sodium 134.6, Potassium 4.02, Chloride 100.9, Carbon Dioxide 27.0, Anion Gap 10.72, BUN 27.0 H, Creatinine 0.94, Estimated GFR (MDRD) 78.00, BUN/Creatinine Ratio 28.72, Glucose 113.5 H, Calcium 7.99 L, Total Bilirubin 0.32, AST 28.2, ALT 11.1, Alkaline Phosphatase 74.5, Total Protein 6.29 L, Albumin 3.01 L, Globulin 3.28, Albumin/Globulin Ratio 0.91 06/04/20 05:35: WBC 9.96 D, RBC 4.64 L, Hgb 13.6 L, Hct 39.3 L, MCV 84.7, MCH 29.3, MCHC 34.6, RDW Coeff of Leanna 13.6, Plt Count 302, Immature Gran % (Auto) 1.3, Neut % (Auto) 63.5, Lymph % (Auto) 23.9, Dyer % (Auto) 10.8 H, Eos % (Auto) 0.4, Baso % (Auto) 0.1, Neut # (Auto) 6.3, Lymph # (Auto) 2.4, Dyer # (Auto) 1.1, Eos # (Auto) 0.0, Baso # (Auto) 0.0, Immature Gran # (Auto) 0.1 ASSESSMENT: Please see below. 1. UTI, positive Klebsiella 2. Acute COPD exacerbation 3. Epididymitis, resolved 4. Diabetes mellitus type 2 PLAN: 1. Continue IV antibiotics 2. PT/OT consult 3. Possible discharge tomorrow. Plan and coordination of the patient's care discussed in the presence of Tax Staff Accountant and nurse. SCRIBED BY: Juan BULLARDist scribed while in presence of service performed by Dr. Lester/Ananya Santiago APRN on 06/04/20 ([id number])
--- NOTE | 2020-06-04 10:22 | PN ---
DATE OF SERVICE: 06/02/2020 SUBJECTIVE: The patient was seen and examined today. The patient's condition seems to be improving. The left testicular infection seems to be subsiding with practically no discoloration and his skin is normal looking. He is complaining of itching in the area with pain. The patient doesn't have any symptoms of CHF or CAD. His breathing is better. The was present in the room. REVIEW OF SYSTEMS: CONSTITUTIONAL: No night sweats. No fatigue, malaise, lethargy. No fever or chills. HEENT: Eyes: No visual changes. No eye pain. No eye discharge. ENT: No runny nose. No epistaxis. No sinus pain. No sore throat. No odynophagia. No congestion. RESPIRATORY: No cough, no congestion. No hemoptysis. No shortness of breath. CARDIOVASCULAR: No angina symptoms. No CHF symptoms. No atypical chest pain for CAD. No palpitations. No PND. No orthopnea. GASTROINTESTINAL: No abdominal pain. No nausea or vomiting. No diarrhea or constipation. No hematemesis. No hematochezia. GENITOURINARY: No urgency. No frequency. No dysuria. No hematuria. No obstructive symptoms. No discharge. No pain. No significant abnormal bleeding. MUSCULOSKELETAL: No musculoskeletal pain; no joint swelling. NEUROLOGICAL: No headache. No neck pain. No syncope. No seizures. No dizziness. PSYCHIATRIC: Not anxious. No depression. No suicidal thoughts. No homicidal thoughts. SKIN: No rash. No lesions. No wounds. ENDOCRINE: No unexplained weight loss. No weight gain. HEMATOLOGIC/LYMPHATIC: No anemia. No purpura. No petechiae. No prolonged or excessive bleeding. No palpable lymph nodes. PHYSICAL EXAMINATION: HEENT: Head normocephalic, atraumatic. Eyes: Extraocular muscles are intact. Pupils are equal, round and reactive to light and accommodation. Ears: No lesions. Nose appeared normal. Throat: No exudate or erythema. NECK: Supple. No JVD, no carotid bruit. No lymphadenopathy or thyromegaly. LUNGS: Clear to auscultation. Percussion note normal. Chest symmetrical. HEART: S1, S2, no S3. No murmurs. No cyanosis or clubbing. No ascites. Pulses: Dorsalis pedis and posterior tibial pulses +1 to +2 bilaterally. ABDOMEN: Soft. Nontender. Bowel sounds active. No CVA tenderness. No mass felt. EXTREMITIES: No edema. Full range of motion of all extremities, equal. Testicle almost looks normal with maybe mild swelling still persists. NEUROLOGIC: No focal deficit. Cranial nerves II through XII are grossly intact. No headache. No double vision. SKIN: Not dry. Intact. Turgor - normal. LYMPHATIC: No palpable lymph nodes/no lymphedema. MUSCULOSKELETAL: Normal joints with no swelling. Muscle tone is normal. ASSESSMENT: 1. Wound on the right leg which is being taken care of by Wound [facility] at [facility]. Nurse is going to open it up and look at it and see what the condition is at present time. PLAN: 1. Continue Doxycycline and Levaquin Cardiovascular status: Stable TIME SPENT: More than 30 minutes. Plan and coordination of the patient's care discussed in the presence of nurse. SAHIL
[2020-06-04] MEDS: DOXY-100 100 MG in SODIUM CHLORIDE 100 ML IV SCH ×2 (10:35→21:30)
[2020-06-04] MEDS: HUMULIN R SUBCUT PRN ×3 (11:54→21:29)
[2020-06-04] MEDS: NORCO 5-325 PO PRN ×2 (14:19→21:28)
[2020-06-04] MEDS ORDERED: LOTRISONE 45 GM TP SCH (15:00)
[2020-06-04] MEDS: LANTUS SUBCUT SCH (21:29)
[2020-06-05] MEDS: VENTOLIN HFA (PER PUFF-WITH SPACER) IH SCH ×2 (05:05→10:18)
[2020-06-05 05:23] LABS: BASOPHILS % (AUTO) 0.4 % (0.0-3.0); EOSINOPHILS # (AUTO) 0.2 K/ul (0.0-0.7); EOSINOPHILS % (AUTO) 1.5 % (0.0-7.0); HEMATOCRIT 39.6 % (42.0-52.0); HEMOGLOBIN 13.3 g/dl (14.0-18.0); IMMATURE GRANULOCYTE # (AUTO) 0.2 (0.0-1.0); IMMATURE GRANULOCYTE % (AUTO) 1.5 % (0.0-5.0); LYMPHOCYTES # (AUTO) 2.4 K/uL (0.60-3.4); LYMPHOCYTES % (AUTO) 21.5 (10.0-50.0); MEAN CORPUSCULAR HEMOGLOBIN 28.7 pg (27.0-31.0); MEAN CORPUSCULAR HGB CONC 33.6 (31.8-35.4); MEAN CORPUSCULAR VOLUME 85.3 fl (80.0-94.0); MONOCYTES # (AUTO) 1.1 K/uL (0.4-2.0); MONOCYTES % (AUTO) 9.8 (0-10); NEUTROPHILS # (AUTO) 7.2 K/ul (2.0-6.9); NEUTROPHILS % (AUTO) 65.3 % (42.2-75.2); PLATELET COUNT 302 10^3/uL (140-440); RDW COEFFICIENT OF VARIATION 13.7 % (11.6-14.8); RED BLOOD COUNT 4.64 10^6/ul (4.70-6.10)
[2020-06-05 05:33] LABS: ALANINE AMINOTRANSFERASE 11.1 U/L (0-50); ALBUMIN 2.96 g/dL (3.5-5.0); ALKALINE PHOSPHATASE 73.8 U/L (56-119); ASPARTATE AMINO TRANSFERASE 24.2 U/L (17-59); BILIRUBIN,TOTAL 0.3 mg/dL (0.2-1.3); BLOOD UREA NITROGEN 20.6 mg/dL (9-20); CALCIUM 7.79 mg/dL (8.4-10.2); CARBON DIOXIDE 28.7 mmol/L (22-30.0); CHLORIDE 103.4 mmol/L (98-107); CREATININE 0.94 mg/dL (0.60-1.10); GLUCOSE 89.3 mg/dL (74-106); POTASSIUM 3.92 mmol/L (3.5-5.1); SODIUM 136.5 mmol/L (134.5-145); TOTAL PROTEIN 6.16 g/dL (6.3-8.2)
[2020-06-05] MEDS: PROTONIX PO SCH (05:42)
[2020-06-05] MEDS: CARAFATE PO SCH ×2 (05:42→10:50)
[2020-06-05 06:06] VITALS: BP 110/60; TEMP 97.8
--- NOTE | 2020-06-05 08:49 | PN ---
DATE OF SERVICE: 06/03/20 SUBJECTIVE: 75-year-old white male hospitalized with acute epididymitis and orchitis of the left side, acute bronchitis with cough. The patient's acute bronchitis seems to have resolved. He also had urinary tract infection, Klebsiella pneumoniae which is sensitive to Levaquin. The patient is also being given Doxycycline for possibility of infection in the right foot. The patient's overall status has improved. REVIEW OF SYSTEMS: CONSTITUTIONAL: No night sweats. No fatigue, malaise, lethargy. No fever or chills. HEENT: Eyes: No visual changes. No eye pain. No eye discharge. ENT: No runny nose. No epistaxis. No sinus pain. No sore throat. No odynophagia. No congestion. RESPIRATORY: No cough, no congestion. No hemoptysis. No shortness of breath. CARDIOVASCULAR: No angina symptoms. No CHF symptoms. No atypical chest pain for CAD. No palpitations. No PND. No orthopnea. GASTROINTESTINAL: No abdominal pain. No nausea or vomiting. No diarrhea or constipation. No hematemesis. No hematochezia. GENITOURINARY: The pain in the left testicle is almost gone. No urgency. No frequency. No dysuria. No hematuria. No obstructive symptoms. No discharge. No pain. No significant abnormal bleeding. MUSCULOSKELETAL: No musculoskeletal pain; no joint swelling. NEUROLOGICAL: No headache. No neck pain. No syncope. No seizures. No dizziness. PSYCHIATRIC: Not anxious. No depression. No suicidal thoughts. No homicidal thoughts. SKIN: No rash. No lesions. No wounds. ENDOCRINE: No unexplained weight loss. No weight gain. HEMATOLOGIC/LYMPHATIC: No anemia. No purpura. No petechiae. No prolonged or excessive bleeding. No palpable lymph nodes. PHYSICAL EXAMINATION: VITAL SIGNS: Temperature 97.5, pulse 73, respiratory rate 18, BP 123/67, pulse ox 93%. HEENT: Head normocephalic, atraumatic. Eyes: Extraocular muscles are intact. Pupils are equal, round and reactive to light and accommodation. Ears: No lesions. Nose appeared normal. Throat: No exudate or erythema. NECK: Supple. No JVD, no carotid bruit. No lymphadenopathy or thyromegaly. LUNGS: Decreased breath sounds but clear to auscultation. Percussion note normal. Chest symmetrical. HEART: S1, S2, no S3. No murmurs. No cyanosis or clubbing. No ascites. Pulses: Dorsalis pedis and posterior tibial pulses +1 to +2 bilaterally. ABDOMEN: The left testicle has practically no swelling. No redness. Looks practically normal. No symptoms of UTI. Soft. Nontender. Bowel sounds active. No CVA tenderness. No mass felt. EXTREMITIES: No edema. Full range of motion of all extremities, equal. NEUROLOGIC: No focal deficit. Cranial nerves II through XII are grossly intact. No headache. No double vision. SKIN: Not dry. Intact. Turgor - normal. LYMPHATIC: No palpable lymph nodes/no lymphedema. MUSCULOSKELETAL: Normal joints with no swelling. Muscle tone is normal. ASSESSMENT: 1. Acute bronchitis with chronic lung disease under control. No symptoms. 2. UTI with Klebsiella pneumoniae symptoms. On Levaquin. 3. Acute epididmyitis/orchitis left side though seems to have resolved. PLAN: 1. Continue sliding scale with coverage to control the diabetes. 2. His cardiovascular status is stable. He still gets short of breath on minimal exertion. Will do echo to evaluate LV function. CONDITION: Stable. TIME SPENT: More than 30 minutes. Plan and coordination of the patient's care discussed in the presence of nurse. SAHIL
[2020-06-05] MEDS ORDERED: LEVAQUIN 500 MG/100 ML D5W 500 MG/100 ML BAG IV SCH (09:00)
[2020-06-05] MEDS: LEVAQUIN 500 MG/100 ML D5W 500 MG/100 ML BAG IV SCH (09:01)
--- NOTE | 2020-06-05 09:10 | PCM.PROG ---
Attending Provider: ATTENDING PROVIDER: Dr. JOVANNI LESTER This patient is seen with Ananya Santiago, Nurse Practitioner. DATE OF SERVICE: 06/05/20 SUBJECTIVE: This 75 year old /WHITE M was hospitalized 05/31/20. The patient is resting comfortably. Epididymitis resolved. No pain or inflammation. Cough has improved. Denies any dysuria. Afebrile and eating well. REVIEW OF SYSTEMS: CONSTITUTIONAL: No night sweats. No fatigue, malaise, lethargy. No fever or chills. Weakness. HEENT: Eyes: No visual changes. No eye pain. No eye discharge. ENT: No runny nose. No epistaxis. No sinus pain. No odynophagia. No congestion. RESPIRATORY: No cough, no congestion. No hemoptysis. No shortness of breath. CARDIOVASCULAR: No angina symptoms. No CHF symptoms. No atypical chest pain for CAD. No palpitations. No orthopnea.. GASTROINTESTINAL: No abdominal pain. No nausea or vomiting. No diarrhea or constipation. No hematemesis. No hematochezia. GENITOURINARY: No urgency. No frequency. No dysuria. No hematuria. No obstructive symptoms. No discharge. No pain. No significant abnormal bleeding. MUSCULOSKELETAL: No musculoskeletal pain; no joint swelling. NEUROLOGICAL: Awake, alert, oriented to time, place and person. No headache. No neck pain. No syncope. No seizures. No dizziness. PSYCHIATRIC: Not anxious. No depression. No suicidal thoughts. No homicidal thoughts. SKIN: No rash. No lesions. No wounds. ENDOCRINE: No unexplained weight loss. No weight gain. HEMATOLOGIC/LYMPHATIC: No anemia. No purpura. No petechiae. No prolonged or excessive bleeding. No palpable lymph nodes. PHYSICAL EXAMINATION: GENERAL: The patient is awake, alert and oriented, lying in bed in no distress. VITAL SIGNS: Temperature 97.8 F, Pulse 76, Respiratory Rate 16, BP 110/60, Pulse Ox 97% HEENT: Head normocephalic, atraumatic. Eyes: Extraocular muscles are intact. Pupils are equal, round and reactive to light and accommodation. Ears: No lesions. Nose appeared normal. Throat: No exudate or erythema. NECK: Supple. No JVD, no carotid bruit. No lymphadenopathy or thyromegaly. LUNGS: Diminished breath sounds. Clear to auscultation. Percussion note normal. Chest symmetrical. HEART: S1, S2, no S3. No murmurs. No cyanosis or clubbing. No ascites. Pulses: Dorsalis pedis and posterior tibial pulses +1 to +2 both sides. ABDOMEN: Soft. Non-tender. Bowel sounds active. No CVA tenderness. No mass felt. EXTREMITIES: No edema. Full range of motion of all extremities, equal. NEUROLOGIC: No focal deficit. Cranial nerves II through XII are grossly intact. No headache. No double vision. SKIN: Not dry. Intact. Turgor-normal. Wound unchanged to toe. LYMPHATIC: No palpable lymph nodes/no lymphedema. MUSCULOSKELETAL: Normal joints with no swelling. Muscle tone is normal. LAB REVIEW: 06/05/20 05:06 06/05/20 05:06 06/05/20 05:06: Sodium 136.5, Potassium 3.92, Chloride 103.4, Carbon Dioxide 28.7, Anion Gap 8.32, BUN 20.6 H, Creatinine 0.94, Estimated GFR (MDRD) 78.00, BUN/Creatinine Ratio 21.91, Glucose 89.3, Calcium 7.79 L, Total Bilirubin 0.30, AST 24.2, ALT 11.1, Alkaline Phosphatase 73.8, Total Protein 6.16 L, Albumin 2.96 L, Globulin 3.20, Albumin/Globulin Ratio 0.92 06/05/20 05:06: WBC 11.00 H, RBC 4.64 L, Hgb 13.3 L, Hct 39.6 L, MCV 85.3, MCH 28.7, MCHC 33.6, RDW Coeff of Leanna 13.7, Plt Count 302, Immature Gran % (Auto) 1.5, Neut % (Auto) 65.3, Lymph % (Auto) 21.5, Tate % (Auto) 9.8, Eos % (Auto) 1.5, Baso % (Auto) 0.4, Neut # (Auto) 7.2 H, Lymph # (Auto) 2.4, Tate # (Auto) 1.1, Eos # (Auto) 0.2, Baso # (Auto) 0.0, Immature Gran # (Auto) 0.2 ASSESSMENT: Please see below. 1. UTI positive for Klebsiella 2. Epididymitis 3. Acute COPD exacerbation PLAN: 1. Levaquin 500mg daily for 5 days 2. Lotrisone cream to groin area twice a day 3. Discharge home 4. Home health for PT/OT 5. Continue to follow with Wound Care. Plan and coordination of the patient's care discussed in the presence of Outreach Director and nurse. SCRIBED BY: KYLE EMERSON Aircraft Cabin Cleaner scribed while in presence of service performed by Dr. Lester/Ananya Santiago APRN on 06/05/20 ([id number])
[2020-06-05] MEDS: AGGRENOX CAPSULE PO SCH (09:39)
[2020-06-05] MEDS: LIPITOR PO SCH (09:40)
[2020-06-05] MEDS: SPIRIVA IH SCH (09:40)
[2020-06-05] MEDS: TRADJENTA PO SCH (09:40)
[2020-06-05] MEDS: PLAVIX PO SCH (09:40)
[2020-06-05] MEDS: DOXY-100 100 MG in SODIUM CHLORIDE 100 ML IV SCH (10:22)
--- NOTE | 2020-06-05 10:34 | CM.DICTOOL ---
ADMISSION: 05/31/20 16:30 DISCHARGE: May DATE OF SERVICE: 06/05/20 FINAL DIAGNOSIS UTI, POSITIVE KLEBSIELLA ACUTE COPD EXACERBATION ACUTE BRONCHITIS WITH CHRONIC LUNG DISEASE LEFT EPIDIDYMITIS WITH ORCHITIS NEUROPATHY DIABETIC FOOT ULCER ON RIGHT HEEL FAT LAYER EXPOSED PSL SHOE USED - [facility] HX: DIABETES MELLITUS TYPE 2 WITH MULTIPLE COMPLICATIONS FOLLOWS: RETINOPATHY - FOLLOWS DR. 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 LAST VITALS Temp Pulse Resp BP Pulse Ox 97.8 F 76 16 110/60 97 06/05/20 06:00 06/05/20 06:00 06/05/20 06:00 06/05/20 06:00 06/05/20 06:00 TAKE THESE MEDICATIONS AT HOME Hydrocodone Bitart/Acetaminophen (Hydrocodone Bit/Acetaminophen 5/325 Mg Tablet) 1 tab PO TID PRN PRN Reason: scrotal pain Last Admin: 06/04/20 21:28 Dose: 1 tab Documented by: Atorvastatin Calcium (Atorvastatin Calcium 20 Mg Tablet) 80 mg PO DAILY [facility] Last Admin: 06/04/20 09:18 Dose: 80 mg Documented by: Clopidogrel Bisulfate (Clopidogrel Bisulfate 75 Mg Tablet) 75 mg PO DAILY [facility] Last Admin: 06/04/20 09:18 Dose: 75 mg Documented by: Clotrimazole (Clotrimazole/Betamethasone 45 Gm Cream) 1 applic TP BID -- ( NEW) Last Admin: 06/04/20 14:19 Dose: 1 applic Documented by: Dipyridamole/Aspirin (Aspirin/Dipyridamole 25/200 Mg Cpmp.12hr) 1 cap PO BID [facility] Last Admin: 06/04/20 21:27 Dose: 1 cap Documented by: Insulin Glargine (Insulin Glargine,Hum.Rec.Anlog 100 Units/Ml) 40 unit SUBCUT BEDTIME [facility] Last Admin: 06/04/20 21:29 Dose: 40 unit Documented by: Linagliptin (Linagliptin 5 Mg Tablet) 5 mg PO DAILY [facility] Last Admin: 06/04/20 09:18 Dose: 5 mg Documented by: Pantoprazole Sodium (Pantoprazole Sodium 40 Mg Tablet.) 40 mg PO QDAC [facility] Last Admin: 06/05/20 05:42 Dose: 40 mg Documented by: Sucralfate (Sucralfate 1 Gm Tablet) 1 gm PO ACHS [facility] Last Admin: 06/05/20 05:42 Dose: 1 gm Documented by: Tiotropium [place] (Tiotropium [place] 18 Mcg Cap.W.Dev) 1 cap IH DAILY [facility] Last Admin: 06/04/20 09:19 Dose: 1 cap Documented by: PROAIR MDI 2 PUFFS Q 6HR PRN DUONEB 3 ML QID PRN LEVAQUIN 500 MG PO DAILY X 5 DAYS -- (NEW) ALLERGIES No Known Allergies Allergy (Verified 05/31/20 09:39) Discontinued Medications NONE NEW PRESCRIPTIONS: 1). LEVAQUIN 500 MG BY MOUTH DAILY FOR 5 DAYS, START 06/06/2020. 2). LOTRISONE CREAM TWICE DAILY TOPICAL TO SCROTUM. SMOKING: N/A DISEASE SPECIFIC EDUCATION: ACTIVITY SAFETY UTI COPD PRESSURE ULCER PREVENTION COVID 19 LAB REVIEW: 06/05/20 05:06 06/05/20 05:06 06/05/20 05:06: Sodium 136.5, Potassium 3.92, Chloride 103.4, Carbon Dioxide 28.7, Anion Gap 8.32, BUN 20.6 H, Creatinine 0.94, Estimated GFR (MDRD) 78.00, BUN/Creatinine Ratio 21.91, Glucose 89.3, Calcium 7.79 L, Total Bilirubin 0.30, AST 24.2, ALT 11.1, Alkaline Phosphatase 73.8, Total Protein 6.16 L, Albumin 2.96 L, Globulin 3.20, Albumin/Globulin Ratio 0.92 06/05/20 05:06: WBC 11.00 H, RBC 4.64 L, Hgb 13.3 L, Hct 39.6 L, MCV 85.3, MCH 28.7, MCHC 33.6, RDW Coeff of Leanna 13.7, Plt Count 302, Immature Gran % (Auto) 1.5, Neut % (Auto) 65.3, Lymph % (Auto) 21.5, [place] % (Auto) 9.8, Eos % (Auto) 1.5, Baso % (Auto) 0.4, Neut # (Auto) 7.2 H, Lymph # (Auto) 2.4, [place] # (Auto) 1.1, Eos # (Auto) 0.2, Baso # (Auto) 0.0, Immature Gran # (Auto) 0.2 PLAN: DISCHARGE HOME: RETURN HOME WITH HIS . [facility] TO RESUME SN AND PT AND OT TO EVAL AND TREAT ACTIVITY: UP IN WHEEL CHAIR TOLERATED. ELEVATE AND OFF LOAD RT FOOT MUCH POSSIBLE USE SLIDING BOARD FOR TRANSFERS, SPOUSE HAS BEEN EFFECTIVELY USING CHECK BLOOD SUGARS BEFORE AND REPORT ABNORMALITIES TO YOUR DOCTOR DIET: ADA 2000 CALORIE FOLLOW UP: SEE DR. LESTER/ JOCELINE BARAHONA APRN/ JULIANNE DEAN APRN IN THE OFFICE MONDAY, JUNE 15, 2020 @ 1015 AM [facility] 06/13/2020 @ 0800 AM PER NAVYA HOOVER RN CODE STATUS: DO NOT RESUSCITATE MR. ASCENCIO IS ALERT AND ORIENTED X 4. HE HAS DENIED ANY SOA. HAS NOT BEEN COOPERATIVE WITH THERAPY DEPARTMENT AND SPOUSE STATED WE DO ALL THAT STUFF AT HOME. SKIN WARM AND DRY AND INTACT EXCEPT RT FOOT HAS A WOUND THAT IS MANAGED BY [facility]. HE DOES WEAR AN OFF LOAD BOOT TO RT FOOT. SCAR TO LT AKA INTACT AND WNL. HE DOES NOT WEAR THE PROSTHESIS HE HAD BEEN FITTED FOR. CONTINENT OF BOWEL AND BLADDER, BUT DOES DRIBBLE A LITTLE. NO FREQUENCY OR LOWER ABDOMINAL DISCOMFORT. LAST BM 05/29/2020 AND INSIST IT IS NORMAL TO GO A WEEK AND REFUSED ANY INTERVENTION. HOME WITH AND HOME HEALTH SN RESUMPTION AND PT AND OT TO EVAL AND TREAT. MD JOCELINE MATA APRN ALYCE HANNAN SAULO
[2020-06-05] MEDS: HUMULIN R SUBCUT PRN (11:27)
[2020-06-05] MEDS ORDERED: VENTOLIN HFA (PER PUFF-WITH SPACER) IH SCH (14:00)
--- NOTE | 2020-06-06 10:24 | PN ---
DATE OF SERVICE: 06/04/2020 SUBJECTIVE: The patient was hospitalized with UTI and left epididymitis with orchitis. Also had some bronchitis type of symptoms. The patient's status with UTI and epididymitis has improved remarkable. He is going be discharged home tomorrow. TIME SPENT: More than 30 minutes. Plan and coordination of the patient's care discussed in the presence of nurse. SAHIL
--- NOTE | 2020-06-06 10:54 | PN ---
DATE OF SERVICE: 06/05/2020 SUBJECTIVE: The patient was seen and examined with the Nurse Practitioner. The patient's orchitis and epididymitis has resolved. He is feeling a lot better. He is going to be discharged home. An echo was tried but technically difficult. He had an echo done a year ago which showed normal LV contractility which was also difficult study. TIME SPENT: More than 30 minutes. Plan and coordination of the patient's care discussed in the presence of nurse. SAHIL
--- NOTE | 2020-06-06 10:55 | PN ---
05/31/2020: Level 5 06/01/2020: Intermediate 06/02/2020: Intermediate 06/03/2020: Intermediate 06/04/2020: Intermediate 06/05/2020: D as in discharge MTDD
--- NOTE | 2020-06-06 11:27 | DS ---
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 [facility] TO RESUME SN AND PT AND OT TO EVAL AND TREAT.MD FOLLOW UP: SEE DR. LESTER/ JOCELINE BARAHONA APRN/ JULIANNE DEAN APRN IN THE OFFICE MONDAY, JUNE 15, 2020 @ 1015 AM. [facility] 06/13/2020 @ 0800 AM PER NAVYA HOOVER RN. CODE STATUS: DO NOT RESUSCITATE. TAKE THESE MEDICATIONS AT HOME: Hydrocodone Bitart/Acetaminophen (Hydrocodone Bit/Acetaminophen 5/325 Mg Tablet) 1 tab PO TID PRN PRN Reason: scrotal pain Last Admin: 06/04/20 21:28 Dose: 1 tab Documented by: Atorvastatin Calcium (Atorvastatin Calcium 20 Mg Tablet) 80 mg PO DAILY [facility] Last Admin: 06/04/20 09:18 Dose: 80 mg Documented by: Clopidogrel Bisulfate (Clopidogrel Bisulfate 75 Mg Tablet) 75 mg PO DAILY [facility] Last Admin: 06/04/20 09:18 Dose: 75 mg Documented by: Clotrimazole (Clotrimazole/Betamethasone 45 Gm Cream) 1 applic TP BID -- ( NEW) Last Admin: 06/04/20 14:19 Dose: 1 applic Documented by: Dipyridamole/Aspirin (Aspirin/Dipyridamole 25/200 Mg Cpmp.12hr) 1 cap PO BID [facility] Last Admin: 06/04/20 21:27 Dose: 1 cap Documented by: Insulin Glargine (Insulin Glargine,Hum.Rec.Anlog 100 Units/Ml) 40 unit SUBCUT BEDTIME [facility] Last Admin: 06/04/20 21:29 Dose: 40 unit Documented by: Linagliptin (Linagliptin 5 Mg Tablet) 5 mg PO DAILY [facility] Last Admin: 06/04/20 09:18 Dose: 5 mg Documented by: Pantoprazole Sodium (Pantoprazole Sodium 40 Mg Tablet.Dr) 40 mg PO QDAC [facility] Last Admin: 06/05/20 05:42 Dose: 40 mg Documented by: Sucralfate (Sucralfate 1 Gm Tablet) 1 gm PO ACHS [facility] Last Admin: 06/05/20 05:42 Dose: 1 gm Documented by: Tiotropium [place] (Tiotropium [place] 18 Mcg Cap.W.Dev) 1 cap IH DAILY [facility] Last Admin: 06/04/20 09:19 Dose: 1 cap Documented by: PROAIR MDI 2 PUFFS Q 6HR PRN DUONEB 3 ML QID PRN LEVAQUIN 500 MG PO DAILY X 5 DAYS -- (NEW) ALLERGIES: No Known Allergies Allergy (Verified 05/31/20 09:39) Discontinued Medications: NONE NEW PRESCRIPTIONS: 1). LEVAQUIN 500 MG BY MOUTH DAILY FOR 5 DAYS, START 06/06/2020. 2). LOTRISONE CREAM TWICE DAILY TOPICAL TO SCROTUM. SMOKING: N/A DISEASE SPECIFIC EDUCATION: ACTIVITY SAFETY UTI COPD PRESSURE ULCER PREVENTION COVID 19 LAB REVIEW: 06/05/20 05:06 06/05/20 05:06 06/05/20 05:06: Sodium 136.5, Potassium 3.92, Chloride 103.4, Carbon Dioxide 28.7, Anion Gap 8.32, BUN 20.6 H, Creatinine 0.94, Estimated GFR (MDRD) 78.00, BUN/Creatinine Ratio 21.91, Glucose 89.3, Calcium 7.79 L, Total Bilirubin 0.30, AST 24.2, ALT 11.1, Alkaline Phosphatase 73.8, Total Protein 6.16 L, Albumin 2.96 L, Globulin 3.20, Albumin/Globulin Ratio 0.92 06/05/20 05:06: WBC 11.00 H, RBC 4.64 L, Hgb 13.3 L, Hct 39.6 L, MCV 85.3, MCH 28.7, MCHC 33.6, RDW Coeff of Leanna 13.7, Plt Count 302, Immature Gran % (Auto) 1.5, Neut % (Auto) 65.3, Lymph % (Auto) 21.5, [place] % (Auto) 9.8, Eos % (Auto) 1.5, Baso % (Auto) 0.4, Neut # (Auto) 7.2 H, Lymph # (Auto) 2.4, [place] # (Auto) 1.1, Eos # (Auto) 0.2, Baso # (Auto) 0.0, Immature Gran # (Auto) 0.2 ACTIVITY: UP IN WHEEL CHAIR TOLERATED. ELEVATE AND OFF LOAD RT FOOT MUCH POSSIBLE USE SLIDING BOARD FOR TRANSFERS, SPOUSE HAS BEEN EFFECTIVELY USING CHECK BLOOD SUGARS BEFORE AND REPORT ABNORMALITIES TO YOUR DOCTOR DIET: ADA 2000 CALORIE HOSPITAL COURSE: Tommy Sandoval was hospitalized with acute epididymitis orchitis along with UTI. The patient's condition has improved with Doxycycline and Levaquin. His urine grew Klebsiella pneumoniae. The patient has been afebrile. This swelling of the left testicle is practically gone with no tenderness and no redness. He doesn't have symptoms of UTI. His bronchitis has resolved and his appetite has improved. His right heel ulcer is stage 2, taken care of by Wound Care. He is doing very well. The patient is noncompliant of lifestyle. He has a very poor understanding of his medical problems. is trying to help him. The patient was discharged home on antibiotics to be followed as an outpatient. He is to be seen in 5-7 days. He is advised to drink fluids. CONDITION AT THE TIME OF DISCHARGE: STABLE TIME SPENT: More than 60 minutes. MTDD
== END 2020-06-05 12:55 | disposition home or self-care (01) | DRG 204 ==
LOC: ED 09:21 → MEDSURG A 16:30
PROVIDERS: ADMIT Internal Medicine; ATTEND Internal Medicine
DX: N39.0 Urinary tract infection, site not specified; R35.0 Frequency of micturition; I69.351 Hemiplegia and hemiparesis following cerebral infarction affecting right dominant side; I10 Essential (primary) hypertension; R05 Cough; F32.9 Major depressive disorder, single episode, unspecified; E53.8 Deficiency of other specified B group vitamins; R30.0 Dysuria; E11.621 Type 2 diabetes mellitus with foot ulcer; N50.89 Other specified disorders of the male genital organs; E11.40 Type 2 diabetes mellitus with diabetic neuropathy, unspecified; I73.9 Peripheral vascular disease, unspecified; E88.81 Metabolic syndrome and other insulin resistance; R06.00 Dyspnea, unspecified; N50.82 Scrotal pain; B96.1 Klebsiella pneumoniae [K. pneumoniae] as the cause of diseases classified elsewhere; Z20.822 Contact with and (suspected) exposure to COVID-19; J44.1 Chronic obstructive pulmonary disease with (acute) exacerbation; E78.5 Hyperlipidemia, unspecified; J20.9 Acute bronchitis, unspecified

== ENCOUNTER 2021-09-13 14:26 | Inpatient (IN) ==
--- NOTE | 2021-09-13 14:43 | ED.PDOC ---
General ED Provider: Dr. ALBIN JIMENEZ Chief Complaint: Stroke Stated Complaint: no stroke, just some confusion at home, above the level of his baseline confusion, family called EMS, some nausea Time Seen by Provider: 09/13/21 14:35 Mode of Arrival: Ambulance Information Source: Patient, Family and EMT Exam Limitations: Clinical condition Primary Care Provider: JOVANNI CRAIN Nursing and Triage Documentation Reviewed and Agree: Yes Does patient meet sepsis criteria?: No System Inflammatory Response Syndrome: Not Applicable Sepsis Protocol: For patient's 13 years and over: Temp is 96.8 and below OR 101 and greater Pulse >90 BPM Resp >20/minute Acutely Altered Mental Status Are patient's symptoms suggestive of a new infection, such as: -Pneumonia -Skin, Soft Tissue -Endocarditis -UTI -Bone, Joint Infection -Implantable Device -Acute Abdominal Infection -Wound Infection -Meningitis -Blood Stream Catheter Infection -Unknown Neurological Complaint Exam Altered Mental Status Complaint/Exam Current Mental Status: Confusion (apparent onset today, gradual) Onset: Gradual Symptoms Are: Still present Timing: Constant Initial Severity: Mild Current Severity: Moderate Eye Deviation Present: No Character: Reports Confusion Aggravating: Reports None Alleviating: Reports None Associated Signs and Symptoms: Denies Dizziness, Weakness, Headache, Fever, Illness, Nuchal rigidity, Seizure, Nausea, Vomiting, Recently depressed or Trauma Cardiac Risk Factors: Reports Hypertension and Diabetes CVA Risk Factors: Reports Diabetes and Hypertension Related Surgical History: Reports None Carotid Bruit Present: No Glascow Coma Scale (see protocol): 14 Nystagmus Present: No Meningeal Signs Positive: No Focal Weakness: Present None Focal Sensory Loss: Present None Review of Systems Review Of Systems Constitutional: Reports No symptoms Eyes: Reports No symptoms Ears, Nose, Mouth, Throat: Reports No symptoms Respiratory: Reports No symptoms Cardiac: Reports No symptoms GI: Reports Abdominal pain and Nausea : Reports No symptoms Musculoskeletal: Reports No symptoms Skin: Reports No symptoms Neurological: Reports Cognitive dysfunction and Weakness Endocrine: Reports No symptoms Hematologic/Lymphatic: Reports No symptoms All Other Systems: Reviewed and Negative [facility] Medical History COPD (chronic obstructive pulmonary disease) CVA (cerebral vascular accident) Diabetes GERD (gastroesophageal reflux disease) Family History FATHER Myocardial infarct Mother Myocardial infarct FATHER Diabetes Mother Diabetes Social History History of recent travel: No Surgical History History of appendectomy History of cholecystectomy Physical Exam Physical Exam Appearance: Reports Well-appearing and Obese Ill-appearing: None Pain Distress: None Eyes: Reports YUMIKO ENT: Reports Oropharynx normal Neck: Supple Respiratory: Reports Airway patent and Breath sounds clear Cardiovascular: Reports RRR and Pulses normal GI/: Reports Soft and Nontender Musculoskeletal: Reports Normal strength and ROM intact Skin: Reports Warm and Dry Neurological: Reports Sensation intact, Motor intact, Alert and Disoriented (mildly) Psychiatric: Reports Affect appropriate and Mood appropriate Interpretation Radiology Interpretation Radiology Interpretation By: Radiologist Radiology Results: No acute changes Exam Interpreted: CT Scan Xray Comments: head neg Radiology Interpretation By: Radiologist Radiology Results: No acute changes Exam Interpreted: Portable CXR and CT Scan Xray Comments: CXR neg, CT abd/pel neg Physician Notification Case Discussed Physician Notified: Dr. Crain Comments: Admit, start NS at 100 cc/hr Critical Care Note Critical Care Note Total Critical Care Time (mins): 0 Course Course Hematology/Chemistry: 09/14/21 04:59 09/14/21 04:59 Orders, Labs, Meds: Lab Review 09/13/21 09/13/21 09/13/21 15:09 15:09 19:33 WBC 8.94 RBC 5.16 Hgb 15.2 Hct 43.1 MCV 83.5 MCH 29.5 MCHC 35.3 RDW Coeff of Leanna 12.8 Plt Count 282 Immature Gran % (Auto) 0.9 Neut % (Auto) 61.6 Lymph % (Auto) 26.1 Adams % (Auto) 8.4 Eos % (Auto) 2.2 Baso % (Auto) 0.8 Neut # (Auto) 5.5 Lymph # (Auto) 2.3 [place] # (Auto) 0.8 Eos # (Auto) 0.2 Baso # (Auto) 0.1 Immature Gran # (Auto) 0.1 Puncture Site Rrad Base Excess 0.8 O2 Saturation 94.0 ABG pH 7.41 ABG pCO2 40.0 ABG pO2 70.0 L ABG HCO3 25.4 ABG Total CO2 26.6 H Britton Test + Hemoglobin 1.4 Oxyhemoglobin 93.6 L Carboxyhemoglobin 2.7 H Total Hemoglobin 14.8 FiO2 % 21.0 Sodium 121.5 L Potassium 4.39 Chloride 87.9 L Carbon Dioxide 27.9 Anion Gap 10.09 BUN 7.8 L Creatinine 0.90 Estimated GFR (MDRD) 82.00 BUN/Creatinine Ratio 8.66 Glucose 189.4 H Calcium 8.26 L Total Bilirubin 0.48 AST 19.4 ALT 9.1 Alkaline Phosphatase 120.3 H Total Creatine Kinase Troponin I < 0.012 Total Protein 6.89 Albumin 3.49 L Globulin 3.40 Albumin/Globulin Ratio 1.02 Amylase 51.5 Lipase 43.9 09/13/21 20:00 WBC RBC Hgb Hct MCV MCH MCHC RDW Coeff of Leanna Plt Count Immature Gran % (Auto) Neut % (Auto) Lymph % (Auto) [place] % (Auto) Eos % (Auto) Baso % (Auto) Neut # (Auto) Lymph # (Auto) [place] # (Auto) Eos # (Auto) Baso # (Auto) Immature Gran # (Auto) Puncture Site Base Excess O2 Saturation ABG pH ABG pCO2 ABG pO2 ABG HCO3 ABG Total CO2 Britton Test Hemoglobin Oxyhemoglobin Carboxyhemoglobin Total Hemoglobin FiO2 % Sodium Potassium Chloride Carbon Dioxide Anion Gap BUN Creatinine Estimated GFR (MDRD) BUN/Creatinine Ratio Glucose Calcium Total Bilirubin AST ALT Alkaline Phosphatase Total Creatine Kinase 86.6 Troponin I < 0.012 Total Protein Albumin Globulin Albumin/Globulin Ratio Amylase Lipase Orders Category Date Time Status ABG DRAW REQUEST Stat CARDIO 09/13/21 19:04 Completed EKG-(ED ONLY) Stat CARDIO 09/13/21 16:31 Completed EKG-(IP & OP ONLY) DAILY CARDIO 09/14/21 06:00 Ordered EKG-(IP & OP ONLY) DAILY CARDIO 09/15/21 06:00 Ordered OXYGEN Routine CARDIO 09/13/21 19:53 Active ACTIVITY .BR with BRP CARE 09/13/21 19:53 Active IP: INSERT SALINE LOCK ONCE CARE 09/13/21 19:53 Active TELEMETRY MONITORING TELE CARE 09/13/21 19:53 Completed VITAL SIGNS Q8HR CARE 09/13/21 19:53 Completed CARDIAC DIET DIETARY 09/13/21 Breakfast Ordered ABG COOX Stat LAB 09/13/21 19:33 Completed AMYLASE Stat LAB 09/13/21 15:09 Completed BMP [BASIC METABOLIC PANEL] Timed LAB 09/14/21 04:59 Completed CBC W/ AUTO DIFF Stat LAB 09/13/21 15:09 Completed CBC W/ AUTO DIFF Stat LAB 09/14/21 04:59 Completed CMP [COMPREHENSIVE METABOLIC PANEL] Stat LAB 09/13/21 15:09 Completed CREATINE KINASE Q8H LAB 09/13/21 20:00 Completed CREATINE KINASE Q8H LAB 09/14/21 04:59 Results LIPASE Stat LAB 09/13/21 15:09 Completed SARS COV-2 RNA RAPID ZULMA Stat LAB 09/13/21 Completed TROPONIN I Q8H LAB 09/13/21 20:00 Completed TROPONIN I Q8H LAB 09/14/21 04:59 Results TROPONIN I Stat LAB 09/13/21 15:09 Completed URINALYSIS C & S IF INDICATED Stat LAB 09/13/21 19:53 Uncollected 0.9 % Sodium Chloride [Saline Flush] MEDS 09/13/21 21:00 Discontinued 1 syr IVF Q8HR Aspirin [Aspirin Chewable] MEDS 09/13/21 21:00 Active 81 mg PO BID Atorvastatin Calcium [Lipitor] MEDS 09/14/21 09:00 Active 80 mg PO DAILY Atropine Sulfate Inj [Atropine Sulfate Pfs] MEDS 09/13/21 19:53 Active 0.5 mg IVP ONCE PRN Clopidogrel Bisulfate [Plavix] MEDS 09/14/21 09:00 Active 75 mg PO DAILY Hydrocodone Bit/Acetaminophen [[place] 7.5-325] MEDS 09/13/21 20:03 Active 1 tab PO TID PRN Insulin Glargine,Hum.rec.anlog [Lantus] MEDS 09/13/21 21:00 Active 30 unit SUBCUT BEDTIME Insulin Lispro [Humalog] MEDS 09/13/21 21:00 Active 8 unit SUBCUT TID Ipratropium/Albuterol Neb [Duoneb] MEDS 09/13/21 20:03 Active 3 ml NEB QID PRN Linaclotide [Linzess] MEDS 09/14/21 09:00 Active 145 mcg PO DAILY Linagliptin [Tradjenta] MEDS 09/14/21 09:00 Active 5 mg PO DAILY Nitroglycerin [Nitrostat] MEDS 09/13/21 19:53 Active 0.4 mg SL Q5MIN X 3 DOSES PRN Pantoprazole Sodium [Protonix] MEDS 09/14/21 09:00 Active 40 mg PO DAILY Sodium Bicarbonate MEDS 09/13/21 21:00 Active 650 mg PO BID Sodium Chloride 0.9% [Sodium Chloride] 1,000 ml MEDS 09/13/21 19:05 Discontinued IV 100 mls/hr Sodium Chloride 0.9% [Sodium Chloride] 1,000 ml MEDS 09/13/21 18:36 Discontinued IV 125 mls/hr Sucralfate [Carafate] MEDS 09/13/21 21:00 Active 1 gm PO ACHS Tamsulosin HCl [Flomax] MEDS 09/14/21 09:00 Active 0.4 mg PO DAILY Tiotropium [place] [Spiriva] MEDS 09/14/21 09:00 Active 1 cap IH DAILY CHEST, 1V AP ONLY Stat RADS 09/13/21 14:[address] ABDOMEN/PELVIS WO CONTRAST Stat RADS 09/13/21 14:[address] HEAD W/O CONTRAST Stat RADS 09/13/21 14:44 Completed Medications Generic Name Dose Route Start Last Admin Trade Name Freq PRN Reason Stop Dose Admin Hydrocodone Bitart/Acetaminophen 1 tab 09/13/21 20:03 Hydrocodone Bit/Acetaminophen 7.5/325 Mg Tablet PO TID PRN MODERATE PAIN Albuterol/Ipratropium 3 ml 09/13/21 20:03 Ipratropium/Albuterol Vial.Neb NEB QID PRN Wheezing Aspirin 81 mg 09/13/21 21:00 09/13/21 22:33 Aspirin 81 Mg Tab.Chew PO 81 mg BID EUNICE Administration Atorvastatin Calcium 80 mg 09/14/21 09:00 Atorvastatin Calcium 20 Mg Tablet PO DAILY [facility] Atropine Sulfate 0.5 mg 09/13/21 19:53 Atropine Sulfate Inj 1 Mg/10 Ml Disp.Syrin IVP ONCE PRN Symptomatic Bradycardia Clopidogrel Bisulfate 75 mg 09/14/21 09:00 Clopidogrel Bisulfate 75 Mg Tablet PO DAILY [facility] Insulin Glargine 30 unit 09/13/21 21:00 09/13/21 23:22 Insulin Glargine,Hum.Rec.Anlog 100 Units/Ml SUBCUT Not Given BEDTIME [facility] Insulin Human Lispro 8 unit 09/13/21 21:00 09/13/21 23:22 Insulin Lispro 100 Unit/Ml (3 Ml) Vial SUBCUT Not Given TID EUNICE Linaclotide 145 mcg 09/14/21 09:00 Linaclotide 145 Mcg Capsule PO DAILY [facility] Linagliptin 5 mg 09/14/21 09:00 Linagliptin 5 Mg Tablet PO DAILY [facility] Nitroglycerin 0.4 mg 09/13/21 19:53 Nitroglycerin 0.4 Mg Tab.Subl SL Q5MIN X 3 DOSES PRN Chest Pain Pantoprazole Sodium 40 mg 09/14/21 09:00 Pantoprazole Sodium 40 Mg Tablet.Dr PO DAILY [facility] Sodium Bicarbonate 650 mg 09/13/21 21:00 09/13/21 22:32 Sodium Bicarbonate 650 Mg Tablet PO 650 mg BID EUNICE Administration Sodium Chloride 1 syr 09/13/21 22:20 0.9% Sodium Chloride 10 Ml Disp.Syrin IVF Q8HR PRN patency Sucralfate 1 gm 09/13/21 21:00 09/13/21 22:32 Sucralfate 1 Gm Tablet PO 1 gm ACHS [facility] Administration Tamsulosin HCl 0.4 mg 09/14/21 09:00 Tamsulosin Hcl 0.4 Mg Cap.Er.24h PO DAILY [facility] Tiotropium [place] 1 cap 09/14/21 09:00 Tiotropium [place] 18 Mcg Cap.W.Dev IH DAILY [facility] Discontinued Medications Generic Name Dose Route Start Last Admin Trade Name Freq PRN Reason Stop Dose Admin Sodium Chloride 1,000 mls @ 125 mls/hr 09/13/21 18:36 09/13/21 19:13 Sodium Chloride IV 09/14/21 02:35 125 mls/hr .Q8H STA Administration Sodium Chloride 1,000 mls @ 100 mls/hr 09/13/21 19:05 09/13/21 22:19 Sodium Chloride IV 09/14/21 04:35 Not Given .Q10H STA Sodium Chloride 1 syr 09/13/21 21:00 09/13/21 22:19 0.9% Sodium Chloride 10 Ml Disp.Syrin IVF Not Given Q8HR [facility] Vital Signs: Temp Pulse Resp BP Pulse Ox 09/13/21 14:27 98.2 F 72 18 122/92 H 95 Discharge Plan Discharge Patient Disposition: ADMITTED INPATIENT Discharge Problem: Hyponatremia Did you review [place] [employer]?: Not Applicable ED Provider: ALBIN JIMENEZ Condition: Fair Physician Progress Note: [symptoms appear due to hyponatremia, superimposed on dementia. He is on lasix and lexapro, both can lower sodium, elderly people usually have SIADH]
[2021-09-13 15:21] LABS: BASOPHILS # (AUTO) 0.1 K/uL (0-0.2); BASOPHILS % (AUTO) 0.8 % (0.0-3.0); EOSINOPHILS # (AUTO) 0.2 K/ul (0.0-0.7); EOSINOPHILS % (AUTO) 2.2 % (0.0-7.0); HEMATOCRIT 43.1 % (42.0-52.0); HEMOGLOBIN 15.2 g/dl (14.0-18.0); IMMATURE GRANULOCYTE # (AUTO) 0.1 (0.0-1.0); IMMATURE GRANULOCYTE % (AUTO) 0.9 % (0.0-5.0); LYMPHOCYTES # (AUTO) 2.3 K/uL (0.60-3.4); LYMPHOCYTES % (AUTO) 26.1 (10.0-50.0); MEAN CORPUSCULAR HEMOGLOBIN 29.5 pg (27.0-31.0); MEAN CORPUSCULAR HGB CONC 35.3 (31.8-35.4); MEAN CORPUSCULAR VOLUME 83.5 fl (80.0-94.0); MONOCYTES # (AUTO) 0.8 K/uL (0.4-2.0); MONOCYTES % (AUTO) 8.4 (0-10); NEUTROPHILS # (AUTO) 5.5 K/ul (2.0-6.9); NEUTROPHILS % (AUTO) 61.6 % (42.2-75.2); PLATELET COUNT 282 10^3/uL (140-440); RDW COEFFICIENT OF VARIATION 12.8 % (11.6-14.8); RED BLOOD COUNT 5.16 10^6/ul (4.70-6.10); WHITE BLOOD COUNT 8.94 K/ul (4.2-10.2)
[2021-09-13 15:29] LABS: ALANINE AMINOTRANSFERASE 9.1 U/L (0-50); ALBUMIN 3.49 g/dL (3.5-5.0); ALKALINE PHOSPHATASE 120.3 U/L (56-119); AMYLASE 51.5 U/L (30-110); ASPARTATE AMINO TRANSFERASE 19.4 U/L (17-59); BILIRUBIN,TOTAL 0.48 mg/dL (0.2-1.3); BLOOD UREA NITROGEN 7.8 mg/dL (9-20); CALCIUM 8.26 mg/dL (8.4-10.2); CARBON DIOXIDE 27.9 mmol/L (22-30.0); CHLORIDE 87.9 mmol/L (98-107); GLUCOSE 189.4 mg/dL (74-106); LIPASE 43.9 U/L (23-300); POTASSIUM 4.39 mmol/L (3.5-5.1); SODIUM 121.5 mmol/L (134.5-145); TOTAL PROTEIN 6.89 g/dL (6.3-8.2)
[2021-09-13 15:41] LABS: TROPONIN I < 0.012 ng/ml (0.0000-0.120)
--- NOTE | 2021-09-13 15:48 | DI ---
EXAM: CHEST RADIOGRAPH (1 VIEW) TECHNIQUE: Frontal Chest Radiograph. HISTORY: Cough. COMPARISON: Chest radiograph 05/31/2020 FINDINGS: Lines, Tubes, Devices: None Lungs and Pleura: No focal consolidation. No pleural effusion. No pneumothorax. No pulmonary edema . Low lung volumes. Cardiomediastinum: Normal cardiomediastinal silhouette. Minimal aortic calcifications. Bones/Soft Tissues: Degenerative changes of the spine with scoliosis. No soft tissue abnormality. Upper Abdomen: Within normal limits. IMPRESSION: No acute radiographic abnormality.
--- NOTE | 2021-09-13 16:04 | CT ---
EXAM: CT head without contrast HISTORY: Altered mental status COMPARISON: CT head 12/30/2017 TECHNIQUE: Serial axial images of the brain were obtained from the skull base to the vertex without IV contrast. FINDINGS: The ventricles, cisterns and sulci demonstrate mild generalized volume loss. The quintero-whi te matter junction is maintained. There is scattered low attenuation in the periventricular white ma tter.No midline shift or mass is identified. There is no abnormal intra or extra-axial fluid collect ion. The paranasal sinuses demonstrates scattered paranasal sinus mucosal thickening. The mastoid a ir cells are clear. The osseous calvarium is intact. IMPRESSION: 1. No acute intracranial abnormality or hemorrhage. 2. Mild generalized volume loss and scattered microangiopathy. 3. Scattered paranasal sinus mucosal thickening. All CT scans are performed using dose optimization techniques as appropriate to the performed exam an d include at least one of the following: Automated exposure control, adjustment of the mA and/or kV according t o size, and the use of iterative reconstruction technique.
--- NOTE | 2021-09-13 16:18 | CT ---
EXAM: CT ABDOMEN AND PELVIS HISTORY: Abdominal pain, vomiting TECHNIQUE: CT abdomen and pelvis without intravenous contrast. Images were reconstructed using 5 mm section thickness. Reformations were prepared. COMPARISON: 09/22/2019 FINDINGS: Diagnostic limitations exist without including intravenous contrast enhanced images. The liver and s pleen are within normal limits. No gallbladder is identified. Pancreas and adrenal glands are withi n normal limits. There is mild nonspecific bilateral perinephric fat stranding. There is a 6 mm marcus culus within the left kidney. No hydronephrosis or ureteral obstruction. There is mild to moderate atherosclerotic disease. The previously seen prominent iliac, pelvic and inguinal lymph nodes have b ecome less noticeable. Normal stomach. No appendix is identified. General bowel gas pattern is wit hin normal limits. No evidence of active enterocolitis. Prostate and urinary bladder are within nor mal limits. There is no ascites. Postop changes of the abdominal wall. The the bones appear demine ralized. There is a severe vertebral body compression fracture at L1 which has been previously treat ed by kyphoplasty. This fracture is stable. Lung bases reveal mild focal pleural thickening lateral ly on the left which is nonspecific. No pneumoperitoneum. IMPRESSION: 1. Normal stomach. No appendix is identified. General bowel gas pattern is within normal limits. No evidence of active enterocolitis. 2. There is mild nonspecific bilateral perinephric fat stranding. There is a 6 mm calculus within t he left kidney. No hydronephrosis or ureteral obstruction. 3. Mild to moderate atherosclerotic disease. 4. Severe vertebral body compression fracture at L1 which has been previously treated by kyphoplasty . This fracture is stable. - - - - - All CT scans are performed using dose optimization techniques as appropriate to the performed exam an d include at least one of the following: Automated exposure control, adjustment of the mA and/or kV according t o size, and the use of iterative reconstruction technique.
[2021-09-13] MEDS ORDERED: SODIUM CHLORIDE 1,000 ML IV STA ×2 (18:36→19:05)
[2021-09-13 19:37] LABS: ABG O2 HGB 93.6 % (95-100); ABG PH 7.41 (7.35-7.45); BEecf 0.8 (-2.0-3.0); COHb 2.7 (0.5-1.5); HCO3 25.4 (21-28); MetHb 1.4 (0-1.5); TCO2 26.6 (19-24); tHb 14.8 g/dl (11.7-17.4)
[2021-09-13] MEDS ORDERED: NITROSTAT SL PRN (19:53)
[2021-09-13] MEDS ORDERED: ATROPINE SULFATE PFS IVP PRN (19:53)
[2021-09-13] MEDS ORDERED: NORCO 7.5-325 PO PRN (20:03)
[2021-09-13] MEDS ORDERED: DUONEB NEB PRN (20:03)
[2021-09-13] MEDS ORDERED: HUMALOG SUBCUT SCH (21:00)
[2021-09-13] MEDS ORDERED: ASPIRIN CHEWABLE PO SCH (21:00)
[2021-09-13 21:29] LABS: CREATINE KINASE 86.6 U/L (55-170); TROPONIN I < 0.012 ng/ml (0.0000-0.120)
[2021-09-13 22:05] VITALS: BMI 30.8
[2021-09-13] MEDS: CARAFATE PO SCH (22:32)
[2021-09-13] MEDS: SODIUM BICARBONATE PO SCH (22:32)
[2021-09-13] MEDS: LANTUS SUBCUT SCH (23:22)
[2021-09-14 05:08] LABS: BASOPHILS # (AUTO) 0.1 K/uL (0-0.2); BASOPHILS % (AUTO) 0.7 % (0.0-3.0); EOSINOPHILS # (AUTO) 0.2 K/ul (0.0-0.7); EOSINOPHILS % (AUTO) 2.7 % (0.0-7.0); HEMATOCRIT 38.7 % (42.0-52.0); HEMOGLOBIN 13.8 g/dl (14.0-18.0); IMMATURE GRANULOCYTE # (AUTO) 0.1 (0.0-1.0); IMMATURE GRANULOCYTE % (AUTO) 0.9 % (0.0-5.0); LYMPHOCYTES % (AUTO) 22.6 (10.0-50.0); MEAN CORPUSCULAR HEMOGLOBIN 29.6 pg (27.0-31.0); MEAN CORPUSCULAR HGB CONC 35.7 (31.8-35.4); MONOCYTES # (AUTO) 0.9 K/uL (0.4-2.0); MONOCYTES % (AUTO) 10.2 (0-10); NEUTROPHILS # (AUTO) 5.6 K/ul (2.0-6.9); NEUTROPHILS % (AUTO) 62.9 % (42.2-75.2); PLATELET COUNT 250 10^3/uL (140-440); RDW COEFFICIENT OF VARIATION 12.8 % (11.6-14.8); RED BLOOD COUNT 4.66 10^6/ul (4.70-6.10); WHITE BLOOD COUNT 8.92 K/ul (4.2-10.2)
[2021-09-14 05:18] LABS: CREATINE KINASE 197.2 U/L (55-170)
[2021-09-14 05:20] LABS: BLOOD UREA NITROGEN 6.9 mg/dL (9-20); CALCIUM 7.88 mg/dL (8.4-10.2); CARBON DIOXIDE 25.3 mmol/L (22-30.0); CHLORIDE 91.8 mmol/L (98-107); CREATININE 0.81 mg/dL (0.60-1.10); POTASSIUM 4.28 mmol/L (3.5-5.1); SODIUM 121.6 mmol/L (134.5-145)
[2021-09-14 05:31] LABS: TROPONIN I < 0.012 ng/ml (0.0000-0.120)
[2021-09-14] MEDS: CARAFATE PO SCH ×4 (05:40→20:25)
[2021-09-14] MEDS ORDERED: PROTONIX PO SCH (07:30)
[2021-09-14] MEDS: ASPIRIN CHEWABLE PO SCH ×2 (08:23→17:06)
[2021-09-14] MEDS: TRADJENTA PO SCH (08:23)
[2021-09-14] MEDS: LIPITOR PO SCH (08:24)
[2021-09-14] MEDS: HUMALOG SUBCUT SCH ×4 (08:24→17:12)
[2021-09-14] MEDS: SPIRIVA IH SCH (08:24)
[2021-09-14] MEDS: PLAVIX PO SCH (08:24)
[2021-09-14] MEDS: SODIUM BICARBONATE PO SCH ×2 (08:24→20:24)
[2021-09-14] MEDS: FLOMAX PO SCH (08:24)
[2021-09-14] MEDS ORDERED: LINZESS PO SCH (09:00)
[2021-09-14] MEDS ORDERED: SODIUM CHLORIDE 1,000 ML IV STA (09:05)
[2021-09-14 11:33] LABS: BILIRUBIN,URINE Negative (NEGATIVE); CLARITY,URINE Clear (CLEAR); COLOR,URINE Yellow (YELLOW); GLUCOSE, URINE (UA) Negative (NEGATIVE); KETONES,URINE Negative (NEGATIVE); LEUKOCYTE ESTERASE ,URINE Negative (NEGATIVE); NITRITE,URINE Negative (NEGATIVE); PROTEIN,URINE Negative (NEGATIVE); URINE, BLOOD Negative (NEGATIVE); UROBILINOGEN,URINE 0.2 (0.2)
[2021-09-14] MEDS: SODIUM CHLORIDE 3% 500 ML IV SCH ×2 (13:36→20:23)
[2021-09-14] MEDS: PROTONIX PO SCH (17:06)
[2021-09-14] MEDS: AMITIZA PO SCH (20:24)
[2021-09-14] MEDS: LANTUS SUBCUT SCH (20:25)
[2021-09-14] MEDS: SODIUM CHLORIDE 1,000 ML IV SCH (20:55)
[2021-09-15 05:06] LABS: BASOPHILS # (AUTO) 0.1 K/uL (0-0.2); BASOPHILS % (AUTO) 0.6 % (0.0-3.0); EOSINOPHILS # (AUTO) 0.2 K/ul (0.0-0.7); EOSINOPHILS % (AUTO) 2.4 % (0.0-7.0); HEMATOCRIT 40.6 % (42.0-52.0); HEMOGLOBIN 14.2 g/dl (14.0-18.0); IMMATURE GRANULOCYTE # (AUTO) 0.1 (0.0-1.0); IMMATURE GRANULOCYTE % (AUTO) 1.1 % (0.0-5.0); LYMPHOCYTES # (AUTO) 2.4 K/uL (0.60-3.4); LYMPHOCYTES % (AUTO) 28.5 (10.0-50.0); MEAN CORPUSCULAR HEMOGLOBIN 29.4 pg (27.0-31.0); MEAN CORPUSCULAR VOLUME 84.1 fl (80.0-94.0); MONOCYTES # (AUTO) 0.8 K/uL (0.4-2.0); MONOCYTES % (AUTO) 9.7 (0-10); NEUTROPHILS # (AUTO) 4.8 K/ul (2.0-6.9); NEUTROPHILS % (AUTO) 57.7 % (42.2-75.2); PLATELET COUNT 271 10^3/uL (140-440); RDW COEFFICIENT OF VARIATION 12.9 % (11.6-14.8); RED BLOOD COUNT 4.83 10^6/ul (4.70-6.10); WHITE BLOOD COUNT 8.32 K/ul (4.2-10.2)
[2021-09-15 05:14] LABS: ALANINE AMINOTRANSFERASE 9.5 U/L (0-50); ALBUMIN 3.23 g/dL (3.5-5.0); ALKALINE PHOSPHATASE 110.9 U/L (56-119); ASPARTATE AMINO TRANSFERASE 21.6 U/L (17-59); BILIRUBIN,TOTAL 0.39 mg/dL (0.2-1.3); BLOOD UREA NITROGEN 5.4 mg/dL (9-20); CALCIUM 7.92 mg/dL (8.4-10.2); CARBON DIOXIDE 24.7 mmol/L (22-30.0); CHLORIDE 97.6 mmol/L (98-107); CREATININE 0.81 mg/dL (0.60-1.10); GLUCOSE 148.9 mg/dL (74-106); POTASSIUM 4.15 mmol/L (3.5-5.1); SODIUM 128.7 mmol/L (134.5-145); TOTAL PROTEIN 6.55 g/dL (6.3-8.2)
[2021-09-15] MEDS: CARAFATE PO SCH ×5 (05:41→20:50)
[2021-09-15] MEDS: PROTONIX PO SCH ×3 (05:41→17:30)
[2021-09-15] MEDS: SODIUM BICARBONATE PO SCH ×3 (08:31→20:50)
[2021-09-15] MEDS: AMITIZA PO SCH ×3 (08:31→20:50)
[2021-09-15] MEDS: LIPITOR PO SCH ×2 (08:31→10:38)
[2021-09-15] MEDS: FLOMAX PO SCH ×2 (08:31→10:37)
[2021-09-15] MEDS: TRADJENTA PO SCH ×2 (08:31→10:38)
[2021-09-15] MEDS: ASPIRIN CHEWABLE PO SCH ×3 (08:32→17:30)
[2021-09-15] MEDS: PLAVIX PO SCH ×2 (08:32→10:38)
[2021-09-15] MEDS: SPIRIVA IH SCH ×2 (08:35→10:38)
[2021-09-15] MEDS: SODIUM CHLORIDE 1,000 ML IV SCH ×2 (08:36→17:30)
[2021-09-15] MEDS: HUMALOG SUBCUT SCH ×3 (08:37→17:30)
[2021-09-15] MEDS: SODIUM CHLORIDE 3% 500 ML IV SCH (08:37)
[2021-09-15] MEDS ORDERED: HALDOL IM PRN (18:01)
[2021-09-15] MEDS: LANTUS SUBCUT SCH (20:11)
[2021-09-16 05:29] LABS: BASOPHILS # (AUTO) 0.1 K/uL (0-0.2); BASOPHILS % (AUTO) 0.6 % (0.0-3.0); EOSINOPHILS # (AUTO) 0.2 K/ul (0.0-0.7); EOSINOPHILS % (AUTO) 1.7 % (0.0-7.0); HEMATOCRIT 42.2 % (42.0-52.0); HEMOGLOBIN 14.6 g/dl (14.0-18.0); IMMATURE GRANULOCYTE # (AUTO) 0.1 (0.0-1.0); IMMATURE GRANULOCYTE % (AUTO) 0.7 % (0.0-5.0); LYMPHOCYTES # (AUTO) 2.7 K/uL (0.60-3.4); MEAN CORPUSCULAR HEMOGLOBIN 29.3 pg (27.0-31.0); MEAN CORPUSCULAR HGB CONC 34.6 (31.8-35.4); MEAN CORPUSCULAR VOLUME 84.6 fl (80.0-94.0); MONOCYTES % (AUTO) 9.1 (0-10); NEUTROPHILS # (AUTO) 6.5 K/ul (2.0-6.9); NEUTROPHILS % (AUTO) 61.9 % (42.2-75.2); PLATELET COUNT 286 10^3/uL (140-440); RDW COEFFICIENT OF VARIATION 13.2 % (11.6-14.8); RED BLOOD COUNT 4.99 10^6/ul (4.70-6.10)
[2021-09-16] MEDS: PROTONIX PO SCH ×2 (05:48→17:26)
[2021-09-16] MEDS: CARAFATE PO SCH ×4 (05:48→20:57)
[2021-09-16] MEDS: SODIUM CHLORIDE 1,000 ML IV SCH ×2 (05:48→16:54)
[2021-09-16 05:53] LABS: ALBUMIN 3.43 g/dL (3.5-5.0); ALKALINE PHOSPHATASE 111.9 U/L (56-119); ASPARTATE AMINO TRANSFERASE 27.1 U/L (17-59); BILIRUBIN,TOTAL 0.51 mg/dL (0.2-1.3); BLOOD UREA NITROGEN 3.9 mg/dL (9-20); CALCIUM 8.46 mg/dL (8.4-10.2); CHLORIDE 96.2 mmol/L (98-107); CREATININE 0.89 mg/dL (0.60-1.10); POTASSIUM 4.06 mmol/L (3.5-5.1); SODIUM 130.9 mmol/L (134.5-145); TOTAL PROTEIN 6.71 g/dL (6.3-8.2)
[2021-09-16] MEDS: AMITIZA PO SCH ×2 (08:45→20:58)
[2021-09-16] MEDS: PLAVIX PO SCH (08:45)
[2021-09-16] MEDS: ASPIRIN CHEWABLE PO SCH ×2 (08:45→17:26)
[2021-09-16] MEDS: LIPITOR PO SCH (08:45)
[2021-09-16] MEDS: TRADJENTA PO SCH (08:45)
[2021-09-16] MEDS: SODIUM BICARBONATE PO SCH ×2 (08:45→20:57)
[2021-09-16] MEDS: FLOMAX PO SCH (08:46)
[2021-09-16] MEDS: SPIRIVA IH SCH (08:52)
[2021-09-16] MEDS: HUMALOG SUBCUT SCH ×3 (08:53→17:29)
--- NOTE | 2021-09-16 09:16 | PCM.PROG ---
Attending Provider: ATTENDING PROVIDER: Dr. JOVANNI LESTER This patient is seen with Ananya Santiago, Nurse Practitioner. DATE OF SERVICE: 09/16/21 SUBJECTIVE: This 76 year old /WHITE M was hospitalized 09/13/21. Still with increased confusion. Family states this is a sudden change occurring right be fore admission. He has not improved with sodium improvement. He does have underlining dementia but not to the extent. CT of the brain was normal. He has been combative, confused and not eating well. REVIEW OF SYSTEMS: CONSTITUTIONAL: No night sweats. No fatigue, malaise, lethargy. No fever or chills. Confusion. Agitation. HEENT: Eyes: No visual changes. No eye pain. No eye discharge. ENT: No runny nose. No epistaxis. No sinus pain. No odynophagia. No congestion. RESPIRATORY: No cough, no congestion. No hemoptysis. No shortness of breath. CARDIOVASCULAR: No angina symptoms. No CHF symptoms. No atypical chest pain for CAD. No palpitations. No orthopnea.. GASTROINTESTINAL: No abdominal pain. No nausea or vomiting. No diarrhea or constipation. No hematemesis. No hematochezia. GENITOURINARY: No urgency. No frequency. No dysuria. No hematuria. No obstructive symptoms. No discharge. No pain. No significant abnormal bleeding. MUSCULOSKELETAL: No musculoskeletal pain; no joint swelling. NEUROLOGICAL: Awake, alert, oriented to time, place and person. No headache. No neck pain. No syncope. No seizures. No dizziness. PSYCHIATRIC: Not anxious. No depression. No suicidal thoughts. No homicidal thoughts. SKIN: No rash. No lesions. No wounds. ENDOCRINE: No unexplained weight loss. No weight gain. HEMATOLOGIC/LYMPHATIC: No anemia. No purpura. No petechiae. No prolonged or excessive bleeding. No palpable lymph nodes. PHYSICAL EXAMINATION: GENERAL: The patient is awake, alert and oriented, sitting in bed in no distress. VITAL SIGNS: Temperature 97.9 F, Pulse 77, Respiratory Rate 18, BP 146/79, Pulse Ox 96% HEENT: Head normocephalic, atraumatic. Eyes: Extraocular muscles are intact. Pupils are equal, round and reactive to light and accommodation. Ears: No lesions. Nose appeared normal. Throat: No exudate or erythema. NECK: Supple. No JVD, no carotid bruit. No lymphadenopathy or thyromegaly. LUNGS: Diminished breath sounds. Clear to auscultation. Percussion note normal. Chest symmetrical. HEART: S1, S2, no S3. No murmurs. No cyanosis or clubbing. No ascites. Pulses: Dorsalis pedis and posterior tibial pulses +1 to +2 both sides. ABDOMEN: Soft. Non-tender. Bowel sounds active. No CVA tenderness. No mass felt. EXTREMITIES: No edema. Full range of motion of all extremities, equal. NEUROLOGIC: No focal deficit. Cranial nerves II through XII are grossly intact. No headache. No double vision. SKIN: Not dry. Intact. Turgor-normal. LYMPHATIC: No palpable lymph nodes/no lymphedema. MUSCULOSKELETAL: Normal joints with no swelling. Muscle tone is normal. LAB REVIEW: 09/16/21 05:23 09/16/21 05:23 09/16/21 05:23: Sodium 130.9 L, Potassium 4.06, Chloride 96.2 L, Carbon Dioxide 29.0, Anion Gap 9.76, BUN 3.9 L, Creatinine 0.89, Estimated GFR (MDRD) 83.00, BUN/Creatinine Ratio 4.38, Glucose 144.0 H, Calcium 8.46, Total Bilirubin 0.51, AST 27.1, ALT 11.0, Alkaline Phosphatase 111.9, Total Protein 6.71, Albumin 3.43 L, Globulin 3.28, Albumin/Globulin Ratio 1.04 09/16/21 05:23: WBC 10.50 H, RBC 4.99, Hgb 14.6, Hct 42.2, MCV 84.6, MCH 29.3, MCHC 34.6, RDW Coeff of Leanna 13.2, Plt Count 286, Immature Gran % (Auto) 0.7, Neut % (Auto) 61.9, Lymph % (Auto) 26.0, [place] % (Auto) 9.1, Eos % (Auto) 1.7, Baso % (Auto) 0.6, Neut # (Auto) 6.5, Lymph # (Auto) 2.7, Marathon # (Auto) 1.0, Eos # (Auto) 0.2, Baso # (Auto) 0.1, Immature Gran # (Auto) 0.1 ASSESSMENT: Please see below. 1. Hyponatremia 2. Increased confusion 3. Sudden change in mental status 4. Hypertension 5. PAD 6. Diabetes Mellitus type II PLAN: 1. MRI brain with and without 2. Bilateral carotid scan 3. 2D echo 4. Decrease fluids to 75cc an hour Plan and coordination of the patient's care discussed in the presence of Towel Rolling Machine Operator and nurse. SCRIBED BY: Lore BULLARD scribed while in presence of service performed by Dr. Lester/Ananya Santiago APRN on 09/16/21 ([id number])
--- NOTE | 2021-09-16 09:49 | RS.BEDDYS ---
Subjective Date of Evaluation: 09/16/21 Date of Onset/Injury/Change in Status: 09/13/21 Diagnosis: Hyponatremia; confusion Current Level of Function: This is a 76 year old male whom resides with his . He has baseline confusion and swallow difficulty including oral and pharyngeal phase deficits. The patient requires assistance with all home management and ADL tasks. He currently has a modified diet texture in the home environment. Current Diet: Soft and bite-sized with thin liquids. Current Subjective/complaints:: The patient was in bed with family at the bedside. He was alert and requesting breakfast tray. When asked questions, the patient was agitated and requested staff to leave the bedside. The patient was cooperative with daughter's questions. The patient was not oriented to place or time, but demonstrated understanding of person and situation(breakfast). The patient reported pain in his leg and the daughter notified nursing. The family reported that he has been coughing with PO intake and frequently refusing to eat or drink. The UPHOLSTERER OUTSIDE will complete a bedside evaluation to assess swallowing concerns. Medical History Comments:: GERD, COPD, oropharyngeal dysphagia, weakness. General Information - General Denture Type: Not Applicable (Edentulous) Patient Orientation: Person Ability to Follow Directions: Poor Oral Expression Ability: Mild Impairment - Voice Voice Quality: Normal Oral-Facial Assessment - Face Facial Symmetry: Symmetrical Face Comment: Assessed at rest; pt did not follow directions with oral motor examination - Dental/Labial Lip Protrusion: Normal (Labial rounding on straw; spoon clearance with PO trials) - Lingual Protrusion: Normal Retraction: Normal Tip Lateralization: Discoordination - Comments/Additional Info. Comments:: A full oral motor and oral mechanism examination was not completed due to pts compliance to allow UPHOLSTERER OUTSIDE to look in the oral cavity or follow oral motor directions. Food Presentation - Solids Food Presented: Mechanical Soft (Soft and bite-sized trials) Behaviors/Comments: The patient fed self. Heaping spoonful of diet trials self- presented. UPHOLSTERER OUTSIDE attempted to reduce bite-size and pt became agitated. For oral phase, pt demonstrated prolonged mastication with piecemeal deglutition. Bolus coordination functional with moderately decreased bolus formation. Mild-moderate oral stasis post swallow. No overt s/s of aspiration observed with 50% of meal. - Liquids Liquid Presented: Thin (via straw) Behaviors/Comments: Pt self-presented drinks via straw. The patient demonstrated delayed swallow initiation in 2-3 seconds duration. Audible swallow response and 1x multiple swallow response observed. Laryngeal palpation revealed moderately decreased laryngeal elevation for airway protection. The patient had no overt s/s of aspiration with sips of thin liquids via straw. UPHOLSTERER OUTSIDE attempted 3 oz water test and pt refused open cup. - Recommendations: Dysphagia Evaluation Dietary Recommendations: Soft and Bite-Sized ( All meats ground with extra sauces, gravy, condiments) Comments:: Pt tolerated soft and bite-sized texture with side food items. However meats were not trialed, but due to pt's mastication process with soft items, UPHOLSTERER OUTSIDE suspects moderate difficulty with meat texture and recommends all meat to be ground with gravy, sauces, or condiments. All MEDS CRUSHED IN P UDDING Dysphagia Swallow Precautions/Strategies: Sitting Upright (90 deg), Liquids from Straw, Small Bites and Sips, Alternate Liquids/Solids Comments:: Pt recommended to utilize safe swallow and aspiration precautions 100% of PO intake. GERD precautions to be utilized as well including upright for all PO intake and remain upright 30 minutes post meal, external pacing, small bites, no liquid washes. - Summary Dysphagia Evaluation Summary: The patient presented with oral and pharyngeal phase deficits as evidenced by mastication process with bolus formation, suspected decreased A-P movement, mildly delayed swallow initiation, moderately decreased LE. With diet trials of soft and bite-sized side items and sips of thin liquids via straw, the patient did not exhibit any overt s/s of aspiration. At this time, UPHOLSTERER OUTSIDE would recommend pt continue thin liquids via straw, soft and bite-sized diet with exception for all meats ground with sauces/gravy/condiments. UPHOLSTERER OUTSIDE recommends GI consult due to pt's symptoms with coughing and emesis with PO intake and decreased PO intake/poor appetite. The patient's CXR does not show chest congestion or signs of aspiration episodes. UPHOLSTERER OUTSIDE will complete dysphagia treatment and educate family for safe swallowing and aspiration precautions. Further Therapy Indicated?: Yes Comments: UPHOLSTERER OUTSIDE to treat for diet texture monitoring, safe swallow/aspiration precautions, and determine need for swallow study. Rehab Potential: Fair Functional Reporting G Codes: n/a Severity Impairment Rationale: n/a Short Term Goals Problem: Aspiration risks Goal #1: Pt utilize safe swallow strategies without overt s/s of aspiration. Goal to be met by: 09/20/21 Problem: Lingual residue Goal #2: Pt to complete lingual exercises with 80% accuracy. Goal to be met by: 09/20/21 Problem: Laryngeal elevation Goal #3: Trial LE to improve airway protection Goal to be met by: 09/20/21 Problem: PO intake Goal #4: Pt tolerate soft and bite-sized diet with min to no overt s/s of aspiration Goal to be met by: 09/20/21 Problem: Aspiration risks Goal #5: Pt tolerate thin liquids with min to no overt s/s of aspiration Goal to be met by: 09/20/21 Financial Legal Assistant Goals Problem: PO intake Goal #1: Pt maintain adequate hydration/nutrition w/ safer and least rest. diet Goal to be met by: 09/20/21 Plan Duration of Treatment: 1 Week Frequency of Treatment: 1x/day Comments: GI consult; potential MBSS; all meats ground with soft and bite-sized diet and thin liquids.
[2021-09-16] MEDS ORDERED: ATIVAN IVP ONE (11:27)
[2021-09-16] MEDS ORDERED: ZOFRAN 4 MG/2 ML IVP PRN (11:42)
[2021-09-16] MEDS: ATIVAN IM ONE ×2 (12:00→13:04)
--- NOTE | 2021-09-16 13:47 | MRI ---
EXAMINATION: MAGNETIC RESONANCE IMAGING (MRI) OF THE BRAIN WITH AND WITHOUT CONTRAST HISTORY: New onset confusion. TECHNIQUE: Multiplanar multi-weighted MRI of the brain and brainstem was performed with and without i ntravenous contrast using the general brain protocol. Contrast: 18 mL of Clariscan COMPARISON: CT head 09/13/2021 FINDINGS: Multiple sequences are degraded by motion artifact. Parenchyma: No acute infarct. No acute hemorrhage. No enhancing intracranial lesion. No mass effec t or midline shift. Craniocervical junction is normal. Chronic Change: Patchy and confluent foci of T2/FLAIR hyperintensity in the periventricular and subco rtical white matter, which are nonspecific, however likely represent severe chronic microvascular isc hemia. No remote microhemorrhages. Moderate generalized cortical volume loss. Chronic lacunar infa rcts in the bilateral centrum semiovale and left lentiform nucleus. Ventricles/Extra-axial Spaces: Ventricles are normal in size and morphology for age. Normal basal ci sterns. Sella/Skull Base: Pituitary and sella are normal. Paranasal Sinuses/Mastoids: Mild to moderate mucosal thickening and fluid throughout the paranasal si nuses. Mastoid air cells are clear. Orbits: Bilateral artificial lens replacements. Vasculature: Normal flow voids in the carotid arteries and basilar artery. Calvarium/Scalp: Normal marrow. No soft tissue swelling. Limited Cervical Spine: Moderate degenerative changes, incompletely imaged. IMPRESSION: No acute intracranial abnormality within limitation of motion artifact. Severe chronic microvascular ischemic white matter changes. Chronic lacunar infarcts in the bilateral centrum semiovale and left lentiform nucleus.
--- NOTE | 2021-09-16 14:13 | US ---
EXAM: Bilateral carotid duplex 09/16/2021 HISTORY: Confusion COMPARISON: 07/22/2019 FINDINGS: Duplex ultrasound including quintero scale, color and spectral Doppler has been performed. An tegrade flow is present within the carotid and vertebral arteries.. Atherosclerotic plaque along the superior common carotid arteries. This extends in the proximal internal carotid arteries. Peak systolic velocity right common carotid artery 54.6 cm/sec, right internal carotid artery 70.3 cm /sec. This ratio is 1.3. Peak systolic velocity left common carotid artery 72.5 cm/sec, left internal carotid artery 129 cm/se c. This ratio is 1.8. IMPRESSION: 1. Antegrade flow within the carotid and vertebral arteries. No evidence of arterial occlusion. 2. Bulky bilateral atherosclerotic plaque. 3. Findings suggest less than 50% stenosis of the right internal carotid artery. 50 - 69% stenosis of the left internal carotid artery.
--- NOTE | 2021-09-16 15:03 | PN ---
DATE OF SERVICE: 09/14/21 SUBJECTIVE 76 year old male hospitalized on 09/13/21 with hyponatremia and feeling tired and fatigue. The patient was entirely worked up. The patient had mild nausea with vomiting after he eats. He denies of any chest pain. No PND. No orthopnea. No palpitation. REVIEW OF SYSTEMS: CONSTITUTIONAL: No night sweats. No fatigue, malaise, lethargy. No fever or chills. HEENT: Eyes: No visual changes. No eye pain. No eye discharge. ENT: No runny nose. No epistaxis. No sinus pain. No sore throat. No odynophagia. No ear pain. No congestion. RESPIRATORY: No cough, no congestion. No hemoptysis. No shortness of breath. CARDIOVASCULAR: No angina symptoms. No CHF symptoms. No atypical chest pain for CAD. No palpitations. No PND. No orthopnea. GASTROINTESTINAL: No abdominal pain. No nausea or vomiting. No diarrhea or constipation. No hematemesis. No hematochezia. GENITOURINARY: No urgency. No frequency. No dysuria. No hematuria. No obstructive symptoms. No discharge. No pain. No significant abnormal bleeding. MUSCULOSKELETAL: No musculoskeletal pain. No joint swelling. No arthritis. NEUROLOGICAL: No headache. No neck pain. No syncope. No seizures. No dizziness. PSYCHIATRIC: Not anxious. No depression. No suicidal thoughts. No homicidal thoughts. SKIN: No rash. No lesions. No wounds. ENDOCRINE: No unexplained weight loss. No weight gain. HEMATOLOGIC/LYMPHATIC: No anemia. No purpura. No petechiae. No prolonged or excessive bleeding. No palpable lymph nodes. PHYSICAL EXAMINATION: VITAL SIGNS: Temperature 97.3, pulse 79, respiratory rate 18, blood pressure 130/72 and pulse ox 96%. HEENT: Head normocephalic, atraumatic. Eyes: Extraocular muscles are intact. Pupils are equal, round and reactive to light and accommodation. Ears: No lesions. Nose appeared normal. Throat: No exudate or erythema. NECK: Supple. No JVD, no carotid bruit. No lymphadenopathy or thyromegaly. LUNGS: Clear to auscultation. Percussion note normal. Chest symmetrical. HEART: S1, S2, no S3. No murmur. No cyanosis or clubbing. No ascites. Pulses: Dorsalis pedis and posterior tibial pulses +1 to +2 bilaterally. ABDOMEN: Soft. Nontender. Bowel sounds active. No CVA tenderness. No mass felt. EXTREMITIES: Trace pedal edema noted. Full range of motion of all extremities. Left above knee amputation. NEUROLOGIC: No focal deficit. Cranial nerves II through XII are grossly intact. No headache, no double vision or headache. SKIN: Not dry. Intact. Turgor - normal. LYMPHATIC: No palpable lymph nodes/no lymphedema. MUSCULOSKELETAL: Normal joints with no swelling. Muscle tone is normal. LABS: Hgb 13.8, hct 38, WBC 8,900 normal differential, creatinine 0.8, BUN 7, potassium 4.2, sodium 121 ASSESSMENT: 1. Hyponatremia 2. Confusion could be related like urinary tract infection but the U/A is normal 3. Diabetes Mellitus 4. Left above knee amputation PLAN: 1. Change IV fluids to 3% normal saline 500cc every 8 hours 2. Will monitor CBC and CMP 3. Protonix 40mg twice a day 4. Continue Carafate 6mg 5. Linzess we don't have so start Amitiza His is in the room. Says that he is not much of a problem being taken care of home. Comes around from the bed and gets into the wheelchair and wheels himself all over the place. The patient had no vomiting today. CONDITION: Stable. TIME SPENT: More than 30 minutes. Plan and coordination of the patient's care discussed in the presence of nurse. SAHIL
--- NOTE | 2021-09-16 15:19 | HP ---
DATE OF SERVICE: 09/13/21 ADMIT NOTE HISTORY OF PRESENT ILLNESS: 76 year old white male hospitalized with possibility of stroke but had confusion at home. On further workup the patient's CT scan of the head and the entire workup in the emergency room was negative for any stroke but the patient had hyponatremia also has history now for few days of having problem with little vomiting and swallowing more like reflux symptoms. 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 No fatigue, malaise, lethargy. No fever or chills. HEENT: Eyes: No visual changes. No eye pain. No eye discharge. ENT: No runny nose. No epistaxis. No sinus pain. No sore throat. No odynophagia. No ear pain. No congestion. RESPIRATORY: No cough, no congestion. No hemoptysis. No shortness of breath. CARDIOVASCULAR: No angina symptoms. No CHF symptoms. No atypical chest pain for CAD. No palpitations. No PND. No orthopnea. GASTROINTESTINAL: No abdominal pain. No nausea or vomiting. No diarrhea or constipation. No hematemesis. No hematochezia. GENITOURINARY: No urgency. No frequency. No dysuria. No hematuria. No obstructive symptoms. No discharge. No pain. No significant abnormal bleeding. MUSCULOSKELETAL: No musculoskeletal pain. No joint swelling. No arthritis. NEUROLOGICAL: No headache. No neck pain. No syncope. No seizures. No dizziness. PSYCHIATRIC: Not anxious. No depression. No suicidal thoughts. No homicidal thoughts. SKIN: No rash. No lesions. No wounds. ENDOCRINE: No unexplained weight loss. No weight gain. HEMATOLOGIC/LYMPHATIC: No anemia. No purpura. No petechiae. No prolonged or excessive bleeding. No palpable lymph nodes. PERSONAL/FAMILY/SOCIAL HISTORY: lives with the . is able to take care of him according to her. The patient rolls around from his bed to the chair and he wheels around. He doesn't seem to have problem with him requires a lot of help from activity of daily living. No alcohol abuse. MEDICATIONS: Hydrocodone Insulin Linzess Sucralfate Atorvastatin Pantoprazole Clopidogrel Aspirin Lexapro Tamsulosin Bicarb ALLERGIES: None PHYSICAL EXAMINATION: GENERAL: The patient seems to be oriented to time, place and person. VITAL SIGNS: Temperature 98.2, pulse 72, respiratory rate 18, blood pressure 122/92 and pulse ox 95% on room air. HEENT: Head normocephalic, atraumatic. Eyes: Extraocular muscles are intact. Pupils are equal, round and reactive to light and accommodation. Ears: No lesions. Nose appeared normal. Throat: No exudate or erythema. NECK: Supple. No JVD, no carotid bruit. No lymphadenopathy or thyromegaly. LUNGS:Decreased breath sounds but clear to auscultation. Percussion note normal. Chest symmetrical. HEART: S1, S2 distant, no S3. No murmur. No cyanosis or clubbing. No ascites. Pulses: Dorsalis pedis and posterior tibial pulses +1 to +2 bilaterally. ABDOMEN: Soft. Nontender. Bowel sounds active. No CVA tenderness. No mass felt. EXTREMITIES: Trace edema. Full range of motion of all extremities, equal. Left above knee amputation. NEUROLOGIC: No focal deficit. Cranial nerves II through XII are grossly intact. No headache, no double vision or headache. SKIN: Not dry. Intact. Turgor - normal. LYMPHATIC: No palpable lymph nodes/no lymphedema. MUSCULOSKELETAL: Normal joints with no swelling. Muscle tone is normal. ASSESSMENT: 1. Confusion at home possibility of stroke. The patient was ruled out to have a stroke 2. Hyponatremia 3. Above knee amputation with history of gangrene 4. Peripheral arterial disease 5. Diabetes Mellitus 6. Hypertension 7. Dyslipidemia PLAN: 1. U/A make sure that patient doesn't have an UTI 2. Normal saline 100cc per hour 3. Telemetry 4. CBC and CMP 5. Start Protonix seems to have reflux type of symptoms CONDITION: Stable. The patient is DNR. TIME SPENT: More than 70 minutes. CHETAND
[2021-09-16] MEDS: LANTUS SUBCUT SCH (21:18)
[2021-09-17] MEDS: SODIUM CHLORIDE 1,000 ML IV SCH ×2 (05:15→18:37)
[2021-09-17 05:51] LABS: BASOPHILS # (AUTO) 0.1 K/uL (0-0.2); BASOPHILS % (AUTO) 0.6 % (0.0-3.0); EOSINOPHILS # (AUTO) 0.3 K/ul (0.0-0.7); EOSINOPHILS % (AUTO) 3.4 % (0.0-7.0); HEMATOCRIT 40.6 % (42.0-52.0); HEMOGLOBIN 13.9 g/dl (14.0-18.0); IMMATURE GRANULOCYTE # (AUTO) 0.1 (0.0-1.0); IMMATURE GRANULOCYTE % (AUTO) 0.8 % (0.0-5.0); LYMPHOCYTES # (AUTO) 2.6 K/uL (0.60-3.4); LYMPHOCYTES % (AUTO) 30.8 (10.0-50.0); MEAN CORPUSCULAR HEMOGLOBIN 29.1 pg (27.0-31.0); MEAN CORPUSCULAR HGB CONC 34.2 (31.8-35.4); MEAN CORPUSCULAR VOLUME 85.1 fl (80.0-94.0); MONOCYTES # (AUTO) 0.8 K/uL (0.4-2.0); MONOCYTES % (AUTO) 8.9 (0-10); NEUTROPHILS # (AUTO) 4.7 K/ul (2.0-6.9); NEUTROPHILS % (AUTO) 55.5 % (42.2-75.2); PLATELET COUNT 286 10^3/uL (140-440); RDW COEFFICIENT OF VARIATION 13.2 % (11.6-14.8); RED BLOOD COUNT 4.77 10^6/ul (4.70-6.10)
[2021-09-17 06:06] LABS: ALANINE AMINOTRANSFERASE 9.5 U/L (0-50); ALBUMIN 3.16 g/dL (3.5-5.0); ALKALINE PHOSPHATASE 100.5 U/L (56-119); ASPARTATE AMINO TRANSFERASE 24.2 U/L (17-59); BILIRUBIN,TOTAL 0.35 mg/dL (0.2-1.3); BLOOD UREA NITROGEN 4.1 mg/dL (9-20); CALCIUM 8.07 mg/dL (8.4-10.2); CARBON DIOXIDE 27.9 mmol/L (22-30.0); CHLORIDE 99.2 mmol/L (98-107); CREATININE 0.8 mg/dL (0.60-1.10); GLUCOSE 139.5 mg/dL (74-106); POTASSIUM 4.04 mmol/L (3.5-5.1); SODIUM 130.8 mmol/L (134.5-145); TOTAL PROTEIN 6.39 g/dL (6.3-8.2)
[2021-09-17] MEDS: PROTONIX PO SCH ×2 (06:09→18:07)
[2021-09-17] MEDS: CARAFATE PO SCH ×4 (06:09→20:20)
--- NOTE | 2021-09-17 09:25 | PCM.PROG ---
Attending Provider: ATTENDING PROVIDER: Dr. JOVANNI LESTER This patient is seen with Ananya Santiago, Nurse Practitioner. DATE OF SERVICE: 09/17/21 SUBJECTIVE: This 76 year old /WHITE M was hospitalized 09/13/21. MRI yesterday showed chronic lacunar infarcts. Confusion still unchanged. Agitation has improved somewhat. Sodium is stable, still with fluids. REVIEW OF SYSTEMS: CONSTITUTIONAL: No night sweats. No fatigue, malaise, lethargy. No fever or chills. Weakness. HEENT: Eyes: No visual changes. No eye pain. No eye discharge. ENT: No runny nose. No epistaxis. No sinus pain. No odynophagia. No congestion. RESPIRATORY: No cough, no congestion. No hemoptysis. No shortness of breath. CARDIOVASCULAR: No angina symptoms. No CHF symptoms. No atypical chest pain for CAD. No palpitations. No orthopnea.. GASTROINTESTINAL: No abdominal pain. No nausea or vomiting. No diarrhea or constipation. No hematemesis. No hematochezia. GENITOURINARY: No urgency. No frequency. No dysuria. No hematuria. No obstructive symptoms. No discharge. No pain. No significant abnormal bleeding. MUSCULOSKELETAL: No musculoskeletal pain; no joint swelling. NEUROLOGICAL: Awake, confused. No headache. No neck pain. No syncope. No seizures. No dizziness. PSYCHIATRIC: Not anxious. No depression. No suicidal thoughts. No homicidal thoughts. SKIN: No rash. No lesions. No wounds. ENDOCRINE: No unexplained weight loss. No weight gain. HEMATOLOGIC/LYMPHATIC: No anemia. No purpura. No petechiae. No prolonged or excessive bleeding. No palpable lymph nodes. PHYSICAL EXAMINATION: GENERAL: The patient is awake, alert and oriented, lying in bed in no distress. VITAL SIGNS: Temperature 96.7 F, Pulse 70, Respiratory Rate 16, BP 151/83, Pulse Ox 96% HEENT: Head normocephalic, atraumatic. Eyes: Extraocular muscles are intact. Pupils are equal, round and reactive to light and accommodation. Ears: No lesions. Nose appeared normal. Throat: No exudate or erythema. NECK: Supple. No JVD, no carotid bruit. No lymphadenopathy or thyromegaly. LUNGS: Diminished breath sounds. Clear to auscultation. Percussion note normal. Chest symmetrical. HEART: S1, S2, no S3. No murmurs. No cyanosis or clubbing. No ascites. Pulses: Dorsalis pedis and posterior tibial pulses +1 to +2 both sides. ABDOMEN: Soft. Non-tender. Bowel sounds active. No CVA tenderness. No mass felt. EXTREMITIES: No edema. Full range of motion of all extremities, equal. NEUROLOGIC: No focal deficit. Cranial nerves II through XII are grossly intact. No headache. No double vision. SKIN: Not dry. Intact. Turgor-normal. LYMPHATIC: No palpable lymph nodes/no lymphedema. MUSCULOSKELETAL: Normal joints with no swelling. Muscle tone is normal. LAB REVIEW: 09/17/21 05:37 09/17/21 05:37 09/17/21 05:37: Sodium 130.8 L, Potassium 4.04, Chloride 99.2, Carbon Dioxide 27.9, Anion Gap 7.74, BUN 4.1 L, Creatinine 0.80, Estimated GFR (MDRD) 93.00, BUN/Creatinine Ratio 5.12, Glucose 139.5 H, Calcium 8.07 L, Total Bilirubin 0.35, AST 24.2, ALT 9.5, Alkaline Phosphatase 100.5, Total Protein 6.39, Albumin 3.16 L, Globulin 3.23, Albumin/Globulin Ratio 0.97 09/17/21 05:37: WBC 8.50, RBC 4.77, Hgb 13.9 L, Hct 40.6 L, MCV 85.1, MCH 29.1, MCHC 34.2, RDW Coeff of Leanna 13.2, Plt Count 286, Immature Gran % (Auto) 0.8, Neut % (Auto) 55.5, Lymph % (Auto) 30.8, [place] % (Auto) 8.9, Eos % (Auto) 3.4, Baso % (Auto) 0.6, Neut # (Auto) 4.7, Lymph # (Auto) 2.6, [place] # (Auto) 0.8, Eos # (Auto) 0.3, Baso # (Auto) 0.1, Immature Gran # (Auto) 0.1 ASSESSMENT: Please see below. 1. Acute hyponatremia 2. Change in mental status 3. Small lacunar infarcts 4. Peripheral arterial disease 5. Diabetes mellitus type II 6. Hypertension PLAN: 1. Discussed in great detail about long-term placement with family and they are in agreement 2. Continue IV fluids for sodium Plan and coordination of the patient's care discussed in the presence of Clinical Admissions Manager and nurse. SCRIBED BY: Lore BULLARD scribed while in presence of service performed by Dr. Lester/Ananya Santiago APRN on 09/17/21 ([id number])
[2021-09-17] MEDS: PLAVIX PO SCH ×2 (09:54→13:37)
[2021-09-17] MEDS: AMITIZA PO SCH ×3 (09:54→20:20)
[2021-09-17] MEDS: SODIUM BICARBONATE PO SCH ×3 (09:54→20:20)
[2021-09-17] MEDS: TRADJENTA PO SCH ×2 (09:54→13:40)
[2021-09-17] MEDS: ASPIRIN CHEWABLE PO SCH ×3 (09:54→18:06)
[2021-09-17] MEDS: LIPITOR PO SCH ×2 (09:55→13:36)
[2021-09-17] MEDS: FLOMAX PO SCH ×2 (09:55→13:34)
[2021-09-17] MEDS: HUMALOG SUBCUT SCH ×3 (09:56→18:12)
[2021-09-17] MEDS: SPIRIVA IH SCH (10:24)
--- NOTE | 2021-09-17 10:54 | RS.DYSPHTX ---
Dysphagia Treatment Note Date of Note: 09/17/21 Visit #: 1 Time of Treatment: 10:00 Subjective: The patient was in bed with snack and meal tray set-up. The patient demonstrated less agitation upon CLIENT SERVICE ASSOCIATE entry to room. The patient did ask the CLIENT SERVICE ASSOCIATE her name and her job. He was cooperative with PO trials, but not with swallow exercises. at bedside. She reported the patient is going to skilled nursing. The has concerns about his swallow response and quantity of PO intake. CLIENT SERVICE ASSOCIATE provided verbal education and positive reinforcement. Total treatment time: 30 - Short Term Goals Goal #1: Pt utilize safe swallow strategies without overt s/s of aspiration. Activity/Accuracy: Pt was partially reclined with PO intake. Upon request to correct, pt refused. CLIENT SERVICE ASSOCIATE educated at bedside with safe swallow and aspiration precautions including GERD precautions. She verbalized agreement, and reported she always gets him into the recliner in the home environment. Goal #2: Pt to complete lingual exercises with 80% accuracy. Activity/Accuracy: Pt refused. Goal #3: Trial LE to improve airway protection Activity/Accuracy: Pt refused. Goal #4: Pt tolerate soft and bite-sized diet with min to no overt s/s of aspiration Activity/Accuracy: Pt consumed snack of regular diet texture (baked chips). The patient demonstrated prolonged mastication process and decreased bolus formation. Pt utilized multiple swallows and liquid wash between bites. CLIENT SERVICE ASSOCIATE reviewed recommended diet texture with ground meats. The verbalized agreement with current modified diet, but reported she wants him to eat. CLIENT SERVICE ASSOCIATE discussed following diet recommendations for safe swallowing and reducing aspiration risks. Goal #5: Pt tolerate thin liquids with min to no overt s/s of aspiration Activity/Accuracy: Pt tolerated sips of thin liquids via straw without overt s/s of aspiration. Pt did not allow for laryngeal palpation this date. - Nursing Home Goals Goal #1: Pt maintain adequate hydration/nutrition w/ safer and least rest. diet Assessment: At this time, the patient has been more receptive to PO trials. The patient has clear lung sounds and is tolerating thin liquids with min to no overt s/s of aspiration. Pt is recommended for a modified barium swallow study and this will be completed within a week. CLIENT SERVICE ASSOCIATE recommeds pt continue modified diet soft and bite-sized with meats ground and extra sauces/gravy/condiments. Thin liquids via straw. Meds crushed in pudding. Oral care routine as pt allows. - Units Charged Swallowing Therapy: 2 - Plan Comments: CLIENT SERVICE ASSOCIATE provided education regarding MBSS. She agrees and feels this should have been done sooner, she is concerned with his swallowing and eating patterns. CLIENT SERVICE ASSOCIATE provided verbal reassurance.
--- NOTE | 2021-09-17 14:33 | PN ---
DATE OF SERVICE: 09/17/21 SUBJECTIVE: 76 year old male hospitalized with hyponatremia. The patient's sodium is now 131 other lab findings are negative. His condition is stable. He is confused at times but alert. The patient's family had agreed to put him in the [facility] but the [facility] that family wanted him to go to doesn't want to accept him. The patient was seen and examined with the Nurse Practitioner. TIME SPENT: More than 30 minutes. Plan and coordination of the patient's care discussed in the presence of nurse. ASHIL
--- NOTE | 2021-09-17 14:36 | PN ---
DATE OF SERVICE: 09/16/21 SUBJECTIVE: 76 year old white male hospitalized with confusion and hyponatremia. The patient has been given Haldol IM intermittently. He is uncooperative. The patient was seen and examined with the Nurse Practitioner. Condition is otherwise stable. The patient maybe candidate for going to the intermediate. We will do an echo before discharge. TIME SPENT: More than 30 minutes. Plan and coordination of the patient's care discussed in the presence of nurse. SAHIL
[2021-09-17] MEDS: LANTUS SUBCUT SCH (20:09)
[2021-09-18 05:51] LABS: BASOPHILS # (AUTO) 0.1 K/uL (0-0.2); BASOPHILS % (AUTO) 0.6 % (0.0-3.0); EOSINOPHILS # (AUTO) 0.4 K/ul (0.0-0.7); EOSINOPHILS % (AUTO) 4.1 % (0.0-7.0); HEMATOCRIT 41.6 % (42.0-52.0); HEMOGLOBIN 14.1 g/dl (14.0-18.0); IMMATURE GRANULOCYTE # (AUTO) 0.1 (0.0-1.0); IMMATURE GRANULOCYTE % (AUTO) 0.8 % (0.0-5.0); LYMPHOCYTES # (AUTO) 2.6 K/uL (0.60-3.4); LYMPHOCYTES % (AUTO) 30.2 (10.0-50.0); MEAN CORPUSCULAR HEMOGLOBIN 29.4 pg (27.0-31.0); MEAN CORPUSCULAR HGB CONC 33.9 (31.8-35.4); MEAN CORPUSCULAR VOLUME 86.7 fl (80.0-94.0); MONOCYTES # (AUTO) 0.8 K/uL (0.4-2.0); MONOCYTES % (AUTO) 8.9 (0-10); NEUTROPHILS # (AUTO) 4.8 K/ul (2.0-6.9); NEUTROPHILS % (AUTO) 55.4 % (42.2-75.2); PLATELET COUNT 281 10^3/uL (140-440); RDW COEFFICIENT OF VARIATION 13.2 % (11.6-14.8); WHITE BLOOD COUNT 8.62 K/ul (4.2-10.2)
[2021-09-18] MEDS: CARAFATE PO SCH ×4 (06:07→20:11)
[2021-09-18] MEDS: PROTONIX PO SCH ×2 (06:07→17:21)
[2021-09-18 06:09] LABS: ALANINE AMINOTRANSFERASE 9.1 U/L (0-50); ALKALINE PHOSPHATASE 95.5 U/L (56-119); ASPARTATE AMINO TRANSFERASE 19.1 U/L (17-59); BILIRUBIN,TOTAL 0.31 mg/dL (0.2-1.3); BLOOD UREA NITROGEN 6.1 mg/dL (9-20); CALCIUM 7.99 mg/dL (8.4-10.2); CARBON DIOXIDE 29.7 mmol/L (22-30.0); CHLORIDE 100.8 mmol/L (98-107); CREATININE 0.92 mg/dL (0.60-1.10); GLUCOSE 141.8 mg/dL (74-106); POTASSIUM 4.12 mmol/L (3.5-5.1); SODIUM 134.2 mmol/L (134.5-145); TOTAL PROTEIN 6.12 g/dL (6.3-8.2)
[2021-09-18] MEDS: SODIUM CHLORIDE 1,000 ML IV SCH ×2 (08:43→21:19)
[2021-09-18] MEDS: ASPIRIN CHEWABLE PO SCH ×2 (09:15→17:21)
[2021-09-18] MEDS: SPIRIVA IH SCH (09:16)
[2021-09-18] MEDS: LIPITOR PO SCH (09:16)
[2021-09-18] MEDS: PLAVIX PO SCH (09:16)
[2021-09-18] MEDS: FLOMAX PO SCH (09:16)
[2021-09-18] MEDS: SODIUM BICARBONATE PO SCH ×2 (09:16→20:11)
[2021-09-18] MEDS: AMITIZA PO SCH ×2 (09:16→20:10)
[2021-09-18] MEDS: TRADJENTA PO SCH (09:16)
--- NOTE | 2021-09-18 09:48 | PN ---
DATE OF SERVICE: 09/15/21 SUBJECTIVE: 76 year old white male hospitalized with hyponatremia, confusion. The patient had no CVA. CT scan of the head was negative. Condition has improved. His problem is that he is very restless and very uncooperative, doesn't want to wear his telemetry, pulling his IVs out. REVIEW OF SYSTEMS: CONSTITUTIONAL: No night sweats. No fatigue, malaise, lethargy. No fever or chills. Patient says that he is feeling better, got up and took a shower and feels a lot better. HEENT: Eyes: No visual changes. No eye pain. No eye discharge. ENT: No runny nose. No epistaxis. No sinus pain. No sore throat. No odynophagia. No congestion. RESPIRATORY: No cough, no congestion. No hemoptysis. No shortness of breath. CARDIOVASCULAR: No angina symptoms. No CHF symptoms. No atypical chest pain for CAD. No palpitations. No PND. No orthopnea. GASTROINTESTINAL: No abdominal pain. No nausea or vomiting. No diarrhea or constipation. No hematemesis. No hematochezia. GENITOURINARY: No urgency. No frequency. No dysuria. No hematuria. No obstructive symptoms. No discharge. No pain. No significant abnormal bleeding. MUSCULOSKELETAL: No musculoskeletal pain; no joint swelling. NEUROLOGICAL: No headache. No neck pain. No syncope. No seizures. No dizziness. PSYCHIATRIC: Not anxious. No depression. No suicidal thoughts. No homicidal thoughts. SKIN: No rash. No lesions. No wounds. ENDOCRINE: No unexplained weight loss. No weight gain. HEMATOLOGIC/LYMPHATIC: No anemia. No purpura. No petechiae. No prolonged or excessive bleeding. No palpable lymph nodes. PHYSICAL EXAMINATION: VITAL SIGNS: Temperature 97.8, pulse 68, respiratory rate 18, blood pressure 136/68 and pulse ox 97%. HEENT: Head normocephalic, atraumatic. Eyes: Extraocular muscles are intact. Pupils are equal, round and reactive to light and accommodation. Ears: No lesions. Nose appeared normal. Throat: No exudate or erythema. NECK: Supple. No JVD, no carotid bruit. No lymphadenopathy or thyromegaly. LUNGS: Decreased breath sounds but clear to auscultation. Percussion note normal. Chest symmetrical. HEART: S1, S2, no S3. No murmurs. No cyanosis or clubbing. No ascites. Pulses: Dorsalis pedis and posterior tibial pulses +1 to +2 bilaterally. ABDOMEN: Soft. Nontender. Bowel sounds active. No CVA tenderness. No mass felt. EXTREMITIES: No edema. Full range of motion of all extremities, equal. NEUROLOGIC: No focal deficit. Cranial nerves II through XII are grossly intact. No headache. No double vision. SKIN: Not dry. Intact. Turgor - normal. LYMPHATIC: No palpable lymph nodes/no lymphedema. MUSCULOSKELETAL: Normal joints with no swelling. Muscle tone is normal. LABS: hgb 14.2, hct 40, WBC 8,300 normal differential, creatinine 0.8, BUN 5, potassium 4.1. Sodium 128.7 ASSESSMENT: 1. Hyponatremia seems to be resolving 2. Mental status has improved. He is more alert and in fact he is cooperative. Doesn't want to add telemetry. He needed Haldol 1mg Q 6 hours for restlessness and what aggressive behavior CONDITION: Stable Cardiovascular status is stable. TIME SPENT: More than 30 minutes. Plan and coordination of the patient's care discussed in the presence of nurse. SAHIL
[2021-09-18] MEDS: HUMALOG SUBCUT SCH ×3 (10:20→17:21)
--- NOTE | 2021-09-18 16:20 | RS.DYSPHTX ---
Dysphagia Treatment Note Date of Note: 09/18/21 Visit #: 2 Time of Treatment: 15:15 Subjective: The patient was alert in bed upon VISUAL MERCHANDISING COORDINATOR entry. The was at the bedside. The reported change of plan with his discharge and he will return to the home environment with home health care. The VISUAL MERCHANDISING COORDINATOR discussed diet, MBSS, and safe swallow recommendations. Total treatment time: 15 - Short Term Goals Goal #1: Pt utilize safe swallow strategies without overt s/s of aspiration. Activity/Accuracy: VISUAL MERCHANDISING COORDINATOR reviewed the safe swallow and aspiration precautions with recommendations for modified diet texture. The verbalized agreement. Goal #2: Pt to complete lingual exercises with 80% accuracy. Activity/Accuracy: Pt refused. Goal #3: Trial LE to improve airway protection Activity/Accuracy: Pt refused. Goal #4: Pt tolerate soft and bite-sized diet with min to no overt s/s of aspiration Activity/Accuracy: Pt refused trials of any PO texture offered. The VISUAL MERCHANDISING COORDINATOR discussed soft and bite-sized diet texture and restrictions for home environme nt. VISUAL MERCHANDISING COORDINATOR discussed no bread textures, but education with potential for toast was discussed. VISUAL MERCHANDISING COORDINATOR recommended continued ground meats with extra sauces/gravy/condiments. The VISUAL MERCHANDISING COORDINATOR discussed use of Biotene mouth spray to improve saliva production. Goal #5: Pt tolerate thin liquids with min to no overt s/s of aspiration Activity/Accuracy: Pt refused sips of thin H20 offered via straw. The patient has no new chest congestion at this time. - Half-Way Goals Goal #1: Pt maintain adequate hydration/nutrition w/ safer and least rest. diet Assessment: The VISUAL MERCHANDISING COORDINATOR attempted to complete swallow exercises and diet tolerance monitoring with the patient. He did not agree to participate. However since pt will be a discharge tomorrow this date, the VISUAL MERCHANDISING COORDINATOR reviewed safety precautions, diet and upcoming MBSS with the at the bedside. VISUAL MERCHANDISING COORDINATOR reported she recommended home health SPT. - Units Charged Swallowing Therapy: 1 - Plan Comments: Recommended home health SPT. Continue modified diet texture in the home environment including thin liquids with soft and bite-sized diet and ground meats.
[2021-09-18] MEDS: LANTUS SUBCUT SCH (20:41)
[2021-09-19 05:27] LABS: BASOPHILS # (AUTO) 0.1 K/uL (0-0.2); BASOPHILS % (AUTO) 0.7 % (0.0-3.0); EOSINOPHILS # (AUTO) 0.3 K/ul (0.0-0.7); EOSINOPHILS % (AUTO) 3.4 % (0.0-7.0); HEMATOCRIT 39.1 % (42.0-52.0); HEMOGLOBIN 13.5 g/dl (14.0-18.0); IMMATURE GRANULOCYTE # (AUTO) 0.1 (0.0-1.0); IMMATURE GRANULOCYTE % (AUTO) 0.6 % (0.0-5.0); LYMPHOCYTES # (AUTO) 2.7 K/uL (0.60-3.4); LYMPHOCYTES % (AUTO) 30.8 (10.0-50.0); MEAN CORPUSCULAR HEMOGLOBIN 29.8 pg (27.0-31.0); MEAN CORPUSCULAR HGB CONC 34.5 (31.8-35.4); MEAN CORPUSCULAR VOLUME 86.3 fl (80.0-94.0); MONOCYTES # (AUTO) 0.8 K/uL (0.4-2.0); MONOCYTES % (AUTO) 9.6 (0-10); NEUTROPHILS # (AUTO) 4.8 K/ul (2.0-6.9); NEUTROPHILS % (AUTO) 54.9 % (42.2-75.2); PLATELET COUNT 272 10^3/uL (140-440); RDW COEFFICIENT OF VARIATION 13.2 % (11.6-14.8); RED BLOOD COUNT 4.53 10^6/ul (4.70-6.10); WHITE BLOOD COUNT 8.77 K/ul (4.2-10.2)
[2021-09-19] MEDS: PROTONIX PO SCH (05:41)
[2021-09-19] MEDS: CARAFATE PO SCH ×2 (05:41→11:41)
[2021-09-19 05:44] LABS: ALANINE AMINOTRANSFERASE 9.8 U/L (0-50); ALBUMIN 2.8 g/dL (3.5-5.0); ALKALINE PHOSPHATASE 85.9 U/L (56-119); ASPARTATE AMINO TRANSFERASE 20.9 U/L (17-59); BILIRUBIN,TOTAL 0.38 mg/dL (0.2-1.3); BLOOD UREA NITROGEN 6.5 mg/dL (9-20); CALCIUM 7.87 mg/dL (8.4-10.2); CARBON DIOXIDE 28.7 mmol/L (22-30.0); CHLORIDE 100.6 mmol/L (98-107); CREATININE 0.86 mg/dL (0.60-1.10); GLUCOSE 142.5 mg/dL (74-106); POTASSIUM 3.94 mmol/L (3.5-5.1); SODIUM 131.1 mmol/L (134.5-145); TOTAL PROTEIN 5.75 g/dL (6.3-8.2)
[2021-09-19 05:56] VITALS: BP 157/82; TEMP 97.4
--- NOTE | 2021-09-19 08:44 | PCM.PROG ---
Attending Provider: ATTENDING PROVIDER: Dr. JOVANNI LESTER This patient is seen with Ananya Santiago, Nurse Practitioner. DATE OF SERVICE: 09/19/21 SUBJECTIVE: This 76 year old /WHITE M was hospitalized 09/13/21. Labs are stable. Still awaiting retirement placement, [facility] declined. PT/OT consult. He is pleasant and alert this morning. Significantly less confused as he has now been here for several days. Confusion is likely due to hyponatremia and change in environment. REVIEW OF SYSTEMS: CONSTITUTIONAL: No night sweats. No fatigue, malaise, lethargy. No fever or chills. Weakness. HEENT: Eyes: No visual changes. No eye pain. No eye discharge. ENT: No runny no se. No epistaxis. No sinus pain. No odynophagia. No congestion. RESPIRATORY: No cough, no congestion. No hemoptysis. No shortness of breath. CARDIOVASCULAR: No angina symptoms. No CHF symptoms. No atypical chest pain for CAD. No palpitations. No orthopnea.. GASTROINTESTINAL: No abdominal pain. No nausea or vomiting. No diarrhea or constipation. No hematemesis. No hematochezia. GENITOURINARY: No urgency. No frequency. No dysuria. No hematuria. No obstructive symptoms. No discharge. No pain. No significant abnormal bleeding. MUSCULOSKELETAL: No musculoskeletal pain; no joint swelling. NEUROLOGICAL: Awake, alert, oriented to time, place and person. No headache. No neck pain. No syncope. No seizures. No dizziness. PSYCHIATRIC: Not anxious. No depression. No suicidal thoughts. No homicidal th oughts. SKIN: No rash. No lesions. No wounds. ENDOCRINE: No unexplained weight loss. No weight gain. HEMATOLOGIC/LYMPHATIC: No anemia. No purpura. No petechiae. No prolonged or excessive bleeding. No palpable lymph nodes. PHYSICAL EXAMINATION: GENERAL: The patient is awake, alert and oriented, lying in bed in no distress. VITAL SIGNS: Temperature 97.4 F, Pulse 74, Respiratory Rate 16, BP 157/82, Pulse Ox 95% HEENT: Head normocephalic, atraumatic. Eyes: Extraocular muscles are intact. Pupils are equal, round and reactive to light and accommodation. Ears: No l esions. Nose appeared normal. Throat: No exudate or erythema. NECK: Supple. No JVD, no carotid bruit. No lymphadenopathy or thyromegaly. LUNGS: Diminished breath sounds. Clear to auscultation. Percussion note normal. Chest symmetrical. HEART: S1, S2, no S3. No murmurs. No cyanosis or clubbing. No ascites. Pulses: Dorsalis pedis and posterior tibial pulses +1 to +2 both sides. ABDOMEN: Soft. Non-tender. Bowel sounds active. No CVA tenderness. No mass felt. EXTREMITIES: No edema. Full range of motion of all extremities, equal. NEUROLOGIC: No focal deficit. Cranial nerves II through XII are grossly intact. No headache. No double vision. SKIN: Not dry. Intact. Turgor-normal. LYMPHATIC: No palpable lymph nodes/no lymphedema. MUSCULOSKELETAL: Normal joints with no swelling. Muscle tone is normal. LAB REVIEW: 09/19/21 04:52 09/19/21 04:52 09/19/21 04:52: Sodium 131.1 L, Potassium 3.94, Chloride 100.6, Carbon Dioxide 28.7, Anion Gap 5.74, BUN 6.5 L, Creatinine 0.86, Estimated GFR (MDRD) 86.00, BUN/Creatinine Ratio 7.55, Glucose 142.5 H, Calcium 7.87 L, Total Bilirubin 0.38, AST 20.9, ALT 9.8, Alkaline Phosphatase 85.9, Total Protein 5.75 L, A lbumin 2.80 L, Globulin 2.95, Albumin/Globulin Ratio 0.94 09/19/21 04:52: WBC 8.77, RBC 4.53 L, Hgb 13.5 L, Hct 39.1 L, MCV 86.3, MCH 29.8, MCHC 34.5, RDW Coeff of Leanna 13.2, Plt Count 272, Immature Gran % (Auto) 0.6, Neut % (Auto) 54.9, Lymph % (Auto) 30.8, [place] % (Auto) 9.6, Eos % (Auto) 3.4, Baso % (Auto) 0.7, Neut # (Auto) 4.8, Lymph # (Auto) 2.7, [place] # (Auto) 0.8, Eos # (Auto) 0.3, Baso # (Auto) 0.1, Immature Gran # (Auto) 0.1 ASSESSMENT: Please see below. 1. Change in mental status, improved 2. Hyponatremia, Improved 3. Generalized weakness 4. PAD PLAN: 1. PT/OT 2. Stop IV fluids Plan and coordination of the patient's care discussed in the presence of [employer] Crew Person and nurse. SCRIBED BY: Lore BULLARD scribed while in presence of service performed by Dr. Lester/Ananya Santiago APRN on 09/19/21 ([id number])
[2021-09-19] MEDS: FLOMAX PO SCH (09:19)
[2021-09-19] MEDS: TRADJENTA PO SCH (09:19)
[2021-09-19] MEDS: AMITIZA PO SCH (09:19)
[2021-09-19] MEDS: SODIUM BICARBONATE PO SCH (09:20)
[2021-09-19] MEDS: ASPIRIN CHEWABLE PO SCH (09:20)
[2021-09-19] MEDS: LIPITOR PO SCH (09:21)
[2021-09-19] MEDS: PLAVIX PO SCH (09:21)
[2021-09-19] MEDS: SPIRIVA IH SCH (09:22)
[2021-09-19] MEDS: HUMALOG SUBCUT SCH ×2 (09:32→13:05)
--- NOTE | 2021-09-20 13:39 | PN ---
DATE OF SERVICE: 09/18/21 SUBJECTIVE: 76 year old white male hospitalized with hyponatremia. The patient's hyponatremia has resolved. He is more alert, he is less combative. The is present in the room. They haven't decided yet but they are planning and very likely to take the patient home with help of Home Health Care. REVIEW OF SYSTEMS: CONSTITUTIONAL: No night sweats. No fatigue, malaise, lethargy. No fever or chills. HEENT: Eyes: No visual changes. No eye pain. No eye discharge. ENT: No runny nose. No epistaxis. No sinus pain. No sore throat. No odynophagia. No congestion. RESPIRATORY: No cough, no congestion. No hemoptysis. No shortness of breath. CARDIOVASCULAR: No angina symptoms. No CHF symptoms. No atypical chest pain for CAD. No palpitations. No PND. No orthopnea. GASTROINTESTINAL: No abdominal pain. No nausea or vomiting. No diarrhea or constipation. No hematemesis. No hematochezia. GENITOURINARY: No urgency. No frequency. No dysuria. No hematuria. No obstructive symptoms. No discharge. No pain. No significant abnormal bleeding. MUSCULOSKELETAL: No musculoskeletal pain; no joint swelling. NEUROLOGICAL: No headache. No neck pain. No syncope. No seizures. No dizziness. Mild confusion. PSYCHIATRIC: Not anxious. No depression. No suicidal thoughts. No homicidal thoughts. SKIN: No rash. No lesions. No wounds. ENDOCRINE: No unexplained weight loss. No weight gain. HEMATOLOGIC/LYMPHATIC: No anemia. No purpura. No petechiae. No prolonged or excessive bleeding. No palpable lymph nodes. PHYSICAL EXAMINATION: VITAL SIGNS: Temperature 97, pulse 77, respiratory rate 14, blood pressure 154/80 andpulse ox 97%. HEENT: Head normocephalic, atraumatic. Eyes: Extraocular muscles are intact. Pupils are equal, round and reactive to light and accommodation. Ears: No lesions. Nose appeared normal. Throat: No exudate or erythema. NECK: Supple. No JVD, no carotid bruit. No lymphadenopathy or thyromegaly. LUNGS: Decreased breath sounds. Clear to auscultation. Percussion note normal. Chest symmetrical. HEART: S1, S2 distant, no S3. No murmurs. No cyanosis or clubbing. No ascites. Pulses: Dorsalis pedis and posterior tibial pulses +1 to +2 bilaterally. increase AP Diameter of the chest. ABDOMEN: Soft. Nontender. Bowel sounds active. No CVA tenderness. No mass felt. EXTREMITIES: No edema. Full range of motion of all extremities, equal. NEUROLOGIC: No focal deficit. Cranial nerves II through XII are grossly intact. No headache. No double vision. SKIN: Not dry. Intact. Turgor - normal. LYMPHATIC: No palpable lymph nodes/no lymphedema. MUSCULOSKELETAL: Normal joints with no swelling. Muscle tone is normal. LABS: hgb 14, hct 41, WBC 8,600 normal differential, creatinine 0.9, BUN 6, potassium 4.1 ASSESSMENT: 1. Hyponatremia has resolved 2. Confusion, resolved 3. Other problems persists like diabetes mellitus 4. Status post above knee amputation 5. Confusion 6. Dementia PLAN: 1. Continue the same medications 2. The patient's lifestyle has been totally acceptable but now he is to the stage where it would not make difference in any way. 3. Continue on Pantoprazole, Clopidogrel, Aspirin, Lexapro, Insulin has been given, Tamsulosin for his prostate problem. He is on inhalers and Hydrocodone 7.5-325 TID for pain. CONDITION: Stable. TIME SPENT: More than 30 minutes. Plan and coordination of the patient's care discussed in the presence of nurse. SAHIL
--- NOTE | 2021-09-20 13:44 | PN ---
DATE OF SERVICE: 09/19/21 SUBJECTIVE: 76 year old white male hospitalized with hyponatremia. Condition has improved. Confusion has somewhat improved. He is more alert but still confused. Vitals are stable. Condition is stable. Physical condition and medical conditions are stable. The patient's family has decided to take him home. Home Health Care will be arranged for this patient. Condition at the time of discharge is stable. TIME SPENT: More than 30 minutes. Plan and coordination of the patient's care discussed in the presence of nurse. SAHIL
--- NOTE | 2021-09-20 13:44 | PN ---
ADMISSION DAY: Level 5 REST OF THEM: Intermediate FINAL DAY: D as in discharge MTDD
--- NOTE | 2021-10-18 09:21 | DS ---
DATE OF SERVICE: 09/19/21 FINAL DIAGNOSIS: 1. Acute change in mental status, improved 2. Hyponatremia, resolved 3. Dementia 4. Peripheral arterial disease 5. Left carotid stenosis 6. Hypertension 7. Diabetes Mellitus type II 8. Long history of Non-compliance with diet, lifestyle, medications and followup 9. Severe PAD. DISCHARGE INSTRUCTIONS: Discharge home. Declined Home Health Services. Appointment with PCP on September 26 at 11:[address] Crain's office. MEDICATIONS AT DISCHARGE: Hydrocodone Insulin Linzess Sucralfate Atorvastatin Pantoprazole Clopidogrel Aspirin Lexapro Tamsulosin Bicarb DIET INSTRUCTIONS: Soft and bite size; ground meats with gravy/sauce. ACTIVITY: Fall precautions. use assistive devices in the home. HOSPITAL COURSE: 76 year old white male who was hospitalized with possibility of the stroke because of increased confusion at home. In the emergency room CT was negative. He was found to have a sodium of [address] of the brain was normal. We did a carotid scan which did show 50-69% on right side then did an MRI of the brain to further rule out stroke which was also negative for acute ischemia. Did show that he had some chronic infarcts. We did place him on IV fluids. At the time of discharge sodium was up to 132. U/A was negative. The patient's sodium improved with IV fluids. At the time of discharge his mental status had improved. He does suffer from dementia so I believe some of the increased confusion was a combination of hyponatremia coupled with hospital psychosis. Again this seems to be improving. He is nearly back to baseline as far as cognitive status. Again, we did do a carotid study which showed 50-69% in the left internal carotid. The right was less than 50%. He was seen by speech and evaluated. He is supposed to have an upper GI as an outpatient. She recommended he continue home health with speech therapy and that he use thin liquids with soft bite size and ground meats. We did attempt to place him in the halfway as the family was unsure if they could care for him at home. However [facility] and [facility] were unable to take him at this time. The family has decided that they would rather take him home with Home Health so we will discharge him in stable condition. Prognosis is poor given his multiple medical conditions. They have agreed to Home Health for which I do think that patient would benefit. We will discharge him with Home Health for physical therapy. Discussed fall precautions. We have reviewed his medications. Again, he is to have upper GI the following ThursdayOctober 02 at 10am with the speech therapist. TIME SPENT: More than 60 minutes. SAHIL
== END 2021-09-19 14:10 | disposition home or self-care (01) | DRG 947 ==
LOC: ED 14:26 → MEDSURG A 21:25
PROVIDERS: ADMIT Internal Medicine; ATTEND Internal Medicine
DX: M62.81 Muscle weakness (generalized); E87.1 Hypo-osmolality and hyponatremia; I65.22 Occlusion and stenosis of left carotid artery; R41.82 Altered mental status, unspecified; Z79.82 Long term (current) use of aspirin; Z89.612 Acquired absence of left leg above knee; I63.81 Other cerebral infarction due to occlusion or stenosis of small artery; I73.9 Peripheral vascular disease, unspecified; F03.90 Unspecified dementia, unspecified severity, without behavioral disturbance, psychotic disturbance, mood disturbance, and anxiety; R29.818 Other symptoms and signs involving the nervous system; I10 Essential (primary) hypertension; Z51.81 Encounter for therapeutic drug level monitoring; Z91.11 Patient's noncompliance with dietary regimen; Z79.4 Long term (current) use of insulin; E11.9 Type 2 diabetes mellitus without complications; Z79.899 Other long term (current) drug therapy

== ENCOUNTER 2022-06-19 18:27 | Observation (INO) ==
--- NOTE | 2022-06-19 18:35 | ED.PDOC ---
General <MAE BRAMBILA MD - Last Filed: 06/19/22 18:37> ED Provider: Dr. MAE BRAMBILA MD Chief Complaint: Non-specific Complaint Stated Complaint: pt from home, mild to mod agitation w/ his today, gcs 15, ems blood sugar 264, no recent injury, hx right heel ulcer, left aka and dm, no fever, no NV Time Seen by Provider: 06/19/22 18:32 Primary Care Provider: JOVANNI LESTER MD Nursing and Triage Documentation Reviewed and Agree: Yes Does patient meet sepsis criteria?: No System Inflammatory Response Syndrome: Not Applicable Sepsis Protocol: For patient's 13 years and over: Temp is 96.8 and below OR 101 and greater Pulse >90 BPM Resp >20/minute Acutely Altered Mental Status Are patient's symptoms suggestive of a new infection, such as: -Pneumonia -Skin, Soft Tissue -Endocarditis -UTI -Bone, Joint Infection -Implantable Device -Acute Abdominal Infection -Wound Infection -Meningitis -Blood Stream Catheter Infection -Unknown Review of Systems <MAE BRAMBILA MD - Last Filed: 06/19/22 18:37> Review Of Systems Constitutional: Denies Fever Eyes: Denies Drainage Ears, Nose, Mouth, Throat: Denies Throat pain Respiratory: Denies Short of air Cardiac: Denies Chest pain GI: Denies Abdominal pain or Vomiting : Denies Frequency Musculoskeletal: Denies Back pain or Neck pain Skin: Denies Cyanosis Neurological: Denies Headache All Other Systems: Other PFSH <MAE BRAMBILA MD - Last Filed: 06/19/22 18:37> Medical History COPD (chronic obstructive pulmonary disease) CVA (cerebral vascular accident) Diabetes GERD (gastroesophageal reflux disease) Family History FATHER Myocardial infarct Mother Myocardial infarct FATHER Diabetes Mother Diabetes Social History History of recent travel: No Surgical History History of appendectomy History of cholecystectomy Physical Exam <MAE BRAMBILA MD - Last Filed: 06/19/22 18:37> Physical Exam Appearance: Reports No pain distress Ill-appearing: None Pain Distress: None Eyes: Reports YUMIKO, EOMI and Conjunctiva clear ENT: Reports Oropharynx normal Neck: Supple Respiratory: Reports Airway patent, Breath sounds clear and Breath sounds equal Cardiovascular: Reports RRR GI/: Reports Soft and Nontender Musculoskeletal: Reports Other (cloth measurer machine equal) Skin: Reports Normal color Neurological: Reports Alert and Oriented Psychiatric: Reports Affect appropriate <KENN MARTINI MD - Last Filed: 06/19/22 22:24> Radiology Interpretation Radiology Interpretation By: Radiologist Radiology Results: No acute changes (No evidence of an acute intracranial process. Mild atrophy and moderate chronic small vessel ischemic changes. ) Exam Interpreted: CT Scan EKG Interpretation Time of EKG #1: 18:53 Rate: Normal Rhythm: Sinus Ectopy: None (first degree av block ) [place]: NL ST Segment: Other Interpretation: No ischemia <KENN MARTINI MD - Last Filed: 06/19/22 22:24> Critical Care Note Total Critical Care Time (mins): 0 Comments: Patient started complaining of chest pain. EKG unremarkable. first Trop negative. will admit for Observation. Course <MAE BRAMBILA MD - Last Filed: 06/19/22 18:37> Course 06/19/22 18:45 06/19/22 18:45 Orders, Labs, Meds: Lab Review 06/19/22 06/19/22 06/19/22 18:45 19:25 21:15 WBC 8.47 RBC 5.38 Hgb 16.1 Hct 47.5 MCV 88.3 MCH 29.9 MCHC 33.9 RDW Coeff of Leanna 13.3 Plt Count 300 Immature Gran % (Auto) 0.7 Neut % (Auto) 52.4 Lymph % (Auto) 33.2 Granite % (Auto) 8.6 Eos % (Auto) 4.5 Baso % (Auto) 0.6 Neut # (Auto) 4.4 Lymph # (Auto) 2.8 Granite # (Auto) 0.7 Eos # (Auto) 0.4 Baso # (Auto) 0.1 Immature Gran # (Auto) 0.1 Sodium 132.6 L Potassium 4.05 Chloride 97.4 L Carbon Dioxide 30.7 H Anion Gap 8.55 BUN 10.5 Creatinine 0.89 Estimated GFR (MDRD) 82.00 BUN/Creatinine Ratio 11.79 Glucose 199.6 H Lactic Acid 1.78 Calcium 8.19 L Total Bilirubin 0.36 AST 17.4 ALT 10.5 Alkaline Phosphatase 114.1 Troponin I < 0.012 Total Protein 6.96 Albumin 3.64 Globulin 3.32 Albumin/Globulin Ratio 1.09 Urine Color Yellow Urine Clarity Clear Urine pH 6.5 Ur Specific [place] 1.015 Urine Protein Negative Urine Glucose (UA) Negative Urine Ketones Negative Urine Blood Negative Urine Nitrite Negative Urine Bilirubin Negative Urine Urobilinogen 1.0 H Ur Leukocyte Esterase Negative Urine Opiates Screen Negative Ur Oxycodone Screen Negative Urine Methadone Screen Negative Ur Propoxyphene Screen Negative Ur Barbiturates Screen Negative U Tricyclic Antidepress Negative Ur Phencyclidine Scrn Negative Ur Amphetamine Screen Negative U Methamphetamines Scrn Negative U Benzodiazepines Scrn Negative Urine Cocaine Screen Negative U Cannabinoids Screen Negative Plasma/Serum Alcohol < 10.0 SARS CoV-2 RNA Rapid ZULMA Negative Orders Category Date Time Status EKG-(ED ONLY) Stat CARDIO 06/19/22 18:36 Completed BLOOD ALCOHOL Stat LAB 06/19/22 18:45 Completed CBC W/ AUTO DIFF Stat LAB 06/19/22 18:45 Completed CMP [COMPREHENSIVE METABOLIC PANEL] Stat LAB 06/19/22 18:45 Completed DRUG SCREEN, URINE, RAPID Stat LAB 06/19/22 21:15 Completed LACTIC ACID Stat LAB 06/19/22 18:45 Completed SARS COV-2 RNA RAPID ZULMA Stat LAB 06/19/22 19:25 Completed TROPONIN I Stat LAB 06/19/22 18:45 Completed URINALYSIS C & S IF INDICATED Stat LAB 06/19/22 21:15 Completed Sodium Chloride 0.9% [Sodium Chloride] 1,000 ml MEDS 06/19/22 18:[address] HEAD W/O CONTRAST Stat RADS 06/19/22 18:36 Completed Medications Discontinued Medications Generic Name Dose Route Start Last Admin Trade Name Freq PRN Reason Stop Dose Admin Sodium Chloride 1,000 mls @ 1,000 mls/hr 06/19/22 18:36 06/19/22 19:43 Sodium Chloride IV 06/19/22 19:35 1,000 mls/hr BOLUS STA Administration Vital Signs: Temp Pulse Resp BP Pulse Ox 06/19/22 18:30 97.8 F 90 18 131/71 98 <KENN MARTINI MD - Last Filed: 06/19/22 22:24> Course Orders, Labs, Meds: Lab Review 06/19/22 06/19/22 06/19/22 18:45 19:25 21:15 WBC 8.47 RBC 5.38 Hgb 16.1 Hct 47.5 MCV 88.3 MCH 29.9 MCHC 33.9 RDW Coeff of Leanna 13.3 Plt Count 300 Immature Gran % (Auto) 0.7 Neut % (Auto) 52.4 Lymph % (Auto) 33.2 Granite % (Auto) 8.6 Eos % (Auto) 4.5 Baso % (Auto) 0.6 Neut # (Auto) 4.4 Lymph # (Auto) 2.8 Granite # (Auto) 0.7 Eos # (Auto) 0.4 Baso # (Auto) 0.1 Immature Gran # (Auto) 0.1 Sodium 132.6 L Potassium 4.05 Chloride 97.4 L Carbon Dioxide 30.7 H Anion Gap 8.55 BUN 10.5 Creatinine 0.89 Estimated GFR (MDRD) 82.00 BUN/Creatinine Ratio 11.79 Glucose 199.6 H Lactic Acid 1.78 Calcium 8.19 L Total Bilirubin 0.36 AST 17.4 ALT 10.5 Alkaline Phosphatase 114.1 Troponin I < 0.012 Total Protein 6.96 Albumin 3.64 Globulin 3.32 Albumin/Globulin Ratio 1.09 Urine Color Yellow Urine Clarity Clear Urine pH 6.5 Ur Specific [place] 1.015 Urine Protein Negative Urine Glucose (UA) Negative Urine Ketones Negative Urine Blood Negative Urine Nitrite Negative Urine Bilirubin Negative Urine Urobilinogen 1.0 H Ur Leukocyte Esterase Negative Urine Opiates Screen Negative Ur Oxycodone Screen Negative Urine Methadone Screen Negative Ur Propoxyphene Screen Negative Ur Barbiturates Screen Negative U Tricyclic Antidepress Negative Ur Phencyclidine Scrn Negative Ur Amphetamine Screen Negative U Methamphetamines Scrn Negative U Benzodiazepines Scrn Negative Urine Cocaine Screen Negative U Cannabinoids Screen Negative Plasma/Serum Alcohol < 10.0 SARS CoV-2 RNA Rapid ZULMA Negative Orders Category Date Time Status EKG-(ED ONLY) Stat CARDIO 06/19/22 18:36 Completed BLOOD ALCOHOL Stat LAB 06/19/22 18:45 Completed CBC W/ AUTO DIFF Stat LAB 06/19/22 18:45 Completed CMP [COMPREHENSIVE METABOLIC PANEL] Stat LAB 06/19/22 18:45 Completed DRUG SCREEN, URINE, RAPID Stat LAB 06/19/22 21:15 Completed LACTIC ACID Stat LAB 06/19/22 18:45 Completed SARS COV-2 RNA RAPID ZULMA Stat LAB 06/19/22 19:25 Completed TROPONIN I Stat LAB 06/19/22 18:45 Completed URINALYSIS C & S IF INDICATED Stat LAB 06/19/22 21:15 Completed Sodium Chloride 0.9% [Sodium Chloride] 1,000 ml MEDS 06/19/22 18:[address] HEAD W/O CONTRAST Stat RADS 06/19/22 18:36 Completed Medications Discontinued Medications Generic Name Dose Route Start Last Admin Trade Name Freq PRN Reason Stop Dose Admin Sodium Chloride 1,000 mls @ 1,000 mls/hr 06/19/22 18:36 06/19/22 19:43 Sodium Chloride IV 06/19/22 19:35 1,000 mls/hr BOLUS STA Administration Vital Signs: Temp Pulse Resp BP Pulse Ox 06/19/22 18:30 97.8 F 90 18 131/71 98 Discharge Plan Discharge Patient Disposition: PLACED OBSERVATION Discharge Problem: Anxiety, Chest pain at rest Prescriptions: No Action benzonatate 200 mg capsule 200 mg PO TID PRN (Reason: cough) Qty: 60 0RF sucralfate [Carafate] 1 gram tablet 1 g PO ACHS Qty: 120 0RF albuterol sulfate 90 mcg/actuation HFA aerosol inhaler 2 puff inhalation Q4-6H PRN (Reason: shortness of breath or wheezing) Qty: 8.5 5RF hydrocodone-acetaminophen 7.5-325 mg tablet 1 tab PO TID PRN (Reason: Pain, Mild) Qty: 90 0RF clopidogrel 75 mg Tablet 75 mg PO DAILY furosemide [Lasix] 20 mg Tablet 20 mg PO DAILY insulin lispro [Humalog Pen] 100 unit/mL Insulin Pen 8 unit SUBCUT TID tamsulosin [Flomax] 0.4 mg Capsule 0.4 mg PO DAILY sodium bicarbonate 650 mg Tablet 650 mg PO BID aspirin 81 mg Tablet,Chewable 81 mg PO BID escitalopram oxalate [Lexapro] 5 mg Tablet 5 mg PO DAILY Linzess 145 mcg Capsule 145 mcg PO DAILY insulin glargine [Lantus U-100 Insulin] 1 UNIT solution 30 unit subcut BEDTIME Spiriva with HandiHaler 1 CAP capsule, w/inhalation device 1 cap inhalation DAILY Tradjenta 5 MG tablet 5 mg PO DAILY ipratropium-albuterol 1 VIAL solution for nebulization 3 ml INH QID MDD 6 PRN (Reason: COPD) atorvastatin 80 mg Tablet 80 mg PO DAILY pantoprazole 40 MG tablet,delayed release (DR/EC) 40 mg PO DAILY Did you review [place] [employer] [facility] for ALL controlled substances?: Not Applicable ED Provider: MAE BRAMBILA Condition: Fair <MAE BRAMBILA MD - Last Filed: 06/19/22 18:37> Physician Progress Note: care to Dr Martini at 19:00 []
[2022-06-19] MEDS ORDERED: SODIUM CHLORIDE 1,000 ML IV STA (18:36)
[2022-06-19 18:38] VITALS: BMI 24.5
[2022-06-19 18:51] LABS: BASOPHILS # (AUTO) 0.1 K/uL (0-0.2); BASOPHILS % (AUTO) 0.6 % (0.0-3.0); EOSINOPHILS # (AUTO) 0.4 K/ul (0.0-0.7); EOSINOPHILS % (AUTO) 4.5 % (0.0-7.0); HEMATOCRIT 47.5 % (42.0-52.0); HEMOGLOBIN 16.1 g/dl (14.0-18.0); IMMATURE GRANULOCYTE # (AUTO) 0.1 (0.0-1.0); IMMATURE GRANULOCYTE % (AUTO) 0.7 % (0.0-5.0); LYMPHOCYTES # (AUTO) 2.8 K/uL (0.60-3.4); LYMPHOCYTES % (AUTO) 33.2 (10.0-50.0); MEAN CORPUSCULAR HEMOGLOBIN 29.9 pg (27.0-31.0); MEAN CORPUSCULAR HGB CONC 33.9 (31.8-35.4); MEAN CORPUSCULAR VOLUME 88.3 fl (80.0-94.0); MONOCYTES # (AUTO) 0.7 K/uL (0.4-2.0); MONOCYTES % (AUTO) 8.6 (0-10); NEUTROPHILS # (AUTO) 4.4 K/ul (2.0-6.9); NEUTROPHILS % (AUTO) 52.4 % (42.2-75.2); PLATELET COUNT 300 10^3/uL (140-440); RDW COEFFICIENT OF VARIATION 13.3 % (11.6-14.8); RED BLOOD COUNT 5.38 10^6/ul (4.70-6.10); WHITE BLOOD COUNT 8.47 K/ul (4.2-10.2)
[2022-06-19 19:02] LABS: ALANINE AMINOTRANSFERASE 10.5 U/L (0-50); ALBUMIN 3.64 g/dL (3.5-5.0); ALKALINE PHOSPHATASE 114.1 U/L (56-119); ASPARTATE AMINO TRANSFERASE 17.4 U/L (17-59); BILIRUBIN,TOTAL 0.36 mg/dL (0.2-1.3); BLOOD UREA NITROGEN 10.5 mg/dL (9-20); CALCIUM 8.19 mg/dL (8.4-10.2); CARBON DIOXIDE 30.7 mmol/L (22-30.0); CHLORIDE 97.4 mmol/L (98-107); CREATININE 0.89 mg/dL (0.60-1.10); GLUCOSE 199.6 mg/dL (74-106); POTASSIUM 4.05 mmol/L (3.5-5.1); SODIUM 132.6 mmol/L (134.5-145); TOTAL PROTEIN 6.96 g/dL (6.3-8.2)
[2022-06-19 19:03] LABS: BLOOD ALCOHOL < 10.0 mg/dL (0.0-50.0)
--- NOTE | 2022-06-19 19:08 | CT ---
EXAM: CT OF THE HEAD WITHOUT CONTRAST. HISTORY: Agitation. COMPARISON: 09/13/2021. TECHNIQUE: Noncontrast CT of the head. FINDINGS: No intracranial hemorrhage or mass effect is identified. There is mild prominence of the sulci and m inimal prominence of the ventricles. Moderate bicerebral periventricular white matter hypodensites a re seen. There is a tiny left cerebellar hemisphere remote infarct. No quintero white matter differentia tion loss is seen to suggest an acute infarct. Intracranial calcified atherosclerotic plaque is note d. The calvarium is intact. There is multifocal paranasal sinus mucosal thickening. IMPRESSION: No evidence of an acute intracranial process. Mild atrophy and moderate chronic small vessel ischemic changes. All CT scans are performed using dose optimization techniques as appropriate to the performed exam an d include at least one of the following: Automated exposure control, adjustment of the mA and/or kV according t o size, and the use of iterative reconstruction technique.
[2022-06-19 19:14] LABS: TROPONIN I < 0.012 ng/ml (0.0000-0.120)
[2022-06-19 20:04] LABS: SARS COV-2 RNA RAPID NAAT NEGATIVE (NEGATIVE)
[2022-06-19 21:33] LABS: BILIRUBIN,URINE Negative (NEGATIVE); CLARITY,URINE Clear (CLEAR); COLOR,URINE Yellow (YELLOW); GLUCOSE, URINE (UA) Negative (NEGATIVE); KETONES,URINE Negative (NEGATIVE); LEUKOCYTE ESTERASE ,URINE Negative (NEGATIVE); NITRITE,URINE Negative (NEGATIVE); PH,URINE 6.5 (5-9); PROTEIN,URINE Negative (NEGATIVE); URINE, BLOOD Negative (NEGATIVE)
[2022-06-19 21:41] LABS: AMPHETAMINE SCREEN,URINE NEGATIVE (NEGATIVE); BARBITURATE SCREEN,URINE NEGATIVE (NEGATIVE); BENZODIAZEPINES SCREEN,URINE NEGATIVE (NEGATIVE); CANNABINOID SCREEN,URINE NEGATIVE (NEGATIVE); COCAIN SCREEN,URINE NEGATIVE (NEGATIVE); METHADONE URINE SCREEN NEGATIVE (NEGATIVE); METHAMPHETAMINES SCREEN,URINE NEGATIVE (NEGATIVE); OPIATE SCREEN,URINE NEGATIVE (NEGATIVE); OXYCODONE URINE SCREEN NEGATIVE (NEGATIVE); PHENCYCLIDINE SCREEN,URINE NEGATIVE (NEGATIVE); PROPOXYPHENE URINE SCREEN NEGATIVE (NEGATIVE); TRICYCLIC ANTIDEPRESSANTS URIN NEGATIVE (NEGATIVE)
[2022-06-19] MEDS ORDERED: ZOFRAN 4 MG/2 ML IVP PRN (22:24)
[2022-06-19] MEDS ORDERED: TYLENOL PO PRN (22:24)
[2022-06-19] MEDS: SODIUM CHLORIDE 1,000 ML IV SCH (23:25)
[2022-06-20 05:25] LABS: BASOPHILS # (AUTO) 0.1 K/uL (0-0.2); BASOPHILS % (AUTO) 0.6 % (0.0-3.0); EOSINOPHILS # (AUTO) 0.4 K/ul (0.0-0.7); EOSINOPHILS % (AUTO) 4.6 % (0.0-7.0); HEMATOCRIT 43.2 % (42.0-52.0); HEMOGLOBIN 14.6 g/dl (14.0-18.0); IMMATURE GRANULOCYTE # (AUTO) 0.1 (0.0-1.0); IMMATURE GRANULOCYTE % (AUTO) 0.6 % (0.0-5.0); LYMPHOCYTES # (AUTO) 2.9 K/uL (0.60-3.4); MEAN CORPUSCULAR HEMOGLOBIN 29.8 pg (27.0-31.0); MEAN CORPUSCULAR HGB CONC 33.8 (31.8-35.4); MEAN CORPUSCULAR VOLUME 88.2 fl (80.0-94.0); MONOCYTES # (AUTO) 0.9 K/uL (0.4-2.0); MONOCYTES % (AUTO) 9.1 (0-10); NEUTROPHILS # (AUTO) 5.1 K/ul (2.0-6.9); NEUTROPHILS % (AUTO) 54.1 % (42.2-75.2); PLATELET COUNT 276 10^3/uL (140-440); RDW COEFFICIENT OF VARIATION 13.2 % (11.6-14.8); WHITE BLOOD COUNT 9.41 K/ul (4.2-10.2)
[2022-06-20 05:36] LABS: CREATINE KINASE 44.7 U/L (55-170)
[2022-06-20 05:52] LABS: TROPONIN I < 0.012 ng/ml (0.0000-0.120)
[2022-06-20 06:05] LABS: BLOOD UREA NITROGEN 7.9 mg/dL (9-20); CALCIUM 7.88 mg/dL (8.4-10.2); CARBON DIOXIDE 30.5 mmol/L (22-30.0); CHLORIDE 102.8 mmol/L (98-107); CREATININE 0.87 mg/dL (0.60-1.10); GLUCOSE 150.5 mg/dL (74-106); POTASSIUM 4.75 mmol/L (3.5-5.1); SODIUM 133.5 mmol/L (134.5-145)
[2022-06-20] MEDS ORDERED: DUONEB NEB PRN (09:29)
[2022-06-20] MEDS ORDERED: VENTOLIN HFA (PER PUFF-WITH SPACER) IH PRN (09:29)
[2022-06-20] MEDS ORDERED: NORCO 7.5-325 PO PRN (09:29)
[2022-06-20] MEDS ORDERED: NON-FORMULARY MEDICATION (Escitalopram Oxalate [Lexapro] 5 mg Tablet) PO SCH (10:00)
[2022-06-20] MEDS: SPIRIVA IH SCH (10:03)
[2022-06-20] MEDS: LEXAPRO PO SCH (10:03)
[2022-06-20] MEDS: PROTONIX PO SCH (10:03)
[2022-06-20] MEDS: CRESTOR PO SCH (10:04)
[2022-06-20] MEDS: TRADJENTA PO SCH (10:04)
[2022-06-20] MEDS: SODIUM BICARBONATE PO SCH ×2 (10:04→20:14)
[2022-06-20] MEDS: FLOMAX PO SCH (10:04)
[2022-06-20] MEDS: LASIX TAB PO SCH (10:04)
[2022-06-20] MEDS: ASPIRIN CHEWABLE PO SCH ×2 (10:04→17:03)
[2022-06-20] MEDS: LOVENOX SUBCUT SCH (10:04)
[2022-06-20] MEDS: PLAVIX PO SCH (10:04)
[2022-06-20] MEDS: LINACLOTIDE 145 MCG PO SCH (10:05)
--- NOTE | 2022-06-20 10:13 | RS.PTINEVL ---
Subjective Patient information Date of Evaluation: 06/20/22 Date of Arrival on Unit: 06/19/22 Admitted From:: Home Diagnosis: anxiety, chest pain Usual Living Arrangement: With Spouse Living Arrangement Comments: pt lives with elderly spouse. Has supportive children. Per dtr pt became agitated and aggressive with and locked himself in his room. She states he is refusing to go back home. Home Environment: [facility] Medical History: CVA/TIA, COPD, Diabetes and Arthritis Medical History Comments:: anxiety, foot ulcer R foot, GERD Surgical History Comments:: L AKA, Medications: see chart Subjective Information/ Patient Comments:: pt's daughter and son report that pt became agitated and aggressive toward their mother and locked himself in his room and is now refusing to go home. pt states he is agreeable to go to the longterm. Level of function Abilities prior to this admission: pt required min assist for sliding board transfers and required assist with ADL's. pt refuses to wear prosthesis on L Current Level of Function: Partially Dependent Current Equipment Used at Home: wheelchair, sliding board Interventions Objective Patient Orientation: Person, Place, Time and Situation Current Interventions: IV's Observation: pt with splint on RLE due to heel ulcer Range of Motion ROM Right Upper Extremity AROM: WFL's Left Upper Extremity AROM: WFL's Right Lower Extremity AROM: WFL's Left Lower Extremity AROM: WFL's Muscle Strength Muscle Strength Right Upper Extremity: Mild Weakness (grossly 4/5 ) Left Upper Extremity: Mild Weakness (grossly 4/5 ) Right Lower Extremity: Mild Weakness (hip flex 4/5, knee flex/ext 4/5, ankle DF/PF 4-/5) Left Lower Extremity: Mild Weakness (hip flex 4-/5 ) Sensation Sensation Right Upper Extremity: Intact/Normal Left Upper Extremity: Intact/Normal Right Lower Extremity: Impaired (n/t RLE) Left Lower Extremity: Intact/Normal Palpation Palpation Findings: None/Normal Balance Sitting Balance and Reactions Static Sitting Balance: Good Dynamic Sitting Balance: Fair (fair+) Comments Balance Assessment Comments: pt unable to stand Functional Mobility Bed Mobility Rolling R/L: Min Assist Scooting: Mod Assist Supine to Sit: Mod Assist and 1 person assist Sit to Supine: Mod Assist and 1 person assist Comments:: Transferred bed to/from w/c with min to mod x 1 with sliding board Transfers Comments:: pt refuses to attempt stand Safety Awareness Safety Awareness: Fair RICK INDEX SCORE: n/a Treatment time Time with patient Length of Evaluation: 28 Total treatment time: 40 Patient Education Education Patient Education: Activity Modification and Education of Plan of Care Teaching Recipient: Patient and Family Teaching Methods: Discussion Comments: pt is [place] and easily agitated Assessment Assessment Problem List:: Decreased level of function, Requires training/education, Decreased safety/Risk of falls and Weakness Rehab Potential: Fair Further Therapy Indicated?: No Candidate for Swing Bed for Therapy Services?: Feel pt is not a candidate for swing bed for therapy due to pt at prior level of function. pt also has history non compliance. pt seen for eval only and no further PT due to pt is at his prior level of function. Evaluation Complexity: HISTORY: Medium, EXAM OF BODY SYSTEMS: Medium, CLINICAL PRESENTATION: Medium and CLINICAL DECISION MAKING: Medium Patient's Goal(s): Go to the longterm. Short Term Goals GOAL #1: . GOAL #2: . Halfway Goals GOAL #1: . GOAL #2: . Plan Other:: eval only Frequency of Treatment: One time treatment Duration of Treatment: One Time Treatment Anticipated Discharge Destination: [facility] Treatment Diagnosis (ICD 10 Codes): decreased mobility z74.0 Has the Physician been added for Co-signature?: Yes
[2022-06-20] MEDS: HUMALOG SUBCUT SCH ×3 (10:45→17:03)
[2022-06-20] MEDS: CARAFATE PO SCH ×3 (11:48→20:14)
[2022-06-20] MEDS ORDERED: NON-FORMULARY MEDICATION (Insulin Lispro 100 unit/mL Insulin Pen) SUBCUT SCH (12:00)
[2022-06-20] MEDS: SODIUM CHLORIDE 1,000 ML IV SCH (13:02)
[2022-06-20 14:28] LABS: TROPONIN I < 0.012 ng/ml (0.0000-0.120)
--- NOTE | 2022-06-20 15:12 | RS.OTINEVL ---
Subjective Patient information Date of Evaluation: 06/20/22 Date of Arrival on Unit: 06/19/22 Admitted From:: Home Diagnosis: Chest pain, anxiety, aggitation PRECAUTIONS: Fall risk, L AKA Usual Living Arrangement: With Spouse Living Arrangement Comments: pt lives with elderly spouse. Has supportive children. Per dtr pt became agitated and aggressive with and locked himself in his room. She states he is refusing to go back home. Home Environment: [facility] Medical History: CVA/TIA, COPD, Diabetes and Arthritis Medical History Comments:: anxiety, foot ulcer R foot, GERD LATEX ALLERGY?: No Surgical History: Cholecystectomy Surgical History Comments:: L AKA, Medications: see chart Subjective Information/ Patient Comments:: "No." Level of function Prior to this admission, the patient could do the following:: Independent Selfcare Current Level of Function: Partially Dependent Current Equipment Used at Home: wheelchair, sliding board Pain Assessment Pain Pain Alleviating Factors: Position Change Interventions Objective Patient Orientation: Person and Situation Current Interventions: IV's Observation: Pt using BUE to try to slide on the sliding board from bed to WC. Pt not aware of soiling himself. Pt has full AROM of BUE. Pt is able to use arms to help with rolling in the bed, scooting on the bed, and pulling himself up. Interventions ROM Right Upper Extremity AROM: WFL's Left Upper Extremity AROM: WFL's Strength Right Upper Extremity: Mild Weakness Left Upper Extremity: Mild Weakness Sensation Right Upper Extremity: Intact/Normal Left Upper Extremity: Intact/Normal Balance Sitting Balance Static Sitting Balance: Good Dynamic Sitting Balance: Good ADL Skills Self Feeding Self Feeding: Independent Grooming Grooming: Set Up Only and Supervision Grooming Set-up: Sitting Dressing Dressing UE: Min Assist and 1 person assist Dressing LE: Max Assist and 1 person assist Toilet Management Toilet Hygiene: Max Assist Toilet Clothing Management: Max Assist Functional Mobility Bed Mobility Rolling R/L: Independent Scooting: Independent Supine to Sit: Independent Transfers Sit to Stand: Mod Assist, 2 person assist, Verbal Cues and Tactile Cues Stand to Sit: Not Tested Stand Pivot Transfers: Not Tested Comments:: Pt does not stand on his one leg. Ambulation Assistance needed with Ambulation: Not Tested Safety Awareness Safety Awareness: Fair RICK INDEX SCORE: . Additional Treatment Performed Time with patient Length of Evaluation: 20 Total treatment time: 20 Activities Do you enjoy playing games?: No Would you be interested in leaving your room for activities?: No Would you enjoy group activities?: No Do you have difficulty with your vision?: No Patient Interests:: Watching Television and Visiting/Socializing Patient Education Patient Education: Education of Plan of Care Teaching Recipient: Patient and Family Teaching Methods: Teach Back Method Used, Discussion and Demonstration Assessment Problem List:: Decreased level of function, Requires training/education, Decreased safety/Risk of falls, Weakness and Pain limits previous level of function Rehab Potential: Fair Further Therapy Indicated?: Yes Evaluation Complexity: HISTORY: Medium, EXAM OF BODY SYSTEMS: Medium and CLINICAL DECISION MAKING: Medium Patient's Goal(s): To go to the longterm. Short Term Goals Goals Comments: No therapy goals at this time. Plan Anticipated Discharge Destination: [facility] Treatment Diagnosis (ICD 10 Codes): Weakness R53.1 Has the Physician been added for Co-signature?: Yes
--- NOTE | 2022-06-20 15:32 | PCM.PROG ---
Date Seen by Provider: 06/20/22 Time Seen by Provider: 15:30 Subjective: dx. aggressive behavior Objective: Vitals: T=96.6 F, P=76, R=17, OW=306/69, SPO2=95 HEENT: []conjunctiva clear Neck: []supple Lungs: [] clear CVS: []rrr Abdomen: []nontender Extremities: []bebo Neurological: []alert Skin: []warm and dry Lab/Tests/Diagnostic Imaging: [] Plan: discharge planning and geripsych evaluation
[2022-06-20] MEDS: LANTUS SUBCUT SCH (20:15)
[2022-06-21] MEDS: SODIUM CHLORIDE 1,000 ML IV SCH ×2 (01:52→18:36)
[2022-06-21 05:12] LABS: BASOPHILS # (AUTO) 0.1 K/uL (0-0.2); BASOPHILS % (AUTO) 0.6 % (0.0-3.0); EOSINOPHILS # (AUTO) 0.4 K/ul (0.0-0.7); EOSINOPHILS % (AUTO) 4.6 % (0.0-7.0); HEMATOCRIT 40.5 % (42.0-52.0); HEMOGLOBIN 13.7 g/dl (14.0-18.0); IMMATURE GRANULOCYTE # (AUTO) 0.1 (0.0-1.0); IMMATURE GRANULOCYTE % (AUTO) 0.6 % (0.0-5.0); LYMPHOCYTES # (AUTO) 2.8 K/uL (0.60-3.4); LYMPHOCYTES % (AUTO) 34.8 (10.0-50.0); MEAN CORPUSCULAR HEMOGLOBIN 29.6 pg (27.0-31.0); MEAN CORPUSCULAR HGB CONC 33.8 (31.8-35.4); MEAN CORPUSCULAR VOLUME 87.5 fl (80.0-94.0); MONOCYTES # (AUTO) 0.7 K/uL (0.4-2.0); MONOCYTES % (AUTO) 8.9 (0-10); NEUTROPHILS % (AUTO) 50.5 % (42.2-75.2); PLATELET COUNT 262 10^3/uL (140-440); RDW COEFFICIENT OF VARIATION 13.2 % (11.6-14.8); RED BLOOD COUNT 4.63 10^6/ul (4.70-6.10); WHITE BLOOD COUNT 8.01 K/ul (4.2-10.2)
[2022-06-21 05:24] LABS: BLOOD UREA NITROGEN 7.3 mg/dL (9-20); CALCIUM 7.41 mg/dL (8.4-10.2); CARBON DIOXIDE 28.9 mmol/L (22-30.0); CHLORIDE 102.6 mmol/L (98-107); CREATININE 0.75 mg/dL (0.60-1.10); GLUCOSE 96.7 mg/dL (74-106); POTASSIUM 4.09 mmol/L (3.5-5.1); SODIUM 131.8 mmol/L (134.5-145)
[2022-06-21] MEDS: LASIX TAB PO SCH (05:36)
[2022-06-21] MEDS: CARAFATE PO SCH ×4 (05:36→20:25)
[2022-06-21] MEDS: PROTONIX PO SCH (05:36)
[2022-06-21] MEDS: SPIRIVA IH SCH (09:15)
[2022-06-21] MEDS: CRESTOR PO SCH (09:17)
[2022-06-21] MEDS: ASPIRIN CHEWABLE PO SCH ×2 (09:18→17:36)
[2022-06-21] MEDS: PLAVIX PO SCH (09:19)
[2022-06-21] MEDS: TRADJENTA PO SCH (09:19)
[2022-06-21] MEDS: FLOMAX PO SCH (09:20)
[2022-06-21] MEDS: LEXAPRO PO SCH (09:20)
[2022-06-21] MEDS: SODIUM BICARBONATE PO SCH ×2 (09:21→20:25)
[2022-06-21] MEDS: LOVENOX SUBCUT SCH (09:21)
[2022-06-21] MEDS: HUMALOG SUBCUT SCH ×2 (09:24→17:22)
--- NOTE | 2022-06-21 10:16 | PCM.PROG ---
Date Seen by Provider: 06/21/22 Time Seen by Provider: 10:14 Subjective: dx. aggressive behavior Objective: Vitals: T=97.6 F, P=65, R=18, WO=321/70, SPO2=96 HEENT: []conjunctiva clear Neck: []supple Lungs: [] clear CVS: []rrr Abdomen: []nontender Extremities: []warm and dry Neurological: []alert Skin: []pink Lab/Tests/Diagnostic Imaging: [] Plan: await psych evaluation
[2022-06-21] MEDS: LINACLOTIDE 145 MCG PO SCH (17:30)
[2022-06-22] MEDS: LANTUS SUBCUT SCH (01:36)
[2022-06-22 05:29] VITALS: RESP 16
[2022-06-22] MEDS: PROTONIX PO SCH (05:33)
[2022-06-22] MEDS: LASIX TAB PO SCH (05:33)
[2022-06-22] MEDS: CARAFATE PO SCH (05:33)
[2022-06-22 06:09] LABS: BASOPHILS # (AUTO) 0.1 K/uL (0-0.2); BASOPHILS % (AUTO) 0.7 % (0.0-3.0); EOSINOPHILS # (AUTO) 0.3 K/ul (0.0-0.7); EOSINOPHILS % (AUTO) 3.6 % (0.0-7.0); HEMATOCRIT 41.8 % (42.0-52.0); HEMOGLOBIN 14.1 g/dl (14.0-18.0); IMMATURE GRANULOCYTE % (AUTO) 0.4 % (0.0-5.0); LYMPHOCYTES # (AUTO) 2.4 K/uL (0.60-3.4); LYMPHOCYTES % (AUTO) 29.3 (10.0-50.0); MEAN CORPUSCULAR HEMOGLOBIN 29.6 pg (27.0-31.0); MEAN CORPUSCULAR HGB CONC 33.7 (31.8-35.4); MEAN CORPUSCULAR VOLUME 87.6 fl (80.0-94.0); MONOCYTES # (AUTO) 0.6 K/uL (0.4-2.0); MONOCYTES % (AUTO) 7.6 (0-10); NEUTROPHILS # (AUTO) 4.7 K/ul (2.0-6.9); NEUTROPHILS % (AUTO) 58.4 % (42.2-75.2); PLATELET COUNT 258 10^3/uL (140-440); RDW COEFFICIENT OF VARIATION 13.2 % (11.6-14.8); RED BLOOD COUNT 4.77 10^6/ul (4.70-6.10); WHITE BLOOD COUNT 8.05 K/ul (4.2-10.2)
[2022-06-22 06:22] LABS: ALANINE AMINOTRANSFERASE 7.2 U/L (0-50); ALBUMIN 2.94 g/dL (3.5-5.0); ALKALINE PHOSPHATASE 88.9 U/L (56-119); ASPARTATE AMINO TRANSFERASE 13.8 U/L (17-59); BILIRUBIN,TOTAL 0.32 mg/dL (0.2-1.3); BLOOD UREA NITROGEN 7.6 mg/dL (9-20); CALCIUM 7.7 mg/dL (8.4-10.2); CARBON DIOXIDE 30.3 mmol/L (22-30.0); CHLORIDE 103.3 mmol/L (98-107); CREATININE 0.83 mg/dL (0.60-1.10); GLUCOSE 102.4 mg/dL (74-106); POTASSIUM 3.99 mmol/L (3.5-5.1); SODIUM 134.5 mmol/L (134.5-145); TOTAL PROTEIN 5.84 g/dL (6.3-8.2)
[2022-06-22] MEDS: SODIUM CHLORIDE 1,000 ML IV SCH (06:34)
[2022-06-22] MEDS: TRADJENTA PO SCH (09:01)
[2022-06-22] MEDS: CRESTOR PO SCH (09:02)
[2022-06-22] MEDS: FLOMAX PO SCH (09:02)
[2022-06-22] MEDS: ASPIRIN CHEWABLE PO SCH (09:04)
[2022-06-22] MEDS: LEXAPRO PO SCH (09:04)
[2022-06-22] MEDS: SODIUM BICARBONATE PO SCH (09:04)
[2022-06-22] MEDS: PLAVIX PO SCH (09:05)
[2022-06-22] MEDS: SPIRIVA IH SCH (09:06)
[2022-06-22] MEDS: HUMALOG SUBCUT SCH (09:09)
[2022-06-22] MEDS: LINACLOTIDE 145 MCG PO SCH (09:10)
[2022-06-22] MEDS: LOVENOX SUBCUT SCH (09:11)
[2022-06-22 10:04] VITALS: BP 150/70; TEMP 97.7
--- NOTE | 2022-06-22 11:20 | PCM.PROG ---
Admission Date Admission Date: 06/19/22 Discharge Date Discharge Date: 06/22/22 Admission Diagnosis Admission Diagnosis: Anxiety, chest pain Discharge Diagnosis Discharge Diagnosis: Anxiety Hospital Provider Hospital Provider: JOANNE LYON PA-C, [facility] Primary Care Physician Primary Care Physician: JOVANNI LESTER MD Summary of History and Physical Summary of History and Physical: Patient presented to ER with family due to concerns at home. He was acting "unlike himself" per family and they were concerned about a UTI. Patient had barricaded himself behind a closed door due to an issue with his , however, would not elaborate. Family requested usp placement. Patient had some confusion initially. He was admitted in obs. Hospital Course Subjective: Patient had a CT head that showed nothing acute. UA negative. UDS negative. P atient denied chest pain. His mentation waxed and waned, however on day of discharge he was oriented to person and place. He knew the season but struggled with year. He has mental capacity to make decisions for himself. He still does not want to elaborate on what happened at home, but states he and his often do not get along. Daughter Vannesa is present and agrees. However, he feels safe at home and would like to return. He denies SI or HI. He has been medically stable. Discussed with daughter that he declines usp admission at this time. Encouraged to set up medical POA if there is ever a time he cannot make decisions for himself. Labs and vitals have been stable. Will discharge to home. Discussed outpatient psych referral or simply f/u with pcp to discuss lexapro dose and/or other medication options for mood. Patient and daughter agreeable to plan of care. Return to ER with worsening symptoms. Appearance: No Apparent Distress, Alert, Well-appearing and Well-nourished HEENT: MMM, Supple and No JVD CVS: Other (Regular rate and rhythm ) Abdomen: Soft Respiratory: Other (Breath sounds equal) Extremities: Other (Left BKA. Right - no edema. ) Vital Signs: Most Recent Vital Signs Temperature 96.8 F L 06/22/22 05:28 Temperature Source Temporal Artery Scan 06/22/22 05:28 Temperature Source Infrared 06/19/22 18:30 Pulse Rate 65 06/22/22 05:28 Respiratory Rate 16 06/22/22 05:28 Blood Pressure 131/78 06/22/22 05:28 Blood Pressure Mean 95 06/22/22 05:28 Blood Pressure Right Arm 137/80 06/19/22 23:18 Blood Pressure Location Left Arm 06/22/22 05:28 Blood Pressure Position Supine 06/22/22 05:28 O2 Sat by Pulse Oximetry 97 06/22/22 05:28 Oxygen Delivery Method Room Air 06/22/22 05:28 Height 6 ft 2 in 06/19/22 23:18 Weight 191 lb 4 oz 06/19/22 23:18 Telemetry Type Remote Telemetry 06/22/22 07:00 Telemetry Monitoring Continues 06/22/22 07:00 Telemetry Heart Rate 67 06/22/22 07:00 EKG NJ Interval 0.30 H 06/22/22 07:00 EKG QRS Interval 0.08 06/22/22 07:00 Telemetry Strip Reading SR WITH 1ST DEGREE AVB 06/22/22 07:00 Imaging: Patient: HUBERT ASCENCIO Acct:[id number] Medical Record: [id number] : 1945 Loc: ED Room/Bed: Age/Sex: 77 / M ADM Status: REG ER Date of Service: 06/19/22 Ordering Physician: MAE BRAMBILA MD Procedure(s): CT HEAD W/O CONTRAST Report Number(s): [id number] Accession Number(s): [id number] cc: MAE BRAMBILA MD; JOVANNI LESTER MD EXAM: CT OF THE HEAD WITHOUT CONTRAST. HISTORY: Agitation. COMPARISON: 09/13/2021. TECHNIQUE: Noncontrast CT of the head. FINDINGS: No intracranial hemorrhage or mass effect is identified. There is mild prominence of the sulci and minimal prominence of the ventricles. Moderate bicerebral periventricular white matter hypodensites are seen. There is a tiny left cerebellar hemisphere remote infarct. No quintero white matter differentiation loss is seen to suggest an acute infarct. Intracranial calcified atherosclerotic plaque is noted. The calvarium is intact. There is multifocal paranasal sinus mucosal thickening. IMPRESSION: No evidence of an acute intracranial process. Mild atrophy and moderate chronic small vessel ischemic changes. Lab Results Last 24 Hours: 06/22/22 05:23 WBC 8.05 RBC 4.77 Hgb 14.1 Hct 41.8 L MCV 87.6 MCH 29.6 MCHC 33.7 RDW Coeff of Leanna 13.2 Plt Count 258 Immature Gran % (Auto) 0.4 Neut % (Auto) 58.4 Lymph % (Auto) 29.3 Colbert % (Auto) 7.6 Eos % (Auto) 3.6 Baso % (Auto) 0.7 Neut # (Auto) 4.7 Lymph # (Auto) 2.4 Colbert # (Auto) 0.6 Eos # (Auto) 0.3 Baso # (Auto) 0.1 Immature Gran # (Auto) 0.0 Sodium 134.5 Potassium 3.99 Chloride 103.3 Carbon Dioxide 30.3 H Anion Gap 4.89 BUN 7.6 L Creatinine 0.83 Estimated GFR (MDRD) 89.00 BUN/Creatinine Ratio 9.15 Glucose 102.4 Calcium 7.70 L Total Bilirubin 0.32 AST 13.8 L ALT 7.2 Alkaline Phosphatase 88.9 D Total Protein 5.84 L Albumin 2.94 L Globulin 2.90 Albumin/Globulin Ratio 1.01 Discharge Instructions Discharge Planning: DISCHARGE TO HOME ACTIVITY: TOLERATED F/U WITH DR. LESTER THIS WEEK DIET: HEART HEALTHY, DIABETIC CONTINUE HOME MEDS DX: ANXIETY RETURN TO ER WITH WORSENING SYMPTOMS Discharge Planning > 40 minutes Medications Given This Visit: Medications Generic Name Dose Route Start Last Admin Trade Name Freq PRN Reason Stop Dose Admin Acetaminophen 650 mg 06/19/22 22:24 Acetaminophen 325 Mg Tablet PO Q4H PRN Fever and Mild Pain Hydrocodone Bitart/Acetaminophen 1 tab 06/20/22 09:29 Hydrocodone Bit/Acetaminophen 7.5/325 Mg Tablet PO TID PRN MODERATE PAIN Albuterol Sulfate 2 puff 06/20/22 09:29 Albuterol Sulfate (Ventolin Hfa) 18 Gm 1 Puff With Spacer IH Q4-6H PRN Bronchospasm Albuterol/Ipratropium 3 ml 06/20/22 09:29 Ipratropium/Albuterol Vial.Neb NEB QID PRN Bronchospasm Aspirin 81 mg 06/20/22 10:00 06/22/22 09:04 Aspirin 81 Mg Tab.Chew PO 81 mg BIDWM EUNICE Administration Clopidogrel Bisulfate 75 mg 06/20/22 10:00 06/22/22 09:05 Clopidogrel Bisulfate 75 Mg Tablet PO 75 mg DAILY EUNICE Administration Enoxaparin Sodium 40 mg 06/20/22 09:00 06/21/22 09:21 Enoxaparin Sodium 40 Mg/0.4 Ml Syr SUBCUT 40 mg DAILY EUNICE Administration Escitalopram Oxalate 5 mg 06/20/22 10:00 06/22/22 09:04 Escitalopram Oxalate 10 Mg Tablet PO 5 mg DAILY EUNICE Administration Furosemide 20 mg 06/20/22 10:00 06/22/22 05:33 Furosemide 20 Mg Tablet PO 20 mg QDAC EUNICE Administration Sodium Chloride 1,000 mls @ 75 mls/hr 06/19/22 22:30 06/22/22 06:34 Sodium Chloride IV 75 mls/hr .[id number] [facility] Administration Insulin Glargine 30 unit 06/20/22 21:00 06/22/22 01:36 Insulin Glargine,Hum.Rec.Anlog 100 Units/Ml SUBCUT Not Given BEDTIME [facility] Insulin Human Lispro 8 unit 06/20/22 10:00 06/22/22 09:09 Insulin Lispro 100 Unit/Ml (3 Ml) Vial SUBCUT Not Given TIDWM [facility] Linagliptin 5 mg 06/20/22 10:00 06/22/22 09:01 Linagliptin 5 Mg Tablet PO 5 mg DAILY [facility] Administration Non-Formulary Medication 145 mcg 06/20/22 10:00 06/21/22 17:30 Linaclotide [Linzess] PO Not Given DAILY [facility] Ondansetron HCl 4 mg 06/19/22 22:24 Ondansetron Hcl/Pf 4 Mg/2 Ml Sdv IVP Q6H PRN Nausea / Vomiting Pantoprazole Sodium 40 mg 06/20/22 10:00 06/22/22 05:33 Pantoprazole Sodium 40 Mg Tablet.Dr PO 40 mg QDAC [facility] Administration Rosuvastatin Calcium 40 mg 06/20/22 10:00 06/22/22 09:02 Rosuvastatin Calcium 10 Mg Tablet PO 40 mg DAILY [facility] Administration Sodium Bicarbonate 650 mg 06/20/22 10:00 06/22/22 09:04 Sodium Bicarbonate 650 Mg Tablet PO 650 mg BID [facility] Administration Sucralfate 1 gm 06/20/22 11:00 06/22/22 05:33 Sucralfate 1 Gm Tablet PO 1 gm ACHS [facility] Administration Tamsulosin HCl 0.4 mg 06/20/22 10:00 06/22/22 09:02 Tamsulosin Hcl 0.4 Mg Cap.Er.24h PO 0.4 mg DAILY [facility] Administration Tiotropium Viola 1 cap 06/20/22 10:00 06/22/22 09:06 Tiotropium Viola 18 Mcg Cap.W.Dev IH 1 cap DAILY [facility] Administration Medications Given This Visit: Medications at Discharge (Home Meds & RX) insulin glargine 100 unit/mL subcutaneous solution (Lantus U-100 Insulin) 30 unit subcut BEDTIME 11/30/17 linagliptin 5 mg tablet (Tradjenta) 5 mg PO DAILY 11/30/17 tiotropium bromide 18 mcg capsule with inhalation device (Spiriva with HandiHaler) 1 cap inhalation DAILY 11/30/17 ipratropium 0.5 mg-albuterol 3 mg (2.5 mg base)/3 mL nebulization soln 3 ml INH QID PRN COPD 08/24/18 pantoprazole 40 mg tablet,delayed release 40 mg PO DAILY 07/14/19 clopidogrel 75 mg tablet 75 mg PO DAILY 09/18/19 aspirin 81 mg chewable tablet 81 mg PO BID 09/13/21 escitalopram oxalate 5 mg tablet (Lexapro) 5 mg PO DAILY 09/13/21 furosemide 20 mg tablet (Lasix) 20 mg PO DAILY 09/13/21 insulin lispro 100 unit/mL subcutaneous pen 8 unit subcut TID 09/13/21 linaclotide 145 mcg capsule (Linzess) 145 mcg PO DAILY 09/13/21 sodium bicarbonate 650 mg tablet 650 mg PO BID 09/13/21 tamsulosin 0.4 mg capsule (Flomax) 0.4 mg PO DAILY 09/13/21 sucralfate 1 gram tablet (Carafate) 1 g PO ACHS #120 tabs 04/14/22 albuterol sulfate 90 mcg/actuation aerosol inhaler 2 puff inhalation Q4-6H PRN shortness of breath or wheezing #8.5 grams 05/08/22 hydrocodone 7.5 mg-acetaminophen 325 mg tablet 1 tab PO TID PRN Pain, Mild #90 tabs 06/10/22 rosuvastatin 40 mg tablet 40 mg PO DAILY 06/20/22 Discharge Plan Discharge Discharge Orders: Discharge Patient (ONCE); Ordered 06/22/22 Ordered By: JOANNE LYON Activity Restrictions/Additional Instructions: ACTIVITY: TOLERATED DIET: HEART HEALTHY, DIABETIC FOLLOW UP WITH DR. LESTER OUTPATIENT THIS WEEK RETURN TO ER WITH WORSENING SYMPTOMS CONSIDER OUTPATIENT REFERRAL TO PSYCH TO DISCUSS MOOD DX: ANXIETY Instructions: Anxiety (GEN) Patient Disposition: HOME SELF-CARE Prescriptions: Continued sucralfate [Carafate] 1 gram tablet 1 g PO ACHS Qty: 120 0RF albuterol sulfate 90 mcg/actuation HFA aerosol inhaler 2 puff inhalation Q4-6H PRN (Reason: shortness of breath or wheezing) Qty: 8.5 5RF hydrocodone-acetaminophen 7.5-325 mg tablet 1 tab PO TID PRN (Reason: Pain, Mild) Qty: 90 0RF clopidogrel 75 mg Tablet 75 mg PO DAILY furosemide [Lasix] 20 mg Tablet 20 mg PO DAILY insulin lispro 100 unit/mL Insulin Pen 8 unit SUBCUT TID tamsulosin [Flomax] 0.4 mg Capsule 0.4 mg PO DAILY sodium bicarbonate 650 mg Tablet 650 mg PO BID aspirin 81 mg Tablet,Chewable 81 mg PO BID escitalopram oxalate [Lexapro] 5 mg Tablet 5 mg PO DAILY Linzess 145 mcg Capsule 145 mcg PO DAILY insulin glargine [Lantus U-100 Insulin] 1 UNIT solution 30 unit subcut BEDTIME Spiriva with HandiHaler 1 CAP capsule, w/inhalation device 1 cap inhalation DAILY Tradjenta 5 MG tablet 5 mg PO DAILY ipratropium-albuterol 1 VIAL solution for nebulization 3 ml INH QID MDD 6 PRN (Reason: COPD) pantoprazole 40 MG tablet,delayed release (DR/EC) 40 mg PO DAILY rosuvastatin 40 mg tablet 40 mg PO DAILY Did you review [place] ENERGY CONSERVATION TECHNICIAN for ALL controlled substances?: Not Applicable Discussed opioids are addictive and Narcan is available by prescription or from pharmacy.: No Condition: Fair
== END 2022-06-22 10:20 | disposition home or self-care (01) ==
LOC: ED 18:27 → MEDSURG A 18:27
PROVIDERS: ADMIT Internal Medicine Geriatric Medicine; ATTEND Physician Assistant
DX: Z90.49 Acquired absence of other specified parts of digestive tract; E11.65 Type 2 diabetes mellitus with hyperglycemia; Z89.612 Acquired absence of left leg above knee; K21.9 Gastro-esophageal reflux disease without esophagitis; F41.9 Anxiety disorder, unspecified; Z79.4 Long term (current) use of insulin; Z20.822 Contact with and (suspected) exposure to COVID-19; Z79.899 Other long term (current) drug therapy; Z86.73 Personal history of transient ischemic attack (TIA), and cerebral infarction without residual deficits; Z51.81 Encounter for therapeutic drug level monitoring; Z86.31 Personal history of diabetic foot ulcer; R07.9 Chest pain, unspecified; Z79.82 Long term (current) use of aspirin

== ENCOUNTER 2022-10-06 10:21 | Inpatient (IN) ==
--- NOTE | 2022-10-06 10:28 | ED.PDOC ---
Medical Screening Exam General Information Time Seen by Physician*: 10:24 Mode of Arrival: Ambulance Information Source: Patient, [facility] and EMT Primary Care Physician: Dr Crain History Chief Complaint: Abnormal Labs Stated Complaint: hyponatremia Onset/Duration: 10/03 Symptoms Are: Still present Timing: Constant Severity: None Associated Signs and Symptoms: generalized weakness Review Of Systems Constitutional: None Neuro: Denies None (generalized weakness) Additional Findings: none Past Medical History Past Medical History: Previously healthy Examination Findings Other Examination Findings: none Visit Related to : No Medical Decision Making Emergency Medical Condition: Yes [facility] Medical History Amputation above knee S78.119A - Complete traumatic amputation at level between unspecified hip and knee, initial encounter (ICD-10) Anxiety F41.9 - Anxiety disorder, unspecified (ICD-10) 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 - Ataxia, unspecified (ICD-10) COPD (chronic obstructive pulmonary disease) J44.9 - Chronic obstructive pulmonary disease, unspecified (ICD-10) Dyslipidemia E78.5 - Hyperlipidemia, unspecified (ICD-10) GERD (gastroesophageal reflux disease) K21.9 - Gastro-esophageal reflux disease without esophagitis (ICD-10) 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) I69.351 - Hemiplegia and hemiparesis following cerebral infarction affecting right dominant side (ICD-10) HTN, goal below 130/80 I10 - Essential (primary) hypertension (ICD-10) Left above-knee amputee Z89.612 - Acquired absence of left leg above knee (ICD-10) LVH (left ventricular hypertrophy) I51.7 - Cardiomegaly (ICD-10) PAD (peripheral artery disease) I73.9 - Peripheral vascular disease, unspecified (ICD-10) Uncontrolled type 2 diabetes mellitus with hyperglycemia E11.65 - Type 2 diabetes mellitus with hyperglycemia (ICD-10) Family History FATHER Myocardial infarct Mother Myocardial infarct FATHER Diabetes Mother Diabetes Social History Smoking and tobacco status: Unknown if ever smoked Alcohol intake: unknown Substance use type: does not use Special gamaliel needs: No Agree to transfusion: Yes Adopted: No Caregiver/support person: No Foster care: No Household members: spouse Housing: house Marital status: M Lives independently: No service: No FDC: No History of recent travel: No Sexually active: No Do you think of yourself as: straight/heterosexual Current gender identity: male Seatbelt use: always Drives intoxicated or rides with intoxicated new autos delivery driver: No Water heater temperature set < 120 degrees: Yes Working smoke detector in home: Yes Fire extinguisher in home: Yes Carbon monoxide detector in home: Yes Surgical History History of appendectomy Z98.89 - Other specified postprocedural states (ICD-10) History of cholecystectomy Z98.89 - Other specified postprocedural states (ICD-10) History of prostate surgery Z98.890 - Other specified postprocedural states (ICD-10) Physical Exam Physical Exam Appearance: Reports Well-appearing and No pain distress Ill-appearing: None Pain Distress: None Eyes: Reports YUMIKO, EOMI and Conjunctiva clear ENT: Reports Ears normal and Nose normal Neck: Nonsupple (normal age-appropriate external appearance) Respiratory: Reports Airway patent, Breath sounds clear, Breath sounds equal and Respirations nonlabored Cardiovascular: Reports RRR GI/: Reports Soft, Nontender and Bowel sounds normal Musculoskeletal: Reports Limited strength (generalized weakness) Skin: Reports Warm, Dry and Normal color Neurological: Reports Sensation intact, Motor intact, Cranial nerves intact, Alert and Oriented Psychiatric: Reports Affect appropriate and Mood appropriate Critical Care Note Critical Care Note Total Critical Care Time (mins): 0 Course Course 10/07/22 05:30 10/07/22 06:00 Orders, Labs, Meds: Lab Review 10/06/22 10:57 WBC 3.70 L RBC 4.64 L Hgb 13.3 L Hct 38.7 L MCV 83.4 MCH 28.7 MCHC 34.4 RDW Coeff of Leanna 13.4 Plt Count 191 Immature Gran % (Auto) 0.5 Neut % (Auto) 45.6 Lymph % (Auto) 35.9 Rice % (Auto) 17.0 H Eos % (Auto) 0.5 Baso % (Auto) 0.5 Neut # (Auto) 1.7 L Lymph # (Auto) 1.3 Rice # (Auto) 0.6 Eos # (Auto) 0.0 Baso # (Auto) 0.0 Immature Gran # (Auto) 0.0 Orders Category Date Time Status Saline Lock [ED IV/MEDIPORT/POWERPORT] .ONCE EMERGENCY 10/06/22 10:37 Active CBC W/ AUTO DIFF Stat LAB 10/06/22 10:57 Completed 0.9 % Sodium Chloride [Saline Flush] Meds 10/06/22 10:37 Active 1 syr IVF PRN PRN Sodium Chloride 0.9% [Sodium Chloride] 1,000 ml Meds 10/06/22 10:37 Discontinued IV BOLUS Sodium Chloride 0.9% [Sodium Chloride] 1,000 ml Meds 10/06/22 10:37 Discontinued IV BOLUS CHEST, 1V AP ONLY Stat RADS 10/06/22 10:37 Completed Medications Generic Name Dose Route Start Last Admin Trade Name Freq PRN Reason Stop Dose Admin Acetaminophen 650 mg 10/06/22 12:25 Acetaminophen 325 Mg Tablet PO Q4H PRN Mild Pain Hydrocodone Bitart/Acetaminophen 1 tab 10/06/22 16:13 10/06/22 21:35 Hydrocodone Bit/Acetaminophen 7.5/325 Mg Tablet PO 1 tab TID PRN Administration MODERATE PAIN Albuterol Sulfate 2 puff 10/06/22 16:13 Albuterol Sulfate 8 Gm Inhaler IH Q4-6H PRN Wheezing Albuterol/Ipratropium 3 ml 10/06/22 16:13 Ipratropium/Albuterol Vial.Neb NEB Q6H PRN Wheezing Aspirin 81 mg 10/07/22 08:30 Aspirin 81 Mg Tablet. PO DAILYWM [facility] Clopidogrel Bisulfate 75 mg 10/07/22 09:00 Clopidogrel Bisulfate 75 Mg Tablet PO DAILY [facility] Sodium Chloride 1,000 mls @ 75 mls/hr 10/06/22 12:30 10/07/22 06:10 Sodium Chloride IV Not Given .[id number] [facility] Insulin Glargine 30 unit 10/06/22 21:00 10/06/22 21:36 Insulin Glargine,Hum.Rec.Anlog 100 Units/Ml SUBCUT 30 unit BEDTIME [facility] Administration Insulin Human Lispro 8 unit 10/06/22 17:00 10/06/22 18:26 Insulin Lispro 100 Unit/Ml (3 Ml) Vial SUBCUT Not Given TIDWM [facility] Insulin Human Regular 0 unit 10/06/22 13:29 Insulin Regular, Human 100 Unit/Ml (3ml) Vial SUBCUT PRN PRN Hyperglycemia Protocol Linagliptin 5 mg 10/07/22 09:00 Linagliptin 5 Mg Tablet PO DAILY [facility] Pantoprazole Sodium 40 mg 10/07/22 06:30 10/07/22 06:10 Pantoprazole Sodium 40 Mg Tablet.Dr PO 40 mg QDAC [facility] Administration Rosuvastatin Calcium 40 mg 10/06/22 21:00 10/06/22 21:36 Rosuvastatin Calcium 10 Mg Tablet PO 40 mg BEDTIME [facility] Administration Sodium Chloride 1 syr 10/06/22 10:37 0.9% Sodium Chloride 10 Ml Disp.Syrin IVF PRN PRN To flush IV Sucralfate 1 gm 10/06/22 17:00 10/07/22 06:10 Sucralfate 1 Gm Tablet PO 1 gm ACHS [facility] Administration Tamsulosin HCl 0.4 mg 10/07/22 09:00 Tamsulosin Hcl 0.4 Mg Cap.Er.24h PO DAILY [facility] Discontinued Medications Generic Name Dose Route Start Last Admin Trade Name Freq PRN Reason Stop Dose Admin Sodium Chloride 1,000 mls @ 500 mls/hr 10/06/22 10:37 10/06/22 11:02 Sodium Chloride IV 10/06/22 12:36 500 mls/hr BOLUS STA Administration Sodium Chloride 1,000 mls @ 100 mls/hr 10/06/22 10:37 10/06/22 12:34 Sodium Chloride IV 10/06/22 20:36 Not Given BOLUS STA Vital Signs: Temp Pulse Resp BP Pulse Ox 10/06/22 10:28 98.4 F 74 20 131/68 98 Patient presents per EMS for hyponatremia. He is a [facility] resident, and his is currently hospitalized here with UTI/dehydration. He has known CoVid. He had generalized weakness, so basic labs were done Thursday. They were consistent with hyponatremia (123.9). They were repeated this morning, and the hyponatremia worsened (122). He was sent to the ED for treatment. Since the labs were all done through this hospital, I saw no benefit in repeating labs on presentation. I instead called the Hospitalist METAL ENGINEERING PROCESS WORKER, Yvrose, who accepted him for admission. She asked that I order a CBC and CXR. This was done. CXR reported 'No acute cardiopulmonary abnormality. No edema, consolidation, or pleural fluid'. He was in good condition when transported from the ED to the medical floor. Discharge Plan Discharge Patient Disposition: PLACED OBSERVATION Discharge Problem: COVID, Generalized weakness, Acute hyponatremia Did you review [place] BALL MILL OPERATOR for ALL controlled substances?: Not Applicable ED Provider: SHELDON HARRINGTON Condition: Stable Physician Progress Note: []
[2022-10-06] MEDS ORDERED: SODIUM CHLORIDE 1,000 ML IV STA ×2 (10:37)
[2022-10-06 11:01] LABS: BASOPHILS % (AUTO) 0.5 % (0.0-3.0); EOSINOPHILS % (AUTO) 0.5 % (0.0-7.0); HEMATOCRIT 38.7 % (42.0-52.0); HEMOGLOBIN 13.3 g/dl (14.0-18.0); IMMATURE GRANULOCYTE % (AUTO) 0.5 % (0.0-5.0); LYMPHOCYTES # (AUTO) 1.3 K/uL (0.60-3.4); LYMPHOCYTES % (AUTO) 35.9 (10.0-50.0); MEAN CORPUSCULAR HEMOGLOBIN 28.7 pg (27.0-31.0); MEAN CORPUSCULAR HGB CONC 34.4 (31.8-35.4); MEAN CORPUSCULAR VOLUME 83.4 fl (80.0-94.0); MONOCYTES # (AUTO) 0.6 K/uL (0.4-2.0); NEUTROPHILS # (AUTO) 1.7 K/ul (2.0-6.9); NEUTROPHILS % (AUTO) 45.6 % (42.2-75.2); PLATELET COUNT 191 10^3/uL (140-440); RDW COEFFICIENT OF VARIATION 13.4 % (11.6-14.8); RED BLOOD COUNT 4.64 10^6/ul (4.70-6.10)
--- NOTE | 2022-10-06 11:08 | DI ---
EXAMINATION: SINGLE VIEW CHEST. HISTORY: COVID-19. COMPARISON: 09/13/2021. FINDINGS: Lines/Devices: None. Cardiomediastinal silhouette: Normal in size. Aortic arch atherosclerosis. Lungs: No edema. No infiltrate or consolidation. Granulomatous calcification lateral right upper l obe. Pleural Effusion: None. Osseous structures: No significant abnormality. Degenerative changes and dextrocurvature in the thor acic spine. IMPRESSION: No acute cardiopulmonary abnormality. No edema, consolidation, or pleural fluid.
[2022-10-06] MEDS ORDERED: TYLENOL PO PRN (12:25)
[2022-10-06] MEDS: SODIUM CHLORIDE 1,000 ML IV SCH ×2 (12:34→20:36)
--- NOTE | 2022-10-06 13:17 | PCM ---
Date of Service Date Seen by Provider: 10/06/22 Time Seen by Provider: 12:30 Admit Day/Time Admission Date: 10/06/22 Reason for Admission Chief Complaint: COVID+, GENERALIZED WEAKNESS, ACUTE HYPONATREMIA Hospital Provider Hospital Provider: JESÚS SCHAEFFER, [facility] Primary Care Physician Primary Care Physician: JOVANNI CRAIN MD History of Present Illness History of Present Illness: 77 yo male presented to the ER from local nursing facility for abnormal labs. ER provider reports that patient tested positive for covid on thursday and had his labs checked then as well which revealed hyponatremia. Unsure if patient was given any fluids at that time. Labs were repeated today and showed a sodium in the 120s. Patient denies any complaints or symptoms at this time. States he doesn't know why he is here. He is oriented to person and place only. Case Discussed With Case Discussed With: Patient's case was discussed with the ER Physicians, Dr. 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) I69.351 - Hemiplegia and hemiparesis following cerebral infarction affecting right dominant side (ICD-10) HTN, goal below 130/80 I10 - Essential (primary) hypertension (ICD-10) Left above-knee amputee Z89.612 - Acquired absence of left leg above knee (ICD-10) LVH (left ventricular hypertrophy) I51.7 - Cardiomegaly (ICD-10) PAD (peripheral artery disease) I73.9 - Peripheral vascular disease, unspecified (ICD-10) Uncontrolled type 2 diabetes mellitus with hyperglycemia E11.65 - Type 2 diabetes mellitus with hyperglycemia (ICD-10) Surgical History History of appendectomy Z98.89 - Other specified postprocedural states (ICD-10) History of cholecystectomy Z98.89 - Other specified postprocedural states (ICD-10) History of prostate surgery Z98.890 - Other specified postprocedural states (ICD-10) Family History FATHER Myocardial infarct Mother Myocardial infarct FATHER Diabetes Mother Diabetes Social History Smoking and tobacco status: Unknown if ever smoked Alcohol intake: unknown Substance use type: does not use Special gamaliel needs: No Agree to transfusion: Yes Adopted: No Caregiver/support person: No Foster care: No Household members: spouse Housing: house Marital status: M Lives independently: No service: No FDC: No History of recent travel: No Sexually active: No Do you think of yourself as: straight/heterosexual Current gender identity: male Seatbelt use: always Drives intoxicated or rides with intoxicated driver engineer: No Water heater temperature set < 120 degrees: Yes Working smoke detector in home: Yes Fire extinguisher in home: Yes Carbon monoxide detector in home: Yes Allergies Allergies Allergy/AdvReac Type Severity Reaction Status Date / Time No Known Allergies Allergy Verified 07/03/22 07:55 Current Medications Home Medications albuterol sulfate 90 mcg/actuation aerosol inhaler 2 puff inhalation Q4-6H PRN shortness of breath or wheezing #8.5 grams 05/08/22 [Rx Confirmed 10/06/22 Last Taken Unknown] hydrocodone 7.5 mg-acetaminophen 325 mg tablet 1 tab PO TID PRN pain #90 tabs 09/02/22 [Rx Confirmed 10/06/22 Last Taken Unknown] aspirin 81 mg tablet,delayed release (Adult Low Dose Aspirin) 81 mg PO DAILY 10/06/22 [History Confirmed 10/06/22 Last Taken Unknown] clopidogrel 75 mg tablet 75 mg PO ONCE 10/06/22 [History Confirmed 10/06/22 Last Taken Unknown] escitalopram oxalate 5 mg tablet 5 mg PO ONCE 10/06/22 [History Confirmed 10/06/22 Last Taken Unknown] furosemide 20 mg tablet 20 mg PO ONCE 10/06/22 [History Confirmed 10/06/22 Last Taken Unknown] insulin glargine 100 unit/mL (3 mL) subcutaneous pen (Lantus Solostar U-100 Insulin) 30 unit subcut .hs 10/06/22 [History Confirmed 10/06/22 Last Taken Unknown] insulin lispro 100 unit/mL subcutaneous pen 8 unit subcut .ac 10/06/22 [History Confirmed 10/06/22 Last Taken Unknown] ipratropium 0.5 mg-albuterol 3 mg (2.5 mg base)/3 mL nebulization soln 3 ml inhalation .q6h prn PRN soa 10/06/22 [History Confirmed 10/06/22 Last Taken Unknown] linaclotide 145 mcg capsule (Linzess) 145 mcg PO ONCE 10/06/22 [History Confirmed 10/06/22 Last Taken Unknown] linagliptin 5 mg tablet (Tradjenta) 5 mg PO ONCE 10/06/22 [History Confirmed 10/06/22 Last Taken Unknown] ondansetron HCl 4 mg tablet 4 mg PO Q8H PRN nausea and vomiting 10/06/22 [History Confirmed 10/06/22 Last Taken Unknown] pantoprazole 40 mg tablet,delayed release 40 mg PO ONCE 10/06/22 [History Confirmed 10/06/22 Last Taken Unknown] rosuvastatin 40 mg tablet 40 mg PO ONCE 10/06/22 [History Confirmed 10/06/22 Last Taken Unknown] sodium bicarbonate 650 mg tablet 650 mg PO BID PRN GERD 10/06/22 [History Confirmed 10/06/22 Last Taken Unknown] sucralfate 1 gram tablet 1 g PO ACHS 10/06/22 [History Confirmed 10/06/22 Last Taken Unknown] tamsulosin 0.4 mg capsule 0.4 mg PO ONCE 10/06/22 [History Confirmed 10/06/22 Last Taken Unknown] tiotropium bromide 18 mcg capsule with inhalation device (Spiriva with HandiHaler) 1 cap inhalation ONCE 10/06/22 [History Confirmed 10/06/22 Last Taken Unknown] Home Acetaminophen (Acetaminophen 325 Mg Tablet) 650 mg PO Q4H PRN PRN Reason: Mild Pain Sodium Chloride (Sodium Chloride) 1,000 mls @ 100 mls/hr IV BOLUS STA Stop: 10/06/22 20:36 Last Admin: 10/06/22 12:34 Dose: Not Given Sodium Chloride (Sodium Chloride) 1,000 mls @ 75 mls/hr IV .[id number] EUNICE Last Admin: 10/06/22 12:34 Dose: 75 mls/hr Insulin Human Regular (Insulin Regular, Human 100 Unit/Ml (3ml) Vial) 0 unit SUBCUT PRN PRN; Protocol PRN Reason: Hyperglycemia Sodium Chloride (0.9% Sodium Chloride 10 Ml Disp.Syrin) 1 syr IVF PRN PRN PRN Reason: To flush IV Discontinued Medications Sodium Chloride (Sodium Chloride) 1,000 mls @ 500 mls/hr IV BOLUS STA Stop: 10/06/22 12:36 Last Admin: 10/06/22 11:02 Dose: 500 mls/hr Review of Systems Constitutional: Reports Weakness Head: Reports Normocephalic and Atraumatic Eyes: Reports No symptoms Ears: Reports No symptoms Nose: Reports No symptoms Mouth: Reports No symptoms Throat: Reports No symptoms Cardiovascular: Reports No symptoms Respiratory: Reports No symptoms Gastrointestinal: Reports No symptoms Genitourinary: Reports No Symptoms Musculoskeletal: Reports No symptoms Endocrine: Reports No symptoms Hematology: Reports No symptoms Immunology: Reports No symptoms Neurological: Reports No symptoms Psychiatric: Reports No symptoms Physical examination Most Recent Vital Signs: Most Recent Vital Signs Temperature 98.4 F 10/06/22 10:28 Temperature Source Oral 10/06/22 10:28 Pulse Rate 74 10/06/22 10:28 Respiratory Rate 20 10/06/22 10:28 Blood Pressure 131/68 10/06/22 10:28 O2 Sat by Pulse Oximetry 98 10/06/22 10:28 Height 5 ft 9 in 10/06/22 10:28 Weight 199 lb 8.293 oz 10/06/22 10:28 Telemetry Heart Rate 67 06/22/22 07:00 Appearance: Positive No Apparent Distress and Obese Skin: Positive Warm, Good Turgor and Good Color HEENT: Positive Normocephalic, Atraumatic and PERRLA Neck: Positive Supple and Midline Trachea Chest/Lungs: Positive Symmetrical With Equal Breath Sounds, Wheezes (expiratory) and Good Air Movement all 4 Lung Riggins Heart: Positive RRR and Pulses Normal GI/: Positive Soft, Nontender, Bowel Sounds Normal and No Distention Musculoskeletal: Positive Not Examined Extremities: Positive Amputations (Left above the knee) Neurological: Positive Sensation Intact, Motor intact, Reflexes Intact, Alert, Oriented (person and place) and Muscle Strength 5/5 in Upper and Lower Extremities Bilaterally (generalized weakness) Psychiatric: Positive Appropriate Mood and Appropriate Affect Labs This Visit Labs This Visit: Labs This Visit 10/06/22 10:57 WBC 3.70 L RBC 4.64 L Hgb 13.3 L Hct 38.7 L MCV 83.4 MCH 28.7 MCHC 34.4 RDW Coeff of Leanna 13.4 Plt Count 191 Immature Gran % (Auto) 0.5 Neut % (Auto) 45.6 Lymph % (Auto) 35.9 [place] % (Auto) 17.0 H Eos % (Auto) 0.5 Baso % (Auto) 0.5 Neut # (Auto) 1.7 L Lymph # (Auto) 1.3 [place] # (Auto) 0.6 Eos # (Auto) 0.0 Baso # (Auto) 0.0 Immature Gran # (Auto) 0.0 Imaging Imaging: EXAMINATION: SINGLE VIEW CHEST. FINDINGS: Lines/Devices: None. Cardiomediastinal silhouette: Normal in size. Aortic arch atherosclerosis. Lungs: No edema. No infiltrate or consolidation. Granulomatous calcification lateral right upper lobe. Pleural Effusion: None. Osseous structures: No significant abnormality. Degenerative changes and dextrocurvature in the thoracic spine. IMPRESSION: No acute cardiopulmonary abnormality. No edema, consolidation, or pleural fluid. Review Statement Review Statement: I have independently reviewed and interpreted the labs/EKGs/imaging that were ordered by the ER provider. I have reviewed all outside records that are available currently in our EMR including imaging/notes/labs from previous visits. Plan Plan: 1. Symptomatic Hyponatremia - has hx hyponatremia in the past, NS@100mL/hr, telemetry, checking osmolalities 2. Covid-19 - asymptomatic, no hypoxia, droplet isolation, monitor 3. COPD - chronic, does not appear in exacerbation, monitor 4. Hypertension - chronic, continue home medications 5. Hyperlipidemia - chronic, continue home medications 6. Diabetes Mellitus, Type 2 - hold oral agents, accuchecks qid with ssi, ADA diet DVT Prophylaxis: Plavix Time Spent: Greater than 80 minutes spent with patient, 50% of the time spent with this patient was devoted to counseling and coordination of care. [facility] Plannin minutes spent discussing advance care planning. Disposition: Admit to: Med/Surg Inpatient Discussed Plan of Care with Dr. Crain. Medications Medication Orders: Medications Ordered Category Date Time Status 0.9 % Sodium Chloride [Saline Flush] Meds 10/06/22 10:37 Active 1 syr IVF PRN PRN Acetaminophen [Tylenol] Meds 10/06/22 12:25 Active 650 mg PO Q4H PRN Sodium Chloride 0.9% [Sodium Chloride] 1,000 ml Meds 10/06/22 12:30 Active IV 75 mls/hr Sodium Chloride 0.9% [Sodium Chloride] 1,000 ml Meds 10/06/22 10:37 Active IV BOLUS
[2022-10-06] MEDS ORDERED: HUMULIN R SUBCUT PRN (13:29)
[2022-10-06 14:32] VITALS: BMI 26.7
[2022-10-06] MEDS ORDERED: NORCO 7.5-325 PO PRN (16:13)
[2022-10-06] MEDS ORDERED: DUONEB NEB PRN (16:13)
[2022-10-06] MEDS ORDERED: VENTOLIN HFA IH PRN (16:13)
[2022-10-06] MEDS: CARAFATE PO SCH ×2 (18:06→21:35)
[2022-10-06] MEDS: HUMALOG SUBCUT SCH (18:26)
[2022-10-06] MEDS: CRESTOR PO SCH (21:36)
[2022-10-06] MEDS: LANTUS SUBCUT SCH (21:36)
[2022-10-07 05:26] LABS: BASOPHILS % (AUTO) 0.5 % (0.0-3.0); EOSINOPHILS % (AUTO) 1.1 % (0.0-7.0); HEMATOCRIT 36.1 % (42.0-52.0); HEMOGLOBIN 12.1 g/dl (14.0-18.0); IMMATURE GRANULOCYTE % (AUTO) 0.5 % (0.0-5.0); LYMPHOCYTES # (AUTO) 1.7 K/uL (0.60-3.4); LYMPHOCYTES % (AUTO) 45.9 (10.0-50.0); MEAN CORPUSCULAR HEMOGLOBIN 28.2 pg (27.0-31.0); MEAN CORPUSCULAR HGB CONC 33.5 (31.8-35.4); MEAN CORPUSCULAR VOLUME 84.1 fl (80.0-94.0); MONOCYTES # (AUTO) 0.7 K/uL (0.4-2.0); NEUTROPHILS # (AUTO) 1.2 K/ul (2.0-6.9); PLATELET COUNT 169 10^3/uL (140-440); RDW COEFFICIENT OF VARIATION 13.4 % (11.6-14.8); RED BLOOD COUNT 4.29 10^6/ul (4.70-6.10); WHITE BLOOD COUNT 3.64 K/ul (4.2-10.2)
[2022-10-07 06:01] LABS: ALBUMIN 2.91 g/dL (3.5-5.0); ALKALINE PHOSPHATASE 80.2 U/L (56-119); ASPARTATE AMINO TRANSFERASE 51.9 U/L (17-59); BILIRUBIN,TOTAL 0.15 mg/dL (0.2-1.3); BLOOD UREA NITROGEN 9.7 mg/dL (9-20); CALCIUM 7.35 mg/dL (8.4-10.2); CARBON DIOXIDE 29.3 mmol/L (22-30.0); CHLORIDE 90.2 mmol/L (98-107); CREATININE 0.96 mg/dL (0.60-1.10); GLUCOSE 86.4 mg/dL (74-106); POTASSIUM 3.77 mmol/L (3.5-5.1); SODIUM 122.6 mmol/L (134.5-145); TOTAL PROTEIN 5.71 g/dL (6.3-8.2)
[2022-10-07] MEDS: CARAFATE PO SCH ×4 (06:10→20:42)
[2022-10-07] MEDS: SODIUM CHLORIDE 1,000 ML IV SCH (06:10)
[2022-10-07] MEDS: PROTONIX PO SCH (06:10)
[2022-10-07] MEDS: ASPIRIN EC PO SCH (09:12)
[2022-10-07] MEDS: PLAVIX PO SCH (09:13)
[2022-10-07] MEDS: TRADJENTA PO SCH (09:13)
[2022-10-07] MEDS: FLOMAX PO SCH (09:13)
[2022-10-07] MEDS: SODIUM CHLORIDE 3% 500 ML IV SCH (09:13)
[2022-10-07] MEDS: HUMALOG SUBCUT SCH ×3 (09:32→17:19)
--- NOTE | 2022-10-07 12:17 | PCM.PROG ---
Date/Time Seen Date Seen by Provider: 10/07/22 Time Seen by Provider: 11:00 Provider Provider: JESÚS SCHAEFFER, [facility] Chief Complaint Chief Complaint: COVID+, GENERALIZED WEAKNESS, ACUTE HYPONATREMIA Subjective Subjective: No complaints voiced. Sleepy this am per nursing Objective Appearance: Positive Well-appearing, Well-nourished, No Apparent Distress and Obese Chest/Lungs: Positive Symmetrical With Equal Breath Sounds, Clear to Auscultation Bilaterally and Good Air Movement all 4 Lung Riggins Heart: Positive RRR and Pulses Normal GI/: Positive Soft, Nontender, Bowel Sounds Normal and No Distention Musculoskeletal: Positive Other (left AKA) and Not Examined Neurological: Positive Sensation Intact, Motor intact, Reflexes Intact, Alert, Disorinted and Other (generalized weakness) Vital Signs Vital Signs: Vital Signs: Last 24 Hours 10/06/22 13:00 10/06/22 12:26 10/06/22 14:00 Temperature 98.1 F 97.8 F Temperature Source Oral Oral Pulse Rate 67 70 Respiratory Rate 17 20 Blood Pressure 141/60 H Blood Pressure Mean 87 Blood Pressure Right Arm 126/69 Blood Pressure Location Right Arm Blood Pressure Position Sitting Sitting O2 Sat by Pulse Oximetry 97 97 Oxygen Delivery Method Room Air Room Air Height 6 ft Weight 197 lb 1 oz Telemetry Type Bedside Monitor Telemetry Monitoring Started Telemetry Heart Rate 67 Telemetry SPO2 98 EKG GA Interval 0.26 H EKG QRS Interval 0.06 EKG QT Interval Telemetry Strip Reading SR with 1st degree AVB 10/06/22 12:26 10/06/22 18:00 10/06/22 22:00 Temperature 97.9 F 98.2 F Temperature Source Oral Oral Pulse Rate 60 67 Respiratory Rate 18 16 Blood Pressure 125/74 127/70 Blood Pressure Mean 91 89 Blood Pressure Right Arm Blood Pressure Location Right Arm Right Arm Blood Pressure Position Sitting Supine O2 Sat by Pulse Oximetry 96 96 Oxygen Delivery Method Room Air Room Air Room Air Height Weight Telemetry Type Telemetry Monitoring Telemetry Heart Rate Telemetry SPO2 EKG GA Interval EKG QRS Interval EKG QT Interval Telemetry Strip Reading 10/06/22 19:00 10/06/22 20:00 10/07/22 01:00 Temperature Temperature Source Pulse Rate Respiratory Rate Blood Pressure Blood Pressure Mean Blood Pressure Right Arm Blood Pressure Location Blood Pressure Position O2 Sat by Pulse Oximetry Oxygen Delivery Method Room Air Height Weight Telemetry Type Bedside Monitor Bedside Monitor Telemetry Monitoring Continues Continues Telemetry Heart Rate 64 Telemetry SPO2 96 EKG GA Interval 0.23 H 0.29 H EKG QRS Interval 0.08 0.10 EKG QT Interval 0.39 Telemetry Strip Reading 1st Degree AV Block currently but mostly been A-fib SR WITH 1ST DEGREE AVB 10/07/22 01:39 10/07/22 05:47 10/07/22 05:54 Temperature 97.9 F 97.6 F Temperature Source Oral Oral Pulse Rate 53 L 63 Respiratory Rate 16 18 Blood Pressure 114/56 L 113/58 L Blood Pressure Mean 75 76 Blood Pressure Right Arm Blood Pressure Location Right Arm Right Arm Blood Pressure Position Supine Supine O2 Sat by Pulse Oximetry 95 95 Oxygen Delivery Method Room Air Room Air Height Weight 197 lb 8 oz Telemetry Type Telemetry Monitoring Telemetry Heart Rate Telemetry SPO2 EKG GA Interval EKG QRS Interval EKG QT Interval Telemetry Strip Reading 10/07/22 07:00 10/07/22 08:00 10/07/22 10:00 Temperature Temperature Source Pulse Rate 62 Respiratory Rate 16 Blood Pressure 112/64 Blood Pressure Mean 80 Blood Pressure Right Arm Blood Pressure Location Right Arm Blood Pressure Position Sitting O2 Sat by Pulse Oximetry 95 Oxygen Delivery Method Room Air Room Air Height Weight Telemetry Type Bedside Monitor Telemetry Monitoring Continues Telemetry Heart Rate 57 L Telemetry SPO2 92 L EKG GA Interval EKG QRS Interval 0.06 EKG QT Interval Telemetry Strip Reading afib Lab Results Lab Results: Lab Results: Last 24 Hours 10/07/22 10/07/22 06:00 05:30 WBC 3.64 L RBC 4.29 L Hgb 12.1 L Hct 36.1 L MCV 84.1 MCH 28.2 MCHC 33.5 RDW Coeff of Leanna 13.4 Plt Count 169 Immature Gran % (Auto) 0.5 Neut % (Auto) 33.0 L Lymph % (Auto) 45.9 [place] % (Auto) 19.0 H Eos % (Auto) 1.1 Baso % (Auto) 0.5 Neut # (Auto) 1.2 L Lymph # (Auto) 1.7 [place] # (Auto) 0.7 Eos # (Auto) 0.0 Baso # (Auto) 0.0 Immature Gran # (Auto) 0.0 Sodium 122.6 L Potassium 3.77 Chloride 90.2 L Carbon Dioxide 29.3 Anion Gap 6.87 BUN 9.7 Creatinine 0.96 Estimated GFR (MDRD) 76.00 BUN/Creatinine Ratio 10.10 Glucose 86.4 Calcium 7.35 L Total Bilirubin 0.15 L AST 51.9 ALT 24.0 Alkaline Phosphatase 80.2 Total Protein 5.71 L Albumin 2.91 L Globulin 2.80 Albumin/Globulin Ratio 1.03 Additional Comments Additional Comments: I have independently reviewed and interpreted the labs/EKGs/imaging ordered during this hospital stay. I have reviewed outside records that are available in our EMR that pertain to medical stay including imaging/notes/labs from previous visits. Active Medications Active Medications: Medications Generic Name Dose Route Start Last Admin Trade Name Freq PRN Reason Stop Dose Admin Acetaminophen 650 mg 10/06/22 12:25 Acetaminophen 325 Mg Tablet PO Q4H PRN Mild Pain Hydrocodone Bitart/Acetaminophen 1 tab 10/06/22 16:13 10/06/22 21:35 Hydrocodone Bit/Acetaminophen 7.5/325 Mg Tablet PO 1 tab TID PRN Administration MODERATE PAIN Albuterol Sulfate 2 puff 10/06/22 16:13 Albuterol Sulfate 8 Gm Inhaler IH Q4-6H PRN Wheezing Albuterol/Ipratropium 3 ml 10/06/22 16:13 Ipratropium/Albuterol Vial.Neb NEB Q6H PRN Wheezing Aspirin 81 mg 10/07/22 08:30 10/07/22 09:12 Aspirin 81 Mg Tablet. PO 81 mg DAILYWM EUNICE Administration Clopidogrel Bisulfate 75 mg 10/07/22 09:00 10/07/22 09:13 Clopidogrel Bisulfate 75 Mg Tablet PO 75 mg DAILY EUNICE Administration Sodium Chloride 500 mls @ 30 mls/hr 10/07/22 09:00 10/07/22 09:13 Sodium Chloride 3% IV 30 mls/hr .[id number] EUNICE Administration Insulin Glargine 30 unit 10/06/22 21:00 10/06/22 21:36 Insulin Glargine,Hum.Rec.Anlog 100 Units/Ml SUBCUT 30 unit BEDTIME EUNICE Administration Insulin Human Lispro 8 unit 10/06/22 17:00 10/07/22 11:29 Insulin Lispro 100 Unit/Ml (3 Ml) Vial SUBCUT Not Given TIDWM [facility] Insulin Human Regular 0 unit 10/06/22 13:29 Insulin Regular, Human 100 Unit/Ml (3ml) Vial SUBCUT PRN PRN Hyperglycemia Protocol Linagliptin 5 mg 10/07/22 09:00 10/07/22 09:13 Linagliptin 5 Mg Tablet PO 5 mg DAILY EUNICE Administration Pantoprazole Sodium 40 mg 10/07/22 06:30 10/07/22 06:10 Pantoprazole Sodium 40 Mg Tablet.Dr PO 40 mg QDAC EUNICE Administration Rosuvastatin Calcium 40 mg 10/06/22 21:00 10/06/22 21:36 Rosuvastatin Calcium 10 Mg Tablet PO 40 mg BEDTIME EUNICE Administration Sodium Chloride 1 syr 10/06/22 10:37 0.9% Sodium Chloride 10 Ml Disp.Syrin IVF PRN PRN To flush IV Sucralfate 1 gm 10/06/22 17:00 10/07/22 11:18 Sucralfate 1 Gm Tablet PO 1 gm ACHS EUNICE Administration Tamsulosin HCl 0.4 mg 10/07/22 09:00 10/07/22 09:13 Tamsulosin Hcl 0.4 Mg Cap.Er.24h PO 0.4 mg DAILY EUNICE Administration Plan Plan: 1. Symptomatic Hyponatremia - has hx hyponatremia in the past, did not improve with NS, switched to 3% saline@30mL/hr, repeat bmp at 1300, seizure precautions, telemetry, checking osmolalities 2. Covid-19 - asymptomatic, no hypoxia, droplet isolation, monitor 3. COPD - chronic, does not appear in exacerbation, monitor 4. Hypertension - chronic, continue home medications 5. Hyperlipidemia - chronic, continue home medications 6. Diabetes Mellitus, Type 2 - hold oral agents, accuchecks qid with ssi, ADA diet DVT Prophylaxis: Plavix Review Statement Review Statement: I have personally discussed and reviewed the patient's visit/currently labs/imaging/decision making with Dr. Crain, my supervising attending. Greater that 50 minutes spent with patient, 50% of the time spent with this patient was devoted to counseling and coordination of care.
[2022-10-07 13:19] LABS: BLOOD UREA NITROGEN 9.6 mg/dL (9-20); CALCIUM 7.46 mg/dL (8.4-10.2); CARBON DIOXIDE 28.2 mmol/L (22-30.0); CHLORIDE 90.7 mmol/L (98-107); CREATININE 0.78 mg/dL (0.60-1.10); GLUCOSE 96.4 mg/dL (74-106); POTASSIUM 3.99 mmol/L (3.5-5.1); SODIUM 124.3 mmol/L (134.5-145)
[2022-10-07 17:58] LABS: BLOOD UREA NITROGEN 10.2 mg/dL (9-20); CALCIUM 7.46 mg/dL (8.4-10.2); CARBON DIOXIDE 27.4 mmol/L (22-30.0); CHLORIDE 93.3 mmol/L (98-107); CREATININE 0.79 mg/dL (0.60-1.10); GLUCOSE 89.7 mg/dL (74-106); POTASSIUM 3.82 mmol/L (3.5-5.1); SODIUM 126.4 mmol/L (134.5-145)
[2022-10-07] MEDS: CRESTOR PO SCH (20:42)
[2022-10-07] MEDS: LANTUS SUBCUT SCH (20:44)
[2022-10-07 21:35] LABS: BLOOD UREA NITROGEN 10.7 mg/dL (9-20); CALCIUM 7.47 mg/dL (8.4-10.2); CARBON DIOXIDE 25.5 mmol/L (22-30.0); CHLORIDE 95.6 mmol/L (98-107); CREATININE 0.78 mg/dL (0.60-1.10); POTASSIUM 3.8 mmol/L (3.5-5.1); SODIUM 128.2 mmol/L (134.5-145)
[2022-10-08] MEDS: SODIUM CHLORIDE 3% 500 ML IV SCH (01:43)
[2022-10-08 05:51] LABS: BASOPHILS % (AUTO) 0.3 % (0.0-3.0); EOSINOPHILS % (AUTO) 0.9 % (0.0-7.0); HEMATOCRIT 36.4 % (42.0-52.0); HEMOGLOBIN 12.4 g/dl (14.0-18.0); IMMATURE GRANULOCYTE % (AUTO) 0.6 % (0.0-5.0); LYMPHOCYTES # (AUTO) 1.5 K/uL (0.60-3.4); LYMPHOCYTES % (AUTO) 45.3 (10.0-50.0); MEAN CORPUSCULAR HEMOGLOBIN 28.6 pg (27.0-31.0); MEAN CORPUSCULAR HGB CONC 34.1 (31.8-35.4); MEAN CORPUSCULAR VOLUME 84.1 fl (80.0-94.0); MONOCYTES # (AUTO) 0.5 K/uL (0.4-2.0); MONOCYTES % (AUTO) 15.1 (0-10); NEUTROPHILS # (AUTO) 1.3 K/ul (2.0-6.9); NEUTROPHILS % (AUTO) 37.8 % (42.2-75.2); PLATELET COUNT 178 10^3/uL (140-440); RDW COEFFICIENT OF VARIATION 13.3 % (11.6-14.8); RED BLOOD COUNT 4.33 10^6/ul (4.70-6.10); WHITE BLOOD COUNT 3.38 K/ul (4.2-10.2)
[2022-10-08] MEDS: PROTONIX PO SCH (06:11)
[2022-10-08] MEDS: CARAFATE PO SCH ×4 (06:11→20:43)
[2022-10-08 06:13] LABS: ALANINE AMINOTRANSFERASE 23.7 U/L (0-50); ALBUMIN 2.97 g/dL (3.5-5.0); ASPARTATE AMINO TRANSFERASE 37.8 U/L (17-59); BILIRUBIN,TOTAL 0.16 mg/dL (0.2-1.3); CALCIUM 7.54 mg/dL (8.4-10.2); CARBON DIOXIDE 25.7 mmol/L (22-30.0); CREATININE 0.76 mg/dL (0.60-1.10); GLUCOSE 74.4 mg/dL (74-106); POTASSIUM 4.02 mmol/L (3.5-5.1); SODIUM 131.1 mmol/L (134.5-145); TOTAL PROTEIN 5.87 g/dL (6.3-8.2)
[2022-10-08] MEDS: ASPIRIN EC PO SCH (08:29)
[2022-10-08] MEDS: TRADJENTA PO SCH (08:29)
[2022-10-08] MEDS: HUMALOG SUBCUT SCH ×3 (08:29→18:04)
[2022-10-08] MEDS: FLOMAX PO SCH (08:29)
[2022-10-08] MEDS: PLAVIX PO SCH (08:29)
[2022-10-08 11:28] LABS: BLOOD UREA NITROGEN 10.2 mg/dL (9-20); CALCIUM 7.41 mg/dL (8.4-10.2); CARBON DIOXIDE 27.5 mmol/L (22-30.0); CHLORIDE 99.7 mmol/L (98-107); CREATININE 0.79 mg/dL (0.60-1.10); GLUCOSE 86.1 mg/dL (74-106); POTASSIUM 4.08 mmol/L (3.5-5.1); SODIUM 131.4 mmol/L (134.5-145)
--- NOTE | 2022-10-08 14:21 | PCM.PROG ---
Date/Time Seen Date Seen by Provider: 10/08/22 Time Seen by Provider: 10:45 Provider Provider: JESÚS SCHAEFFER, [facility] Chief Complaint Chief Complaint: COVID+, GENERALIZED WEAKNESS, ACUTE HYPONATREMIA Subjective Subjective: No complaints or concerns. Not requiring oxygen. Nursing reporting low appetite. Objective Appearance: Positive Well-nourished, No Apparent Distress and Obese Chest/Lungs: Positive Symmetrical With Equal Breath Sounds, Clear to Auscultation Bilaterally and Good Air Movement all 4 Lung [place] Heart: Positive RRR and Pulses Normal GI/: Positive Soft, Nontender, Bowel Sounds Normal and No Distention Musculoskeletal: Positive Not Examined Neurological: Positive Sensation Intact, Motor intact, Reflexes Intact, Alert and Disorinted Vital Signs Vital Signs: Vital Signs: Last 24 Hours 10/07/22 17:46 10/07/22 19:00 10/07/22 20:00 Temperature Temperature Source Pulse Rate 67 Respiratory Rate 17 Blood Pressure 146/92 H Blood Pressure Mean 110 Blood Pressure Location Right Arm Blood Pressure Position Sitting O2 Sat by Pulse Oximetry 96 Oxygen Delivery Method Room Air Room Air Weight Telemetry Type Remote Telemetry Telemetry Monitoring Continues Telemetry Heart Rate 73 Telemetry SPO2 96 EKG FL Interval 0.22 H EKG QRS Interval 0.05 L Telemetry Strip Reading NSR/1st degree AVB 10/07/22 21:58 10/08/22 01:00 10/08/22 01:55 Temperature 98.1 F 97.5 F L Temperature Source Oral Tympanic Pulse Rate 71 70 Respiratory Rate 16 14 Blood Pressure 137/70 150/72 H Blood Pressure Mean 92 98 Blood Pressure Location Right Arm Right Arm Blood Pressure Position Supine Supine O2 Sat by Pulse Oximetry 96 96 Oxygen Delivery Method Room Air Room Air Weight Telemetry Type Remote Telemetry Telemetry Monitoring Continues Telemetry Heart Rate 70 Telemetry SPO2 94 EKG FL Interval 0.24 H EKG QRS Interval 0.06 Telemetry Strip Reading NSR/1st degree AVB 10/08/22 06:00 10/08/22 07:00 10/08/22 13:00 Temperature 98.5 F Temperature Source Oral Pulse Rate 76 Respiratory Rate 16 Blood Pressure 149/70 H Blood Pressure Mean 96 Blood Pressure Location Right Arm Blood Pressure Position Supine O2 Sat by Pulse Oximetry 97 Oxygen Delivery Method Room Air Weight Telemetry Type Remote Telemetry Remote Telemetry Telemetry Monitoring Continues Continues Telemetry Heart Rate 68 54 L Telemetry SPO2 EKG FL Interval 0.28 H 0.28 H EKG QRS Interval 0.06 0.06 Telemetry Strip Reading sr w/ 1st degree avb sb w/ 1st degree avb 10/08/22 08:00 10/08/22 10:00 10/08/22 06:00 Temperature 98.2 F Temperature Source Oral Pulse Rate 68 Respiratory Rate 16 Blood Pressure 140/63 Blood Pressure Mean 88 Blood Pressure Location Right Arm Blood Pressure Position Supine O2 Sat by Pulse Oximetry 96 Oxygen Delivery Method Room Air Room Air Weight 197 lb 6.4 oz Telemetry Type Telemetry Monitoring Telemetry Heart Rate Telemetry SPO2 EKG FL Interval EKG QRS Interval Telemetry Strip Reading 10/08/22 14:00 Temperature Temperature Source Pulse Rate 69 Respiratory Rate 16 Blood Pressure 109/61 Blood Pressure Mean 77 Blood Pressure Location Right Arm Blood Pressure Position Supine O2 Sat by Pulse Oximetry 97 Oxygen Delivery Method Room Air Weight Telemetry Type Telemetry Monitoring Telemetry Heart Rate Telemetry SPO2 EKG FL Interval EKG QRS Interval Telemetry Strip Reading Lab Results Lab Results: Lab Results: Last 24 Hours 10/08/22 10/08/22 10/07/22 11:04 05:05 21:00 WBC 3.38 L RBC 4.33 L Hgb 12.4 L Hct 36.4 L MCV 84.1 MCH 28.6 MCHC 34.1 RDW Coeff of Leanna 13.3 Plt Count 178 Immature Gran % (Auto) 0.6 Neut % (Auto) 37.8 L Lymph % (Auto) 45.3 [place] % (Auto) 15.1 H Eos % (Auto) 0.9 Baso % (Auto) 0.3 Neut # (Auto) 1.3 L Lymph # (Auto) 1.5 [place] # (Auto) 0.5 Eos # (Auto) 0.0 Baso # (Auto) 0.0 Immature Gran # (Auto) 0.0 Sodium 131.4 L 131.1 L 128.2 L Potassium 4.08 4.02 3.80 Chloride 99.7 101.0 95.6 L Carbon Dioxide 27.5 25.7 25.5 Anion Gap 8.28 8.42 10.90 BUN 10.2 10.0 10.7 Creatinine 0.79 0.76 0.78 Estimated GFR (MDRD) 95.00 99.00 96.00 BUN/Creatinine Ratio 12.91 13.15 13.71 Glucose 86.1 74.4 90.0 Calcium 7.41 L 7.54 L 7.47 L Total Bilirubin 0.16 L AST 37.8 ALT 23.7 Alkaline Phosphatase 88.0 Total Protein 5.87 L Albumin 2.97 L Globulin 2.90 Albumin/Globulin Ratio 1.02 10/07/22 15:30 WBC RBC Hgb Hct MCV MCH MCHC RDW Coeff of Leanna Plt Count Immature Gran % (Auto) Neut % (Auto) Lymph % (Auto) [place] % (Auto) Eos % (Auto) Baso % (Auto) Neut # (Auto) Lymph # (Auto) [place] # (Auto) Eos # (Auto) Baso # (Auto) Immature Gran # (Auto) Sodium 126.4 L Potassium 3.82 Chloride 93.3 L Carbon Dioxide 27.4 Anion Gap 9.52 BUN 10.2 Creatinine 0.79 Estimated GFR (MDRD) 95.00 BUN/Creatinine Ratio 12.91 Glucose 89.7 Calcium 7.46 L Total Bilirubin AST ALT Alkaline Phosphatase Total Protein Albumin Globulin Albumin/Globulin Ratio Additional Comments Additional Comments: I have independently reviewed and interpreted the labs/EKGs/imaging ordered during this hospital stay. I have reviewed outside records that are available in our EMR that pertain to medical stay including imaging/notes/labs from previous visits. Active Medications Active Medications: Medications Generic Name Dose Route Start Last Admin Trade Name Freq PRN Reason Stop Dose Admin Acetaminophen 650 mg 10/06/22 12:25 Acetaminophen 325 Mg Tablet PO Q4H PRN Mild Pain Hydrocodone Bitart/Acetaminophen 1 tab 10/06/22 16:13 10/06/22 21:35 Hydrocodone Bit/Acetaminophen 7.5/325 Mg Tablet PO 1 tab TID PRN Administration MODERATE PAIN Albuterol Sulfate 2 puff 10/06/22 16:13 Albuterol Sulfate 8 Gm Inhaler IH Q4-6H PRN Wheezing Albuterol/Ipratropium 3 ml 10/06/22 16:13 Ipratropium/Albuterol Vial.Neb NEB Q6H PRN Wheezing Aspirin 81 mg 10/07/22 08:30 10/08/22 08:29 Aspirin 81 Mg Tablet. PO 81 mg DAILYWM EUNICE Administration Clopidogrel Bisulfate 75 mg 10/07/22 09:00 10/08/22 08:29 Clopidogrel Bisulfate 75 Mg Tablet PO 75 mg DAILY EUNICE Administration Sodium Chloride 500 mls @ 30 mls/hr 10/07/22 09:00 10/08/22 01:43 Sodium Chloride 3% IV 30 mls/hr .[id number] EUNICE Administration Insulin Glargine 30 unit 10/06/22 21:00 10/07/22 20:44 Insulin Glargine,Hum.Rec.Anlog 100 Units/Ml SUBCUT 30 unit BEDTIME EUNICE Administration Insulin Human Lispro 8 unit 10/06/22 17:00 10/08/22 14:13 Insulin Lispro 100 Unit/Ml (3 Ml) Vial SUBCUT Not Given TIDWM EUNICE Insulin Human Regular 0 unit 10/06/22 13:29 Insulin Regular, Human 100 Unit/Ml (3ml) Vial SUBCUT PRN PRN Hyperglycemia Protocol Linagliptin 5 mg 10/07/22 09:00 10/08/22 08:29 Linagliptin 5 Mg Tablet PO 5 mg DAILY EUNICE Administration Pantoprazole Sodium 40 mg 10/07/22 06:30 10/08/22 06:11 Pantoprazole Sodium 40 Mg Tablet.Dr PO 40 mg QDAC EUNICE Administration Rosuvastatin Calcium 40 mg 10/06/22 21:00 10/07/22 20:42 Rosuvastatin Calcium 10 Mg Tablet PO 40 mg BEDTIME EUNICE Administration Sodium Chloride 1 syr 10/06/22 10:37 0.9% Sodium Chloride 10 Ml Disp.Syrin IVF PRN PRN To flush IV Sucralfate 1 gm 10/06/22 17:00 10/08/22 12:24 Sucralfate 1 Gm Tablet PO 1 gm ACHS EUNICE Administration Tamsulosin HCl 0.4 mg 10/07/22 09:00 10/08/22 08:29 Tamsulosin Hcl 0.4 Mg Cap.Er.24h PO 0.4 mg DAILY EUNICE Administration Plan Plan: 1. Symptomatic Hyponatremia - Improving, up to 130s today, has hx hyponatremia in the past, did not improve with NS, switched to 3% saline@30mL/hr, serial bmps, seizure precautions, telemetry, checking osmolalities 2. Covid-19 - asymptomatic, no hypoxia, droplet isolation, monitor 3. COPD - chronic, does not appear in exacerbation, monitor 4. Hypertension - chronic, continue home medications 5. Hyperlipidemia - chronic, continue home medications 6. Diabetes Mellitus, Type 2 - hold oral agents, accuchecks qid with ssi, ADA diet DVT Prophylaxis: Plavix Review Statement Review Statement: I have personally discussed and reviewed the patient's visit/currently labs/imaging/decision making with Dr. Crain, my supervising attending. Greater that 50 minutes spent with patient, 50% of the time spent with this patient was devoted to counseling and coordination of care.
[2022-10-08 15:53] LABS: BLOOD UREA NITROGEN 10.3 mg/dL (9-20); CALCIUM 7.21 mg/dL (8.4-10.2); CARBON DIOXIDE 27.3 mmol/L (22-30.0); CHLORIDE 99.9 mmol/L (98-107); CREATININE 0.77 mg/dL (0.60-1.10); GLUCOSE 117.5 mg/dL (74-106); POTASSIUM 3.67 mmol/L (3.5-5.1); SODIUM 131.6 mmol/L (134.5-145)
[2022-10-08] MEDS: CRESTOR PO SCH (20:43)
[2022-10-08] MEDS: LANTUS SUBCUT SCH (21:13)
[2022-10-09] MEDS: SODIUM CHLORIDE 3% 500 ML IV SCH ×2 (00:30→01:29)
[2022-10-09] MEDS: CARAFATE PO SCH ×2 (05:48→13:47)
[2022-10-09] MEDS: PROTONIX PO SCH (05:49)
[2022-10-09 06:15] VITALS: TEMP 97.8
[2022-10-09 08:51] LABS: BASOPHILS % (AUTO) 0.2 % (0.0-3.0); EOSINOPHILS % (AUTO) 0.7 % (0.0-7.0); HEMATOCRIT 36.1 % (42.0-52.0); HEMOGLOBIN 11.9 g/dl (14.0-18.0); IMMATURE GRANULOCYTE % (AUTO) 0.5 % (0.0-5.0); LYMPHOCYTES # (AUTO) 1.5 K/uL (0.60-3.4); MEAN CORPUSCULAR HEMOGLOBIN 28.3 pg (27.0-31.0); MEAN CORPUSCULAR VOLUME 85.7 fl (80.0-94.0); MONOCYTES # (AUTO) 0.5 K/uL (0.4-2.0); MONOCYTES % (AUTO) 10.8 (0-10); NEUTROPHILS # (AUTO) 2.2 K/ul (2.0-6.9); NEUTROPHILS % (AUTO) 51.8 % (42.2-75.2); PLATELET COUNT 166 10^3/uL (140-440); RDW COEFFICIENT OF VARIATION 13.8 % (11.6-14.8); RED BLOOD COUNT 4.21 10^6/ul (4.70-6.10); WHITE BLOOD COUNT 4.25 K/ul (4.2-10.2)
[2022-10-09] MEDS: TRADJENTA PO SCH (09:01)
[2022-10-09] MEDS: ASPIRIN EC PO SCH (09:01)
[2022-10-09] MEDS: PLAVIX PO SCH (09:02)
[2022-10-09] MEDS: FLOMAX PO SCH (09:02)
[2022-10-09] MEDS: HUMALOG SUBCUT SCH ×2 (09:22→13:47)
[2022-10-09 09:36] VITALS: BP 116/57; PULSE 65; RESP 15
[2022-10-09 10:09] LABS: ALANINE AMINOTRANSFERASE 21.1 U/L (0-50); ALBUMIN 2.84 g/dL (3.5-5.0); ALKALINE PHOSPHATASE 87.4 U/L (56-119); ASPARTATE AMINO TRANSFERASE 29.8 U/L (17-59); BILIRUBIN,TOTAL 0.24 mg/dL (0.2-1.3); BLOOD UREA NITROGEN 8.6 mg/dL (9-20); CALCIUM 7.28 mg/dL (8.4-10.2); CARBON DIOXIDE 25.3 mmol/L (22-30.0); CHLORIDE 101.9 mmol/L (98-107); CREATININE 0.81 mg/dL (0.60-1.10); GLUCOSE 95.9 mg/dL (74-106); POTASSIUM 3.76 mmol/L (3.5-5.1); SODIUM 132.7 mmol/L (134.5-145); TOTAL PROTEIN 5.8 g/dL (6.3-8.2)
--- NOTE | 2022-10-09 12:12 | DCSUM ---
Admission Date Admission Date: 10/06/22 Discharge Date Discharge Date: 10/09/22 Admission Diagnosis Admission Diagnosis: 1. Symptomatic Hyponatremia 2. Covid-19 3. COPD 4. Hypertension 5. Hyperlipidemia 6. Diabetes Mellitus, Type 2 Discharge Diagnosis Discharge Diagnosis: 1. Symptomatic Hyponatremia - Improving 2. Covid-19 - Improving, low appetite 3. COPD - Stable 4. Hypertension - Stable 5. Hyperlipidemia - Stable 6. Diabetes Mellitus, Type 2 - Stable Hospital Provider Hospital Provider: JESÚS SCHAEFFER, [facility] Primary Care Physician: JOVANNI LESTER MD Summary of History and Physical Summary of History and Physical: 77 yo male presented to the ER from local nursing facility for abnormal labs. ER provider reports that patient tested positive for covid on thursday and had his labs checked then as well which revealed hyponatremia. Unsure if patient was given any fluids at that time. Labs were repeated today and showed a sodium in the 120s. Patient denies any complaints or symptoms at this time. States he doesn't know why he is here. He is oriented to person and place only. Hospital Course Subjective: Over course of stay, patient has received 3% saline @ 30mL/hr to increase sodium levels. Has trended up from 122 to currently 132. He has had this issue in the past, likely due to diuretic use and poor oral intake. Starting on sodium tabs QID and then recommend repeat labs in 1 week. Diuretics have been held. Patient was diagnosed with Covid-19 prior to admission. He has not had any symptoms, hypoxic, or fever. All other home medications have been continued. No changes with chronic conditions. Appearance: Pleasant, No Apparent Distress and Alert HEENT: MMM CVS: No Murmur Abdomen: Soft and Non-Tender Respiratory: No Dyspnea Extremities: No Edema Vital Signs: Most Recent Vital Signs Temperature 97.8 F 10/09/22 06:00 Temperature Source Oral 10/09/22 06:00 Temperature Source Oral 10/06/22 10:28 Pulse Rate 65 10/09/22 09:35 Respiratory Rate 15 10/09/22 09:35 Blood Pressure 116/57 L 10/09/22 09:35 Blood Pressure Mean 76 10/09/22 09:35 Blood Pressure Right Arm 126/69 10/06/22 12:26 Blood Pressure Location Right Arm 10/09/22 09:35 Blood Pressure Position Supine 10/09/22 09:35 O2 Sat by Pulse Oximetry 96 10/09/22 09:35 Oxygen Delivery Method Room Air 10/09/22 09:35 Height 6 ft 10/06/22 12:26 Weight 197 lb 3 oz 10/09/22 06:00 Telemetry Type Remote Telemetry 10/09/22 07:00 Telemetry Monitoring Continues 10/09/22 07:00 Telemetry Heart Rate 68 10/09/22 07:00 Telemetry SPO2 94 10/08/22 01:00 EKG WA Interval 0.30 H 10/09/22 07:00 EKG QRS Interval 0.08 10/09/22 07:00 EKG QT Interval 0.39 10/06/22 19:00 Telemetry Strip Reading sr w/ 1st degree avb 10/09/22 07:00 Lab Results Last 24 Hours: 10/09/22 10/08/22 10/06/22 08:33 15:36 17:16 WBC 4.25 RBC 4.21 L Hgb 11.9 L Hct 36.1 L MCV 85.7 MCH 28.3 MCHC 33.0 RDW Coeff of Leanna 13.8 Plt Count 166 Immature Gran % (Auto) 0.5 Neut % (Auto) 51.8 Lymph % (Auto) 36.0 [place] % (Auto) 10.8 H Eos % (Auto) 0.7 Baso % (Auto) 0.2 Neut # (Auto) 2.2 Lymph # (Auto) 1.5 [place] # (Auto) 0.5 Eos # (Auto) 0.0 Baso # (Auto) 0.0 Immature Gran # (Auto) 0.0 Sodium 132.7 L 131.6 L Potassium 3.76 3.67 Chloride 101.9 99.9 Carbon Dioxide 25.3 27.3 Anion Gap 9.26 8.07 BUN 8.6 L 10.3 Creatinine 0.81 0.77 Estimated GFR (MDRD) 92.00 97.00 BUN/Creatinine Ratio 10.61 13.37 Glucose 95.9 117.5 H Serum Osmolality Calcium 7.28 L 7.21 L Total Bilirubin 0.24 AST 29.8 ALT 21.1 Alkaline Phosphatase 87.4 Total Protein 5.80 L Albumin 2.84 L Globulin 2.96 Albumin/Globulin Ratio 0.95 Ur Random Sodium 20 10/06/22 10:57 WBC RBC Hgb Hct MCV MCH MCHC RDW Coeff of Leanna Plt Count Immature Gran % (Auto) Neut % (Auto) Lymph % (Auto) [place] % (Auto) Eos % (Auto) Baso % (Auto) Neut # (Auto) Lymph # (Auto) [place] # (Auto) Eos # (Auto) Baso # (Auto) Immature Gran # (Auto) Sodium Potassium Chloride Carbon Dioxide Anion Gap BUN Creatinine Estimated GFR (MDRD) BUN/Creatinine Ratio Glucose Serum Osmolality 254 L Calcium Total Bilirubin AST ALT Alkaline Phosphatase Total Protein Albumin Globulin Albumin/Globulin Ratio Ur Random Sodium Discharge Instructions Discharge Planning: Discharge Planning > 40 minutes If patient is discharged with left ventricular systolic dysfunction: NA Discharged with a beta chelsea? [] If no, why not? [] Discharged with an lou/arb? [] If no, why not? [] Sodium chloride QID Repeat cmp in 1 week Follow-up with PCP in 1 week diabetic diet Activity as tolerated Discharge Medications: Medications at Discharge (Home Meds & RX) albuterol sulfate 90 mcg/actuation aerosol inhaler 2 puff inhalation Q4-6H PRN shortness of breath or wheezing #8.5 grams 05/08/22 hydrocodone 7.5 mg-acetaminophen 325 mg tablet 1 tab PO TID PRN pain #90 tabs 09/02/22 aspirin 81 mg tablet,delayed release (Adult Low Dose Aspirin) 81 mg PO DAILY 10/06/22 clopidogrel 75 mg tablet 75 mg PO ONCE 10/06/22 escitalopram oxalate 5 mg tablet 5 mg PO ONCE 10/06/22 furosemide 20 mg tablet 20 mg PO ONCE 10/06/22 insulin glargine 100 unit/mL (3 mL) subcutaneous pen (Lantus Solostar U-100 Insulin) 30 unit subcut .hs 10/06/22 insulin lispro 100 unit/mL subcutaneous pen 8 unit subcut .ac 10/06/22 ipratropium 0.5 mg-albuterol 3 mg (2.5 mg base)/3 mL nebulization soln 3 ml inhalation .q6h prn PRN soa 10/06/22 linaclotide 145 mcg capsule (Linzess) 145 mcg PO ONCE 10/06/22 linagliptin 5 mg tablet (Tradjenta) 5 mg PO ONCE 10/06/22 ondansetron HCl 4 mg tablet 4 mg PO Q8H PRN nausea and vomiting 10/06/22 pantoprazole 40 mg tablet,delayed release 40 mg PO ONCE 10/06/22 rosuvastatin 40 mg tablet 40 mg PO ONCE 10/06/22 sodium bicarbonate 650 mg tablet 650 mg PO BID PRN GERD 10/06/22 sucralfate 1 gram tablet 1 g PO ACHS 10/06/22 tamsulosin 0.4 mg capsule 0.4 mg PO ONCE 10/06/22 tiotropium bromide 18 mcg capsule with inhalation device (Spiriva with HandiHaler) 1 cap inhalation ONCE 10/06/22 sodium chloride 1,000 mg soluble tablet 1,000 mg PO QID #120 tabs 10/09/22 Discharge Plan Discharge Discharge Orders: Discharge Patient (ONCE); Ordered 10/09/22 Ordered By: MARTHA PENN Activity Restrictions/Additional Instructions: Activity as tolerated diabetic diet Take Sodium tabs QID Repeat cmp x 1 week Follow-up with pcp in 1 week Instructions: Hyponatremia (GEN), COVID-19 (Coronavirus Disease 2019)(GEN) Care Plan Goals: Problem: Fluid and electrolyte imbalance Goal: Maintain fluid and electrolyte balance Instructions: Monitor I/O as needed Obtain labs related to electrolytes Patient Disposition: TRANSFER Prescriptions: New sodium chloride 1,000 mg tablet,soluble 1,000 mg PO QID Qty: 120 0RF Continued albuterol sulfate 90 mcg/actuation HFA aerosol inhaler 2 puff inhalation Q4-6H PRN (Reason: shortness of breath or wheezing) Qty: 8.5 5RF hydrocodone-acetaminophen 7.5-325 mg tablet 1 tab PO TID PRN (Reason: pain) Qty: 90 0RF insulin glargine [Lantus Solostar U-100 Insulin] 100 unit/mL (3 mL) insulin pen 30 unit SUBCUT .hs insulin lispro 100 unit/mL insulin pen 8 unit SUBCUT .ac ipratropium-albuterol 0.5 mg-3 mg(2.5 mg base)/3 mL solution for nebulization 3 ml INHALATION .q6h prn PRN (Reason: soa) escitalopram oxalate 5 mg tablet 5 mg PO ONCE furosemide 20 mg tablet 20 mg PO ONCE Linzess 145 mcg capsule 145 mcg PO ONCE pantoprazole 40 mg tablet,delayed release (DR/EC) 40 mg PO ONCE clopidogrel 75 mg tablet 75 mg PO ONCE rosuvastatin 40 mg tablet 40 mg PO ONCE sucralfate 1 gram tablet 1 g PO ACHS Tradjenta 5 mg tablet 5 mg PO ONCE Spiriva with HandiHaler 18 mcg capsule, w/inhalation device 1 cap INHALATION ONCE tamsulosin 0.4 mg capsule 0.4 mg PO ONCE aspirin [Adult Low Dose Aspirin] 81 mg tablet,delayed release (DR/EC) 81 mg PO DAILY sodium bicarbonate 650 mg tablet 650 mg PO BID PRN (Reason: GERD) ondansetron HCl 4 mg tablet 4 mg PO Q8H PRN (Reason: nausea and vomiting) Did you review [place] [employer] for ALL controlled substances?: No Discussed opioids are addictive and Narcan is available by prescription or from pharmacy.: No Condition: Stable
== END 2022-10-09 13:35 | DRG 640 ==
LOC: ED 10:21 → SCU 10:21 → OBSVTOIN 11:41 → SCU 11:56
PROVIDERS: ADMIT Hospitalist; ATTEND Nurse Practitioner Family
DX: Z79.4 Long term (current) use of insulin; U07.1 COVID-19; Z79.899 Other long term (current) drug therapy; J44.9 Chronic obstructive pulmonary disease, unspecified; Z51.81 Encounter for therapeutic drug level monitoring; I69.351 Hemiplegia and hemiparesis following cerebral infarction affecting right dominant side; E87.8 Other disorders of electrolyte and fluid balance, not elsewhere classified; Z89.612 Acquired absence of left leg above knee; I73.9 Peripheral vascular disease, unspecified; E78.5 Hyperlipidemia, unspecified; R53.1 Weakness; R63.0 Anorexia; E87.1 Hypo-osmolality and hyponatremia; I10 Essential (primary) hypertension; E11.65 Type 2 diabetes mellitus with hyperglycemia

== ENCOUNTER 2023-05-30 00:10 | Inpatient (IN) ==
--- NOTE | 2023-05-30 00:51 | ED.PDOC ---
General ED Provider: Dr. JAMES RAMÍREZ MD Chief Complaint: Fall Stated Complaint: R leg/knee pain and injury. EMS reported patient was sitting on his bed and slipped down onto his buttocks. Complained of pain over the R knee area. No head, neck ribs or back injury. Call to [place] and and they reported he was trying to stand up and his blanket was all under him. They reported no fever, cough and good appetite. They did noticed some increasing swelling of the RLE. "He always have some swelling, but seem to be more swollen" Time Seen by Provider: 05/30/23 00:20 Mode of Arrival: Ambulance Information Source: Patient, Shelter and EMT Exam Limitations: No limitations Primary Care Provider: JOVANNI LESTER MD Referred to ED by: Other (patient and [facility]) Nursing and Triage Documentation Reviewed and Agree: Yes Does Patient Take Opioids?: Yes Is Patient Opioid Naive?: Yes What is Opioid Naive?: *Opioid Naive implies the patient is not already taking opioids or not chronically receiving opioids on a daily basis. *PRN dosing is not "usually" associated with tolerance. *Patients are at higher risk of over-sedation and aspiration. What is Opioid Tolerant?: *Opioid Tolerance implies less than the expected response to an opioid. *Acquired tolerance is defined by the patient taking 60mg of oral morphine daily (or equianalgesic dose of another opioid) for 1 week or more. *Often associated with chronic pain. *May take more than usual dose to achieve desired pain control. Review of Systems Review Of Systems Constitutional: Denies Fever or Malaise Eyes: Reports Decreased acuity Respiratory: Reports No symptoms Cardiac: Reports No symptoms GI: Reports No symptoms; Denies Abdominal pain or Poor appetite Musculoskeletal: Reports Back pain and Joint pain; Denies Neck pain Skin: Reports Other (abrasions near the R knee) Neurological: Denies Headache Endocrine: Denies Excessive sweating, Unexplained weight gain or Unexplained weight loss [facility] Medical History Amputation above knee S78.119A - Complete traumatic amputation at level between unspecified hip and knee, initial encounter (ICD-10) Anxiety F41.9 - Anxiety disorder, unspecified (ICD-10) 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 - Ataxia, unspecified (ICD-10) COPD (chronic obstructive pulmonary disease) J44.9 - Chronic obstructive pulmonary disease, unspecified (ICD-10) Dyslipidemia E78.5 - Hyperlipidemia, unspecified (ICD-10) GERD (gastroesophageal reflux disease) K21.9 - Gastro-esophageal reflux disease without esophagitis (ICD-10) 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) I69.351 - Hemiplegia and hemiparesis following cerebral infarction affecting right dominant side (ICD-10) HTN, goal below 130/80 I10 - Essential (primary) hypertension (ICD-10) Left above-knee amputee Z89.612 - Acquired absence of left leg above knee (ICD-10) LVH (left ventricular hypertrophy) I51.7 - Cardiomegaly (ICD-10) PAD (peripheral artery disease) I73.9 - Peripheral vascular disease, unspecified (ICD-10) Uncontrolled type 2 diabetes mellitus with hyperglycemia E11.65 - Type 2 diabetes mellitus with hyperglycemia (ICD-10) Family History FATHER Myocardial infarct Mother Myocardial infarct FATHER Diabetes Mother Diabetes Social History Smoking and tobacco status: Unknown if ever smoked Alcohol intake: unknown Substance use type: does not use Special gamaliel needs: No Agree to transfusion: Yes Adopted: No Caregiver/support person: No Foster care: No Household members: spouse Housing: house Marital status: M Lives independently: No service: No detention: No History of recent travel: No Sexually active: No Do you think of yourself as: straight/heterosexual Current gender identity: male Seatbelt use: always Drives intoxicated or rides with intoxicated corrugated fastener driver: No Water heater temperature set < 120 degrees: Yes Working smoke detector in home: Yes Fire extinguisher in home: Yes Carbon monoxide detector in home: Yes Surgical History History of appendectomy Z98.89 - Other specified postprocedural states (ICD-10) History of cholecystectomy Z98.89 - Other specified postprocedural states (ICD-10) History of prostate surgery Z98.890 - Other specified postprocedural states (ICD-10) Physical Exam Physical Exam Appearance: Reports Well-appearing and Well-nourished Ill-appearing: None Pain Distress: Mild Eyes: Reports EOMI ENT: Reports Ears normal and Nose normal Neck: Supple (No JVD) Respiratory: Reports Airway patent and Breath sounds clear; Denies Wheezes or Retractions Cardiovascular: Reports RRR, Pulses normal and No murmur GI/: Reports Soft, Nontender, No masses, Bowel sounds normal and No Organomegaly; Denies Tender Musculoskeletal: Reports Limited ROM and Edema (RLE with at least 2+ edema) Skin: Reports Warm and Dry Neurological: Reports Sensation intact and Motor intact Psychiatric: Reports Mood appropriate Course Course 05/30/23 01:15 05/30/23 01:15 Orders, Labs, Meds: Lab Review 05/30/23 01:15 WBC 10.21 H RBC 4.37 L Hgb 12.6 L Hct 37.4 L MCV 85.6 MCH 28.8 MCHC 33.7 RDW Coeff of Leanna 15.1 H Plt Count 260 Immature Gran % (Auto) 0.4 Neut % (Auto) 62.2 Lymph % (Auto) 21.9 Ralls % (Auto) 10.3 H Eos % (Auto) 4.8 Baso % (Auto) 0.4 Neut # (Auto) 6.4 Lymph # (Auto) 2.2 Ralls # (Auto) 1.1 Eos # (Auto) 0.5 Baso # (Auto) 0.0 Immature Gran # (Auto) 0.0 Sodium 123.8 L Potassium 4.12 Chloride 95.0 L Carbon Dioxide 23.9 Anion Gap 9.02 BUN 12.0 Creatinine 0.79 Estimated GFR (MDRD) 94.00 BUN/Creatinine Ratio 15.18 Glucose 106.7 H Calcium 8.30 L Total Bilirubin 0.65 AST 46.0 ALT 17.7 Alkaline Phosphatase 105.8 NT-Pro-B Natriuret Pep 231 Total Protein 6.59 Albumin 3.27 L Globulin 3.32 Albumin/Globulin Ratio 0.98 D-Dimer 1843.52 H Orders Category Date Time Status CBC W/ AUTO DIFF Stat LAB 05/30/23 01:15 Completed CMP [COMPREHENSIVE METABOLIC PANEL] Stat LAB 05/30/23 01:15 Completed D-DIMER Stat LAB 05/30/23 01:15 Completed PROBNP ED [NT-PROBNP(ED)] Stat LAB 05/30/23 01:15 Completed Hydrocodone Bit/Acetaminophen [[place] 5-325] Meds 05/30/23 01:05 Discontinued 1 tab PO ONCE ONE CT KNEE RIGHT WITHOUT CONTRAST Stat RADS 05/30/23 02:10 Completed FEMUR, RIGHT 2 VIEWS Stat RADS 05/30/23 00:23 Completed KNEE RIGHT 3 VIEWS Stat RADS 05/30/23 00:23 Completed PELVIS 1 OR 2 VIEWS Stat RADS 05/30/23 00:23 Completed Medications Discontinued Medications Generic Name Dose Route Start Last Admin Trade Name Kanchan PRN Reason Stop Dose Admin Hydrocodone Bitart/Acetaminophen 1 tab 05/30/23 01:05 05/30/23 01:12 Hydrocodone Bit/Acetaminophen 5/325 Mg Tablet PO 05/30/23 01:06 1 tab ONCE ONE Administration Vital Signs: Temp Pulse Resp BP Pulse Ox 05/30/23 00:10 97.5 F L 76 18 149/67 H 99 Initial knee x-rays suggest possible patellar fx, thus a CT scan of the knee done which showed a hairline fx of the tibial plateau. Call the orthopedics pilot control operator and Dr. Fulton said this can be follow up outpatient. He recommended a knee immobilizer in full extension. Patient cannot fully extend the R knee, so we use a large ELI wrap. May need to do a long leg splint. With his hyponatremia and R lower extremity and elevated D-Dimer, DVT is a concerned despite being on Plavix. I don't suspect DVT clinically and with his trauma, adding Lovenox any cause more hemarthrosis. Unfortunately, being the weekend, we cannot get an venous doppler. Call to [facility] and she will admit Discharge Plan Discharge Patient Disposition: ADMITTED INPATIENT Discharge Problem: Falls, Hyponatremia, Closed fracture of tibial plateau, Peripheral edema Prescriptions: No Action albuterol sulfate 90 mcg/actuation HFA aerosol inhaler 2 puff inhalation Q4-6H PRN (Reason: shortness of breath or wheezing) Qty: 8.5 5RF hydrocodone-acetaminophen 7.5-325 mg tablet 1 tab PO TID PRN (Reason: pain) Qty: 90 0RF AmeriPhor Ointment 1 applic topical BID Rx Instructions: APPLY TOPICALLY TO RIGHT FOOT IN AM AND EVENING AFTER WASHING WITH MILD SOAP AND WARM WATE, DRY WELL, THEN APPLY, DO NOT PUT BETWEEN THE TOES cyanocobalamin (vitamin B-12) [Vitamin B-12] 1,000 mcg tablet 2,000 mcg PO DAILY rosuvastatin 40 mg tablet 40 mg PO BEDTIME insulin glargine [Lantus Solostar U-100 Insulin] 100 unit/mL (3 mL) insulin pen 30 unit SUBCUT BEDTIME ipratropium-albuterol 0.5 mg-3 mg(2.5 mg base)/3 mL solution for nebulization 3 ml INHALATION .q6h prn PRN (Reason: soa) escitalopram oxalate 5 mg tablet 5 mg PO BEDTIME furosemide 20 mg tablet 20 mg PO DAILY Linzess 145 mcg capsule 145 mcg PO BEDTIME pantoprazole 40 mg tablet,delayed release (DR/EC) 40 mg PO ONCE clopidogrel 75 mg tablet 75 mg PO DAILY Tradjenta 5 mg tablet 5 mg PO DAILY tiotropium bromide [Spiriva with HandiHaler] 18 mcg capsule, w/inhalation device 1 cap INHALATION DAILY tamsulosin 0.4 mg capsule 0.4 mg PO BEDTIME aspirin [Adult Low Dose Aspirin] 81 mg tablet,delayed release (DR/EC) 81 mg PO DAILY sodium bicarbonate 650 mg tablet 650 mg PO BID ondansetron HCl 4 mg tablet 4 mg PO Q8H PRN (Reason: nausea and vomiting) sodium chloride 1,000 mg tablet,soluble 1,000 mg PO QID Qty: 120 0RF ferrous sulfate [Iron (ferrous sulfate)] 325 mg (65 mg iron) tablet 325 mg PO BID multivitamin Tablet 1 tab PO DAILY (DME) Novofine Autocover 30 gauge x 1/3" needle MISCELLANEOUS acetaminophen 325 mg capsule 650 mg PO Q6H PRN (Reason: fever/mild pain) Did you review [place] [employer] for ALL controlled substances?: No ED Provider: JAMES RAMÍREZ Condition: Fair Physician Progress Note: []
[2023-05-30] MEDS: NORCO 5-325 PO ONE (01:12)
--- NOTE | 2023-05-30 01:17 | DI ---
EXAM: TWO VIEWS OF THE RIGHT FEMUR. History: Right leg pain and trauma. FINDINGS: Atherosclerotic vascular calcifications. No acute fracture or dislocation. The talar ent hesiopathy. Osteopenia. Impression: No acute osseous abnormality
--- NOTE | 2023-05-30 01:18 | DI ---
EXAM: SINGLE VIEW OF THE PELVIS. History: Pelvic trauma. FINDINGS: Osteopenia. No acute fracture or dislocation. Pelvic calcifications are most likely phle boliths. Atherosclerotic vascular calcifications. Impression: No acute osseous abnormality
--- NOTE | 2023-05-30 01:18 | DI ---
EXAM: THREE VIEWS OF THE RIGHT KNEE. History: Right knee trauma. FINDINGS: Questionable nondisplaced patellar fracture. No dislocation. Atherosclerotic vascular ca lcifications. Patellar enthesiopathy. Impression: Questionable nondisplaced patellar fracture. Recommend further evaluation with CT or MR I
[2023-05-30 02:16] LABS: BASOPHILS % (AUTO) 0.4 % (0.0-3.0); EOSINOPHILS # (AUTO) 0.5 K/ul (0.0-0.7); EOSINOPHILS % (AUTO) 4.8 % (0.0-7.0); HEMATOCRIT 37.4 % (42.0-52.0); HEMOGLOBIN 12.6 g/dl (14.0-18.0); IMMATURE GRANULOCYTE % (AUTO) 0.4 % (0.0-5.0); LYMPHOCYTES # (AUTO) 2.2 K/uL (0.60-3.4); LYMPHOCYTES % (AUTO) 21.9 (10.0-50.0); MEAN CORPUSCULAR HEMOGLOBIN 28.8 pg (27.0-31.0); MEAN CORPUSCULAR HGB CONC 33.7 (31.8-35.4); MEAN CORPUSCULAR VOLUME 85.6 fl (80.0-94.0); MONOCYTES # (AUTO) 1.1 K/uL (0.4-2.0); MONOCYTES % (AUTO) 10.3 (0-10); NEUTROPHILS # (AUTO) 6.4 K/ul (2.0-6.9); NEUTROPHILS % (AUTO) 62.2 % (42.2-75.2); PLATELET COUNT 260 10^3/uL (140-440); RDW COEFFICIENT OF VARIATION 15.1 % (11.6-14.8); RED BLOOD COUNT 4.37 10^6/ul (4.70-6.10); WHITE BLOOD COUNT 10.21 K/ul (4.2-10.2)
[2023-05-30 02:21] LABS: ALANINE AMINOTRANSFERASE 17.7 U/L (0-50); ALBUMIN 3.27 g/dL (3.5-5.0); ALKALINE PHOSPHATASE 105.8 U/L (56-119); BILIRUBIN,TOTAL 0.65 mg/dL (0.2-1.3); CALCIUM 8.3 mg/dL (8.4-10.2); CARBON DIOXIDE 23.9 mmol/L (22-30.0); CREATININE 0.79 mg/dL (0.60-1.10); GLUCOSE 106.7 mg/dL (74-106); POTASSIUM 4.12 mmol/L (3.5-5.1); SODIUM 123.8 mmol/L (134.5-145); TOTAL PROTEIN 6.59 g/dL (6.3-8.2)
--- NOTE | 2023-05-30 02:57 | CT ---
EXAM: CT RIGHT KNEE WITHOUT CONTRAST. HISTORY: ? Patellar fracture. PROCEDURE: Contiguous axial CT images of the right knee without contrast with coronal and sagittal r eformats. FINDINGS: The exam is limited secondary to patient positioning. There is an ill-defined lucency thro ugh the lateral tibial plateau, suspicious for a nondisplaced fracture. No evidence of a patellar fr acture. There is a chronic corticated degenerative calcification along the anterior-superior margin of the patella measuring 1.1 x 0.5 cm. The joint spaces are maintained. There is a small hemarthrosi s. There are vascular calcifications. Impression: Ill-defined lucency through the lateral tibial plateau, suspicious for a nondisplaced fra cture. Small hemarthrosis. Degenerative changes as described. All CT scans are performed using dose optimization techniques as appropriate to the performed exam an d include at least one of the following: Automated exposure control, adjustment of the mA and/or kV according t o size, and the use of iterative reconstruction technique.
[2023-05-30] MEDS ORDERED: DUONEB NEB PRN (04:45)
[2023-05-30] MEDS ORDERED: ZOFRAN TAB PO PRN (04:45)
[2023-05-30] MEDS: SODIUM CHLORIDE 1,000 ML IV ONE (04:55)
[2023-05-30 05:09] LABS: SARS COV-2 RNA RAPID NAAT NEGATIVE (NEGATIVE)
[2023-05-30 06:00] VITALS: BMI 29.5
[2023-05-30 06:09] LABS: BASOPHILS % (AUTO) 0.5 % (0.0-3.0); EOSINOPHILS # (AUTO) 0.4 K/ul (0.0-0.7); EOSINOPHILS % (AUTO) 5.1 % (0.0-7.0); HEMATOCRIT 37.7 % (42.0-52.0); HEMOGLOBIN 12.5 g/dl (14.0-18.0); IMMATURE GRANULOCYTE % (AUTO) 0.2 % (0.0-5.0); LYMPHOCYTES # (AUTO) 2.2 K/uL (0.60-3.4); LYMPHOCYTES % (AUTO) 25.9 (10.0-50.0); MEAN CORPUSCULAR HEMOGLOBIN 28.4 pg (27.0-31.0); MEAN CORPUSCULAR HGB CONC 33.2 (31.8-35.4); MEAN CORPUSCULAR VOLUME 85.7 fl (80.0-94.0); MONOCYTES % (AUTO) 11.8 (0-10); NEUTROPHILS # (AUTO) 4.8 K/ul (2.0-6.9); NEUTROPHILS % (AUTO) 56.5 % (42.2-75.2); PLATELET COUNT 234 10^3/uL (140-440); RDW COEFFICIENT OF VARIATION 15.2 % (11.6-14.8); WHITE BLOOD COUNT 8.47 K/ul (4.2-10.2)
[2023-05-30 06:23] LABS: ALANINE AMINOTRANSFERASE 17.4 U/L (0-50); ALBUMIN 3.2 g/dL (3.5-5.0); ALKALINE PHOSPHATASE 99.8 U/L (56-119); BILIRUBIN,TOTAL 0.66 mg/dL (0.2-1.3); CALCIUM 8.22 mg/dL (8.4-10.2); CARBON DIOXIDE 23.5 mmol/L (22-30.0); CHLORIDE 95.5 mmol/L (98-107); CREATININE 0.76 mg/dL (0.60-1.10); GLUCOSE 94.7 mg/dL (74-106); POTASSIUM 4.08 mmol/L (3.5-5.1); SODIUM 123.2 mmol/L (134.5-145); TOTAL PROTEIN 6.38 g/dL (6.3-8.2)
[2023-05-30] MEDS: SODIUM CHLORIDE 3% 500 ML IV SCH (09:12)
[2023-05-30] MEDS: TRADJENTA PO SCH (09:30)
[2023-05-30] MEDS: FERROUS SULFATE PO SCH (09:30)
[2023-05-30] MEDS: PLAVIX PO SCH (09:31)
[2023-05-30] MEDS: SPIRIVA IH SCH (09:31)
[2023-05-30] MEDS: MULTIVITAMIN TABLET PO SCH (09:31)
[2023-05-30] MEDS: ASPIRIN EC PO SCH (09:34)
[2023-05-30] MEDS: [UNRECOGNIZED DRUG - OTHER] PO SCH (09:34)
[2023-05-30] MEDS: CYANOCOBALAMIN 1000 MCG PO SCH (09:34)
--- NOTE | 2023-05-30 12:46 | PCM ---
Date of Service Date Seen by Provider: 05/30/23 Time Seen by Provider: 09:00 Admit Day/Time Admission Date: 05/30/23 Admission Time: 04:35 Reason for Admission Chief Complaint: R TIBIAL PLATEAU FX & LOW SODIUM Hospital Provider Hospital Provider: JOAN[facility] LYON PA-C, [facility] Primary Care Physician Primary Care Physician: JOVANNI CRAIN MD History of Present Illness History of Present Illness: Patient is an 78 year old nonambulatory patient from the [place] who presented for a fall out of bed. Pt complained of right knee pain. R knee x ray abnormal. Confirmed by right knee CT to have a lateral tibial plateau fracture. ERP spoke with Dr. Fulton, manager distribution center ortho, who states this can be followed up outpatient. Recommended a knee immobilizer in full extension. However, the patient is nonambulatory and contracted with his right knee, he is absolutely unable to extend that knee. ER placed a large lou wrap instead. He was also noted to have low sodium. Pt has had low sodium in the past but his most recent was normal. ROS limited due to patient dementia. Case Discussed With Case Discussed With: Patient's case was discussed with the ER Physicians, Dr. Newman. 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 Z89.612 - Acquired absence of left leg above knee (ICD-10) HTN, goal below 130/80 I10 - Essential (primary) hypertension (ICD-10) Dyslipidemia E78.5 - Hyperlipidemia, unspecified (ICD-10) Uncontrolled type 2 diabetes mellitus with hyperglycemia E11.65 - Type 2 diabetes mellitus with hyperglycemia (ICD-10) Amputation above knee S78.119A - Complete traumatic amputation at level between unspecified hip and knee, initial encounter (ICD-10) Anxiety F41.9 - Anxiety disorder, unspecified (ICD-10) COPD (chronic obstructive pulmonary disease) J44.9 - Chronic obstructive pulmonary disease, unspecified (ICD-10) GERD (gastroesophageal reflux disease) K21.9 - Gastro-esophageal reflux disease without esophagitis (ICD-10) Surgical History History of prostate surgery toth Z98.890 - Other specified postprocedural states (ICD-10) History of cholecystectomy Z98.89 - Other specified postprocedural states (ICD-10) History of appendectomy Z98.89 - Other specified postprocedural states (ICD-10) Family History FATHER Myocardial infarct Mother Myocardial infarct FATHER Diabetes Mother Diabetes Social History Smoking and tobacco status: Unknown if ever smoked Alcohol intake: unknown Substance use type: does not use Special gamaliel needs: No Agree to transfusion: Yes Adopted: No Caregiver/support person: No Foster care: No Household members: spouse Housing: house Marital status: M Lives independently: No service: No snf: No History of recent travel: No Sexually active: No Do you think of yourself as: straight/heterosexual Current gender identity: male Seatbelt use: always Drives intoxicated or rides with intoxicated hazmat tanker driver: No Water heater temperature set < 120 degrees: Yes Working smoke detector in home: Yes Fire extinguisher in home: Yes Carbon monoxide detector in home: Yes Allergies Allergies Allergy/AdvReac Type Severity Reaction Status Date / Time No Known Allergies Allergy Verified 05/30/23 00:21 Current Medications Home Medications albuterol sulfate 90 mcg/actuation aerosol inhaler 2 puff inhalation Q4-6H PRN shortness of breath or wheezing #8.5 grams 05/08/22 [Rx Confirmed 05/30/23 Last Taken Unknown] hydrocodone 7.5 mg-acetaminophen 325 mg tablet 1 tab PO TID PRN pain #90 tabs 09/02/22 [Rx Confirmed 05/30/23 Last Taken Unknown] aspirin 81 mg tablet,delayed release (Adult Low Dose Aspirin) 81 mg PO DAILY 10/06/22 [History Confirmed 05/30/23 Last Taken Unknown] clopidogrel 75 mg tablet 75 mg PO DAILY 10/06/22 [History Confirmed 05/30/23 Last Taken Unknown] escitalopram oxalate 5 mg tablet 5 mg PO BEDTIME 10/06/22 [History Confirmed 05/30/23 Last Taken Unknown] furosemide 20 mg tablet 20 mg PO DAILY 10/06/22 [History Confirmed 05/30/23 Last Taken Unknown] insulin glargine 100 unit/mL (3 mL) subcutaneous pen (Lantus Solostar U-100 Insulin) 30 unit subcut BEDTIME 10/06/22 [History Confirmed 05/30/23 Last Taken Unknown] ipratropium 0.5 mg-albuterol 3 mg (2.5 mg base)/3 mL nebulization soln 3 ml inhalation .q6h prn PRN soa 10/06/22 [History Confirmed 05/30/23 Last Taken Unknown] linaclotide 145 mcg capsule (Linzess) 145 mcg PO BEDTIME constipation 10/06/22 [History Confirmed 05/30/23 Last Taken Unknown] linagliptin 5 mg tablet (Tradjenta) 5 mg PO DAILY 10/06/22 [History Confirmed 05/30/23 Last Taken Unknown] ondansetron HCl 4 mg tablet 4 mg PO Q8H PRN nausea and vomiting 10/06/22 [History Confirmed 05/30/23 Last Taken Unknown] pantoprazole 40 mg tablet,delayed release 40 mg PO ONCE 10/06/22 [History Confirmed 05/30/23 Last Taken Unknown] sodium bicarbonate 650 mg tablet 650 mg PO BID GERD 10/06/22 [History Confirmed 05/30/23 Last Taken Unknown] tamsulosin 0.4 mg capsule 0.4 mg PO BEDTIME 10/06/22 [History Confirmed 05/30/23 Last Taken Unknown] tiotropium bromide 18 mcg capsule with inhalation device (Spiriva with HandiHaler) 1 cap inhalation DAILY 10/06/22 [History Confirmed 05/30/23 Last Taken Unknown] sodium chloride 1,000 mg soluble tablet 1,000 mg PO QID #120 tabs 10/09/22 [Rx Confirmed 05/30/23 Last Taken Unknown] acetaminophen 325 mg capsule 650 mg PO Q6H PRN fever/mild pain 05/17/23 [History Confirmed 05/30/23 Last Taken Unknown] ferrous sulfate 325 mg (65 mg iron) tablet (Iron (ferrous sulfate)) 325 mg PO BID 05/17/23 [History Confirmed 05/30/23 Last Taken Unknown] multivitamin 1 tab PO DAILY 05/17/23 [History Confirmed 05/30/23 Last Taken Unknown] pen needle, diabetic, safety 30 gauge x 1/3" (Novofine Autocover) 05/17/23 [ History Confirmed 05/30/23 Last Taken Unknown] cyanocobalamin (vitamin B-12) 1,000 mcg tablet (Vitamin B-12) 2,000 mcg PO DAILY 05/30/23 [History Confirmed 05/30/23 Last Taken Unknown] mineral oil-hydrophil petrolat topical ointment (AmeriPhor topical ointment) 1 applic topical BID 05/30/23 [History Confirmed 05/30/23 Last Taken Unknown] rosuvastatin 40 mg tablet 40 mg PO BEDTIME 05/30/23 [History Confirmed 05/30/23 Last Taken Unknown] Home Hydrocodone Bitart/Acetaminophen (Hydrocodone Bit/Acetaminophen 7.5/325 Mg Tablet) 1 tab PO TID PRN PRN Reason: MODERATE PAIN Albuterol/Ipratropium (Ipratropium/Albuterol Vial.Neb) 3 ml NEB Q6H PRN PRN Reason: Wheezing Aspirin (Aspirin 81 Mg Tablet.) 81 mg [facility] Last Admin: 05/30/23 09:34 Dose: 81 mg Clopidogrel Bisulfate (Clopidogrel Bisulfate 75 Mg Tablet) 75 mg PO DAILY [facility] Last Admin: 05/30/23 09:31 Dose: 75 mg Enoxaparin Sodium (Enoxaparin Sodium 40 Mg/0.4 Ml Syr) 40 mg SUBCUT DAILY [facility] Escitalopram Oxalate (Escitalopram Oxalate 10 Mg Tablet) 5 mg PO BEDTIME [facility] Ferrous Sulfate (Ferrous Sulfate 324 Mg Tablet.) 324 mg PO BID [facility] Last Admin: 05/30/23 09:30 Dose: 324 mg Sodium Chloride (Sodium Chloride 3%) 500 mls @ 30 mls/hr IV .[id number] [facility] Last Admin: 05/30/23 09:12 Dose: 30 mls/hr Insulin Glargine (Insulin Glargine,Hum.Rec.Anlog 100 Units/Ml) 30 unit SUBCUT BEDTIME [facility] Insulin Human Lispro (Insulin Lispro 100 Unit/Ml Vial) 0 unit SUBCUT PRN PRN; Protocol PRN Reason: Hyperglycemia Linagliptin (Linagliptin 5 Mg Tablet) 5 mg PO DAILY [facility] Last Admin: 05/30/23 09:30 Dose: 5 mg Multivitamins (Multivitamin 1 Tab) 1 tab PO DAILY [facility] Last Admin: 05/30/23 09:31 Dose: 1 tab Non-Formulary Medication (Cyanocobalamin (Vitamin B-12) [Vitamin B-12]) 2,000 mcg PO DAILY [facility] Last Admin: 05/30/23 09:34 Dose: Not Given Ondansetron HCl (Ondansetron Hcl 4 Mg Tablet) 4 mg PO Q8H PRN PRN Reason: Nausea / Vomiting Pantoprazole Sodium (Pantoprazole Sodium 40 Mg Tablet.Dr) 40 mg PO DAILY [facility] Rosuvastatin Calcium (Rosuvastatin Calcium 10 Mg Tablet) 40 mg PO BEDTIME [facility] Tamsulosin HCl (Tamsulosin Hcl 0.4 Mg Cap.Er.24h) 0.4 mg PO BEDTIME [facility] Tiotropium [place] (Tiotropium [place] 18 Mcg Cap.W.Dev) 1 cap IH DAILY [facility] Last Admin: 05/30/23 09:31 Dose: 1 cap Discontinued Medications Hydrocodone Bitart/Acetaminophen (Hydrocodone Bit/Acetaminophen 5/325 Mg Tablet) 1 tab PO ONCE ONE Stop: 05/30/23 01:06 Last Admin: 05/30/23 01:12 Dose: 1 tab Sodium Chloride (Sodium Chloride) 1,000 mls @ 100 mls/hr IV .Q10H ONE Stop: 05/30/23 14:39 Last Admin: 05/30/23 04:55 Dose: 100 mls/hr Opioid Naive vs. Tolerant What is Opioid Naive?: *Opioid Naive implies the patient is not already taking opioids or not chronically receiving opioids on a daily basis. *PRN dosing is not "usually" associated with tolerance. *Patients are at higher risk of over-sedation and aspiration. What is Opioid Tolerant?: *Opioid Tolerance implies less than the expected response to an opioid. *Acquired tolerance is defined by the patient taking 60mg of oral morphine daily (or equianalgesic dose of another opioid) for 1 week or more. *Often associated with chronic pain. *May take more than usual dose to achieve desired pain control. Review of Systems Musculoskeletal: Reports Other (+right knee pain) Physical examination Most Recent Vital Signs: Most Recent Vital Signs Temperature 97.1 F L 05/30/23 05:54 Temperature Source Temporal Artery Scan 05/30/23 05:54 Temperature Source Infrared 05/30/23 00:10 Pulse Rate 77 05/30/23 05:54 Respiratory Rate 18 05/30/23 08:00 Blood Pressure 149/67 H 05/30/23 00:10 Blood Pressure Left Arm 144/75 05/30/23 05:54 Blood Pressure Position Supine 05/30/23 05:54 O2 Sat by Pulse Oximetry 96 05/30/23 05:54 Oxygen Delivery Method Room Air 05/30/23 08:00 Height 5 ft 9 in 05/30/23 05:54 Weight 200 lb 6.4 oz 05/30/23 05:54 Telemetry Heart Rate 68 02/26/23 11:45 Telemetry SPO2 94 02/26/23 11:45 Appearance: Positive No Apparent Distress and Other (+Disoriented ) Skin: Positive [place], Warm and Good Turgor HEENT: Positive Normocephalic and Atraumatic Neck: Positive Supple and Midline Trachea Chest/Lungs: Positive Clear to Auscultation Bilaterally; Negative Rales, Rhonci or Wheezes Heart: Positive RRR GI/: Positive Soft, Nontender, Bowel Sounds Normal and No Distention Extremities: Positive Amputations (L AKA) Neurological: Positive Alert and Disorinted Additional Findings: Right knee - wrapped in lou bandage. Pain with any trial of manipulation to extend knee, knee appears contracted. Distal pitting edema noted. Labs This Visit Labs This Visit: Labs This Visit 05/30/23 05/30/23 05/30/23 01:15 04:48 06:03 WBC 10.21 H 8.47 RBC 4.37 L 4.40 L Hgb 12.6 L 12.5 L Hct 37.4 L 37.7 L MCV 85.6 85.7 MCH 28.8 28.4 MCHC 33.7 33.2 RDW Coeff of Leanna 15.1 H 15.2 H Plt Count 260 234 Immature Gran % (Auto) 0.4 0.2 Neut % (Auto) 62.2 56.5 Lymph % (Auto) 21.9 25.9 [place] % (Auto) 10.3 H 11.8 H Eos % (Auto) 4.8 5.1 Baso % (Auto) 0.4 0.5 Neut # (Auto) 6.4 4.8 Lymph # (Auto) 2.2 2.2 [place] # (Auto) 1.1 1.0 Eos # (Auto) 0.5 0.4 Baso # (Auto) 0.0 0.0 Immature Gran # (Auto) 0.0 0.0 Sodium 123.8 L 123.2 L Potassium 4.12 4.08 Chloride 95.0 L 95.5 L Carbon Dioxide 23.9 23.5 Anion Gap 9.02 8.28 BUN 12.0 11.0 Creatinine 0.79 0.76 Estimated GFR (MDRD) 94.00 99.00 BUN/Creatinine Ratio 15.18 14.47 Glucose 106.7 H 94.7 Calcium 8.30 L 8.22 L Total Bilirubin 0.65 0.66 AST 46.0 41.0 ALT 17.7 17.4 Alkaline Phosphatase 105.8 99.8 NT-Pro-B Natriuret Pep 231 Total Protein 6.59 6.38 Albumin 3.27 L 3.20 L Globulin 3.32 3.18 Albumin/Globulin Ratio 0.98 1.00 D-Dimer 1843.52 H SARS CoV-2 RNA Rapid ZULMA Negative Imaging Imaging: EXAM: TWO VIEWS OF THE RIGHT FEMUR. History: Right leg pain and trauma. FINDINGS: Atherosclerotic vascular calcifications. No acute fracture or dislocation. The talar enthesiopathy. Osteopenia. Impression: No acute osseous abnormality EXAM: THREE VIEWS OF THE RIGHT KNEE. History: Right knee trauma. FINDINGS: Questionable nondisplaced patellar fracture. No dislocation. Atherosclerotic vascular calcifications. Patellar enthesiopathy. Impression: Questionable nondisplaced patellar fracture. Recommend further evaluation with CT or MRI EXAM: SINGLE VIEW OF THE PELVIS. History: Pelvic trauma. FINDINGS: Osteopenia. No acute fracture or dislocation. Pelvic calcifications are most likely phleboliths. Atherosclerotic vascular calcifications. Impression: No acute osseous abnormality EXAM: CT RIGHT KNEE WITHOUT CONTRAST. HISTORY: ? Patellar fracture. PROCEDURE: Contiguous axial CT images of the right knee without contrast with coronal and sagittal reformats. FINDINGS: The exam is limited secondary to patient positioning. There is an ill-defined lucency through the lateral tibial plateau, suspicious for a nondisplaced fracture. No evidence of a patellar fracture. There is a chronic corticated degenerative calcification along the anterior-superior margin of the patella measuring 1.1 x 0.5 cm. The joint spaces are maintained. There is a small hemarthrosis. There are vascular calcifications. Impression: Ill-defined lucency through the lateral tibial plateau, suspicious for a nondisplaced fracture. Small hemarthrosis. Degenerative changes as described. Review Statement Review Statement: I have independently reviewed and interpreted the labs/EKGs/imaging that were ordered by the ER provider. I have reviewed all outside records that are available currently in our EMR including imaging/notes/labs from previous visits. Plan Plan: 1. Acute on chronic hyponatremia - Pt has hx of CHF. Will give 3% at 30 ml/hr, c heck bmp q4hrs, check osmolality studies. Hold lasix for now. 2. Right lateral tibial plateau fracture - Pt is nonambulatory at baseline. Unable to put in immobilizer due to his contracture. Pain control. Outpatient ortho f/u. 3. RLE edema - chronic, but staff felt potentially worse than baseline. Will get US on Thursday. 4. Hypertension - Cont home meds 5. Hyperlipidemia - Cont home meds 6. GERD - Cont home meds 7. BPH - Cont home meds 8. DMT2 - Cont home insulin. Humalog sliding scale, accuchecks achs. DVT Prophylaxis: Lovenox Time Spent: Greater than 80 minutes spent with patient, 50% of the time spent with this patient was devoted to counseling and coordination of care. [facility]annin minutes spent discussing advance care planning. Admit to: Inpatient Discussed Plan of Care with Dr. Croal Crain. Medications Medication Orders: Medications Ordered Category Date Time Status Aspirin [Aspirin EC] Meds 05/30/23 09:00 Active 81 mg PO DAILYWM2 Clopidogrel Bisulfate [Plavix] Meds 05/30/23 09:00 Active 75 mg PO DAILY Escitalopram Oxalate [Lexapro] Meds 05/30/23 21:00 Active 5 mg PO BEDTIME Ferrous Sulfate Meds 05/30/23 09:00 Active 324 mg PO BID Hydrocodone Bit/Acetaminophen [[place] 7.5-325] Meds 05/30/23 04:45 Active 1 tab PO TID PRN Insulin Glargine,Hum.rec.anlog [Lantus] Meds 05/30/23 21:00 Active 30 unit SUBCUT BEDTIME Ipratropium/Albuterol Neb [Duoneb] Meds 05/30/23 04:45 Active 3 ml NEB Q6H PRN Linagliptin [Tradjenta] Meds 05/30/23 09:00 Active 5 mg PO DAILY Multivitamin [Multivitamin Tablet] Meds 05/30/23 09:00 Active 1 tab PO DAILY Ondansetron HCl [Zofran Tab] Meds 05/30/23 04:45 Active 4 mg PO Q8H PRN Rosuvastatin Calcium [Crestor] Meds 05/30/23 21:00 Active 40 mg PO BEDTIME Sodium Chloride 3% 500 ml Meds 05/30/23 09:00 Active IV 30 mls/hr Tamsulosin HCl [Flomax] Meds 05/30/23 21:00 Active 0.4 mg PO BEDTIME Tiotropium [place] [Spiriva] Meds 05/30/23 09:00 Active 1 cap IH DAILY cyanocobalamin (vitamin B-12) [Vitamin B-12] Meds 05/30/23 09:00 Active 2,000 mcg PO DAILY
[2023-05-30] MEDS ORDERED: HUMALOG SUBCUT PRN (13:09)
[2023-05-30 13:27] LABS: BLOOD UREA NITROGEN 10.9 mg/dL (9-20); CARBON DIOXIDE 25.7 mmol/L (22-30.0); CHLORIDE 96.1 mmol/L (98-107); CREATININE 0.88 mg/dL (0.60-1.10); GLUCOSE 123.7 mg/dL (74-106); POTASSIUM 4.08 mmol/L (3.5-5.1); SODIUM 123.7 mmol/L (134.5-145)
[2023-05-30] MEDS: LOVENOX SUBCUT SCH (14:03)
[2023-05-30] MEDS: NORCO 7.5-325 PO PRN (14:09)
[2023-05-30 18:05] LABS: BLOOD UREA NITROGEN 10.8 mg/dL (9-20); CALCIUM 8.13 mg/dL (8.4-10.2); CARBON DIOXIDE 24.7 mmol/L (22-30.0); CHLORIDE 96.7 mmol/L (98-107); CREATININE 0.83 mg/dL (0.60-1.10); GLUCOSE 179.6 mg/dL (74-106); POTASSIUM 4.19 mmol/L (3.5-5.1); SODIUM 125.7 mmol/L (134.5-145)
[2023-05-30] MEDS: CRESTOR PO SCH (20:50)
[2023-05-30] MEDS: LEXAPRO PO SCH (20:50)
[2023-05-30] MEDS: LANTUS SUBCUT SCH (20:51)
[2023-05-30] MEDS: FLOMAX PO SCH (20:51)
[2023-05-30 23:54] LABS: CALCIUM 8.17 mg/dL (8.4-10.2); CHLORIDE 100.5 mmol/L (98-107); CREATININE 0.94 mg/dL (0.60-1.10); GLUCOSE 147.7 mg/dL (74-106); POTASSIUM 4.59 mmol/L (3.5-5.1)
[2023-05-31 05:28] LABS: BASOPHILS % (AUTO) 0.4 % (0.0-3.0); EOSINOPHILS # (AUTO) 0.4 K/ul (0.0-0.7); HEMATOCRIT 37.4 % (42.0-52.0); HEMOGLOBIN 12.4 g/dl (14.0-18.0); IMMATURE GRANULOCYTE % (AUTO) 0.2 % (0.0-5.0); LYMPHOCYTES # (AUTO) 1.9 K/uL (0.60-3.4); LYMPHOCYTES % (AUTO) 20.6 (10.0-50.0); MEAN CORPUSCULAR HEMOGLOBIN 28.9 pg (27.0-31.0); MEAN CORPUSCULAR HGB CONC 33.2 (31.8-35.4); MEAN CORPUSCULAR VOLUME 87.2 fl (80.0-94.0); MONOCYTES % (AUTO) 10.6 (0-10); NEUTROPHILS # (AUTO) 5.8 K/ul (2.0-6.9); NEUTROPHILS % (AUTO) 64.2 % (42.2-75.2); PLATELET COUNT 249 10^3/uL (140-440); RDW COEFFICIENT OF VARIATION 15.6 % (11.6-14.8); RED BLOOD COUNT 4.29 10^6/ul (4.70-6.10); WHITE BLOOD COUNT 9.08 K/ul (4.2-10.2)
[2023-05-31 05:54] LABS: ALANINE AMINOTRANSFERASE 15.1 U/L (0-50); ASPARTATE AMINO TRANSFERASE 23.7 U/L (17-59); BILIRUBIN,TOTAL 0.32 mg/dL (0.2-1.3); BLOOD UREA NITROGEN 12.2 mg/dL (9-20); CALCIUM 8.24 mg/dL (8.4-10.2); CARBON DIOXIDE 24.5 mmol/L (22-30.0); CHLORIDE 104.3 mmol/L (98-107); CREATININE 0.9 mg/dL (0.60-1.10); GLUCOSE 115.8 mg/dL (74-106); POTASSIUM 4.56 mmol/L (3.5-5.1); SODIUM 131.7 mmol/L (134.5-145); TOTAL PROTEIN 6.23 g/dL (6.3-8.2)
[2023-05-31] MEDS: PROTONIX PO SCH (08:14)
--- NOTE | 2023-05-31 09:12 | PCM.PROG ---
Date/Time Seen Date Seen by Provider: 05/31/23 Time Seen by Provider: 08:30 Provider Provider: [facility] LYON [facility]-C, [facility] Chief Complaint Chief Complaint: R TIBIAL PLATEAU FX & LOW SODIUM Subjective Subjective: Patient denies complaints today. Refused his lovenox yesterday. Swelling in RLE appears improved today. Sodium above 130 today, 3% stopped this morning. Objective Appearance: Positive No Apparent Distress Chest/Lungs: Positive Clear to Auscultation Bilaterally; Negative Rales, Rhonci or Wheezes Heart: Positive RRR GI/: Positive Soft, Nontender, Bowel Sounds Normal and No Distention Musculoskeletal: Positive Other (+Left AKA . RLE - 1+ pitting edema improved, pt right knee remains flexed at baseline. ) Neurological: Positive Alert, Disorinted and Other Vital Signs Vital Signs: Vital Signs: Last 24 Hours 05/30/23 14:00 05/30/23 20:00 05/30/23 21:10 Temperature 97.9 F 97.5 F L Temperature Source Tympanic Temporal Artery Scan Pulse Rate 85 73 Respiratory Rate 18 16 Blood Pressure 144/81 H 124/61 Blood Pressure Mean 102 82 Blood Pressure Location Left Arm Left Arm Blood Pressure Position Supine Supine O2 Sat by Pulse Oximetry 96 95 Oxygen Delivery Method Room Air Room Air Room Air 05/31/23 05:11 Temperature 97.8 F Temperature Source Temporal Artery Scan Pulse Rate 84 Respiratory Rate 18 Blood Pressure 117/64 Blood Pressure Mean 81 Blood Pressure Location Right Arm Blood Pressure Position Supine O2 Sat by Pulse Oximetry 94 L Oxygen Delivery Method Room Air Lab Results Lab Results: Lab Results: Last 24 Hours 05/31/23 05/31/23 05/30/23 05:16 05:10 23:35 WBC 9.08 RBC 4.29 L Hgb 12.4 L Hct 37.4 L MCV 87.2 MCH 28.9 MCHC 33.2 RDW Coeff of Leanna 15.6 H Plt Count 249 Immature Gran % (Auto) 0.2 Neut % (Auto) 64.2 Lymph % (Auto) 20.6 [place] % (Auto) 10.6 H Eos % (Auto) 4.0 Baso % (Auto) 0.4 Neut # (Auto) 5.8 Lymph # (Auto) 1.9 [place] # (Auto) 1.0 Eos # (Auto) 0.4 Baso # (Auto) 0.0 Immature Gran # (Auto) 0.0 Sodium 131.7 L 129.0 L Potassium 4.56 4.59 Chloride 104.3 100.5 Carbon Dioxide 24.5 25.0 Anion Gap 7.46 8.09 BUN 12.2 12.0 Creatinine 0.90 0.94 Estimated GFR (MDRD) 81.00 77.00 BUN/Creatinine Ratio 13.55 12.76 Glucose 115.8 H 147.7 H Calcium 8.24 L 8.17 L Total Bilirubin 0.32 AST 23.7 ALT 15.1 Alkaline Phosphatase 95.0 Total Protein 6.23 L Albumin 3.00 L Globulin 3.23 Albumin/Globulin Ratio 0.92 05/30/23 05/30/23 17:41 13:03 WBC RBC Hgb Hct MCV MCH MCHC RDW Coeff of Leanna Plt Count Immature Gran % (Auto) Neut % (Auto) Lymph % (Auto) [place] % (Auto) Eos % (Auto) Baso % (Auto) Neut # (Auto) Lymph # (Auto) [place] # (Auto) Eos # (Auto) Baso # (Auto) Immature Gran # (Auto) Sodium 125.7 L 123.7 L Potassium 4.19 4.08 Chloride 96.7 L 96.1 L Carbon Dioxide 24.7 25.7 Anion Gap 8.49 5.98 BUN 10.8 10.9 Creatinine 0.83 0.88 Estimated GFR (MDRD) 89.00 83.00 BUN/Creatinine Ratio 13.01 12.38 Glucose 179.6 H D 123.7 H Calcium 8.13 L 8.00 L Total Bilirubin AST ALT Alkaline Phosphatase Total Protein Albumin Globulin Albumin/Globulin Ratio Additional Comments Additional Comments: I have independently reviewed and interpreted the labs/EKGs/imaging ordered during this hospital stay. I have reviewed outside records that are available in our EMR that pertain to medical stay including imaging/notes/labs from previous visits. Active Medications Active Medications: Medications Generic Name Dose Route Start Last Admin Trade Name Freq PRN Reason Stop Dose Admin Hydrocodone Bitart/Acetaminophen 1 tab 05/30/23 04:45 05/31/23 05:20 Hydrocodone Bit/Acetaminophen 7.5/325 Mg Tablet PO 1 tab TID PRN Administration MODERATE PAIN Albuterol/Ipratropium 3 ml 05/30/23 04:45 Ipratropium/Albuterol Vial.Neb NEB Q6H PRN Wheezing Aspirin 81 mg 05/30/23 09:00 05/31/23 08:14 Aspirin 81 Mg Tablet. PO 81 mg DAILYWM2 [facility] Administration Clopidogrel Bisulfate 75 mg 05/30/23 09:00 05/31/23 08:15 Clopidogrel Bisulfate 75 Mg Tablet PO 75 mg DAILY [facility] Administration Enoxaparin Sodium 40 mg 05/30/23 13:30 05/31/23 08:17 Enoxaparin Sodium 40 Mg/0.4 Ml Syr SUBCUT 40 mg DAILY [facility] Administration Escitalopram Oxalate 5 mg 05/30/23 21:00 05/30/23 20:50 Escitalopram Oxalate 10 Mg Tablet PO 5 mg BEDTIME [facility] Administration Ferrous Sulfate 324 mg 05/30/23 09:00 05/31/23 08:16 Ferrous Sulfate 324 Mg Tablet. PO 324 mg BID [facility] Administration Insulin Glargine 30 unit 05/30/23 21:00 05/30/23 20:51 Insulin Glargine,Hum.Rec.Anlog 100 Units/Ml SUBCUT 30 unit BEDTIME [facility] Administration Insulin Human Lispro 0 unit 05/30/23 13:09 Insulin Lispro 100 Unit/Ml Vial SUBCUT PRN PRN Hyperglycemia Protocol Linagliptin 5 mg 05/30/23 09:00 05/31/23 08:15 Linagliptin 5 Mg Tablet PO 5 mg DAILY [facility] Administration Multivitamins 1 tab 05/30/23 09:00 05/31/23 08:15 Multivitamin 1 Tab PO 1 tab DAILY [facility] Administration Non-Formulary Medication 2,000 mcg 05/30/23 09:00 05/31/23 08:25 Cyanocobalamin (Vitamin B-12) [Vitamin B-12] PO Not Given DAILY [facility] Ondansetron HCl 4 mg 05/30/23 04:45 Ondansetron Hcl 4 Mg Tablet PO Q8H PRN Nausea / Vomiting Pantoprazole Sodium 40 mg 05/31/23 09:00 05/31/23 08:14 Pantoprazole Sodium 40 Mg Tablet. PO 40 mg DAILY [facility] Administration Rosuvastatin Calcium 40 mg 05/30/23 21:00 05/30/23 20:50 Rosuvastatin Calcium 10 Mg Tablet PO 40 mg BEDTIME [facility] Administration Sodium Chloride 1 gm 05/31/23 09:10 Sodium Chloride 1 Gm Tablet PO QID [facility] Tamsulosin HCl 0.4 mg 05/30/23 21:00 05/30/23 20:51 Tamsulosin Hcl 0.4 Mg Cap.Er.24h PO 0.4 mg BEDTIME [facility] Administration Tiotropium [place] 1 cap 05/30/23 09:00 05/31/23 08:17 Tiotropium [place] 18 Mcg Cap.W.Dev IH 1 cap DAILY [facility] Administration Plan Plan: 1. Acute on chronic hyponatremia - Resolved. Stop 3%. Restart sodium tabs. Check osmolality studies. Hold lasix for now. 2. Right lateral tibial plateau fracture - Ortho recommended knee immobilizer in full extention, however patient is chronically contractured with flexion of that knee. He is unable to extend it. Pt is nonambulatory at baseline. Does not bear weight to transfer. Pain control. Outpatient ortho f/u. 3. RLE edema - chronic, but staff felt potentially worse than baseline. Will get US on Thursday to r/o dvt. 4. Hypertension - Cont home meds 5. Hyperlipidemia - Cont home meds 6. GERD - Cont home meds 7. BPH - Cont home meds 8. DMT2 - Cont home insulin. Humalog sliding scale, accuchecks achs. Dispo: Likely dc tomorrow after US Review Statement Review Statement: I have personally discussed and reviewed the patient's visit/currently labs/imaging/decision making with Dr. Crain, my supervising attending. Greater that 50 minutes spent with patient, 50% of the time spent with this patient was devoted to counseling and coordination of care.
[2023-05-31] MEDS: SODIUM CHLORIDE PO SCH (09:55)
[2023-06-01 05:06] VITALS: BP 121/56
[2023-06-01 05:27] LABS: BASOPHILS # (AUTO) 0.1 K/uL (0-0.2); BASOPHILS % (AUTO) 0.6 % (0.0-3.0); EOSINOPHILS # (AUTO) 0.5 K/ul (0.0-0.7); EOSINOPHILS % (AUTO) 5.7 % (0.0-7.0); HEMATOCRIT 37.2 % (42.0-52.0); HEMOGLOBIN 11.9 g/dl (14.0-18.0); IMMATURE GRANULOCYTE % (AUTO) 0.4 % (0.0-5.0); LYMPHOCYTES # (AUTO) 2.1 K/uL (0.60-3.4); LYMPHOCYTES % (AUTO) 26.5 (10.0-50.0); MEAN CORPUSCULAR HEMOGLOBIN 28.5 pg (27.0-31.0); MONOCYTES % (AUTO) 12.1 (0-10); NEUTROPHILS # (AUTO) 4.3 K/ul (2.0-6.9); NEUTROPHILS % (AUTO) 54.7 % (42.2-75.2); PLATELET COUNT 243 10^3/uL (140-440); RDW COEFFICIENT OF VARIATION 15.9 % (11.6-14.8); RED BLOOD COUNT 4.18 10^6/ul (4.70-6.10); WHITE BLOOD COUNT 7.88 K/ul (4.2-10.2)
[2023-06-01 05:43] LABS: ALANINE AMINOTRANSFERASE 15.8 U/L (0-50); ALBUMIN 2.99 g/dL (3.5-5.0); ALKALINE PHOSPHATASE 89.4 U/L (56-119); ASPARTATE AMINO TRANSFERASE 32.2 U/L (17-59); BILIRUBIN,TOTAL 0.34 mg/dL (0.2-1.3); BLOOD UREA NITROGEN 11.4 mg/dL (9-20); CALCIUM 8.08 mg/dL (8.4-10.2); CHLORIDE 104.7 mmol/L (98-107); CREATININE 0.8 mg/dL (0.60-1.10); GLUCOSE 84.1 mg/dL (74-106); POTASSIUM 3.85 mmol/L (3.5-5.1); SODIUM 132.6 mmol/L (134.5-145); TOTAL PROTEIN 6.29 g/dL (6.3-8.2)
--- NOTE | 2023-06-01 10:16 | US ---
EXAM: ULTRASOUND VENOUS DOPPLER RIGHT LOWER EXTERMITY HISTORY: Right lower extremity edema COMPARISON: None TECHNIQUE: Venous duplex ultrasound of the right lower extremity was performed. Greyscale, color do ppler, spectral doppler imaging performed. FINDINGS: There is normal color flow and compression of the right common femoral, greater saphenous, profunda femoral, femoral, popliteal, peroneal, posterior tibial, and anterior tibial veins without evidence of intraluminal thrombus. Right lower extremity subcutaneous edema. IMPRESSION: No evidence for right lower extremity deep venous thrombosis.
--- NOTE | 2023-06-01 12:43 | DCSUM ---
Admission Date Admission Date: 05/30/23 Discharge Date Discharge Date: 06/01/23 Admission Diagnosis Admission Diagnosis: 1. Acute on chronic hyponatremia 2. Right lateral tibial plateau fracture 3. RLE edema 4. Hypertension 5. Hyperlipidemia 6. GERD 7. BPH 8. DMT2 Discharge Diagnosis Discharge Diagnosis: 1. Acute on chronic hyponatremia - Resolved 2. Right lateral tibial plateau fracture - Stable 3. RLE edema - Chronic, stable, DVT ruled out 4. Hypertension - Chronic, stable 5. Hyperlipidemia - Chronic, stable 6. GERD - Chronic, stable 7. BPH - Chronic, stable 8. DMT2 - Chronic, stable Hospital Provider Hospital Provider: JES[place]S SCHAEFFER[place] [facility] [place] Primary Care Physician: JOVANNI LESTER MD Summary of History and Physical Summary of History and Physical: Patient is an 78 year old nonambulatory patient [place] the [place] who presented for a fall out of bed. Pt complained of right knee pain. R knee x ray abnormal. Confirmed by right knee CT to have a lateral tibial plateau fracture. ERP spoke with Dr. Cano, applications support engineer ortho, who states this can be followed up outpatient. Recommended a knee immobilizer in full extension. However, the patient is nonambulatory and contracted with his right knee, he is absolutely unable to extend that knee. ER placed a large lou wrap instead. He was also noted to have low sodium. Pt has had low sodium in the past but his most recent was normal. ROS limited due to patient dementia. Hospital Course Subjective: Acute on chronic hyponatremia - treated with 3% saline, stopped yesterday and salt tabs restarted. Osmolalities pending. Right lateral tibial plateau fracture - Ortho recommended knee immobilizer in full extention, however patient is chronically contractured with flexion of that knee. He is unable to extend it. Pt is nonambulatory at baseline. Does not bear weight to transfer. Pain control with norco. Outpatient ortho f/u scheduled. intermediate requesting MRI due to suspected not confirmed fracture. Scheduled outpatient. RLE edema - chronic, but staff felt potentially worse than baseline. US completed to d/t dvt and negative. No changes to home medications unless otherwise noted. Appearance: Pleasant, No Apparent Distress and Alert HEENT: MMM, Supple and No JVD CVS: No Murmur, No Rubs and No Gallop Abdomen: Soft, Non-Tender and No Distention Respiratory: No Dyspnea Extremities: Other (mild swelling to RLE, tenderness to R knee, contracture noted) Vital Signs: Most Recent Vital Signs Temperature 97.4 F L 06/01/23 10:35 Temperature Source Oral 06/01/23 10:35 Temperature Source Infrared 05/30/23 00:10 Pulse Rate 80 06/01/23 10:35 Respiratory Rate 16 06/01/23 10:35 Blood Pressure 121/56 L 06/01/23 05:05 Blood Pressure Mean 77 06/01/23 05:05 Blood Pressure Left Arm 144/75 05/30/23 05:54 Blood Pressure Location Left Arm 06/01/23 10:35 Blood Pressure Position Supine 06/01/23 10:35 O2 Sat by Pulse Oximetry 98 06/01/23 10:35 Oxygen Delivery Method Room Air 06/01/23 10:35 Height 5 ft 9 in 05/30/23 05:54 Weight 200 lb 3.2 oz 06/01/23 05:05 Telemetry Heart Rate 68 02/26/23 11:45 Telemetry SPO2 94 02/26/23 11:45 Imaging: EXAM: CT RIGHT KNEE WITHOUT CONTRAST. FINDINGS: The exam is limited secondary to patient positioning. There is an ill-defined lucency through the lateral tibial plateau, suspicious for a nondisplaced fracture. No evidence of a patellar fracture. There is a chronic corticated degenerative calcification along the anterior-superior margin of the patella measuring 1.1 x 0.5 cm. The joint spaces are maintained. There is a small hemarthrosis. There are vascular calcifications. Impression: Ill-defined lucency through the lateral tibial plateau, suspicious for a nondisplaced fracture. Small hemarthrosis. Degenerative changes as described. EXAM: THREE VIEWS OF THE RIGHT KNEE. History: Right knee trauma. FINDINGS: Questionable nondisplaced patellar fracture. No dislocation. Atherosclerotic vascular calcifications. Patellar enthesiopathy. Impression: Questionable nondisplaced patellar fracture. Recommend further evaluation with CT or MRI Lab Results Last 24 Hours: 06/01/23 06/01/23 06:00 05:14 WBC 7.88 RBC 4.18 L Hgb 11.9 L Hct 37.2 L MCV 89.0 MCH 28.5 MCHC 32.0 RDW Coeff of Leanna 15.9 H Plt Count 243 Immature Gran % (Auto) 0.4 Neut % (Auto) 54.7 Lymph % (Auto) 26.5 [place] % (Auto) 12.1 H Eos % (Auto) 5.7 Baso % (Auto) 0.6 Neut # (Auto) 4.3 Lymph # (Auto) 2.1 [place] # (Auto) 1.0 Eos # (Auto) 0.5 Baso # (Auto) 0.1 Immature Gran # (Auto) 0.0 Sodium 132.6 L Potassium 3.85 Chloride 104.7 Carbon Dioxide 25.0 Anion Gap 6.75 BUN 11.4 Creatinine 0.80 Estimated GFR (MDRD) 93.00 BUN/Creatinine Ratio 14.25 Glucose 84.1 Calcium 8.08 L Total Bilirubin 0.34 AST 32.2 ALT 15.8 Alkaline Phosphatase 89.4 Total Protein 6.29 L Albumin 2.99 L Globulin 3.30 Albumin/Globulin Ratio 0.90 Discharge Instructions Discharge Planning: Discharge Planning > 40 minutes If patient is discharged with left ventricular systolic dysfunction: NA Discharged with a beta chelsea? [] If no, why not? [] Discharged with an lou/arb? [] If no, why not? [] DX: TIBIAL PLATEAU FRACTURE MEDICATIONS: NORCO 7.5/325 TID PRN, SODIUM CHLORIDE 1G QID DIABETIC DIET DO NOT BEAR WEIGHT ON RIGHT EXTREMITY UNTIL FOLLOW-UP WITH ORTHOPEDICS OUTPATIENT MRI SCHEDULED AT [facility] ON ThursdayMay AT 8AM. SHOULD YOU HAVE ANY QUESTIONS PLEASE CALL AT [phone]. Discharge Medications: Medications at Discharge (Home Meds & RX) albuterol sulfate 90 mcg/actuation aerosol inhaler 2 puff inhalation Q4-6H PRN shortness of breath or wheezing #8.5 grams 05/08/22 hydrocodone 7.5 mg-acetaminophen 325 mg tablet 1 tab PO TID PRN pain #90 tabs 09/02/22 aspirin 81 mg tablet,delayed release (Adult Low Dose Aspirin) 81 mg PO DAILY 10/06/22 clopidogrel 75 mg tablet 75 mg PO DAILY 10/06/22 escitalopram oxalate 5 mg tablet 5 mg PO BEDTIME 10/06/22 furosemide 20 mg tablet 20 mg PO DAILY 10/06/22 insulin glargine 100 unit/mL (3 mL) subcutaneous pen (Lantus Solostar U-100 Insulin) 30 unit subcut BEDTIME 10/06/22 ipratropium 0.5 mg-albuterol 3 mg (2.5 mg base)/3 mL nebulization soln 3 ml inhalation .q6h prn PRN soa 10/06/22 linaclotide 145 mcg capsule (Linzess) 145 mcg PO BEDTIME constipation 10/06/22 linagliptin 5 mg tablet (Tradjenta) 5 mg PO DAILY 10/06/22 ondansetron HCl 4 mg tablet 4 mg PO Q8H PRN nausea and vomiting 10/06/22 pantoprazole 40 mg tablet,delayed release 40 mg PO ONCE 10/06/22 sodium bicarbonate 650 mg tablet 650 mg PO BID GERD 10/06/22 tamsulosin 0.4 mg capsule 0.4 mg PO BEDTIME 10/06/22 tiotropium bromide 18 mcg capsule with inhalation device (Spiriva with HandiHaler) 1 cap inhalation DAILY 10/06/22 sodium chloride 1,000 mg soluble tablet 1,000 mg PO QID #120 tabs 10/09/22 acetaminophen 325 mg capsule 650 mg PO Q6H PRN fever/mild pain 05/17/23 ferrous sulfate 325 mg (65 mg iron) tablet (Iron (ferrous sulfate)) 325 mg PO BID 05/17/23 multivitamin 1 tab PO DAILY 05/17/23 pen needle, diabetic, safety 30 gauge x 1/3" (Novofine Autocover) 05/17/23 cyanocobalamin (vitamin B-12) 1,000 mcg tablet (Vitamin B-12) 2,000 mcg PO DAILY 05/30/23 mineral oil-hydrophil petrolat topical ointment (AmeriPhor topical ointment) 1 applic topical BID 05/30/23 rosuvastatin 40 mg tablet 40 mg PO BEDTIME 05/30/23 Discharge Plan Discharge Discharge Orders: Discharge Patient (ONCE); Ordered 06/01/23 Ordered By: MARTHA PENN Activity Restrictions/Additional Instructions: DX: TIBIAL PLATEAU FRACTURE MEDICATIONS: NORCO 7.5/325 TID PRN, SODIUM CHLORIDE 1G QID DIABETIC DIET DO NOT BEAR WEIGHT ON RIGHT EXTREMITY UNTIL FOLLOW-UP WITH ORTHOPEDICS OUTPATIENT MRI SCHEDULED AT [facility] ON ThursdayMay AT 8AM. SHOULD YOU HAVE ANY QUESTIONS PLEASE CALL AT [phone]. Instructions: Patellar Fracture (GEN) Patient Disposition: TRANSFER SNF Prescriptions: New hydrocodone-acetaminophen 7.5-325 mg Tablet 1 tab PO TID PRN (Reason: pain) Qty: 90 0RF sodium chloride 1,000 mg Tablet,Soluble 1,000 mg PO QID Qty: 120 0RF Continued albuterol sulfate 90 mcg/actuation HFA aerosol inhaler 2 puff inhalation Q4-6H PRN (Reason: shortness of breath or wheezing) Qty: 8.5 5RF hydrocodone-acetaminophen 7.5-325 mg tablet 1 tab PO TID PRN (Reason: pain) Qty: 90 0RF AmeriPhor Ointment 1 applic topical BID Rx Instructions: APPLY TOPICALLY TO RIGHT FOOT IN AM AND EVENING AFTER WASHING WITH MILD SOAP AND WARM WATE, DRY WELL, THEN APPLY, DO NOT PUT BETWEEN THE TOES cyanocobalamin (vitamin B-12) [Vitamin B-12] 1,000 mcg tablet 2,000 mcg PO DAILY rosuvastatin 40 mg tablet 40 mg PO BEDTIME insulin glargine [Lantus Solostar U-100 Insulin] 100 unit/mL (3 mL) insulin pen 30 unit SUBCUT BEDTIME ipratropium-albuterol 0.5 mg-3 mg(2.5 mg base)/3 mL solution for nebulization 3 ml INHALATION .q6h prn PRN (Reason: soa) escitalopram oxalate 5 mg tablet 5 mg PO BEDTIME furosemide 20 mg tablet 20 mg PO DAILY Linzess 145 mcg capsule 145 mcg PO BEDTIME pantoprazole 40 mg tablet,delayed release (DR/EC) 40 mg PO ONCE clopidogrel 75 mg tablet 75 mg PO DAILY Tradjenta 5 mg tablet 5 mg PO DAILY tiotropium bromide [Spiriva with HandiHaler] 18 mcg capsule, w/inhalation device 1 cap INHALATION DAILY tamsulosin 0.4 mg capsule 0.4 mg PO BEDTIME aspirin [Adult Low Dose Aspirin] 81 mg tablet,delayed release (DR/EC) 81 mg PO DAILY sodium bicarbonate 650 mg tablet 650 mg PO BID ondansetron HCl 4 mg tablet 4 mg PO Q8H PRN (Reason: nausea and vomiting) sodium chloride 1,000 mg tablet,soluble 1,000 mg PO QID Qty: 120 0RF ferrous sulfate [Iron (ferrous sulfate)] 325 mg (65 mg iron) tablet 325 mg PO BID multivitamin Tablet 1 tab PO DAILY (DME) Novofine Autocover 30 gauge x 1/3" needle MISCELLANEOUS acetaminophen 325 mg capsule 650 mg PO Q6H PRN (Reason: fever/mild pain) Did you review [place] [employer] for ALL controlled substances?: No Discussed opioids are addictive and Narcan is available by prescription or from pharmacy.: No Condition: Fair Referrals: CARLOS CANO [REFERRING] - 06/18/23 8:00 am
[2023-06-01 13:47] VITALS: PULSE 82; RESP 14; TEMP 97.7
== END 2023-06-01 14:15 ==
LOC: ED 00:10 → MEDSURG B 04:50
PROVIDERS: ADMIT Hospitalist; ATTEND Nurse Practitioner Family
DX: Z79.4 Long term (current) use of insulin; N40.0 Benign prostatic hyperplasia without lower urinary tract symptoms; S82.201A Unspecified fracture of shaft of right tibia, initial encounter for closed fracture; E78.5 Hyperlipidemia, unspecified; K21.9 Gastro-esophageal reflux disease without esophagitis; W06.XXXA Fall from bed, initial encounter; E87.1 Hypo-osmolality and hyponatremia; I10 Essential (primary) hypertension; E11.9 Type 2 diabetes mellitus without complications; R60.0 Localized edema

== ENCOUNTER 2024-07-04 12:31 | Observation (INO) ==
--- NOTE | 2024-07-04 13:18 | ED.PDOC ---
General ED Provider: Dr. CAPRI RITTER DO Chief Complaint: Shortness of Air Stated Complaint: 79-year-old gentleman with left [id number] amputation comes in with right leg swelling increased work of breathing. Unclear if patient has some mild dementia but unable to fully answer questions. Sent from nursing facility with the second patient for similar complaints. Patient's work of breathing is increased but he denies shortness of breath chest that his leg is really swollen and his belly swollen. Patient not able to contribute much more to his of evaluation. Time Seen by Provider: 07/04/24 12:56 Mode of Arrival: Wheelchair Information Source: Patient and Correction Exam Limitations: Dementia Primary Care Provider: JOVANNI LESTER MD Nursing and Triage Documentation Reviewed and Agree: Yes What is Opioid Naive?: *Opioid Naive implies the patient is not already taking opioids or not chronically receiving opioids on a daily basis. *PRN dosing is not "usually" associated with tolerance. *Patients are at higher risk of over-sedation and aspiration. What is Opioid Tolerant?: *Opioid Tolerance implies less than the expected response to an opioid. *Acquired tolerance is defined by the patient taking 60mg of oral morphine daily (or equianalgesic dose of another opioid) for 1 week or more. *Often associated with chronic pain. *May take more than usual dose to achieve desired pain control. 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) I69.351 - Hemiplegia and hemiparesis following cerebral infarction affecting right dominant side (ICD-10) LVH (left ventricular hypertrophy) I51.7 - Cardiomegaly (ICD-10) 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 - Ataxia, unspecified (ICD-10) PAD (peripheral artery disease) I73.9 - Peripheral vascular disease, unspecified (ICD-10) 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 Z89.612 - Acquired absence of left leg above knee (ICD-10) HTN, goal below 130/80 I10 - Essential (primary) hypertension (ICD-10) Dyslipidemia E78.5 - Hyperlipidemia, unspecified (ICD-10) Uncontrolled type 2 diabetes mellitus with hyperglycemia E11.65 - Type 2 diabetes mellitus with hyperglycemia (ICD-10) Amputation above knee S78.119A - Complete traumatic amputation at level between unspecified hip and knee, initial encounter (ICD-10) Anxiety F41.9 - Anxiety disorder, unspecified (ICD-10) COPD (chronic obstructive pulmonary disease) J44.9 - Chronic obstructive pulmonary disease, unspecified (ICD-10) GERD (gastroesophageal reflux disease) K21.9 - Gastro-esophageal reflux disease without esophagitis (ICD-10) Family History FATHER Myocardial infarct Mother Myocardial infarct FATHER Diabetes Mother Diabetes Social History Smoking and tobacco status: Unknown if ever smoked Alcohol intake: unknown Substance use type: does not use Special gamaliel needs: No Agree to transfusion: Yes Adopted: No Caregiver/support person: No Foster care: No Household members: spouse Housing: house Marital status: M Lives independently: No service: No senior living: No History of recent travel: No Sexually active: No Do you think of yourself as: straight/heterosexual Current gender identity: male Seatbelt use: always Drives intoxicated or rides with intoxicated superintendent drivers: No Water heater temperature set < 120 degrees: Yes Working smoke detector in home: Yes Fire extinguisher in home: Yes Carbon monoxide detector in home: Yes Surgical History History of prostate surgery toth Z98.890 - Other specified postprocedural states (ICD-10) History of cholecystectomy Z98.89 - Other specified postprocedural states (ICD-10) History of appendectomy Z98.89 - Other specified postprocedural states (ICD-10) Physical Exam Physical Exam Appearance: Reports Ill-appearing and Obese Ill-appearing: Moderate Pain Distress: None Eyes: Reports YUMIKO Neck: Supple (Positive JVD) Respiratory: Reports Airway patent (Increased work of breathing with audible wheezes), Crackles, Rhonchi and Other (Mild to moderate work of breathing) Cardiovascular: Reports RRR and No murmur GI/: Reports Soft, No masses and Hepatomegaly; Denies Tender Musculoskeletal: Reports Normal strength and Other (4+ pitting edema up to the mid abdomen. Patient is missing his left lower leg above the knee.) Skin: Reports Warm, Dry and Normal color Neurological: Reports Sensation intact, Motor intact, Alert and Other (Oriented to person and situation) Psychiatric: Reports Affect appropriate Interpretation EKG Interpretation EKG Interpretation By: ED Physician (Twelve-lead EKG is read by me shortly after obtaining sinus rate of 88 with normal axis and intervals except prolonged SALVATORE of 280 ms send diffuse inferior nonspecific T wave abnormalities no evidence of acute ischemia or infarct no STEMI) Time of EKG #1: 13:20 Re-Evaluation Re-Evaluation Time of Re-Evaluation: 16:19 Status: Improved Vital Signs Stable: Yes Appearance: NAD Lungs: Other (Still remains with scattered crackles and rhonchi) CV: RRR Additional Comments: Had to reinforce treatment multiple times with the patient who initially was reluctant but then acquiesced. Patient's family is at the bedside and they have also encouraged him to take his treatments and medications. I did diurese the patient with 40 of IV Lasix and DuoNeb. His work of breathing has improved he still remains somewhat crackly but his workup is otherwise coming back unremarkable I do believe him to be fluid overloaded but his BNP and troponin are normal. After speaking with 2 of his sons became clear that in the nursing facility has had he often refuses his medications and treatments which have likely led to his current state. I have spoken with the hospitalist who will hobs the patient to "tune him up" I do believe he is suffering from COPD and CHF exacerbation. I do believe the patient does have a mild dementia. Will admit During the patients stay in the Emergency Department, and after a physical exam focused on the patients chief complaint. I have concluded that the patients condition warrants inpatient admission/observation at this time. This decision was made in conjunction with testing done in the ED and after discussing the need for admission with the patient and any family present. This decision was made in conjunction with any testing done, physical exam and information provided by the patient and any family present. I took into consideration discharge but feel that either the patients condition, social supports, access to aftercare, and/or safety justify admission at this time. I have discussed this case with the admitting physician Care was assumed by admitting provider at the time the admission request was placed. I was available for emergencies after that point or if specifically identified here: none This chart was completed using voice recognition dictation software. Please excuse any errors of money market clerk including grammatical, punctuation and spelling errors. Please contact me with any questions regarding this chart Course Course 07/04/24 13:15 07/04/24 13:15 Orders, Labs, Meds: Lab Review 07/04/24 07/04/24 13:15 14:05 WBC 6.98 RBC 4.18 L Hgb 12.4 L Hct 37.9 L MCV 90.7 MCH 29.7 MCHC 32.7 RDW Coeff of Leanna 13.1 Plt Count 237 Immature Gran % (Auto) 0.6 Neut % (Auto) 51.7 Lymph % (Auto) 26.8 [place] % (Auto) 14.3 H Eos % (Auto) 6.2 Baso % (Auto) 0.4 Neut # (Auto) 3.6 Lymph # (Auto) 1.9 [place] # (Auto) 1.0 Eos # (Auto) 0.4 Baso # (Auto) 0.0 Immature Gran # (Auto) 0.0 Sodium 134.7 Potassium 3.97 Chloride 96.6 L Carbon Dioxide 30.6 H Anion Gap 11.47 BUN 10.7 Creatinine 0.83 Estimated GFR (MDRD) 89.00 BUN/Creatinine Ratio 12.89 Glucose 237.7 H Lactic Acid 1.24 Calcium 8.28 L Total Bilirubin 0.20 AST 29.1 ALT 12.9 Alkaline Phosphatase 77.8 Troponin I < 0.012 NT-Pro-B Natriuret Pep 192 Total Protein 6.44 Albumin 3.15 L Globulin 3.29 Albumin/Globulin Ratio 0.95 Urine Color Yellow Urine Clarity Clear Urine pH 5.5 Ur Specific Black 1.010 Urine Protein Negative Urine Glucose (UA) Negative Urine Ketones Negative Urine Blood Negative Urine Nitrite Negative Urine Bilirubin Negative Urine Urobilinogen 0.2 Ur Leukocyte Esterase Negative Influ A Molecular Assay Negative by naat Influ B Molecular Assay Negative by naat SARS CoV-2 RNA Rapid ZULMA Negative Orders Category Date Time Status PLACE PATIENT OBSERVATION .TO MEDSURG (NON-MONITORED ADMISSION 07/04/24 15:56 Active BED) EKG-(ED ONLY) Stat CARDIO 07/04/24 13:07 Completed NEBULIZER TREATMENT Stat CARDIO 07/04/24 13:08 Completed CBC W/ AUTO DIFF Stat LAB 07/04/24 13:15 Completed CMP [COMPREHENSIVE METABOLIC PANEL] Stat LAB 07/04/24 13:15 Completed COVID [SARS COV-2 RNA RAPID ZULMA] Stat LAB 07/04/24 13:15 Completed FLU A & B MOLECULAR [FLU A/B MOLECULAR] Stat LAB 07/04/24 13:15 Completed LACTIC ACID Stat LAB 07/04/24 13:15 Completed NT-PROBNP(ED) Stat LAB 07/04/24 13:15 Completed TROPONIN I Stat LAB 07/04/24 13:15 Completed UA [URINALYSIS C & S IF INDICATED] Stat LAB 07/04/24 14:05 Completed Furosemide [Lasix] Meds 07/04/24 13:50 Discontinued 40 mg IVP ONCE STA Ipratropium/Albuterol Neb [Duoneb] Meds 07/04/24 14:30 Discontinued 3 ml NEB .STK-MED ONE Ipratropium/Albuterol Neb [Duoneb] Meds 07/04/24 13:08 Discontinued 3 ml NEB ONCE STA CHEST, 1V AP ONLY Stat RADS 07/04/24 13:[address] CHEST W/O CONTRAST Stat RADS 07/04/24 13:50 Completed Medications Discontinued Medications Generic Name Dose Route Start Last Admin Trade Name Freq PRN Reason Stop Dose Admin Albuterol/Ipratropium 3 ml 07/04/24 13:08 07/04/24 13:37 Ipratropium/Albuterol Vial.Neb NEB 07/04/24 13:09 3 ml ONCE STA Administration Furosemide 40 mg 07/04/24 13:50 07/04/24 14:08 Furosemide Inj 40 Mg/4 Ml Vial IVP 07/04/24 13:51 40 mg ONCE STA Administration Shortly after interviewing and examining the patient, treatment was initiated. Orders were placed for appropriate testing and treatment specific to my findings, appropriate guidelines and the patients complaint (please see physician order section of this chart). Based on the patients chief complaint, and information gathered so far, the following diagnosis were considered. This list is not exhaustive. Acute coronary syndrome, CHF, COPD, asthma, pneumothorax, aortic pathologies, pulmonary embolism, pneumonia, bronchitis, esophageal pathologies, muscular skeletal pain, airway obstruction (including foreign body), gastritis. Vital Signs: Temp Pulse Resp BP Pulse Ox 07/04/24 12:51 98.6 F 90 24 H 128/66 93 L Discharge Plan Discharge Patient Disposition: PLACED OBSERVATION Discharge Problem: COPD (chronic obstructive pulmonary disease) Qualifiers: COPD type: unspecified COPD Qualified Code(s): J44.9 - Chronic obstructive pulmonary disease, unspecified CHF (congestive heart failure) Qualifiers: Heart failure type: unspecified Heart failure chronicity: acute on chronic Q ualified Code(s): I50.9 - Heart failure, unspecified Did you review [place] [employer] for ALL controlled substances?: Not Applicable ED Provider: CAPRI RITTER
[2024-07-04 13:19] LABS: BASOPHILS % (AUTO) 0.4 % (0.0-3.0); EOSINOPHILS # (AUTO) 0.4 K/ul (0.0-0.7); EOSINOPHILS % (AUTO) 6.2 % (0.0-7.0); HEMATOCRIT 37.9 % (42.0-52.0); HEMOGLOBIN 12.4 g/dl (14.0-18.0); IMMATURE GRANULOCYTE % (AUTO) 0.6 % (0.0-5.0); LYMPHOCYTES # (AUTO) 1.9 K/uL (0.60-3.4); LYMPHOCYTES % (AUTO) 26.8 (10.0-50.0); MEAN CORPUSCULAR HEMOGLOBIN 29.7 pg (27.0-31.0); MEAN CORPUSCULAR HGB CONC 32.7 (31.8-35.4); MEAN CORPUSCULAR VOLUME 90.7 fl (80.0-94.0); MONOCYTES % (AUTO) 14.3 (0-10); NEUTROPHILS # (AUTO) 3.6 K/ul (2.0-6.9); NEUTROPHILS % (AUTO) 51.7 % (42.2-75.2); PLATELET COUNT 237 10^3/uL (140-440); RDW COEFFICIENT OF VARIATION 13.1 % (11.6-14.8); RED BLOOD COUNT 4.18 10^6/ul (4.70-6.10); WHITE BLOOD COUNT 6.98 K/ul (4.2-10.2)
[2024-07-04] MEDS: DUONEB NEB STA (13:24)
[2024-07-04 13:31] LABS: ALANINE AMINOTRANSFERASE 12.9 U/L (0-50); ALBUMIN 3.15 g/dL (3.5-5.0); ALKALINE PHOSPHATASE 77.8 U/L (56-119); ASPARTATE AMINO TRANSFERASE 29.1 U/L (17-59); BLOOD UREA NITROGEN 10.7 mg/dL (9-20); CALCIUM 8.28 mg/dL (8.4-10.2); CARBON DIOXIDE 30.6 mmol/L (22-30.0); CHLORIDE 96.6 mmol/L (98-107); CREATININE 0.83 mg/dL (0.60-1.10); GLUCOSE 237.7 mg/dL (74-106); POTASSIUM 3.97 mmol/L (3.5-5.1); SODIUM 134.7 mmol/L (134.5-145); TOTAL PROTEIN 6.44 g/dL (6.3-8.2)
[2024-07-04 13:37] LABS: MOLECULAR FLU A NEGATIVE BY NAAT (NEGATIVE); MOLECULAR FLU B NEGATIVE BY NAAT (NEGATIVE); SARS COV-2 RNA RAPID NAAT NEGATIVE (NEGATIVE)
[2024-07-04 13:43] LABS: TROPONIN I < 0.012 ng/ml (0.0000-0.120)
--- NOTE | 2024-07-04 13:45 | DI ---
EXAM: CHEST RADIOGRAPH TECHNIQUE: Single frontal chest radiograph. HISTORY: Shortness of breath. COMPARISON: 06/25/2024. FINDINGS: Mild right basilar atelectasis. Lungs are otherwise clear. The heart size is normal. There is no pleural effusion. There is no pneumothorax. IMPRESSION: 1. Mild right basilar atelectasis. 2. Otherwise unremarkable chest radiograph.
[2024-07-04] MEDS: DUONEB NEB ONE (14:07)
[2024-07-04] MEDS: LASIX IVP STA (14:08)
[2024-07-04 14:44] LABS: BILIRUBIN,URINE Negative (NEGATIVE); CLARITY,URINE Clear (CLEAR); COLOR,URINE Yellow (YELLOW); GLUCOSE, URINE (UA) Negative (NEGATIVE); KETONES,URINE Negative (NEGATIVE); LEUKOCYTE ESTERASE ,URINE Negative (NEGATIVE); NITRITE,URINE Negative (NEGATIVE); PH,URINE 5.5 (5-9); PROTEIN,URINE Negative (NEGATIVE); URINE, BLOOD Negative (NEGATIVE); UROBILINOGEN,URINE 0.2 (0.2)
--- NOTE | 2024-07-04 15:13 | CT ---
EXAM: CHEST CT WITHOUT CONTRAST HISTORY: Shortness of breath. TECHNIQUE: CT acquisition of the chest from the thoracic inlet to the upper abdomen without IV contra st administration. 2-D coronal and sagittal reformatted images were obtained from the axial source i mages. CT Dose Reduction Techniques Performed: Yes. IV Contrast: None. COMPARISON: Chest x-ray 07/04/24. FINDINGS: Lines, Tubes, Devices: None. Lung Parenchyma and Airways: Central airways are patent without endobronchial lesion. No focal conso lidation or interstitial disease. 5 mm nodular density in the right lower lobe (axial 30). Mild subse gmental atelectasis or scarring evaluation is limited by breathing motion. Pleural Space: No pleural effusion or thickening. No pneumothorax. Mediastinum and Marilia: Thyroid gland is mildly prominent but homogeneous. Subcentimeter mediastinal n odes. No adenopathy. Heart and Pericardium: Heart is not enlarged. No significant valvular calcifications. Heavy coronary artery calcifications, however exam is not optimized for evaluation. No pericardial effusion or thi ckening. Vessels: Aorta is normal in caliber with mild atherosclerotic calcifications. Main pulmonary artery is normal in caliber. Bones: Osteopenia. Compression fractures status post kyphoplasty of L2. Soft Tissues: Chest wall soft tissues are unremarkable. Upper Abdomen: The visualized portions of the liver, spleen, and adrenals are normal. IMPRESSION: 1. Mild subsegmental atelectasis or scarring in the lung bases. 5 mm nodular density in the right low er lobe. 2. Thyroid gland is mildly prominent but homogeneous. All CT scans are performed using dose optimization techniques as appropriate to the performed exam an d include at least one of the following: Automated exposure control, adjustment of the mA and/or kV according t o size, and the use of iterative reconstruction technique.
[2024-07-04] MEDS ORDERED: TYLENOL PO PRN (17:13)
[2024-07-04] MEDS ORDERED: HUMALOG (10 ML VIAL) SUBCUT PRN (17:13)
[2024-07-04] MEDS ORDERED: ZOFRAN SDV IVP PRN (17:13)
[2024-07-04] MEDS ORDERED: DEXTROSE 50%-WATER ABBOJECT IVP PRN (17:13)
[2024-07-04] MEDS ORDERED: NORCO 7.5-325 PO PRN (17:35)
[2024-07-04] MEDS ORDERED: DUONEB NEB PRN (17:35)
[2024-07-04 17:52] VITALS: PULSE 80; RESP 20; TEMP 98.8; BMI 28.3
[2024-07-04 18:27] VITALS: BP 119/74
[2024-07-04] MEDS: LASIX IVP SCH (20:14)
[2024-07-04] MEDS: PRILOSEC PO SCH (21:31)
[2024-07-04] MEDS: CRESTOR PO SCH (21:31)
[2024-07-04] MEDS: FLOMAX PO SCH (21:31)
[2024-07-05 05:27] LABS: BASOPHILS # (AUTO) 0.1 K/uL (0-0.2); BASOPHILS % (AUTO) 0.6 % (0.0-3.0); EOSINOPHILS # (AUTO) 0.5 K/ul (0.0-0.7); EOSINOPHILS % (AUTO) 6.1 % (0.0-7.0); HEMATOCRIT 38.4 % (42.0-52.0); HEMOGLOBIN 12.4 g/dl (14.0-18.0); IMMATURE GRANULOCYTE # (AUTO) 0.1 (0.0-1.0); IMMATURE GRANULOCYTE % (AUTO) 0.9 % (0.0-5.0); LYMPHOCYTES # (AUTO) 2.3 K/uL (0.60-3.4); LYMPHOCYTES % (AUTO) 28.4 (10.0-50.0); MEAN CORPUSCULAR HEMOGLOBIN 28.8 pg (27.0-31.0); MEAN CORPUSCULAR HGB CONC 32.3 (31.8-35.4); MEAN CORPUSCULAR VOLUME 89.3 fl (80.0-94.0); MONOCYTES # (AUTO) 1.1 K/uL (0.4-2.0); MONOCYTES % (AUTO) 13.1 (0-10); NEUTROPHILS # (AUTO) 4.1 K/ul (2.0-6.9); NEUTROPHILS % (AUTO) 50.9 % (42.2-75.2); PLATELET COUNT 262 10^3/uL (140-440); RDW COEFFICIENT OF VARIATION 13.1 % (11.6-14.8); WHITE BLOOD COUNT 7.99 K/ul (4.2-10.2)
[2024-07-05 05:46] LABS: ALANINE AMINOTRANSFERASE 12.7 U/L (0-50); ALBUMIN 3.16 g/dL (3.5-5.0); ALKALINE PHOSPHATASE 85.6 U/L (56-119); ASPARTATE AMINO TRANSFERASE 25.9 U/L (17-59); BILIRUBIN,TOTAL 0.32 mg/dL (0.2-1.3); BLOOD UREA NITROGEN 11.7 mg/dL (9-20); CALCIUM 8.19 mg/dL (8.4-10.2); CARBON DIOXIDE 28.9 mmol/L (22-30.0); CHLORIDE 97.6 mmol/L (98-107); CREATININE 0.7 mg/dL (0.60-1.10); GLUCOSE 177.6 mg/dL (74-106); POTASSIUM 3.6 mmol/L (3.5-5.1); SODIUM 134.9 mmol/L (134.5-145); TOTAL PROTEIN 6.26 g/dL (6.3-8.2)
[2024-07-05] MEDS: ASPIRIN EC PO SCH (08:32)
[2024-07-05] MEDS: PLAVIX PO SCH (08:32)
[2024-07-05] MEDS: FERROUS SULFATE PO SCH (08:32)
[2024-07-05] MEDS: VITAMIN D PO SCH (08:33)
[2024-07-05] MEDS: SPIRIVA IH SCH (08:33)
--- NOTE | 2024-07-05 10:56 | PCM.SS ---
Provider Provider: JOANNE LYON PA-C, [facility] Admission Date Admission Date: 07/04/24 Discharge Date Discharge Date: 07/05/24 Primary Care Physician Primary Care Physician: JOVANNI CRAIN MD Chief Complaint Reason For Visit: COPD EXACERBATION, CHF EXACERBATION History of Present Illness History of Present Illness: Admitted 07/04/24 16:07, this 79 year old /WHITE/M presented to ER with complaints of SOB and RLE swelling (patient has left AKA). He was noted to have RR in 40s and visibly SOB. He was given breathing treatment and lasix. CT chest was overall unremarkable. Patient was feeling improved after lasix and duoneb. Would benefit from further IV lasix. Patient placed to [facility]. Once on the floor patient is very noncompliant. He becomes aggressive when trying to give any type of nursing care including medications, vitals, adjusting pillow, etc. Tried to hit nursing staff multiple times through the night. He also verbalizes not wanting any sort of care. Family members have been in and out. They state he is also like this at the intermediate, very often not wanting to take his medications. Discussed further with patient this morning, he states he just wants to be left alone. Offered to try to give him more lasix or another breathing treatment but he refuses. He told his daughter Vannesa last night to just let him . Discussed with Vannesa (no POA has been made) on the phone his goals of care. She and her siblings are in agreement with comfort measures and to respect his wishes. She wishes for him to receive his regular maintenance medications if he's willing to take them, but not to force or agitate him to t jessica them. We discussed consulting with hospice to help manage his symptoms that could arise at the intermediate but she would like to wait on that referral for now. Otherwise, will communicate with intermediate that his goals include comfort focused care and to not be transferred to ER/hospital per his wishes. New POLST form filled out to reflect his wishes. 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) I69.351 - Hemiplegia and hemiparesis following cerebral infarction affecting right dominant side (ICD-10) LVH (left ventricular hypertrophy) I51.7 - Cardiomegaly (ICD-10) 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 - Ataxia, unspecified (ICD-10) PAD (peripheral artery disease) I73.9 - Peripheral vascular disease, unspecified (ICD-10) Left above-knee amputee 2019 doretha Z89.612 - Acquired absence of left leg above knee (ICD-10) HTN, goal below 130/80 I10 - Essential (primary) hypertension (ICD-10) Dyslipidemia E78.5 - Hyperlipidemia, unspecified (ICD-10) Uncontrolled type 2 diabetes mellitus with hyperglycemia E11.65 - Type 2 diabetes mellitus with hyperglycemia (ICD-10) Amputation above knee S78.119A - Complete traumatic amputation at level between unspecified hip and knee, initial encounter (ICD-10) Anxiety F41.9 - Anxiety disorder, unspecified (ICD-10) COPD (chronic obstructive pulmonary disease) J44.9 - Chronic obstructive pulmonary disease, unspecified (ICD-10) GERD (gastroesophageal reflux disease) K21.9 - Gastro-esophageal reflux disease without esophagitis (ICD-10) Surgical History History of prostate surgery toth Z98.890 - Other specified postprocedural states (ICD-10) History of cholecystectomy Z98.89 - Other specified postprocedural states (ICD-10) History of appendectomy Z98.89 - Other specified postprocedural states (ICD-10) Family History FATHER Myocardial infarct Mother Myocardial infarct FATHER Diabetes Mother Diabetes Social History Smoking and tobacco status: Unknown if ever smoked Alcohol intake: unknown Substance use type: does not use Special gamaliel needs: No Agree to transfusion: Yes Adopted: No Caregiver/support person: No Foster care: No Household members: spouse Housing: house Marital status: M Lives independently: No service: No shelter: No History of recent travel: No Sexually active: No Do you think of yourself as: straight/heterosexual Current gender identity: male Seatbelt use: always Drives intoxicated or rides with intoxicated miniature train driver: No Water heater temperature set < 120 degrees: Yes Working smoke detector in home: Yes Fire extinguisher in home: Yes Carbon monoxide detector in home: Yes Medications Mecications: Medications at Discharge (Home Meds & RX) aspirin 81 mg tablet,delayed release (Adult Low Dose Aspirin) 81 mg PO DAILY 10/06/22 clopidogrel 75 mg tablet 75 mg PO DAILY 10/06/22 ipratropium 0.5 mg-albuterol 3 mg (2.5 mg base)/3 mL nebulization soln 3 ml inhalation .q6h prn PRN soa 10/06/22 linaclotide 145 mcg capsule (Linzess) 145 mcg PO BEDTIME constipation 10/06/22 ondansetron HCl 4 mg tablet 4 mg PO Q8H PRN nausea and vomiting 10/06/22 sodium bicarbonate 650 mg tablet 650 mg PO BID GERD 10/06/22 tamsulosin 0.4 mg capsule 0.4 mg PO BEDTIME 10/06/22 tiotropium bromide 18 mcg capsule with inhalation device (Spiriva with HandiHaler) 1 cap inhalation DAILY 10/06/22 acetaminophen 325 mg capsule 650 mg PO Q6H PRN fever/mild pain 05/17/23 ferrous sulfate 325 mg (65 mg iron) tablet (Iron (ferrous sulfate)) 325 mg PO DAILY 05/17/23 pen needle, diabetic, safety 30 gauge x 1/3" (Novofine Autocover) 05/17/23 rosuvastatin 40 mg tablet 40 mg PO BEDTIME 05/30/23 hydrocodone 7.5 mg-acetaminophen 325 mg tablet 1 tab PO TID PRN pain #90 tabs 06/01/23 omeprazole 20 mg capsule,delayed release 20 mg PO BID 08/31/23 potassium chloride 10 mEq capsule,extended release 20 meq PO DAILY 08/31/23 metformin 500 mg tablet 500 mg PO DAILY 06/25/24 albuterol sulfate 90 mcg/actuation aerosol inhaler 2 puff inhalation Q4H PRN shortness of breath or wheezing 07/04/24 cholecalciferol (vitamin D3) 50 mcg (2,000 unit) capsule 50 mcg PO DAILY 07/04/24 diphenhydramine HCl 25 mg capsule (Allergy (diphenhydramine)) 50 mg PO Q12HR PRN itching 07/04/24 furosemide 40 mg tablet 40 mg PO DAILY 07/04/24 loperamide 2 mg capsule 2 mg PO Q6H PRN loose stool 07/04/24 Allergies Allergies Allergy/AdvReac Type Severity Reaction Status Date / Time azithromycin (From Zithromax) AdvReac Verified 07/04/24 13:08 Review of Systems Constitutional: Denies Fever Head: Reports Normocephalic and Atraumatic Cardiovascular: Denies Chest pain Respiratory: Reports Shortness of air; Denies Cough Gastrointestinal: Denies Nausea, Vomiting or Diarrhea Physical Examination Appearance: Positive No Apparent Distress and Other (+Alert, nonlabored breathing, easily agitated ) Head: Positive Normocephalic and Atraumatic Neck: Positive Supple Respiratory: Positive Breath Sounds Diminished, Respirations Nonlabored and Wheezes (mild da ) Additional Findings: RLE contracted chronically, 2+ pitting edema, worse than baseline per daughter Vital Signs (Last 4 Hours) Vital Signs Last 4 Hours: Vital Signs: Last 4 Hours 07/05/24 07:00 07/05/24 07:57 07/05/24 08:00 Oxygen Delivery Method Room Air Room Air Room Air 07/05/24 08:33 07/05/24 09:05 07/05/24 10:52 Oxygen Delivery Method Room Air Room Air Room Air Labs This Visit Labs This Visit: Labs This Visit 07/04/24 07/04/24 07/05/24 13:15 14:05 05:23 WBC 6.98 7.99 RBC 4.18 L 4.30 L Hgb 12.4 L 12.4 L Hct 37.9 L 38.4 L MCV 90.7 89.3 MCH 29.7 28.8 MCHC 32.7 32.3 RDW Coeff of Leanna 13.1 13.1 Plt Count 237 262 Immature Gran % (Auto) 0.6 0.9 Neut % (Auto) 51.7 50.9 Lymph % (Auto) 26.8 28.4 [place] % (Auto) 14.3 H 13.1 H Eos % (Auto) 6.2 6.1 Baso % (Auto) 0.4 0.6 Neut # (Auto) 3.6 4.1 Lymph # (Auto) 1.9 2.3 [place] # (Auto) 1.0 1.1 Eos # (Auto) 0.4 0.5 Baso # (Auto) 0.0 0.1 Immature Gran # (Auto) 0.0 0.1 Sodium 134.7 134.9 Potassium 3.97 3.60 Chloride 96.6 L 97.6 L Carbon Dioxide 30.6 H 28.9 Anion Gap 11.47 12.00 BUN 10.7 11.7 Creatinine 0.83 0.70 Estimated GFR (MDRD) 89.00 108.00 BUN/Creatinine Ratio 12.89 16.71 Glucose 237.7 H 177.6 H D Lactic Acid 1.24 Calcium 8.28 L 8.19 L Total Bilirubin 0.20 0.32 AST 29.1 25.9 ALT 12.9 12.7 Alkaline Phosphatase 77.8 85.6 Troponin I < 0.012 NT-Pro-B Natriuret Pep 192 Total Protein 6.44 6.26 L Albumin 3.15 L 3.16 L Globulin 3.29 3.10 Albumin/Globulin Ratio 0.95 1.01 Urine Color Yellow Urine Clarity Clear Urine pH 5.5 Ur Specific [place] 1.010 Urine Protein Negative Urine Glucose (UA) Negative Urine Ketones Negative Urine Blood Negative Urine Nitrite Negative Urine Bilirubin Negative Urine Urobilinogen 0.2 Ur Leukocyte Esterase Negative Influ A Molecular Assay Negative by naat Influ B Molecular Assay Negative by naat SARS CoV-2 RNA Rapid ZULMA Negative Imaging Imaging: EXAM: CHEST RADIOGRAPH TECHNIQUE: Single frontal chest radiograph. HISTORY: Shortness of breath. COMPARISON: 06/25/2024. FINDINGS: Mild right basilar atelectasis. Lungs are otherwise clear. The heart size is normal. There is no pleural effusion. There is no pneumothorax. IMPRESSION: 1. Mild right basilar atelectasis. 2. Otherwise unremarkable chest radiograph. EXAM: CHEST CT WITHOUT CONTRAST HISTORY: Shortness of breath. TECHNIQUE: CT acquisition of the chest from the thoracic inlet to the upper abdomen without IV contrast administration. 2-D coronal and sagittal reformatted images were obtained from the axial source images. CT Dose Reduction Techniques Performed: Yes.IV Contrast: None. COMPARISON: Chest x-ray 07/04/24. FINDINGS: Lines, Tubes, Devices: None. Lung Parenchyma and Airways: Central airways are patent without endobronchial lesion. No focal consolidation or interstitial disease. 5 mm nodular density in the right lower lobe (axial 30). Mild subsegmental atelectasis or scarring evaluation is limited by breathing motion. Pleural Space: No pleural effusion or thickening. No pneumothorax. Mediastinum and Marilia: Thyroid gland is mildly prominent but homogeneous. Subcentimeter mediastinal nodes. No adenopathy. Heart and Pericardium: Heart is not enlarged. No significant valvular calcifications. Heavy coronary artery calcifications, however exam is not optimized for evaluation. No pericardial effusion or thickening. Vessels: Aorta is normal in caliber with mild atherosclerotic calcifications. Main pulmonary artery is normal in caliber. Bones: Osteopenia. Compression fractures status post kyphoplasty of L2. Soft Tissues: Chest wall soft tissues are unremarkable. Upper Abdomen: The visualized portions of the liver, spleen, and adrenals are normal. IMPRESSION: 1. Mild subsegmental atelectasis or scarring in the lung bases. 5 mm nodular density in the right lower lobe. 2. Thyroid gland is mildly prominent but homogeneous. Review Review Statement: I have independently reviewed and interpreted the labs/EKGs/imaging that were ordered by the ER provider. I have reviewed all outside records that are available currently in our EMR including imaging/notes/labs from previous visits. Plan Reccomendations/Plan: 1. Acute CHF exacerbation, unknown type - Lasix ordered but patient pulled out IV and refused treatment on multiple occasions. Did not allow for nursing care without becoming agitated. 2. COPD - Pt refusing breathing treatments 3. DMT2 - Hold metformin. Refusing accuchecks and SS insulin 4. Hyperlipidemia - Statin ordered but pt refused medications 5. BPH - Pt refused bedtime meds 6. GERD - See above Once on the floor patient is very noncompliant. He becomes aggressive when trying to give any type of nursing care including medications, vitals, adjusting pillow, etc. Tried to hit nursing staff multiple times through the night. He also verbalizes not wanting any sort of care. Family members have been in and out. They state he is also like this at the intermediate, very often not wanting to take his medications. Discussed further with patient this morning, he states he just wants to be left alone. Offered to try to give him more lasix or another breathing treatment but he refuses. He told his daughter Vannesa last night to just let him . Discussed with Vannesa (no POA has been made) on the phone his goals of care. She and her siblings are in agreement with comfort measures and to respect his wishes. She wishes for him to receive his regular maintenance medications if he's willing to take them, but not to force or agitate him to take them. We discussed consulting with hospice to help manage his symptoms that could arise at the intermediate but she would like to wait on that referral for now. Otherwise, will communicate with intermediate that his goals include comfort focused care and to not be transferred to ER/hospital per his wishes. New POLST form filled out to reflect his wishes. Discharge diagnoses: 1. Acute CHF exacerbation, unknown type 2. COPD 3. DMT2 4. Hyperlipidemia 5. BPH 6. GERD Additional Planning: Case discussed with ED Physician, Dr. Nuñez. DVT Prophylaxis: None Advanced Care Plannin minutes spent discussing advance care planning. Disposition: Discharge to DC Admit to: Obs Discussed Plan of Care with Dr. Coral Crain. Review With Patient Reviewed with Patient and Family: Patient and family have been counseled on condition and care plan and have no immediate questions. I have personally discussed and reviewed the patient's visit/current labs/imaging/decision making with Dr. Coral Crain, my supervising attending. Total number of minutes spent with patient [85] min. More than 50% of the time spent with this patient was devoted to counseling and coordination of care. Time of Admission:07/04/24 16:07 Time of Discharge: 07/05/24 1030 Discharge Plan Discharge Discharge Orders: Discharge Patient (ONCE); Ordered 07/05/24 Ordered By: JOANNE LYON Activity Restrictions/Additional Instructions: DISCHARGE TO SNF DX: SOB COMFORT MEASURES ONLY PATIENT WISHES TO NOT BE TRANSFERRED TO ER OR ADMITTED TO HOSPITAL Care Plan Goals: Problem: Altered Behavioral Pattern Goal: Exhibit appropriate behavior Instructions: Express feelings to family, friends, or others you trust Seek medical assistance if you feel unsafe Patient Disposition: TRANSFER SNF Prescriptions: Continued rosuvastatin 40 mg tablet 40 mg PO BEDTIME hydrocodone-acetaminophen 7.5-325 mg Tablet 1 tab PO TID PRN (Reason: pain) Qty: 90 0RF omeprazole 20 mg capsule,delayed release(DR/EC) 20 mg PO BID potassium chloride 10 mEq capsule, extended release 20 meq PO DAILY ipratropium-albuterol 0.5 mg-3 mg(2.5 mg base)/3 mL solution for nebulization 3 ml INHALATION .q6h prn PRN (Reason: soa) Linzess 145 mcg capsule 145 mcg PO BEDTIME clopidogrel 75 mg tablet 75 mg PO DAILY tiotropium bromide [Spiriva with HandiHaler] 18 mcg capsule, w/inhalation device 1 cap INHALATION DAILY tamsulosin 0.4 mg capsule 0.4 mg PO BEDTIME aspirin [Adult Low Dose Aspirin] 81 mg tablet,delayed release (DR/EC) 81 mg PO DAILY sodium bicarbonate 650 mg tablet 650 mg PO BID ondansetron HCl 4 mg tablet 4 mg PO Q8H PRN (Reason: nausea and vomiting) ferrous sulfate [Iron (ferrous sulfate)] 325 mg (65 mg iron) tablet 325 mg PO DAILY acetaminophen 325 mg capsule 650 mg PO Q6H PRN (Reason: fever/mild pain) metformin 500 mg tablet 500 mg PO DAILY furosemide 40 mg tablet 40 mg PO DAILY diphenhydramine HCl [Allergy (diphenhydramine)] 25 mg capsule 50 mg PO Q12HR PRN (Reason: itching) loperamide 2 mg capsule 2 mg PO Q6H PRN (Reason: loose stool) cholecalciferol (vitamin D3) 50 mcg (2,000 unit) capsule 50 mcg PO DAILY albuterol sulfate 90 mcg/actuation HFA aerosol inhaler 2 puff inhalation Q4H PRN (Reason: shortness of breath or wheezing) No Action (DME) Novofine Autocover 30 gauge x 1/3" needle MISCELLANEOUS Did you review [place] PANEL MONITOR for ALL controlled substances?: Not Applicable Discussed opioids are addictive and Narcan is available by prescription or from pharmacy.: No Condition: Stable
== END 2024-07-05 13:27 ==
LOC: SCU 12:31 → ED 12:31 → SCU 16:45
PROVIDERS: ADMIT Hospitalist; ATTEND Physician Assistant
DX: N40.0 Benign prostatic hyperplasia without lower urinary tract symptoms; Z51.81 Encounter for therapeutic drug level monitoring; E78.5 Hyperlipidemia, unspecified; Z20.822 Contact with and (suspected) exposure to COVID-19; J44.9 Chronic obstructive pulmonary disease, unspecified; Z79.899 Other long term (current) drug therapy; E11.9 Type 2 diabetes mellitus without complications; Z79.84 Long term (current) use of oral hypoglycemic drugs; Z91.199 Patient's noncompliance with other medical treatment and regimen due to unspecified reason; I50.9 Heart failure, unspecified; K21.9 Gastro-esophageal reflux disease without esophagitis; Z89.612 Acquired absence of left leg above knee